=== PATIENT | female | born 1975 | race Caucasian/White ===

== ENCOUNTER 2022-03-12 10:56 | Outpatient (CLI) | payer MEDICARE, MEDICAID, SELFPAY | END 2022-03-12 10:57 | disposition home or self-care (01) | LOC: FBOREF 10:58 | PROVIDERS: PCP Family Medicine; Visit Provider Family Medicine | DX: Z30.433 Encounter for removal and reinsertion of intrauterine contraceptive device (principal) | CPT/HCPCS: 87624; 88174; 88175 ==

== ENCOUNTER 2022-04-21 15:36 | Emergency (ER) | payer MEDICARE, MEDICAID, SELFPAY ==
[2022-04-21 15:45] VITALS: BP 125/85; PULSE 70; RESP 18; TEMP 36.3; O2SAT 96; BMI 32.5
--- NOTE | 2022-04-21 16:48 | ED_ITS ---
HPI - General Adult General Date Seen: 04/21/22 Chief complaint: Post Op Complication Stated complaint: Dental surgery today now in pain Time Seen by Provider: 04/21/22 16:41 Source: patient History of Present Illness HPI narrative: Patient is a 46-year-old woman who had dental surgery today, so she has multiple teeth that were pulled. She says her dentist provided her with a prescription for aquatic pain medication, but because of her insurance, she is not able to get narcotic prescriptions filled by a different provider then her normal doctor, Dr. Aguila. She says that she did call her insurance to trying get this straightened out that they need to talk with her dentist, and the dentist office was closed by the time that she had this conversation with Cameron. She is asking for something to take for tonight until she can get this straightened out with them tomorrow. Review of her prescription use shows that she feels regularly lorazepam, tramadol and gabapentin but does not otherwise have prescriptions outside of her usual dosing with Dr. Aguila. Related Data Home Medications Medication Instructions Recorded Confirmed aripiprazole 15 mg tablet 15 mg PO .Bedtime 02/23/22 03/12/22 dulaglutide 0.75 mg/0.5 mL 1.5 mg subcut .One Day Per Week 02/23/22 03/12/22 subcutaneous pen injector duloxetine 30 mg capsule,delayed 30 mg PO DAILY 02/23/22 03/12/22 release duloxetine 60 mg capsule,delayed 60 mg PO DAILY 02/23/22 03/12/22 release escitalopram oxalate 20 mg tablet 20 mg PO DAILY 02/23/22 03/12/22 levonorgestrel 20 mcg/24 hours (7 1 intrauterine ONCE 02/23/22 03/12/22 yrs) 52 mg intrauterine device lisinopril 40 mg tablet 40 mg PO DAILY 02/23/22 03/12/22 prochlorperazine maleate 10 mg 10 mg PO PRN 02/23/22 03/12/22 tablet topiramate 200 mg tablet 200 mg PO QDAY 02/23/22 03/12/22 trazodone 100 mg tablet 300 mg PO .bedtime PRN 02/23/22 03/12/22 verapamil 120 mg tablet,extended 120 mg PO BID 02/23/22 03/12/22 release olopatadine 0.2 % eye drops 1 drp ophthalmic (eye) DAILY PRN 03/12/22 03/12/22 Previous Rx's Medication Instructions Recorded flash glucose scanning reader #1 ea 02/23/22 (FreeStyle [place] 2 [place]) flash glucose sensor (FreeStyle #6 ea 02/23/22 Spencer 14 Day Sensor kit) tizanidine 4 mg tablet 4 mg PO Q6-8H PRN muscle 02/23/22 spasticity #90 tabs tramadol 50 mg tablet 50 mg PO TID PRN pain #90 tabs 02/23/22 lorazepam 1 mg tablet 1 mg PO TID PRN anxiety #90 tabs 03/16/22 metoprolol succinate 200 mg 200 mg PO DAILY #90 tabs 03/16/22 tablet,extended release 24 hr buspirone 10 mg tablet 10 mg PO TID PRN anxiety #90 tabs 04/13/22 pregabalin 75 mg capsule 75 mg PO BID #60 caps 04/13/22 Allergies Allergy/AdvReac Type Severity Reaction Status Date / Time dexamethasone Allergy Intermediate Rash Verified 03/12/22 10:09 haloperidol Allergy Intermediate Rash Verified 03/12/22 10:09 sumatriptan Allergy Intermediate Rash Verified 03/12/22 10:09 olanzapine Allergy Mild Rash Verified 03/12/22 10:09 sertraline Allergy Unknown Hallucinati Verified 03/12/22 10:09 [facility] Medical History (Updated 03/11/22 @ 00:58 by Umer Aguila MD) Acquired female bladder prolapse Borderline personality disorder Chronic low back pain Chronic pain syndrome Generalized anxiety disorder History of traumatic brain injury Hyperlipidemia Hypertension Insomnia Irritable bowel syndrome with both constipation and diarrhea Migraine headache Moderate episode of recurrent major depressive disorder (05/09/10) Opioid dependence Panic disorder with agoraphobia (08/13/16) Posttraumatic stress disorder Type 2 diabetes mellitus without complication Vitamin D deficiency (12/06/10) Surgical History (Updated 02/20/22 @ 10:53 by Stu Paredes) History of cystoscopy (08/07/09) History of laparoscopic cholecystectomy (12/14/06) History of left oophorectomy (10/10/09) Family History (Updated 02/20/22 @ 10:51 by Stu Paredes) Father Liver cancer Type 2 diabetes mellitus Social History (Updated 02/20/22 @ 10:51 by Stu Paredes) Narrative: , 2 sons Non-smoker Social EtOH Smoking Status: Never smoker How often do you have a drink containing alcohol: never AUDIT-C Alcohol total score: 0 Non-prescribed substance use: denies use Exam Narrative: Exam Narrative: Vital signs reviewed In general, an alert, nontoxic limit. ENT: Recent dental surgery, moderate swelling, bleeding controlled. Neck: Supple. No stridor. Skin: Warm and dry. Well perfused. Const: Vital Signs, click to edit/add: Vital Signs - 24 hr 04/21/22 15:45 Temperature 97.3 F L Pulse Rate [Right Pulse Oximeter] 70 Respiratory Rate 18 Blood Pressure [Ri ght Upper Arm] 125/85 Pulse Oximetry 96 Oxygen Delivery Me thod Room Air Documenting provider has reviewed patient's vital signs: yes Course Course Hospital Course: In review of her records, I think it is reasonable to give her a few Vicodin for tonight. She understands that further medications will need to either come from the dentist or from Dr. Aguial. I gave her 4 Vicodin from [facility]. Vital Signs Vital signs: Initial Vital Signs Temperature 97.3 F L 04/21/22 15:45 Temperature Source Temporal Artery Scan 04/21/22 15:45 Pulse Rate 70 04/21/22 15:45 Respiratory Rate 18 04/21/22 15:45 Blood Pressure 125/85 04/21/22 15:45 Blood Pressure Mean 98 04/21/22 15:45 Blood Pressure Position Sitting 04/21/22 15:45 Pulse Oximetry 96 04/21/22 15:45 Oxygen Delivery Method 04/21/22 15:45 Vital Signs Temperature 97.3 F L 04/21/22 15:45 Pulse Rate 70 04/21/22 15:45 Respiratory Rate 18 04/21/22 15:45 Blood Pressure 125/85 04/21/22 15:45 Pulse Oximetry 96 04/21/22 15:45 Oxygen Delivery Method 04/21/22 15:45 Temperature 97.3 F L 04/21/22 15:45 Pulse Rate 70 04/21/22 15:45 Respiratory Rate 18 04/21/22 15:45 Blood Pressure 125/85 04/21/22 15:45 Pulse Oximetry 96 04/21/22 15:45 Oxygen Delivery Method 04/21/22 15:45 Discharge Plan Discharge Prescriptions: No Action topiramate 200 mg tablet 200 mg PO QDAY levonorgestrel 20 mcg/24 hours (7 yrs) 52 mg intrauterine device 1 intrauterine ONCE trazodone 100 mg tablet 300 mg PO .bedtime PRN duloxetine 30 mg capsule,delayed release(DR/EC) 30 mg PO DAILY Rx Instructions: TOTAL OF 90 MG escitalopram oxalate 20 mg tablet 20 mg PO DAILY verapamil 120 mg tablet extended release 120 mg PO BID dulaglutide 0.75 mg/0.5 mL pen injector 1.5 mg subcut .One Day Per Week lisinopril 40 mg tablet 40 mg PO DAILY prochlorperazine maleate 10 mg tablet 10 mg PO PRN duloxetine 60 mg capsule,delayed release(DR/EC) 60 mg PO DAILY Rx Instructions: TOTAL OF 90 MG aripiprazole 15 mg tablet 15 mg PO .Bedtime tizanidine 4 mg tablet 4 mg PO Q6-8H PRN (Reason: muscle spasticity) Qty: 90 1RF tramadol 50 mg tablet 50 mg PO TID PRN (Reason: pain) Qty: 90 0RF (DME) FreeStyle [place] 2 [place] Misc See Rx Instructions .Route Qty: 1 0RF Rx Instructions: As directed (DME) FreeStyle Spencer 14 Day Sensor Kit See Rx Instructions .Route Qty: 6 1RF Rx Instructions: Change every 2 weeks olopatadine 0.2 % drops 1 drp ophthalmic (eye) DAILY PRN metoprolol succinate 200 mg tablet extended release 24 hr 200 mg PO DAILY Qty: 90 3RF lorazepam 1 mg tablet 1 mg PO TID PRN (Reason: anxiety) Qty: 90 2RF buspirone 10 mg tablet 10 mg PO TID PRN (Reason: anxiety) Qty: 90 1RF pregabalin 75 mg capsule 75 mg PO BID Qty: 60 2RF Follow Up/Referrals: Umer Aguila MD [Primary Care Provider] -
[2022-04-21 16:50] VITALS: BP 139/92; PULSE 74; RESP 16; TEMP 36.4; O2SAT 97
--- OUTSIDE RECORDS SUMMARY | 2022-04-21 17:04 | XMS_ITS | Encounter Summary ---
:1975 Author Organization [facility] Address [address] [place] [id number] Care Team Providers Name Role Phone Elsewhere, Pcp Primary Care Provider Unavailable Encounter Details Date Type Department Care Team Description 11/15/2020 Orders Only [facility] PCP [facility] Sa ilya Aranda M.D. [address] [place], [place] [phone] (Wo rk) Social History Tobacco Use Types Packs/Day Years Used Date Smoking Tobacco: Never Smokeless Tobacco: Never Alcohol Use Standard Drinks/Week Comments Yes 0 (1 standard drink = 0.6 oz pure alcoho l) very little Alcohol Habits Answer Date Recorded How often do you have a drink containing alcohol? Monthly or less 08/21/2019 How many drinks containing alcohol do you have on a 1 or 2 08/21/2019 typical day when you are drinking? How often do you have six or more drinks on one Not asked occasion? Comment: very little 10/26/2018 Sex Assigned at Date Recorded Female 10/26/2018 1:31 PM CDT documented as of this encounter Plan of Treatment Not on filedocumented as of this encounter Visit Diagnoses Not on filedocumented in this encounter Additional Health Concerns Assessment Noted Time PHQ-9 Depression Total Score: 12 08/25/2018 3:00 PM CS T documented as of this encounter Care Teams Foreign Student Adviser Relationship Specialty Start Date End Date Elsewhere, Pcp PCP - General Internal Medicine 01/16/20 documented as of this encounter
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
--- OUTSIDE RECORDS SUMMARY | 2022-04-21 17:04 | XMS_ITS | Clinical Summary ---
:1975 Author Organization [facility] [place] [address] Care Team Providers Name Role Phone Umer Aguila MD Primary Care Provider [phone] Allergies Active Allergy Reactions Severity Noted Date Comments Adhesive Tape-Silicones Itching Low 01/11/2020 Dexamethasone Rash, Hives 04/17/2011 Haloperidol Tachycardia, Hives 05/26/2007 Sumatriptan Headache, Hives 10/14/2006 Sertraline Hallucinations 01/02/2019 Olanzapine *Unknown - Pt Doesn't Remember 03/23/2018 Medications Medication Sig Dispensed Refills Start Date End Date Status DULoxetine (CYMBALTA) Take 1 capsule by 120 capsule 0 05/20/20 18 Active 60 mg Delayed-release mouth 2 times capsuleIndications: daily. Borderline personality disorder (HC), Generalized anxiety disorder, Major depressive disorder, recurrent episode, moderate (HC) acetaminophen Take 1,000 mg by 0 07/05/2018 Active (TYLENOL EXTRA mouth. STRGTH) 500 mg tablet ibuprofen (ADVIL; Take 400 mg by 0 Active MOTRIN) 200 mg tablet mouth. DULoxetine (CYMBALTA) 0 12/19/2018 Active 30 mg Delayed-release capsule lisinopril (PRINIVIL; 0 11/21/2018 Active ZESTRIL) 40 mg tablet LORazepam (ATIVAN) Take 1 mg by 0 10/22/2018 Active 0.5 mg tab mouth 3 times daily. tiZANidine (ZANAFLEX) Take 1 tablet by 90 tablet 6 01/02/2019 Active 4 mg mouth every 8 tabletIndications: hours if needed Chronic bilateral low for Muscle Spasm. back pain without sciatica ondansetron (ZOFRAN) Take 1 tablet by 40 tablet 2 01/02/2019 Active 8 mg mouth every 8 tabletIndications: hours if needed Nausea and vomiting, for intractability of Nausea/Vomiting. vomiting not specified, unspecified vomiting type metoclopramide HCl Take 1 tablet by 20 tablet 0 05/28/2019 Active (REGLAN) 10 mg mouth every 6 tabletIndications: hours if needed Nonintractable for headache, unspecified Nausea/Vomiting chronicity pattern, (or headache). unspecified headache type topiramate (TOPAMAX) TAKE 1 TABLET BY 180 tablet 0 07/26/2019 Active 50 mg MOUTH TWICE DAILY tabletIndications: Migraine without aura and without status migrainosus, not intractable meloxicam 15 mg Take 1 tablet by 30 tablet 2 08/04/2019 Active tabletIndications: mouth once daily. Lumbar radiculopathy promethazine Take 1 tablet by 3 tablet 0 08/12/2019 Active (PHENERGAN) 25 mg mouth every 6 tabletIndications: hours if needed Intractable migraine for without status Nausea/Vomiting migrainosus, for up to 3 unspecified migraine doses. type ondansetron (ZOFRAN Place 1 tablet on 10 tablet 0 11/06/2019 Active ODT) 4 mg the tongue every disintegrating 8 hours if needed tabletIndications: for Other migraine Nausea/Vomiting. without status migrainosus, not intractable metoclopramide HCl Take 1 tablet by 20 tablet 0 12/01/2019 Active (REGLAN) 10 mg mouth every 6 tabletIndications: hours if needed Migraine with aura for Other and without status (Specify) migrainosus, not (headache). intractable busPIRone (BUSPAR) 10 Take 10 mg by 0 02/29/2020 Active mg tablet mouth 3 times daily if needed. FOR ANXIETY SUBOXONE 2-0.[address] 1 STRIP 0 11/16/2019 Active sublingual UNDER THE TONGUE TWICE DAILY ALLOW TO DISSOLVE SLOWLY IN MOUTH WITHOUT CHEWING OR SWALLOWING buprenorphine-naloxon PLACE 1 TABLET 0 02/28/2020 Active e, 2 mg-0.5 mg, UNDER THE TONGUE (SUBOXONE) sublingual THREE TIMES DAILY tablet ALLOW TO DISSOLVE SLOWLY IN MOUTH WITHOUT CHEWING OR SWALLOWING trazodone HCl Take by mouth. 0 A ctive (TRAZODONE ORAL) fluticasone (50 mcg Inhale 1 [place] 1 Bottle 0 12/10/2020 Active per actuation) nasal into affected solution nostril(s) once (FLONASE)Indications: daily. Sinus congestion loratadine (CLARITIN) Take 1 Tablet (10 30 Tablet 0 12/10/2020 Active 10 mg mg) by mouth once tabletIndications: daily. Sinus congestion eletriptan (RELPAX) Take 1 Tablet (40 6 tablet. 1 01/13/2021 Active 40 mg mg) by mouth 2 tabletIndications: times daily if Other migraine needed for without status Migraine. migrainosus, not intractable azithromycin First dose given 4 Tablet 0 07/17/2021 Active (ZITHROMAX) 250 mg in emergency tabletIndications: department, then Pneumonia due to 250 mg (1 tab) COVID-19 virus daily for days 2-5. benzonatate Take 1 Capsule 12 Capsule 0 07/17/2021 A ctive (TESSALON) 200 mg (200 mg) by mouth capsuleIndications: 3 times daily if Pneumonia due to needed for Cough. COVID-19 virus lidocaine 5 % topical Apply to intact 12 Patch 0 10/08/2021 Active patchIndications: skin to cover Chronic left-sided most painful area low back pain with for max 12hr per left-sided sciatica 24hr period. lidocaine 5 % topical Apply to intact 30 Patch 0 10/17/2021 Active patchIndications: skin to cover Sciatica, unspecified most painful area laterality for max 12hr per 24hr period. miscellaneous medical As directed. 1 Each 0 10/17/2021 Active supply (Blood Monitor your Pressure Cuff) blood pressure miscIndications: daily and record. Hypertension Make sure you are sitting for at least 15 minutes, around the same time of day. Continue with same medications. Follow-up with primary care for further evaluation of your blood pressure. 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 NO FU RTHER NARCOTICS FOR ANY REASON. Umer Aguila MD 09/08/2017 10:42 PM Irritable bowel syndrome with both constipation and di arrhea 08/19/2016 History of nonadherence to medical treatment 6 Migraine with aura and without status migrainosus, not intractable 08/13/2016 Panic disorder with agoraphobia 08/13/2016 PTSD (post-traumatic stress disorder) 07/29/2016 Vitamin D deficiency 12/06/2010 Major depressive disorder, recurrent episode, moderate 05/09/2010 Generalized anxiety disorder 05/09/2010 Narcotic Overuse 10/17/2006 Overview: Suboxone found in her urine 08/27/17 [...] feel is appropriate - ideally without narcotics. Essential hypertension 10/14/2006 Chronic, continuous use of opioids Acute respiratory failure Resolved Problems Problem Noted Date Resolved Date Hypokalemia 04/18/2018 04/28/2018 Metabolic acidosis 04/18/2018 04/28/2018 UTI (urinary tract infection) 04/18/2018 04/28/2018 Obesity (BMI 30.0-34.9) 08/13/2016 11/19/2017 Vitamin B12 deficiency 08/05/2016 08/13/2016 Hypokalemia 08/03/2016 08/13/2016 Bipolar 2 disorder, major depressive episode 07/29/2016 08/13/2016 Controlled substance agreement signed 05/22/2016 Hypertension 07/29/2015 04/28/2018 Migraine without aura and without status migrainosus, not 08/13/2016 intractable Controlled substance agreement signed 12/05/2013 Diabetes mellitus type II 09/25/2012 06/23/2014 Overview: a system change updated this record. Thi s will not affect patient care or billing. This comment can be deleted. Diabetes mellitus type 2, uncontrolled 01/18/2012 0 09/25/2012 Dysthymic disorder 06/19/2011 02/12/2015 Issue of repeat prescriptions 03/18/2011 09/08/2017 Overview: Migraine - taking Percocet Major depressive disorder, recurrent episode, severe, withou t 11/27/2006 12/30/2010 mention of psychotic behavior Depressive disorder, not elsewhere classified 10/17/2006 12/17/2007 Anxiety state, unspecified 10/17/2006 12/30/2010 Unspecified essential hypertension 10/14/200607/29 Panic disorder without agoraphobia 10/14/200608/13 MIGRAINE 10/14/2006 01/04/2015 Overview: OK for 2 ER visits/month for 1 liter IV saline, Norflex 60 mg IV, Phenergan 25 mg IV, and MS 4 mg IV 1-2 doses. Umer Aguila MD 06/23/2014 4:45 PM Encounters Date Type Specialty Care Team Description 03/12/2022 Lab Requisition Umer Aguila MD from Last 3 Months Immunizations Name Administration Dates Next Due Influenza Virus, Unspecified 08/03/2008, 06/14/2007, 005 Influenza, IIV3 (Age 6-35 mos) 06/10/2011 Influenza, IIV3 (Age >=3 years) 05/12/2013, 07/21/2012, 05/17, 08/03/2008, 06/14/2007, 07/01/2005 Influenza, IIV4 05/13/2018, 06/10/2017, 07/07/2016, 06/12/2014 Tdap 04/16/2011 Family History Medical History Relation Name Comments Good Health Brother 2 Diabetes Father Hypertension Father Liver cancer Father Heart Disease Maternal Grandmother Psychiatric illness Mother Diabetes Paternal Grandmother Good Health Sister 2 Relation Name Status Comments Brother 1 Alive HALF Brother 2 Father Alive Maternal Grandfather Maternal Grandmother Mother Alive Paternal Grandfather Paternal Grandmother Alive Sister 1 Alive Sister 2 Son 1 Alive Son 2 Alive Social History Tobacco Use Types Packs/Day Years Used Date Never Smoker Smokeless Tobacco: Never Used Tobacco Cessation: Counseling Given: Yes Alcohol Use Standard Drinks/Week Comments Yes 0 (1 standard drink = 0.6 oz pure Every once and a while; not that alcohol) often. Alcohol Habits Answer Date Recorded How often do you have a drink Not asked containing alcohol? How many drinks containing alcohol do Not asked you have on a typical day when you are drinking? How often do you have six or more Not asked drinks on one occasion? Comment: Every once and a while; not that 2014 often. Sex Assigned at Date Recorded Not on file Obstetrics History Para Term AB IAB SAB Ectopic Multiple Living Live Births 3 2 1 1 2 Date Outcome GA Total Labor/2nd/3rd Weight Sex Delivery Anes PTL Kristin A 1 A5 Name Clin Labor SAB Para Para Last Filed Vital Signs Vital Sign Reading Time Taken Comments Blood Pressure 198/140 10/17/2021 11:00 provider notifi ed; no PM [employer] new orders at th is time. Pulse 108 10/17/2021 11:00 PM [employer] Temperature 36.9 ??C (98.5 ??F) 10/17/2021 10:30 PM [employer] Respiratory Rate 22 10/17/2021 10:30 PM [employer] Oxygen Saturation 94% 10/17/2021 11:00 PM [employer] Inhaled Oxygen - - Concentration Weight 98.4 kg (217 lb) 10/17/2021 10:30 PM [employer] Height 175.3 cm (5' 9) 10/17/2021 10:30 PM [employer] Body Mass Index 32.05 10/17/2021 10:30 PM [employer] Plan of Treatment Health Maintenance Due Date Last Done Comments COVID-19 vaccine series (#1) 02/23/1978 Hepatitis C screening for age 0108/26/1995 18-79 Depression screening for age 12+ 03/07/2020 03/07/2019, 03/2019, 01/02/2019, Additional history exists BMI (ht and wt on same day) for 08/04/2020 08/04/2019, 0703/2019, age 18+ 01/02/2019, Additional history exists Tetanus booster 04/16/2021 04/16/2011 Influenza for age 9-49 04/16/2022 05/13/2018, 06/10/2017, 07/07/2016, Additional history exists Pap test for age 21-65 03/12/2025 03/12/2022, 01/17/2019, 11/01/2012, Additional history exists Tdap Completed 04/16/2011 Procedures Procedure Name Priority Date/Time Associated Diagnosis Comme nts LAB TRACKING EVENT Routine 03/12/2022 10:00 AM CDT CABINET MOUNTER THIN PREP PAP Routine 03/12/2022 10:00 AM Res ults for this SCREEN IMAGED CDT procedure are in the results section. from Last 3 Months Results LAB TRACKING EVENT (03/12/2022 10:00 AM CDT) Specimen Anatomical Collection Method Collection Time Receive d Time (Source) Location / / Volume Laterality Other (Other) Client Collect / 03/12/2022 10:00 2021 9:46 Unknown AM CDT PM CDT Umer Aguila MD LAB BILL ONLY Performing Organization Address City/State/ZIP Code Phon e Number [facility] [address] [place] [address] LABORATORY-CENTRAL 2000 LABORATORY CABINET MOUNTER THIN PREP PAP SCREEN IMAGED (03/12/2022 10:00 AM CDT) Component Value Ref Test Analysis Performed At [facility] Range Method Time Signature Case Report Gynecologic Cytology Report ? Case: [id number] ? 03/30/2022 [facility] Authorizing Provider: ??Umer Morales MD ??Collected: ? 03/12/2022 1000 ? 2:06 PM HEALTH Ordering Location: ? [facility] ?Received: ?03/13/2022 1048 ? CDT [place] BORATORY-C First Screen: ? Shaunna Hernandes ? ENTRAL Pathologist: ? Scottie Currie ? LABORATORY ? MD Aniya ? Specimen: ?CABINET MOUNTER ThinPrep Vial Screening, Cervical/Vaginal ? INTERPRETATI NEGATIVE FOR (none) 03/30/2022 [facility] Arelis ctronically ON/RESULT INTRAEPITHELIAL 2:06 PM HEALTH sign ed by LESION OR CDT LABORATORY-C Scottie Currie MALIGNANCY (NIL) ENTRAL Edw in MD Aniya LABORATORY on 022 at 2:06 PM OTHER Reactive cellular 03/30/2022 [facility] NON-NEOPLAST changes associated 2:06 PM HEALTH IC with CDT LABORATORY-C FINDING(S) inflammation/repai ENTRAL r LABORATORY SPECIMEN Satisfactory for evaluation 03/30/2022 [facility] ADEQUACY Endocervical component present 2:06 PM HEALTH CDT LABORATORY-C ENTRAL LABORATORY HPV REQUEST HPV not requested 03/30/2022 [facility] 2:06 PM HEALTH CDT LABORATORY-C ENTRAL LABORATORY Date of LMP 03/30/2022 [facility] 2:06 PM HEALTH CDT LABORATORY-C ENTRAL LABORATORY Comment: Joce Last Pap Result NIL 03/30/2022 2:06 [facility] PM CDT LABORATORY-CENTRAL LABORATORY Menstrual Status Hormonally 03/30/2022 2:06 [facility] Suppressed PM CDT LABORATORY-CENTRAL LABORATORY Additional 03/30/2022 2:06 [facility] Information PM CDT LABORATORY-CENTRAL LABORATORY Comment: Interpreted at [facility], Central Laboratory - [address], [place] [address] Automated Review Successful 03/30/2022 2:06 PM CDT [facility] LABORATORY-CENTRAL L ABORATORY Comment: Specimen processed successfully by automated auto phone installer device, [employer] System, [employer] Note The pap test is a 03/30/2022 2:06 PM [facility] screening technique, not CDT LABOR ATORY-CENTRAL LABORATORY a diagnostic procedure. It is used primarily to screen for squamous cancers and precursor lesions. Published studies have shown that it is subject to both false negative and false positive results. The pap test should not be used as the sole means to diagnose or exclude pre-malignant and malignant lesions. Specimen Anatomical Collection Method Collection Time Receive d Time (Source) Location / / Volume Laterality Other 03/12/2022 10:00 03/13/2022 (Cervical/Vagina AM CDT 10:48 AM CD T l) Umer Aguila MD PATHOLOGY/CYTOLOGY Performing Organization Address City/State/ZIP Code Phon e Number [facility] [address] [place] [address] LABORATORY-CENTRAL 2000 LABORATORY from Last 3 Months Insurance Payer Benefit Plan / Subscriber ID Effective Dates Phone Addre ss Type Group [employer] 2011-[employer] INS VEHICLE INS t MEDICARE PART B MEDICARE PART B [id number] 2019-Presen ATTN: CLAIMS - HB USE ONLY HB ONLY t [address] [place] [address] [employer]UE [employer]OSS BLUE CROSS OF [id number] 2013-Presen [address] [place] [address] [facility] [id number] 2021-Presen [address] [place] [address] [place] [id number] 2021-Prese [address] [facility] [place] [place] [address] [address] (Home[address] [id number] Maritza Leyva Personal/Family Self 1975 [address]) [address] [id number] Maritza Leyva Motor Vehicle Self 1975 [address] [id number] Maritza Leyva Motor Vehicle Self 1975 [address] [id number] Advance Directives Latest Code Status on File Code Status Date Activated Date Inactivated Comments Full Code 05/09/2018 12:49 AM 05/09/2018 4:01 PM Code Status Discussion: Not Discussed Full Code 04/17/2018 8:28 PM 04/25/2018 4:06 PM Full Code 03/16/2018 8:13 PM 03/31/2018 3:31 PM Full Code 03/14/2018 3:58 PM 03/16/2018 6:57 PM Full Code 02/23/2018 10:24 AM 02/24/2018 3:39 PM Will discus s with pt this am Code Status Discussion: Not Discussed Care Teams Interior Design Professor Relationship Specialty Start Date End Date Umer Aguila MD PCP - General Family Practice 08/12/191999 [place] [address]
--- OUTSIDE RECORDS SUMMARY | 2022-04-21 17:04 | XMS_ITS | Continuity of Care Document ---
:1975 Author Organization [facility] Address [address] [place] [address] [address] Phone Care Team Providers Name Role Phone [facility] Unavailable Unavailable Procedures Procedure Date INJ FORAMEN EPIDURAL L/S INJ FORAMEN EPIDURAL L/S Advance Directives Directive Yes / No Effective Date File Name No Information Encounters Encounter Practice Location Reason(s) Diagnoses Date Provider Provide rs Description For Visit Copied on Encounter [facility] [place] [facility] Information [place] [address] [facility] [address] [place] [address] [address], [place], [place] [facility] [place], [place], [place], [place], [id number], [id number], [id number] [place]. . tel:[phone] tel:[phone] tel:[phone] Family History Family Member Type Diagnosis Age At Onset No Information Payers Payer name Insurance type Covered green party ID Authorization(s ) No Information Social History Type Description Quantity Date Captured Comments Sex Female Smoking Status No Information Chief Complaint And Reason For Visit No Information Reason For Referral Reason For Referral No Information Plan Of Treatment Date Type Action Status No Information History Of Present Illness Encounter Date Complaint History Of Present I llness No Information Functional Status Date Functional Assessment No Information Instructions Date Instruction Additional Informati on No Information Assessments Type Assessment Date No Information Patient Care Teams Name Effective Dates (start - stop) Status M embers No Information
--- OUTSIDE RECORDS SUMMARY | 2022-04-21 17:04 | XMS_ITS | Continuity of Care Document ---
:1975 Author Organization [facility] Address [address] [facility] [place]IREZ [place]z [address] Phone Care Team Providers Name Role Phone Will Deondre CHAPPELL Unavailable Unavailable Allergies, Adverse Reactions, Alerts Substance Reaction Status Criticality HALOPERIDOL LACTATE Rashincreased heart rate Active No Information haloperidol Rashincreased heart rate Active No Info rmation SUMATRIPTAN SUCCINATE Headache Active No Informa tion sumatriptan Headache Active No Information Medications Medication Instructions Dosage Effective Dates Status Comment s (start - stop) aripiprazole 10 mg take 1 tablet by oral 10 MG - Active tablet route every day gabapentin 600 mg take 1 tablet by ORAL 600 MG - Active tablet route 3 times every day duloxetine 60 mg take 1 capsule by ORAL 60 MG - Active capsule,delayed route every day release duloxetine 30 mg take 3 capsule by ORAL 90 MG - Active capsule,delayed route every day release topiramate 50 mg take 1 tablet by oral 50 MG - Active tablet route every day metformin 500 mg take 1 tablet by oral 500 MG - Active tablet route 2 times every day with morning and evening meals metoprolol succinate take 1 tablet by oral 200 MG - Acti ve ER 200 mg route every day tablet,extended release 24 hr lisinopril 20 mg take 1 tablet by oral 20 MG - Active tablet route every day lorazepam 1 mg tablet take 1 tablet by ORAL 1 MG - Act jim route every 8 hours prn, max 3/d tizanidine 4 mg tablet take 1 tablet by ORAL 4 MG - Ac tive route 3 times every day as needed, max 2/day trazodone 100 mg take 1 tablet by ORAL - Active tablet route 3 times per day Procedures Procedure Date INJ FORAMEN EPIDURAL L/S [...] rs Description For Visit Copied on Encounter [facility] No Information [facility] Deondre. Pain [place] 2 [address] [facility], [place], [address] [facility] [place] , [place], [place], [id number] [place], , [place]. [id number] tel: , [place] [phone] tel: [phone] [facility] Radiculopathy, Will Referr [facility] Surgery lumbar region Deondre. Provider: Pain Center [address] [facility], [place], [address] [facility] C[place], , [place], [place], [id number] , [place], [place], [place]. [address]. [id number] tel: tel:01 , [place] [phone] tel: [phone] OFFICE VISIT, [facility] Widespread Chronic migraine Ng liyah Referring [facility] pain (chief without aura, Igor. Eva de león: TELEMEDICINE Pain [place] complaint) intractable, 1 14[address] [facility], without status [facility] [address], [address] [facility] migrainosusFibro [address] [facility] Caleb [place], myalgiaChronic 100, [place], migraine w/o [place] , [place], [place], [place], [place], [address]. [id number] intractable, w [phone] tel: , [place] status , [place]. 406275 tel: migrainosusLong tel: [phone] term (current) [id number] use of opiate analgesicLow back painMyalgia, other siteCervicalgiaR adiculopathy, lumbar region OFFICE VISIT, [facility] Widespread Chronic migraine December- liyah Referring [facility] pain (chief without aura, Igor. Pr ovider: TELEMEDICINE Pain [place] complaint) intractable, 1 1455 [facility], without status [facility] J, [address] migrainosusFibro [address] [place], myalgiaChronic 100, [place], migraine w/o [place] , [place], [place], [place], [place], [address]. [id number] intractable, w [phone] tel: , [place] status , [place]. 060827 tel: migrainosusLong tel: [phone] term (current) [id number] use of opiate analgesicLow back painMyalgia, other siteCervicalgia [facility] Chronic migraine December- [facility] without aura, Igor. Provid er: Pain [place] intractable, 1 1455 Deondre [facility], without status [address], [address] migrainosus [address] [place], 100, [place], [place] , [place], [place], [place], [address]. [phone] tel: , [place] , [place]. 338173 tel: tel: [phone] OFFICE VISIT, [facility] Widespread Chronic migraine Nov- liyah Referring [facility] pain (chief without aura, Igor. Pr ovider: TELEMEDICINE Pain [place] complaint) intractable, 1 14[address] [facility], without status [address], [address] migrainosusFibro [address] [place], myalgiaChronic 100, [place], migraine w/o [place] , [place], [place], [place], [place], [address]. [phone] intractable, w [phone] tel: , [place] status , [place]. 356888 tel: migrainosusLong tel: [phone] term (current) [id number] use of opiate analgesicLow back painMyalgia, other site OFFICE VISIT, [facility] Widespread Chronic migraine Oct- liyah Referring [facility] pain (chief without aura, Igor. Pr ovider: TELEMEDICINE Pain [place] complaint) intractable, 1 1455 [facility], without status [address], [address] [facility] migrainosusFibro 11 [facility] [place], myalgiaChronic 100, [place], migraine w/o [place] , [place], [place], [place], [place], [address]. [phone] intractable, w [phone] tel: , [place] , [place]. 874243 tel: migrainosusLong tel: [phone] term (current) [id number] use of opiate analgesicLow back painMyalgia, other site OFFICE VISIT, [facility] Widespread Chronic migraine Sep- [facility] Referring [facility] pain (chief without aura, Igor. Pr ovider: TELEMEDICINE Pain [place] complaint) intractable, 1 1455 [facility], without status [address], [address] [facility] migrainosusFibro 11 [facility] [place], myalgiaChronic 100, [place], migraine w/o [place] , [place], [place], [place], [place], [address]. [id number] intractable, w [phone] tel: , [place] status , [place]. 196038 tel: migrainosusLong tel: [phone] term (current) [id number] use of opiate analgesicLow back painMyalgia, other site [facility] Chronic migraine Aug-2 [facility] without aura, Igor. Provid er: Pain [place] intractable, 1 1455 Deondre [facility], without status [address], [address] migrainosus [address] [place], 100, [place], [place] , [place], [place], [place], [address]. [phone] tel:+ , [place] , [place]. 464275 tel: tel: [phone] OFFICE VISIT, [facility] Widespread Chronic migraine Jose-0 Ng liyah Referring [facility] pain (chief without aura, Igor. Pr ovider: TELEMEDICINE Pain [place] complaint) intractable, 1 1455 [facility], without status [facility] J, [address] migrainosusChron [address] [place], ic migraine w/o 100, [place], aura, [place] , [place], [place], [place], [address]. [phone] status [phone] tel: , [place] migrainosusFibro , [place]. 251517 tel: myalgiaLong term tel: [phone] (current) use of [id number] opiate analgesicLow back painMyalgia, other site OFFICE VISIT, [facility] Widespread Chronic migraine Dec- Lester yen Referring [facility] pain (chief without aura, Igor. Provid er: TELEMEDICINE Pain complaint) intractable, 0 1455 [facility], without status [facility] J, [address] migrainosusChron [address] [place], ic migraine w/o 100, [place], aura, [place] , [place], [place], int[place], [place], [address]. [id number] status [phone] tel: , [place] [facility] , [place]. 133994 tel: myalgiaLong term tel: [phone] (current) use of [id number] opiate analgesicLow back painMyalgia, other site OFFICE VISIT, [facility] Widespread Chronic migraine Ng liyah Referring [facility] pain (chief without aura, Igor. Pr ovider: TELEMEDICINE Pain [place] complaint) intractable, 0 1455 [facility], without status [address] [place], [address] migrainosusChron 11 [facility], ic migraine w/o 100, Clinic - [place], aura, [place], intractable, w [place], [id number] status [id number] [facility], , [facility] , . [place], tel:+ myalgia[place] term tel:+ [place], [phone]. [phone] (current) use of [id number] tel:+ [phone] opiate [id number] analgesicLow back painMyalgia, other siteMyalgia of auxiliary muscles, head and neck OFFICE/OUTPAT [facility] Widespread Chronic migraine liyah Referring IENT [facility] pain (chief without aura, Igor . Provider: EST Pain [place] complaint) intractable, 0 1455 [facility], without status [address] [place], [address] migrainosusChron 11 [facility], ic migraine w/o 100, Clinic - [place], aura, [place], intractable, w e, [id number] status [id number] [facility], , [facility] , . [place], tel:+ myalgia[place] term tel:+ [place], [address]. [phone] (current) use of [id number] tel:+ [phone] opiate 192430 analgesicLow back painMyalgia, other siteMyalgia of auxiliary muscles, head and neck [facility] Chronic migraine Sep-2 Duong Ref [facility] without aura, Igor. Provid er: Pain [place] intractable, 0 1455 [facility], without status [address] [place], [address] migrainosus 11 [facility], 100, Clinic - [place], [place], e, [place] [id number] [facility], , [place] , [place]. [place], tel: tel:+ [place], [phone]. [phone] tel: [phone] OFFICE/OUTPAT [facility] Widespread Chronic migraine liyah Referring IENT VISIT, [facility] pain (chief w/o aura, Igor. Pr ovider: EST Pain [place] complaint) intractable, w/o 0 1455 [facility], [facility], [address] migraine w/o [address] [place], aura, 100, Clinic - [place], intractable, w Escobar[place] [facility], status e, [place] [id number] migrainosusLow [phone] [facility] , , back , [place]. [place], tel: painFibromyalgia tel:+ [place], [phone]. 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 Pr ovider: EST Pain [place] complaint) intractable, w/o 0 1455 [facility], [facility], [address] migraine w/o [address] [place], aura, 100, Clinic - [place], intractable, w Daniella [place] [facility], status e, [id number] migrainosusLow [id number] [facility] , , back , [place]. [place], tel:+ painFibromyalgia tel:+ [place], [address]. [phone] penitentiary [phone] tel:[phone] (current) use of [id number] opiate analgesicMyalgia , other site OFFICE VISIT, [facility] Widespread Chronic migraine Lester yen Referring [facility] pain (chief w/o aura, Igor. Provider: TELEMEDICINE Pain complaint) intractable, w/o 0 1455 [facility], [facility], [address] migraine w/o [address] [facility] Caleb, aura, 100, Clinic - [place], intractable, w [facility], status e, [place], [id number] migrainosusLow [id number] [facility] , back , [place]. [place], tel:+ pain[place]:+ [place], [address]. [phone] penitentiary [phone] tel:73 (current) use of 169288 opiate analgesic [facility] Chronic migraine Paolo[facility] w/o aura, Igor. Provider: Pain [place] intractable, w/o 0 1455 Milton [facility]azan [facility], [facility], [address] 11 [facility], 100, Clinic - [place], Daniella Sam [place], [place], [place], [id number] [id number] [facility], , [place] , [place], tel:+ tel:+ [place], [phone]. [phone] tel:[phone] OFFICE VISIT, [facility] Widespread Chronic migraine Jan- [facility] pain (chief w/o aura, Igor. Provider: TELEMEDICINE Pain complaint) intractable, w 0 1455 [facility], [facility] [address], [address] migrainosusLow [address] [facility] La ne, [place], back 100, [place], painFibromyalgia [place], [place], [place], [place], [address]. [phone] (current) use of [id number] tel : , [place] opiate analgesic , [place]. 428910 tel: tel: [phone] OFFICE VISIT, [facility] Widespread penitentiary December- Duong Re [facility] pain (chief (current) use of Igor. Pro vider: TELEMEDICINE Pain complaint) opiate 0 1455 Deondre [facility], [facility], [address] back [address] Caleb, [place], painFibromyalgia 100, [facility] ol [place], Chronic migraine [place] , [place], [place], w/[place], [place], [address]. [phone] intractable, w [id number] tel: , status , [place]. 409298 tel: migrainosus tel: [phone] OFFICE VISIT, [facility] Widespread Chronic migraine Apr- Lester yen Referring [facility] pain (chief w/o aura, Igor. Provider: TELEMEDICINE Pain complaint) intractable, w 0 1455 A [facility], [place], [facility], [address] migrainosusLow [address] [place], [place], back 100, [place], painFibromyalgia [place] , [place], [place], [place], [address]. [phone] (current) use of [id number] tel : , opiate analgesic , [place]. 239745 tel: tel: [phone] OFFICE VISIT, [facility] Widespread Chronic migraine Apr-0 Lester yen Referring [facility] pain (chief w/o aura, Igor. Provider: TELEMEDICINE Pain complaint) intractable, w 0 1455 D amari [facility], [facility], [address] migrainosusLow [address] [facility], back 100, Clinic - [place], painFibromyalgia [place], Chronic pain [place], [place], [id number] syndromeLo [id number] [facility] , term (current) , [place]. [place] , tel: use of opiate tel: [place], [phone]. [phone] analgesic [phone] tel:+ [phone] OFFICE/OUTPAT [facility] Widespread Chronic migraine Oct-2 Ng liyah Referring IENT VISIT, [facility] pain (chief w/o aura, Igor. Pr ovider: NEW Pain [place] complaint) intractable, w 0 1455 Eitan Bazan [facility], [facility], [address] migrainosusLow [address] [facility], back 100, Clinic - [place], painFibromyalgia [place], Encounter for [place], [place], [address] [phone] screening for [id number] [facility], , other , [place]. [place], tel: disorderOther tel: [place], [phone]. [phone] mcfp [phone] tel:73 (current) drug [id number] therapyEncounter for therapeutic drug level monitoringMyalgi a, other siteLong term (current) use of opiate analgesic [facility] No Information [facility] Deondre. Pain [place] [address] [facility], [place], [address] [place], [place], [place], [place], [id number] [place], , [place]. [id number] tel: , [place] [phone] tel: [phone] Family History Family Member Type Diagnosis Age At Onset Mother Problem (finding) back pain Payers Payer name Insurance type Covered constitution party ID Authorization(s ) No Information Social History Type Description Quantity Date Captured Comments Sex Female Smoking Status No Information Chief Complaint And Reason For Visit No Information Reason For Referral Reason For Referral No Information Plan Of Treatment Date Type Action Status Goal Order Annual PT. Due on 021 due Goal ALT (SGPT). Due on d ue Goal SAWYER HELPER Paperwork. Due on due Goal UDT. Due on due Goal SEISMIC PROSPECTING OBSERVER Scanned. Due on due Goal AST (SGOT). Due on d ue Goal Creatinine. Due on d ue Goal OARS. Due on due Goal PHQ-9. Due on due Goal Tobacco Use. Due on due Goal Update Social History. Due on du e Goal Height. Due on due Goal Weight. Due on due Goal Medication Reconciliation. Due o n due Goal Review Allergy List. Due on due Goal AST (SGOT). Due on d ue Goal Creatinine. Due on d ue Goal OARS. Due on due Goal PHQ-9. Due on due Goal Tobacco Use. Due on due Goal Update Social History. Due on du Goal Height. Due on due Goal Weight. Due on due Goal Medication Reconciliation. Due o n due Goal Review Allergy List. Due on due Goal SEISMIC PROSPECTING OBSERVER Scanned. Due on due Goal UDT. Due on due Goal SAWYER HELPER Paperwork. Due on due Goal ALT (SGPT). Due on d ue Goal Order Annual PT. Due on due Goal SEISMIC PROSPECTING OBSERVER Scanned. Due on due Goal UDT. Due on due Goal SAWYER HELPER Paperwork. Due on due Goal ALT (SGPT). Due on d ue Goal Order Annual PT. Due on due Goal Review Allergy List. Due on due Goal Medication Reconciliation. Due o n due Goal Weight. Due on due Goal Height. Due on due Goal Update Social History. Due on du e Goal Tobacco Use. Due on due Goal PHQ-9. Due on due Goal OARS. Due on due Goal Creatinine. Due on d ue Goal AST (SGOT). Due on d ue Future Order: Radiology Order MRI Lumbar Spine W /O Dye ([id number]), Ordered Ordered on: Future Order: Radiology Order MRI Cervical Spine W/O Dye Ordered ([id number]), Ordered on: Future Order: Lab Order Drug Test Def [address]+ Cl[address] s (G0483), Ordered Ordered on: Future Order: Lab Order Toxicology Preliminary P aurelia Sent (2100), Sent on: History Of Present Illness Encounter Date Complaint History Of Present I llness Widespread pain (comments) Maritza is her e for follow-up and medication refills. Ongoing wid espread pain persists, tolerable with medic ation. Pain has been relatively stable. S he requests to review cervical and lumbar imaging. She would like to move forward with lumbar JEANNA as recommended. She est ablished care with [facility]. Notes acupuncture was helpful but did not last long. The current medication regimen c ontinues to provide significant relief a nd she requests a refill. Reports curr ent medication regimen provides at least 50 % pain relief. Denies side effects from cu rrent medication regimen. No other co ncerns today. Widespread pain Severity level is 7. Duration: chronic. Location of the pain is lower back, mid back and upper back. The patient describes it as sharp, achy an d burning. It occurs persistently. The pr oblem is stable. Symptom is aggravate d by bending, walking upstairs, walking do wnstairs and standing. Relieving factors in clude rest, heat, cold and Rx Meds. Pertine nt negatives include diarrhea, fatigue, f ever and incontinence (urinary). Widespread pain (comments) Maritza is her e for follow-up and medication refills. She present s with widespread pain and migraines. Pain has been relatively stable. Botox admini stered earlier this month continue to pr ovide significant pain relief. Her low back has been more bothersome lately. S he is interested in a lumbar MRI. She is a lso interested in a chiropractic referra l. Requests a refill of her current medicati on regimen.Reports current medication r egimen provides at least 50% pain relie f. Denies side effects from current medicat ion regimen. No other concerns today. Widespread pain Severity level is 7. Location of the pain is lower back. The p atient describes it as sharp, achy and burn ing. It occurs persistently. The pr oblem is stable. Symptom is aggravate d by bending, walking upstairs, walking do wnstairs and standing. Relieving factors in clude rest and heat. Widespread pain Severity level is 6. Duration: chronic. Location of the pain is lower back and migraines. The patie nt describes it as achy and tingling. It occ urs persistently. The problem is stable. S ymptom is aggravated by bending, walking ups tairs, walking downstairs and stand ing. Pertinent negatives include di arrhea, fatigue, fever and incontinence (ur inary). Widespread pain (comments) Maritza is her e for follow-up and medication refills. She returns with widespread pain and migraines. Pain has been relatively stable with occasion al flares related to moving apartment uni . She has been taking her Suboxone as need ed. Migraines have been slightly worse so e plans to schedule Botox injections. e requests a refill of Suboxone as it shaun nues to provide significant pain rel ief. Reports current medication regimen p rovides at least 50% pain relief. Denies side effects from current medication r egimen. No other concerns today. Widespread pain (comments) Maritza is her e for follow-up and medication refills. She present s with widespread pain and chronic migraine s. Pain has been stable with occasional flar es. She has been self-tapering Suboxo ne as tolerated. She would interested in a lumbar MRI in the future. She is inter ested in TPIs next month. Requests a re fill of her current medication regimen.R eports current medication regimen p rovides at least 50% pain relief. Denies side effects from current medication r egimen. No other concerns today. Widespread pain Severity level is 6. Duration: chronic. Location of the pain is head and neck. It occurs persistently. The problem is stable. Symptom is aggravate d by bending, walking upstairs, walking do wnstairs and standing. Relieving factors in clude rest, heat, cold and Rx Meds. Widespread pain Severity level is 5. Duration: chronic. Location of the pain is head. The patient describes it as jason p, achy and burning. It occurs persistently. The problem is stable. Symptom is aggravate d by bending, walking upstairs, walking do wnstairs and standing. Relieving factors in clude rest, cold and changing. Widespread pain (comments) Maritza is her e for virtual follow-up and medication refills. She presents with widespread pain and chronic migraines. Pain has been fluctuating . She presents 1 day short on Suboxone. S he explains if she vomits up her medica tion during a migraine she will take anothe r tablet to make up. She understands she will need to be more mindful of her medic ation count. Botox injections completed on 09/06 continue to provide significant relief.Reports current medication regimen p rovides at least 50% pain relief. Denies side effects from current medication r egimen. No other concerns today. Widespread pain Severity level is 8. Location of the pain is migraines. It occ urs persistently. The problem is worsening . Symptom is aggravated by bending, walking upstairs, walking downstairs, standing , walking and supine. Relieving factors in clude changing positions, ice and l marco antonio down. Widespread pain (comments) Maritza is her e for virtual follow-up and medication refills. She c/o chronic migraines and low ba ck pain. Pain has been slightly worse as he r low back pain has been become more not iceable. Migraines have been relatively stab le. She is looking forward to Botox inj ections on 08/30. Requests a refill of her current medication regimen as it allows her to complete her ADLs. Reports curren t medication regimen provides at least 50 % pain relief. Denies side effects from cu rrent medication regimen. No other co ncerns today. Widespread pain (comments) Maritza is her e for follow-up and medication refills. She returns with chronic low back pain and persistent headaches. She had a severe migraine yest erday so she is experiencing a resid ual headache today. Her back and neck have b een stiff and she requests repeat TPIs next OV. She plans on scheduling Botox inj ections next month. She would like to contin ue with the current medication regimen. Reports current medication regimen p rovides at least 50% pain relief. Denies side effects from current medication r egimen. No other concerns today. Widespread pain Duration: chronic. L ocation of the pain is headache and low dioni k. The patient describes it as jason p, achy and burning. It occurs persistently. The problem is stable. Symptom is aggravate d by bending, walking upstairs, walking do wnstairs and standing. Relieving factors in clude rest, heat, cold and Rx Meds. Pertine nt negatives include diarrhea, fatigue, f ever and incontinence (urinary). Widespread pain (comments) Rosette is here for follow-up and medication refills. She present s with widespread pain most bothersome L lo wer back. Migraines have been stable. Pa in has been stable throughout the month besides getting a stomach bug last wee k. She would like to continue with the cu rrent medication regimen. Reports cur rent medication regimen provides at least 50 % pain relief. Denies side effects from cu rrent medication regimen. No other co ncerns today. Widespread pain Duration: chronic. L ocation of the pain is migraines and widesp read. The patient describes it as jason p, achy and burning. It occurs persistently. The problem is stable. Symptom is aggravate d by bending, walking upstairs, walking do wnstairs, sitting and standing. Relieving factors include rest, heat and cold. Widespread pain Duration: chronic. L ocation of the pain is lower back, neck and head. The patient describes it as jason p, achy and tingling. It occurs persistent ly. The problem is worsening. Symptom i s aggravated by bending, walking ups tairs, walking downstairs and house work. Relieving factors include rest, cold, Rx Meds and lying down. Pertinent negatives include diarrhea, fatigue, fever and i ncontinence (urinary). Widespread pain (comments) Patient is he re for follow-up and medication refills. She presents with widespread pain and reoccurring migraines. Botox injections adm inistered on 05/14 has provided significant pain relief. Pain is most noticeable in B L upper trapezes. She requests repeat TPIs today as they have been beneficial in t he past. Reports current medication r egimen provides at least 50% pain relie f. Denies side effects from current medicat ion regimen. No other concerns today. Widespread pain

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
--- OUTSIDE RECORDS SUMMARY | 2022-04-21 17:04 | XMS_ITS | Encounter Summary ---
:1975 Author Organization [facility] Address [address] [place] [address] Care Team Providers Name Role Phone Elsewhere, Pcp Primary Care Provider Unavailable Encounter Details Date Type Department Care Team Description 01/31/2020 Clinical Communication Section of Infectious Steve Menjivar, Diseases in [place], [place] [address] [facility] [address] [place] [id number] [phone] Social History Tobacco Use Types Packs/Day Years [...] PM CDT documented as of this encounter Miscellaneous Notes Telephone Encounter - Shanell Menjivar R.N. - 01/31/2020 1:43 PM CDT A special team is reaching out to patients who were hospitalized 2-3 weeks ago to see if they wouldbe open to answering a brief questionnaire related to COVID- 19. On review, she has not had anew new symptoms of COVID-19. Her headaches are migraine related, and these ae the same as before hospitalization. documented in this encounter Plan of Treatment Not on filedocumented as of this encounter Visit Diagnoses Not on filedocumented in this encounter Additional Health Concerns Assessment Noted Time PHQ-9 Depression Total Score: 12 08/25/2018 3:00 PM CS T documented as of this encounter Care Teams Microfilm Machine Operator Relationship Specialty Start Date End Date Elsewhere, Pcp PCP - General Internal Medicine 01/16/20 documented as of this encounter
--- OUTSIDE RECORDS SUMMARY | 2022-04-21 17:05 | XMS_ITS | Encounter Summary ---
:1975 Author Organization [facility] Address [address] [place] [address] Care Team Providers Name Role Phone Igor Btuterfield M.D. Primary Care Provider Encounter Details Date Type Department Care Team Description 01/15/2020 Orders Only [facility] PCP [facility] Igor Butterfield D iabetes Mellitus Type M.DMadeleine 2 Without Complication [address] ([facility]) [place], [place] [address] Social History Tobacco Use Types Packs/Day Years [...] as of this encounter Plan of Treatment Scheduled Orders Name Type Priority Associated Diagnoses Order S chedule Albumin, Random, Lab Routine Diabetes Mellitus Type 2 Expected: 01/29/2020, Urine Without Complication (HCC) E xpires: 01/14/2023 documented as of this encounter Visit Diagnoses Diagnosis Diabetes Mellitus Type 2 Without Complic ation (HCC) documented in this encounter Additional Health Concerns Assessment Noted Time PHQ-9 Depression Total Score: 12 08/25/2018 3:00 PM CS T documented as of this encounter Care Teams Mc Kay Machine Operator Relationship Specialty Start Date End Date Igor Buttrefield M.D. PCP - General Family Medicine 08/25/18 01/15/20 documented as of this encounter
--- OUTSIDE RECORDS SUMMARY | 2022-04-21 17:05 | XMS_ITS | Encounter Summary ---
:1975 Author Organization [facility] Address [address] [place] [address] Care Team Providers Name Role Phone Igor Costello M.D. Primary Care Provider Encounter Details Date Type Department Care Team Description 10/10/2018 Clinical Communication [place] Department Agapito Costello, of Family Medicine and M.DMadeleine Residency in [place] [address] [address] [place] [address] (Work) [phone] Social History Tobacco Use Types Packs/Day Years Used Date Smoking Tobacco: Never Smokeless Tobacco: Never Alcohol Habits Answer Date Recorded How often do you have a drink containing alcohol? Monthly or less 08/21/2019 How many drinks containing alcohol do you have on a 1 or 2 08/21/2019 typical day when you are drinking? How often do you have six or more drinks on one Not asked occasion? Comment: very little 08/25/2018 Sex Assigned at Date Recorded Female 10/26/2018 1:31 PM CDT documented as of this encounter Miscellaneous Notes Telephone Encounter - Nathalie Schaeffer C.M.A. - 10/11/2018 10:10 AM CONCRETE TESTER Attempted to call [facility] to inform of info below. No answer. Will try again later. RETE TESTER Addendum Note - Igor Costello M.D. - 10/10/2018 4:56 PM CONCRETE TESTER Addended by: IGOR COSTELLO on: 10/10/2018 04:56 PM Modules accepted: Orders RETE TESTER Telephone Encounter - Igor Costello M.D. - 10/10/2018 4:37 PM CST I would like her to see a neurologist for her migraines as her history is quite complex including botox injection in the past along with multiple medications. I see that she was not able to make her neurology appointment previously. If she needs a referral I would be happy to provide that. We can do ashort course for refill for now. Agapito Arredondo RETE TESTER Addendum Note - Odilia Plummer R.MJose Cruz - 10/10/2018 2:22 PM CONCRETE TESTER Addended by: ODILIA PLUMMER on: 10/10/2018 02:22 PM Modules accepted: Orders RETE TESTER Telephone Encounter - Odilia Plummer R.MJose Cruz - 10/10/2018 2:21 PM CST Last visit 08/25/18 Scout No future family medicine visits RETE TESTER Telephone Encounter - Jami Shipman - 10/10/2018 1:48 PM CST [facility] [phone], called because Maritza needs a medication refill on her migraine medication. They would like a call to set something up or talk about a refill. RETE TESTER documented in this encounter Plan of Treatment Not on filedocumented as of this encounter Visit Diagnoses Not on filedocumented in this encounter Additional Health Concerns Assessment Noted Time PHQ-9 Depression Total Score: 12 08/25/2018 3:00 PM CS T documented as of this encounter Care Teams Senior Manufacturing Technician Relationship Specialty Start Date End Date Igor Costello M.D. PCP - General Family Medicine 08/25/18 01/15/20 documented as of this encounter
--- OUTSIDE RECORDS SUMMARY | 2022-04-21 17:05 | XMS_ITS | Encounter Summary ---
:1975 Author Organization [facility] Address [address] [place] [address] Care Team Providers Name Role Phone Igor Butterfield M.D. Primary Care Provider Encounter Details Date Type Department Care Team Description 10/13/2019 Abstract [facility] Provider, Ezequiel gilmore M.D. [address] [place], [place] [address] Social History Tobacco Use Types Packs/Day Years [...] Not on filedocumented as of this encounter Procedures Procedure Name Priority Date/Time Associated Diagnosis Comme nts LIPID PANEL, S Routine 07/03/2019 Results for t his procedure are i n the results section . HEMOGLOBIN A1C, B Routine 07/03/2019 Results fo r this procedure are i n the results section . BASIC METABOLIC PANEL, Routine 07/03/2019 Resul ts for this S/P procedure are i n the results section . documented in this encounter Results Hemoglobin A1c (07/03/2019) P athologist Signature EXT Hemoglobin 6.9 EXTERNAL A1c, B NON-INTERFACED LAB Specimen (Source) Anatomical Location Collection Method / Collectio n Time Received Time / Laterality Volume Blood (Blood, Venous) Ordering Provider External M.D. LAB BLOOD ADD-ON Performing Organization Address [facility] Phon e Number EXTERNAL NON-INTERFACED LAB [address] [place], [place] [address] Basic Metabolic Panel (07/03/2019) athologist Signature EXT BUN (Blood 7 EXTERNAL Urea Nitrogen) NON-INTERFACED LAB EXT Creatinine 0.5 EXTERNAL NON-INTERFACED LAB EXT Glucose 198 EXTERNAL NON-INTERFACED LAB EXT Potassium 4.5 EXTERNAL NON-INTERFACED LAB EXT Sodium 140 EXTERNAL NON-INTERFACED LAB Specimen (Source) Anatomical Location Collection Method / Collectio n Time Received Time / Laterality Volume Blood (Blood, Venous) Ordering Provider External M.D. LAB BLOOD ADD-ON Performing Organization Address [facility] Phon e Number EXTERNAL NON-INTERFACED LAB [address] [place], [place] [address] Lipid Panel (07/03/2019) athologist Signature EXT 162 EXTERNAL Cholesterol, NON-INTERFACED Total, S LAB EXT 89 EXTERNAL Triglycerides, NON-INTERFACED S LAB EXT 57 EXTERNAL Cholesterol, NON-INTERFACED HDL, S LAB EXT 87 EXTERNAL Cholesterol, NON-INTERFACED LDL LAB Specimen (Source) Anatomical Location Collection Method / Collectio n Time Received Time / Laterality Volume Blood (Blood, Venous) Ordering Provider External M.D. LAB BLOOD ADD-ON Performing Organization Address [facility] Phon e Number EXTERNAL NON-INTERFACED LAB [address] [place], [place] [address] documented in this encounter Visit Diagnoses Not on filedocumented in this encounter Additional Health Concerns Assessment Noted Time PHQ-9 Depression Total Score: 12 08/25/2018 3:00 PM CS T documented as of this encounter Care Teams Student Finance Specialist Relationship Specialty Start Date End Date Igor Butterfield M.D. PCP - General Family Medicine 08/25/18 01/15/20 documented as of this encounter
--- OUTSIDE RECORDS SUMMARY | 2022-04-21 17:05 | XMS_ITS | Encounter Summary ---
:1975 Author Organization [facility] Address [address] [place] [address] Care Team Providers Name Role Phone Igor Butterfield M.D. Primary Care Provider Encounter Details Date Type Department Care Team Description 09/19/2018 Orders Only [facility], Chandu Wilson, Family Medicine and D.O. Residency in [place], [facility] [address] [place] [address] [facility] [place] [address] [place] [address] [phone] Social History Tobacco Use Types Packs/Day Years [...] documented as of this encounter Care Teams Digester Cook Relationship Specialty Start Date End Date Igor Butterfield M.D. PCP - General Family Medicine 08/25/18 01/15/20 documented as of this encounter
--- OUTSIDE RECORDS SUMMARY | 2022-04-21 17:05 | XMS_ITS | Encounter Summary ---
:1975 Author Organization [facility] Address [address] [place] [id number] Care Team Providers Name Role Phone Igor Butterfield M.D. Primary Care Provider Reason for Visit Auth/Cert Specialty Diagnoses / Procedures Referred By Contact Refer red To Contact Diagnoses Severe Sepsis With Septic Shock (HCC) Hypotension / Shock Procedures direct Referral ID Status Reason Start Date Expiration Date Visits Requ ested Visits Authorized [id number] 1 1 Encounter Details Date Type Department Care Team Description 01/11/2020 - Hospital Encounter [facility] Bobo Joyce M.D. [address] [place] [phone] Severe Sepsis With 01/14/2020 [facility] Damaris Rush M.D. [address] [place] [phone] Septic Shock (HCC) [facility], Ryan Lara M.D. [address] [place] [phone] (Primary Dx) [facility], Fourth Floor [address] [place] [phone] Social History Tobacco Use Types Packs/Day Years [...] Sign Reading Time Taken Comments Blood Pressure 147/90 01/14/2020 12:32 PM CDT Pulse 74 01/14/2020 12:32 PM CDT Temperature 37.2 ??C (99 ??F) 01/14/2020 12:32 PM CDT Respiratory Rate 16 01/14/2020 12:32 PM CDT Oxygen Saturation 97% 01/14/2020 12:32 PM CDT Inhaled Oxygen Concentration - - Weight 91.1 kg (200 lb 13.4 oz) 01/14/2020 8:00 AM CDT Height - - Body Mass Index 29.66 12/24/2019 3:24 PM CDT documented in this encounter Discharge Summaries Ashli Epps P.A.-C., M.S. - 01/14/2020 11:52 AM CDT DISCHARGE SUMMARY BRIEF OVERVIEW Discharge Hospital: Hospital: [facility] Discharge Provider: Damaris Rush M.D. & Ashli Epps PA-C Primary Care Providers: Igor Butterfield M.D. (General) [address] [place] [address] [facility] [address] Discharge Provider Team: [facility] Internal Medicine ([facility]) [facility] Medicine 5 ([facility]) Primary Care Provider Primary Care Provider Admission Date: 01/11/2020 Discharge Date: 01/14/20 PRINCIPAL DIAGNOSIS Shock (HCC) SECONDARY DIAGNOSES Principal Problem: Shock (HCC) Active Problems: Posttraumatic Stress Disorder Brief Chronic Pain Syndrome Borderline Personality Disorder (HCC) Anxiety Generalized Disorder Depression Major Recurrent Moderate (HCC) Debility Hypertension Essential Primary Migraine With Aura Not Intractable Without Status Migrainosus Opioid Moderate Or Severe Use Disorder (Dependence) Uncomplicated (HCC) Diabetes Mellitus Type 2 Without Complication (HCC) DISCHARGE DISPOSITION Home or Self Care [1] ACTIVE ISSUES REQUIRING FOLLOW UP Migraine Recommendations: Assessment: During your hospitalization, several attempts at aborting your migraine were utilized including cocktails of prochlorperazine (Compazine), Benadryl, intravenous fluids, and eletriptan (Relpax). Due to persistence of your migraine, Neurology was curbsided on 01/13/20 and you were administered magnesium sulfate, intravenous fluids, antinausea medications, and valproic acid which proved somewhat successful. Neurology ultimately recommended outpatient follow-up for further management of yourmigraines. In addition after discussion, your psychosocial stressors are certainly correlated with increased migraine frequency and severity. Due to your presentation of low blood pressure and episodesof passing out, this was likely secondary to poor oral intake due to persistent nausea and vomiting from your migraines. Your vital signs stabilized throughout your hospitalization, although you were occasionally hypertensive which correlated with migraine intensity. Plan: ?? Follow-up with outpatient Psychologist as discussed ?? Outpatient Neurology follow-up for your migraines will be facilitated and you will be contacted by our Desk Double Ending Machine Operator (DOS) ?? An appointment with your Family Medicine provider, Dr. Umer Aguila, will be coordinated you will be contacted by our DOS ?? Continue home migraine regimen: Eletriptan (Relpax) 1 tablet every 2 hours for persistent migraines (do not exceed 2 doses per day AND do note exceed 12 doses per month due to risk of stroke); gabapentin twice daily; acetaminophen (Tylenol) 500 mg 2 tabs every 6 hours as needed; ibuprofen 200 mg 2 tabs every 4 hours as needed; tizanidine (Zanaflex) 4 mg three times daily as needed; and buprenorphine-naloxone (Suboxone) 1 tab twice daily ?? If you develop lightheadedness, lose consciousness, or have persistent nausea, vomiting, or migraine, please present to the Emergency Department (ED) for evaluation Hypertension Recommendations: Assessment: Your blood pressure medications were initially held due to hypotension (low blood pressure) upon admission. Your blood pressures normalized and elevated at times likely due to migraine. Plan: ?? Your metoprolol succinate was decreased to 100 mg daily until your follow-up with your PCP ?? Continue lisinopril-HCTZ 20-12.5 mg twice daily Psychiatric Medication Recommendations: Plan: ?? Continue home aripiprazole (Abilify) 10 mg daily ?? Decreased trazodone to 150 mg at night ?? Continue lorazepam (Ativan) 0.5 mg three times daily as needed ?? Continue duloxetine (Cymbalta) 60 mg daily Diabetes Recommendations: Assessment: During your hospitalization, your metformin was briefly held and your blood sugars were monitored. You required insulin at times, but overall your blood sugars were well controlled. Plan: ?? Decreased metformin to 500 mg in the morning until follow-up with your PCP OUTPATIENT FOLLOW UP For appointment details refer to your Patient Appointment Guide. TEST RESULTS PENDING AT DISCHARGE Pending Labs Order Current Status Test, Qualitative, Urine Collected (01/12/20 0018) Drug Screen, Prescription/OTC, Urine In process Bacteria / Maisha Culture, Blood #1 Preliminary result Bacteria / Maisha Culture, Blood #2 Preliminary result Gram Stain, Urine Preliminary result DETAILS OF HOSPITAL STAY REASON FOR ADMISSION Shock (HCC) HOSPITAL COURSE Ms. Leyva was hospitalized on [facility] Medicine 5 ([facility]) for evaluation and management of hypovolemic shock likely secondary to poor oral intake in setting of status migrainosus. ?? Ms. Maritza Leyva is a 44 year old female who presented to the [place] Emergency Department (ED)on 01/12/20 with headaches and hypotension. Her medical comorbidities are significant for hypertension, diabetes mellitus type 2, major depressive disorder, generalized anxiety disorder, borderline personality disorder, PTSD, multiple suicide attempts, previous psychiatric hospitalizations, migraines headaches with aura (>20 years), and chronic pain syndrome (currently on buprenorphine/naloxone (Suboxone)). ?? Upon presentation to the [place] ED, she endorsed a 3-day headache unresponsive to home medications, multiple syncopal episodes related to dizziness, and hypotension. She had presented to the ED the previous two days (01/09 and 01/11/20) for migraines, treated, and subsequently was discharged on both days. Upon her presentation on 01/12/20, her systolic blood pressure was found to be 60-70s mmHg with bradycardia down to 30 bpm for which she received atropine. She was administered 4 liters of intravenous fluids and placed on a norepinephrine drip. Her labs were significant for respiratory acidosis(pH 7.27, CO2 52, PO2 37, HCO3 24), lactate 2.1, creatinine 1.21 (baseline 0.7), and urine drug screen positive for benzodiazepines and buprenorphine. CT chest/abdomen/pelvis remarkable for groundglassopacities in the dorsal aspect of the lung bases, but Covid testing was negative and she remained asymptomatic from a respiratory standpoint. She was then transferred to the Medical ICU (MICU) for further cares. ?? In the MICU, her MAP >70 and her heart rate remained in sinus rhythm in the 60s, therefore the norepinephrine drip was discontinued. Psychiatry was consulted for query of psychotropic medications orpsychiatric diagnoses contributing to the patient???s medical presentation. Psychiatry felt her medications did not contribute to her bradycardia and hypotension upon presentation and recommended restarting of her medications. She was fluid resuscitated, remained hemodynamically stable, and transferred to the Medicine 5 service. After transfer to the Medicine 5 service, her blood pressure remained stable, but she required several attempts at aborting her migraine. A medication cocktail of prochlorperazine (Compazine), Benadryl, intravenous fluids, and eletriptan (Relpax) was utilized. Due to persistence of her migraine, Neurology was curbsided on 01/13/20 and recommended magnesium sulfate, intravenous fluids, antinausea medications, and valproic acid which improved her migraine. Neurology ultimately recommended outpatient follow-up for further management of her migraines. In addition after discussion with the patient, her psychosocial stressors were certainly contributing to her increased migraine frequency and severity. Due to her presentation of low blood pressure and episodes of passing out upon admission, this was likely secondary to poor oral intake due to persistent nausea and vomiting from migraines. The patient's vital signs stabilized throughout her hospitalization, although she was occasionally hypertensive which correlated with migraine intensity. On the day of discharge, the patient remained hemodynamically stable with improvement but not resolution of her migraine symptoms. Discussion was had regarding appropriate use of eletriptan (Relpax) and risk factors of overuse. The patient will be contacted with outpatient appointment with her Family edicine Provider and Neurology. All questions were answered. MEDICATIONS CHANGED DURING THIS HOSPITAL STAY Medications stopped: none Medications changed: metoprolol (dose decreased), metformin (dose decreased), trazodone (dose decreased) Medications added: none Held home medications: Metformin, metoprolol succinate, metoclopramide, tizanidine Changed home medications: acetaminophen (scheduled), trazodone (dose reduced) New medications: Heparin (DVT proph), insulin moderate correction scale, metoprolol tartrate, ketorolac, ondansetron, prochlorperazine CONSULTS ORDERED DURING THIS ADMISSION IP CONSULT TO PSYCHIATRY & PSYCHOLOGY IP CONSULT TO CARE MANAGEMENT IP CONSULT TO CARE MANAGEMENT CONDITION AT DISCHARGE improved I saw and evaluated Mrs. Maritza Leyva today and provided counseling [id number] at bedside. I personally spent a total of greater than 30 minutes in counseling and coordination of care as describedabove to facilitate the hospital discharge. Discharge instructions were provided to the patient and c aregiver(s). Halie Carvajal P.A.-C. - 01/12/2020 7:08 AM CDT TRANSFER NOTE FROM INTENSIVE CARE UNIT REASON FOR TRANSFER No Longer Requires ICU Level of Care PHYSICAL EXAM See exam from earlier today SUMMARY OF CARE Mrs. Leyva is a 44yo female who presented to [facility] ([facility]) on 01/10 for the treatmentof a migraine and symptomatic bradycardia. She has a history of hypertension, diabetes mellitus, migraines, major depression, generalized anxiety disorder, PTSD, borderline personality disorder, chronic pain, prior suicide attempts, and multiple psychiatric hospitalizations. She was recently seen in the Emergency Department (ED) on 12/24/19 for recurrent migraines, head CT was negative, and her migraine improved with Benadryl, Compazine, and IV fluids. On 01/10 she presented to the ED in [place] with a 3 day headache unresponsive to her home medications, multiple syncopal episodes related to dizziness, and hypotension. Systolic blood pressure was in the 60s and 70s with bradycardia down to 30 bpm for which she received atropine. She was given 4 L IV fluids and a norepinephrine drip was initiated. Lab work significant for a respiratory acidosis (pH 7.27, CO2 52, PO2 37, HCO3 24), lactate 2.1, creatinine 1.21 (baseline 0.7), and urine drug screen was positive for benzos and buprenorphine. CT head and CT abdomen/pelvis were performed and showed ground-glass opacities in the dorsal aspect of the basis of her lungs concerning for COVID. She was then transferred to the [facility] medical intensive care unit (MICU) for further cares. ?? Upon arrival to the MICU, Mrs. Leyva was awake and able answer questions appropriately. She endorsed a continued migraine headache with pain of 9/10. Her electrocardiogram looked improved to normal sinus rhythm with a rate of 60 bpm and blood pressure with mean arterial pressure of >70 after norepinephrine was turned off on arrival. Her COVID swab returned negative, and she offered no other signs of concerning active infection. Her renal function continued to improve with a creatinine of 1.01 (closer to her baseline of 0.7) and she had a urine output of nearly 2L since admission by 01/11 morning. Thyroid stimulating hormone (TSH) was normal at 0.8. She rested well after one night in the MICU, remained hemodynamically stable, and was transferred to general care on 01/11. RECOMMENDATIONS/FOLLOW-UP ITEMS: #Migraine #Borderline personality disorder #Generalized anxiety disorder #Major depression disorder #PTSD #Prior suicide attempts #Chronic pain syndrome (on pain contract with a doctor in the [facility]) - Home meds have not been restarted yet - Psychiatry has been consulted regarding continuity given patient's history as well as medication regimen (They confirmed her home medications and will update their note. They feel she is safe to continue these meds). 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 - She could benefit form diabetes education prior to discharge. [place] C[place] [phone]. Personal Pager: [phone] Halie Carvajal P.A.-C. documented in this encounter Discharge Instructions Discharge InstructionsEstephania Yang, ADALGISA, C.N.P., M.S.N. - 01/13/2020 12:36 PM CDT [facility] INTERNAL MEDICINE VIDEO VISIT WednesdayJanuary 16/2020 --1:00pm- Post Video Visit with Hospital Internal Medicine Provider. Meeting ID: [id number] Password: [id number] What to Do: * Download the Zoom [place] Meeting [email or web address] on your tablet/phone/laptop/etc. You don't need to create an account to be able to use [employer]. (Just click Join a meeting. This should be in blue.) * Please click Join with Computer Audio when joining the video visit and it will take you to a black screen. Tap on your screen and click start video (in red) on the bottom left hand corner. * You will have a telephone visit 1-2 days after your video visit. TELEPHONE FOLLOW UP January --9:00am- Telephone Follow Up with Hospital Internal Medicine Provider. documented in this encounter Medications at Time of Discharge Medication Sig Dispensed Refills Start Date End Date buprenorphine-naloxone Place 1 tablet under 0 (SUBOXONE) 2-0.5 mg per the tongue 2 (two) SL tablet times a day. gabapentin (NEURONTIN) Take 1,200 mg by 0 600 mg tablet mouth at bedtime. levonorgestrel (MIRENA) 1 Device by 0 01/17/2019 20 mcg/24 hours (5 yrs) intrauterine route. 52 mg IUD lisinopril-hydroCHLOROth Take 1 tablet by 0 07/03 iazide mouth 2 (two) times a (PRINZIDE,ZESTORETIC) day. 20-12.5 mg per tablet metoclopramide (REGLAN) Take 10 mg by mouth 4 0 10 mg tablet (four) times a day as needed (nausea). acetaminophen (TYLENOL) Take 2 tablets (1,000 0 1 09/04/2017 500 mg tablet mg total) by mouth every 6 (six) hours as needed for mild pain or score 1-3 of 10, headaches or fever. DIABETIC SUPPLIES, Twice A Day 0 12/08/2019 MISCELLAN. MISC eletriptan (RELPAX) 40 Take 1 tablet (40 mg 6 tablet 0 mg tablet total) by mouth every 2 (two) hours as needed for migraine. May repeat dose once in 2 hours if migraine unresolved. Do not exceed 80 mg in 24 hours. gabapentin (NEURONTIN) Take 1 tablet (600 mg 0 600 mg tablet total) by mouth every morning. ibuprofen (IBUPROFEN IB) Take 400 mg by mouth 0 200 mg tablet every 4 (four) hours as needed for pain. metFORMIN XR Take 1 tablet (500 mg 0 01/14/2020 (GLUCOPHAGE-XR) 500 mg total) by mouth daily 24 hr tablet with breakfast. metoprolol succinate Take 1 tablet (100 mg 0 12/16 (TOPROL-XL) 100 mg 24 hr total) by mouth tablet daily. Do not crush or chew. ARIPiprazole (ABILIFY) Take 10 mg by mouth 0 12/31/2020 10 mg tablet daily. DULoxetine (CYMBALTA) 60 Take 1 capsule by 0 09/1612/31/[address] capsule mouth every morning. LORazepam (ATIVAN) 0.5 Take 1 tablet by 0 10/22/ 019 12/31/2020 mg tablet mouth 3 (three) times a day. tiZANidine (ZANAFLEX) 4 Take 1 tablet (4 mg 90 tablet 0 12/31/2020 mg tablet total) by mouth 3 (three) times a day. traZODone (DESYREL) 150 Take 1 tablet (150 mg 0 0 01/14/2020 12/31/2020 mg tablet total) by mouth at bedtime. documented as of this encounter Progress Notes Ashli Epps P.A.-C., M.S. - 01/13/2020 1:53 PM CDT [facility] Medicine 5 ([facility]) Progress Note SUBJECTIVE Mrs. Leyva endorses a severe migraine that kept her awake most of the evening. She rates her migraine at 8-9/10. She was administered ketorolac, eletriptan, and prochlorperazine without much relief.She feels her appetite and fluid intake have improved, but her migraine is still persistent and she worries that going straight home may just force her to come back to the ED. She feels her migraine pain is causing her blood pressure to go up. I have reviewed the current medication list. OBJECTIVE VITAL SIGNS Temperature: [36.6 ??C-37.3 ??C] 37.2 ??C Heart Rate: [79] 79 Resp Rate: [12-18] 15 Blood Pressure: (142-186)/(82-108) 154/108 SpO2: [94 %-100 %] 99 % Pulse Rate: [73-95] 89 PHYSICAL EXAM General: Alert, no acute distress, easily sad and teary-eyed. Skin: Warm and dry. No rashes noted. ENT: Mucous membranes pink and moist with no oral lesions noted. Dentition in poor repair. Heart: S1/S2, regular rate and rhythm, no murmurs, rubs, or gallops appreciated. No peripheral edema. Lungs: Clear bilaterally with good air movement throughout. Nonlabored breathing. On room air. No cough noted. Abdomen: Soft, nondistended, nontender to palpation, active bowel sounds in all four quadrants. Psych: Thought processes are clear and coherent, although patient is sad and teary with endorsement of anxiety. DIAGNOSTICS I have personally reviewed interpretation outside head CT (01/12/20), EKG (01/13/20), TTE (01/13/20), CBC, and BMP. ASSESSMENT / PLAN Ms. Leyva is hospitalized on [place] [id number] ([facility]) for evaluation and management of hypovolemic shock likely secondary to poor oral intake in setting of status migrainosus. Ms. Maritza Leyva is a 44 year old female who presented to the [place] Emergency Department (ED) on 01/12/20 with headaches and hypotension. Her medical comorbidities are significant for hypertension, diabetes mellitus type 2, major depressive disorder, generalized anxiety disorder, borderline personality disorder, PTSD, multiple suicide attempts, previous psychiatric hospitalizati ons, migraines headaches with aura (>20 years), and chronic pain syndrome (currently on buprenorphine/naloxone (Suboxone)). Upon presentation to the [place] ED, she endorsed a 3-day headache unresponsive to home medications, multiple syncopal episodes related to dizziness, and hypotension. She had presented to the ED the previous two days (01/09 and 01/11/20) for migraines, treated, and subsequently was discharged on both days. Upon her presentation on 01/12/20, her systolic blood pressure was found to be 60-70s mmHg with bradycardia down to 30 bpm for which she received atropine. Shewas administered 4 liters of intravenous fluids and placed on a norepinephrine drip. Her labs were significant for respiratory acidosis (pH 7.27, CO2 52, PO2 37, HCO3 24), lactate 2.1, creatinine 1.21 (baseline 0.7), and urine drug screen positive for benzodiazepines and buprenorphine. CT chest/abdomen/pelvis remarkable for groundglass opacities in the dorsal aspect of the lung bases, but Covid testing was negative. She was then transferred to the Medical ICU (MICU) for further cares. In the MICU, her MAP >70 and her heart rate remained in sinus rhythm in the 60s, therefore the norepinephrine drip was discontinued. Psychiatry was consulted for query of psychotropic medicationsor psychiatric diagnoses contributing to the patient?s medical presentation. Psychiatry felt her medications did not contribute to her bradycardia and hypotension upon presentation and recommended restarting of her medications. She was fluid resuscitated, remained hemodynamically stable, and transferred to the Medicine 5 service. #1 Shock Likely Secondary to Hypovolemia in the Setting of Poor Oral Intake and Ongoing Nausea, Resolved #2 Migraine with Aura With Status Migrainosus #3 Syncope #4 Acute Kidney Injury, Resolved #5 Posttraumatic Stress Disorder #6 Chronic Pain Syndrome #7 Borderline Personality Disorder #8 Generalized Anxiety Disorder #9 Major Recurrent Moderate Depression #10 Moderate or Severe Opioid Dependence #11 Primary Essential Hypertension Assessment: The patient?s presentation of hypotension and bradycardia was likely secondary to hypovolemia in the setting of poor oral intake and ongoing nausea and vomiting over the past 5 days with persistent migraine. This is further supported by an ERWIN which appears to be resolved. Telemetry, EKG, transthoracic echocardiogram, and troponins unremarkable. The patient continues to deny misuse of anyhome medications (I.e. beta blockers) that could have caused her presentation upon admission. She feels her migraines have increased in frequency and severity over the last month. She went from having 1-2 per week to 3-4 per week with persistent nausea and vomiting. She feels this coincides with her [facility] social stressors. Plan: ?? Continue decreased dose of metoprolol tartrate 50 mg bid ?? Continue lisinopril-hydrochlorothiazide 20-12.5 mg bid ?? Continue aripiprazole 10 mg daily ?? Continue buprenorphine-naloxone 2-0.5 film bid ?? Continue duloxetine 60 mg daily ?? Continue reduced dose trazodone 150 mg qhs ?? Follow up with Psychology as scheduled as an outpatient ?? Migraine management: ?? Curbsided Neurology who recommended following pathway for status migrainosus abortment including: ?? 1 L NaCl ?? Ketorolac 15 mg injection ?? Prochlorperazine 5 mg ?? 2 g MgS ?? Valproic acid 1 g ?? Scheduled acetaminophen 1,000 mg q6h ?? Holding naproxen due to recent ketorolac use ?? Continue home gabapentin 600 mg in AM and 1,200 mg at bedtime ?? Eletriptan, ketorolac, and prochlorperazine prn available for migraines ?? Follow-up with Neurology as an outpatient for possible Botox therapy #12 Diabetes Mellitus Type 2 Assessment: Hgb A1c 6.9% (10/13/19). Glucose levels controlled thus far. Plan: ?? Continue moderate insulin aspart correction scale ?? Holding home metformin Held home medications: Metformin, metoprolol succinate, metoclopramide, tizanidine Changed home medications: acetaminophen (scheduled), trazodone (dose reduced) New medications: Heparin (DVT proph), insulin moderate correction scale, metoprolol tartrate, ketorolac, ondansetron, prochlorperazine Diet: Adult Diet; 60 g Carb Limit. Tubes/lines: PIV. VTE prophylaxis: Heparin. Stable to discharge criteria (not yet met): Working with Neurology to provide abortive therapy for migraine. Counseling was provided [id number] at bedside regarding the plan of care as stated above. I personally spent over half of a total 40 minutes in counseling and coordination of care as documented above. Amena Macario M.B.B.S. - 01/13/2020 6:55 AM CDT I saw and evaluated Mrs. Maritza Leyva on rounds today with our medicine team, and I agree with the findings and plan as documented in today's progress note by Ashli Epps P.A.-C., M.S., withthe following comments: #1 Posttraumatic Stress Disorder Brief #2 Chronic Pain Syndrome #3 Borderline Personality Disorder (HCC) #4 Anxiety Generalized Disorder #5 Depression Major Recurrent Moderate (HCC) #6 Debility #7 Hypertension Essential Primary #8 Migraine With Aura Not Intractable Without Status Migrainosus #9 Opioid Moderate Or Severe Use Disorder (Dependence) Uncomplicated (HCC) #10 Diabetes Mellitus Type 2 Without Complication (HCC) #11 Shock (HCC) Mrs. Leyva is a 44 yo F with a history of depression, suicidal ideation, PTSD, borderline personality disorder, chronic pain syndrome chronic resistant migraine. Patient was admitted for shock and bradycardia of unclear etiology (?AV blocking agent overdose) in the setting of severe migraine attack. Her condition improved from cardiovascular standpoint but continued to have persistent migraine. Psych team recommended resuming her home medications. PLAN: ?? Resume home meds ?? Adjust migraine meds bear last Neurology note ?? Follow TTE and tobacco prizer results ?? Consider neurology consult for in case of worsening symptoms Please refer to Ashli's note dated today for additional details about our team's plan of care. Counseling was provided [id number] at bedside regarding the plan of care as stated above. I personally spent over half of a total 20 minutes in counseling and coordination of care as documented above. Murali Vieira P.A.-C., M.S. - 01/12/2020 2:48 PM CDT [facility] Medicine 5 Progress Notes Transfer Acceptance Note SUBJECTIVE Ms. Leyva was seen at the bedside this afternoon. She was nontoxic appearing and hemodynamically stable. Stated that she felt much improved since arrival yesterday. Still complains of mild headache,but overall much improved. Denies any chest pain, shortness of breath, fever/chill, nausea, vomiting, diarrhea, abdominal pain, urinary symptoms, or weakness. I have reviewed the current medication list. ROS negative except as stated in the HPI. OBJECTIVE VITAL SIGNS Temperature: [36.7 ??C-37.3 ??C] 36.7 ??C Heart Rate: [55-75] 66 Resp Rate: [6-21] 13 Blood Pressure: (89-131)/(52-89) 130/65 Arterial Line BP: (99-172)/(50-86) 139/74 SpO2: [92 %-100 %] 94 % Flow Rate (L/min): [2 L/min] 2 L/min Pulse Rate: [54-75] 64 Intake/Output Last 24 Hours: Intake/Output Summary (Last 24 hours) at 01/12/2020 1448 Last data filed at 01/12/2020 0500 Gross per 24 hour Intake -- Output 1975 ml Net -1975 ml PHYSICAL EXAM General: Alert and oriented x3. No acute distress. HEENT: Mucous membranes appear moist. Geographic tongue noted on exam. Pulmonary: Lungs clear to auscultation bilaterally. No wheezes, rhonchi, or rales. Cardiovascular: Regular rate and rhythm. No murmurs, gallops, or rubs. No peripheral edema. Abdominal: Bowel sounds physiologic. Soft, nontender to palpation. Skin: Warm, dry, and intact. Neuro: No focal deficits noted. Psychiatric: Mood, affect, speech, and behavior appear appropriate. DIAGNOSTICS I have personally reviewed laboratory results and imaging studies. CBC shows WBC 8.9, hemoglobin 10.9, platelets 171 BMP remarkable only for bicarb 21, calcium 7.9. Creatinine improving at 1.01 (baseline 0.7-0.8) CRP mildly elevated at 23.8 COVID PCR negative TSH, magnesium, phos, lipase, CK normal Ethanol, salicylates, acetaminophen negative UDS positive for benzos and buprenorphine ECG shows NSR with rates in 60s, troponins unremarkable Urinalysis unremarkable Lactate normalized Blood cultures pending CT abdomen and pelvis shows mild perinephric fat stranding without hydronephrosis, calculi. Also shows new right lower lobe opacities consistent with infection/inflammation CT head shows no acute abnormalities ASSESSMENT / PLAN Ms. Leyva is a 44-year-old female with past medical history significant for major depressive disorder, generalized anxiety disorder, borderline personality disorder, PTSD, multiple suicide attempts and previous psychiatric hospitalizations, migraine headaches with aura (greater than 20 years), chronic pain syndrome (currently on Suboxone). Patient originally presented to outside emergency department on 01/09 with headache of 3 day duration, nausea, and vomiting. She was given headache cocktail and discharged. Over the next 24 hours patient became progressively weaker, lightheaded, and had multiple syncopal episodes. She re-presented to e mergevty department and was found to be profoundly hypotensive with systolic blood pressures in the 60s-70s and bradycardic with heart rates in the 30s. She was given atropine, 4 L IV fluids, norepinephrine and transferred to medical ICU at [facility]. Workup for shock has been largely unremarkable including no clear infectious etiology, no ongoing cardiac arrhythmia, hemorrhage, or obstructive pathology. Some concern that patient's presentation secondary to hypovolemia and polypharmacy. Pharmacist performed med rec in ICU. Psychiatry consulted to further evaluate, appreciate their assistance. #1 Shock (HCC) #2 Migraine With Aura Not Intractable Without Status Migrainosus #3 Syncope #4 Acute Kidney Injury #5 Posttraumatic Stress Disorder Brief #6 Chronic Pain Syndrome #7 Borderline Personality Disorder (HCC) #8 Anxiety Generalized Disorder #9 Depression Major Recurrent Moderate (HCC) #10 Debility #11 Opioid Moderate Or Severe Use Disorder (Dependence) Uncomplicated ([facility]) #12 Hypertension Essential Primary Assessment: Most likely shock was related to hypovolemia in the setting of poor oral intake and ongoing nausea and vomiting for the past 5 days. This is further supported by patient's acute kidney injury on presentation that is resolving with IV fluid resuscitation. Patient denied any palpitations or chest pain prior to syncopal episode. However did endorse some shortness of breath and diaphoresis. Telemetry did not reveal any further arrhythmias and most recent ECG shows NSR with rates in the 60s. Will obtain echocardiogram to rule out any outlet obstruction that could be worsened by hypovolemic state as well as any wall motion abnormality. Of note, troponins unremarkable. Patient is on metoprolol as well as lisinopril hydrochlorothiazide, but doses have been stable. Still, given history of suicide attempts and bradycardia on presentation I do question possible beta kate overdose. Patient isalso on several psychiatric medications that could predispose her to falls including lorazepam, trazodone, gabapentin, and Zanaflex but she had not taken any extra doses of any of her medications priorto syncopal episodes. Furthermore, she has not had any recent adjustment to her medications making this less likely. Will have psychiatry assess to determine appropriate regimen for multiple psychiatric conditions. In regards to her headaches, patient states that she has about 2-3 headaches per week and that this pain felt very similar. Normally these resolve with ibuprofen and eletriptan. Patient recalls being seen by Neurology several years ago for her migraines, but believes she has had good success with managing her migraines under current regimen. However, given frequent headaches, recent prolonged headache greater than 72 hours, and failure of medical therapy during her last migraine I think she may benefit from neurology consult. This can likely be pursued in outpatient setting if patient continues to improve clinically. Plan: -will hold metoprolol -continue lisinopril hydrochlorothiazide given improvement in ERWIN -hold Abilify, Suboxone, Cymbalta, Reglan, Zanaflex, and trazodone until further evaluation by psych -restart gabapentin -obtain echocardiogram to further evaluate -place on telemetry overnight -follow up on psychiatry recommendations -follow up on blood cultures -am BMP -strict I/O and daily weights -consider outpatient consult for headaches with neurology #13 Diabetes Mellitus Type 2 Without Complication (HCC) Most recent hemoglobin A1c 6.9% on 10/13/2019. Currently takes metformin 1000 mg daily at home. Blood glucose well control thus far. Will continue with moderate correction scale for now and add basal insulin if needed in future. Diet: 60 g carb limit Tubes/lines: PIV VTE prophylaxis: heparin Stable to discharge criteria (not yet met): Vital signs, Tests/procedures/consults and Acute care monitoring needs Counseling was provided [id number] at bedside regarding the plan of care as stated above. I personally spent over half of a total 40 minutes in counseling and coordination of care as documented above. Halie Carvajal P.A.-C. - 01/12/2020 6:39 AM CDT SUBJECTIVE Brief Summary: Mrs. Leyva is currently admitted to the MICU with headaches and shock of unclear origin. PMH includes hypertension, diabetes mellitus, migraines, major depression, generalized anxiety disorder, PTSD, borderline personality disorder, chronic pain, prior suicide attempts, and multiple psychiatric hospitalizations. She presented to an OSH ED with recurrent migraine, dizziness and falls. She was foundto be hypotensive down to the 60's systolic and had episodes of bradycardia for which atropine was administered x1. She was given 4 L IV fluids and started on norepinephrine. CT abdomen/pelvis was performed and she was transferred to the [facility] MICU. Interval Events: - Hemodynamically stable off norepi - Remained on room air overnight - UOP adequate despite mild ERWIN OBJECTIVE VITAL SIGNS I have reviewed the current vital sign data as applicable. PHYSICAL EXAM General: Lying supine in bed, in no acute distress Skin: Pale, warm and dry. Neuro: CNII-XII grossly intact ENT: PERRL, EOMI, no nystagmus, anicteric Heart: Regular rate and rhythm, no murmurs, rubs, or gallops appreciated Lungs: CTA BL, unlabored breathing, on RA Abdomen: Soft, nondistended, nontender, BS x4 Extremities: Moves to command, no edema, capillary refill <3 sec BL upper and lower extremities. Mental: Alert and oriented to person, place, and time. She still elicits migraine pain but at a tolerable level. DIAGNOSTICS I have reviewed relevant laboratory, imaging, and other diagnostics as applicable. ASSESSMENT / PLAN #1 Posttraumatic Stress Disorder Brief #2 Chronic Pain Syndrome #3 Borderline Personality Disorder (HCC) #4 Anxiety Generalized Disorder #5 Depression Major Recurrent Moderate (HCC) #6 Debility #7 Hypertension Essential Primary #8 Migraine With Aura Not Intractable Without Status Migrainosus #9 Opioid Moderate Or Severe Use Disorder (Dependence) Uncomplicated (HCC) #10 Diabetes Mellitus Type 2 Without Complication (HCC) #11 Shock (HCC) Mrs. Leyva is currently admitted to the MICU with headaches and shock of unclear origin. PMH includes hypertension, diabetes mellitus, migraines, major depression, generalized anxiety disorder, PTSD, borderline personality disorder, chronic pain, prior suicide attempts, and multiple psychiatric hospitalizations. She presented to an [facility] ED with recurrent migraine, dizziness and falls. She was foundto be hypotensive down to the 60's systolic and had episodes of bradycardia for which atropine was administered x1. She was given 4 L IV fluids and started on norepinephrine. CT abdomen/pelvis was performed and she was transferred to the [facility] MICU. --- Mrs. Leyva has remained hemodynamically stable and improved overnight. We will plan to transfer her out of the ICU today. Given the extensive list of her home medications for treatment of migraines (cause of her ICU admission), will consult psychiatry and possibly neurology prior to discharge. Today's Plan: - Will remove arterial line today - Follow up on CT abdominal interpretations - Transfer to general care - Will consult psychiatry regarding migraines and home medications PLAN BY SYSTEMS: Hemodynamics/CV: #Shock-resolved #Symptomatic Bradycardia-improved #History of Hypertension HR: 60's / BPs: 110's/60s-70s IVF in EDl: 4L crystalloid ECG: NSR, rate 65, QTc 463, OR 196 Echo: none on file Home meds (held): Lisinopril/HCTZ PLAN: -- Will restart home lisinopril/HCTZ NEURO: #Migraine with aura, not intractable, without status migrainosis #Chronic Pain Syndrome #Opioid Moderate/Severe Use Disorder/Dependence #Borderline personality disorder #Major Depression, recurrent #Generalized Anxiety Disorder #Debility #Posttraumatic Stress Disorder, Brief Pain: Tylenol prn Home Meds (cont'd): Ativan QHS prn sleep Home Meds (held): Duloxetine, ibuprofen, Cymbalta, tizanidine, Reglan, Zofran, topiramate, gabapentin, meloxicam, phenergan, and eletriptan PLAN: -- Consult Psychiatry -- Restart home migraine medications after discussion with psychiatry and possibly neurology PULM: Saturating well on RA CT Chest 01/10: GGO bilateral bases seen on CT from OSH ABG on arrival to ICU overnight: pH 7.32 / CO2 44 / O2 68 / HCO3 22 on RA PLAN: -- No active issues RENAL: #ERWIN- improving Weight today: 92.9kg 4L IVF in ED on arrival Lytes 01/11: -- Na 138 / K 4.0 / Cl 107 / Bicarb 21 / BUN 12 / Cr 1.01 / Glucose 117 PLAN: -- Continue current regimen, replete electrolytes as needed -- Avoid nephrotoxins, strict I&O ID: Tmax 24h: 37.3 / WBC: 8.9 Cultures: -- 01/10: blood cultures: Pending -- 01/10: COVID: Negative -- 01/10: MRSA: Pending Abx: None PLAN: -- No signs of active infection HEME: Hgb 01/11: 10.9 / Plt 171 Anticoagulation/Prophylaxis: Heparin 5000u SQ Q8H PLAN: -- No active issues, continue current regimen GI: Nutrition: Diabetic diet CT Abd from OSH: pending Morales interpretation PLAN: -- Continue current regimen -- Will follow up with pending CT interpretation Endocrine: #Type 2 Diabetes Mellitus RMG: QID Insulin: SSI TSH on arrival: 0.8 PLAN: -- Continue current regimen ACCESS: PIVs: 20G L AC, R AC Arterial line: remove today PPX: DVT ppx: Heparin 5000u SQ Q8H GI ppx: Not indicated CODE STATUS: Full code DISPO: Transfer to general care today Please contact [facility] pager [phone] with further questions. Halie Carvajal P.A.-C. Personal Pager: [phone] documented in this encounter H&P Notes Jessica Berry M.D. - 01/12/2020 2:12 AM CDT Medical Intensive Care Unit Admission H&P CC: Hypotension, bradycardia, acute hypercapnic respiratory failure (resolved) Referring provider: [place] [facility] SUBJECTIVE This is a supervisory note for the critical care team. I have seen the patient and reviewed all relevant documentation, laboratory studies, radiology images and the critical care team note from [facility]. ID: The patient is a 44 y.o. female with a history of chronic pain, borderline personality disorder, depression, generalized anxiety disorder, agoraphobia in previous intentional overdoses who is admitted to the medical intensive care unit from [place] after presenting with symptoms of migraine but was found to be in shock. The patient reports that she has been isolating at home with her teenaged sons,in her usual state of health (no recent fevers, chills, sick contacts, diarrhea, cough, urinary symptoms). She suffers from migraine headaches and frequently requires care for them in the emergency department. Yesterday evening she presented for migraine care, with symptoms that were typical for her, with the exception dizziness and a report of presyncope leading to falls. Somewhat surprisingly her systolic blood pressure was in the 60s and she was observed to be bradycardic with heart rates recorded in the 20s, reported as sinus mariluz, though we do not see telemetry strips or ECGs. Moreover, VBG showed a pH of 7.27/52/--/24. Other labs included WBC 10.1, lactate 2.1, creatinine 1.21 (baseline<1). CT of the head showed no acute pathology, CT abdomen showed no acute pathology and did image mid and lower lung zones. There are regions of ground-glass in the dependent lung zones, in a nonspecificpattern. She was treated with atropine, 4 L IV fluid and started on low-dose norepinephrine through a peripheral IV. By the time she arrived at [facility] this was able to be weaned off. She denies illicit drug use. She mentioned to one provider that she had taken a friend's suboxone totreat her headaches, but did not volunteer this information during our conversation. OBJECTIVE PHYSICAL EXAM Vital signs reviewed Gen - Well-appearing woman, obese, able to deliver history HEENT - Anicteric, noninjected, poor dentition, moist mucous membranes CV - Regular, no murmur, rub or gallop Resp - Clear to auscultation, no wheezes, rhonchi, rales Abd - Active bowel sounds, soft, nontender to palpation Extr - Warm, well-perfused, no edema Skin - No rashes or track galindo Remainder of the examination is documented in ICU admission note Tele strips from outside show sinus rhythm with rate in 60s. ECG is similarly unremarkable, with rate in 60s and normal intervals ASSESSMENT / PLAN Our team is updating the problem list in the electronic medical record. Problems for this admission are summarized below: #1 Hypotension, resolved #2 Bradycardia, resolved with atropine #3 Acute hypoxic and hypercapnic respiratory failure, resolved #4 Polypharmacy #5 Ingestion of suboxone, not prescribed to patient #6 Migraine headaches #7 Borderline personality disorder #8 Depression, history of suicide attempts by overdose #9 Code status: FULL Mrs. Leyva is a 44 yo with a complex psychiatric history and previous psychiatric hospitalizations for self-harm who is admitted to the ICU after presenting with dizziness and headaches to an outside ED, where she was hypotensive and bradycardic. We are uncertain what precipitated the abnormalitiesobserved in the emergency department. By the time she reached our care her blood pressure, heart rate and ventilation had normalized. An AV monique kate ingestion, even accidental, could explain much of this presentation. She endorses significant confusion in taking all her medications and says she st madhu to take them correctly. She admitted to taking a friend's suboxone. She does have metoprololsuccinate 200 mg on her medication list, or she could have taken another individual's prescription. -Insert arterial line -POC echo, consider formal echo if symptoms recur -UDS pending -Follow up infectious work-up, no indication for antibiotics -Minimize pharmacologic agents; prioritize treating her headache and sleep aides tonight Plan of care was discussed with the patient, family, and the ICU team. Systems- based care per ICU note today. Critical care time 60 minutes. This is time spent at this critically ill patient's bedside actively involved in patient care as well as the coordination of care and discussions with the patient's family. This does not include any procedural time which has been billed separately. Belia Goodwin P.A.-C., M.S. - 01/11/2020 10:01 PM CDT SUBJECTIVE CHIEF COMPLAINT Maritza Leyva is a 44 y.o. female who presents with headaches and hypertension. HISTORY OF PRESENT ILLNESS Mrs. Leyva has a past medical history significant for hypertension, diabetes mellitus, migraines,major depression, generalized anxiety disorder, PTSD, borderline personality disorder, chronic pain,prior suicide attempts, and multiple psychiatric hospitalizations. She was recently seen in the ER on 12/24/19 for recurrent migraines, head CT was negative, and her migraine improved with Benadryl, Compazine, and IV fluids. She presented again today to the ER in [place] with a 3 day headache unresponsive to her home medications, multiple syncopal episodes related to dizziness, and hypotension. SBP was found to be in the 60s and 70s with bradycardia down to 30 bpm for which she received atropine. She was given 4 L IV fluids and a norepinephrine drip was initiated. Lab work significant for a respiratory acidosis (pH 7.27, CO2 52, PO2 37, HCO3 24), lactate 2.1, creatinine 1.21 (baseline 0.7), and UDS positive for benzos and buprenorphine. CT head and CT abdomen/pelvis were performed and showed ground- glass opacities in the dorsal aspect of the basis of her lungs concerning for COVID. She was thentransferred to the [facility] MICU for further cares. Upon arrival to the MICU, Mrs. Leyva is awake and able answer questions appropriately. She statesthat she has been feeling unwell for 3 days now. She presented to the emergency room on 01/09 and 01/10 for this migraine. She states she was given her usual migraine cocktail during her 1st trip to the ED and was sent home without relief. Then returned the next day because she was having falls due to dizziness. She endorses a continued migraine headache and rates it a 9/10. She did have 1 episode of nausea and vomiting this morning which was bilious in nature. Denies chest pain, shortness of breath, cough, fevers, chills, abdominal pain, and lower extremity pain. Denies recent travel or sick contacts, and she states that she has been taking her medications appropriately and not been taking extra orother medications. HR is sinus rhythm 60 bpm and BP MAP is >70 after norepinephrine was turned off on arrival. Currently afebrile. She is saturating 95% on room air and without any respiratory distress. The following portions of the patient's history were reviewed and updated as appropriate: allergies,current medications, family history, medical history, social history, surgical history and problem list. REVIEW OF SYSTEMS Pertinent items are noted in HPI; all other review of systems was negative. OBJECTIVE VITAL SIGNS I have reviewed the current vital sign data as applicable to this admission. PHYSICAL EXAM General: Obese, female lying in bed in no acute distress ENT: Neuro: Alert and oriented x3. Moves all extremities spontaneously Cardiac: Regular rate and rhythm. No murmurs. Resp: CTA bilaterally. No wheezing. Symmetrical chest expansion. Abd: Soft, non-tender, non-distended. Bowel sounds active. Extrem: No edema. Pulses intact. Skin: Warm and well perfused. No rashes or wounds. DIAGNOSTICS I have reviewed relevant laboratory, imaging, and other diagnostics as applicable to this admission. ASSESSMENT / PLAN #1 Shock (HCC) #2 Posttraumatic Stress Disorder Brief #3 Chronic Pain Syndrome #4 Borderline Personality Disorder (HCC) #5 Anxiety Generalized Disorder #6 Depression Major Recurrent Moderate (HCC) #7 Debility #8 Hypertension Essential Primary #9 Migraine With Aura Not Intractable Without Status Migrainosus #10 Opioid Moderate Or Severe Use Disorder (Dependence) Uncomplicated (HCC) #11 Diabetes Mellitus Type 2 Without Complication (HCC) Mrs. Leyva is currently admitted to the MICU with shock of unclear origin, likely sepsis vs ingestion. Differential diagnosis includes respiratory source, including COVID-19 and/or pneumonia. She also has an non-oliguric ERWIN. She has been adequately fluid resuscitated and is no longer requiring norepinephrine. We will perform a full shock workup, including cardiac, septic, and potentially ingestion. Continue supportive measures for hemodynamic instability. Rest of plan as follows: PLAN BY SYSTEMS: NEURO: -Pain management: Tylenol prn for fevers and pain. --Hold home duloxetine, ibuprofen, loratidine, cymbalta, tizanidine, Reglan, Zofran, topiramate, gabapentin, meloxicam, phenergan, and eletriptan for now -- Ativan QHS prn for sleep CARDIAC: -MAP Goal: > 65. -Will fluid resuscitate to 30 mL/kg as per the sepsis protocol. --Fluid boluses prior to admit: 4 L crystalloids --Fluid boluses since arriving to the ICU: None --Will place arterial lines --Vasoactive meds: None -ECG: Obtain baseline -Obtain baseline troponins and BNP. -Hold home lisinopril RESP: -Oxygen as needed to keep sats > 90% -CXR: Obtain repeat to evaluate GGO seen on CT at OSH -Obtain baseline ABG. -CT abd/pelv at OSH showed dorsal GGO in the dorsal lung gross, partially visualized. : -Obtain baseline UA with Gram???s stain. -Monitor electrolytes and replace as needed. -Avoid nephrotoxic medications. -UCI for strict I&Os. GI: -Nutrition: NPO. -CT abd/pelvis at OSH: Read of outside scan pending ENDO: -SSI with RMGs QID -Obtain TSH ID: -Obtain procalcitonin. -Trend lactate Q3H until normalized. -Cultures: Obtain blood cultures, COVID swab, UA, and MRSA nasal swab. -Abx: None indicated at this time as her workup thus far is less suspicious for sepsis HEME: -Anticoagulation/DVT prophylaxis: SQ heparin -SCD???s to legs. -Goal Hg >7.0. Transfuse as indicated. ACCESS: -PIV x2 DISPO -Code Status: Full Code, discussed -ICU level of cares. -Family updated. documented in this encounter Procedure Notes Kamari Cortes R.R.T., LMadeleineRMadeleineT. - 01/12/2020 1:31 AM CDTAssociated Order(s): Invasive Line Post-Procedure Diagnose(s): Severe Sepsis With Septic Shock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 AM CDT this procedure are in the results section. (TTE) 2D ECHO DOPPLER Routine 01/13/2020 8:12 Res ults for COLOR AM CDT this procedure are in the results section. CBC WITHOUT Routine 01/13/2020 6:16 Results for DIFFERENTIAL, B AM CDT this procedu re are in the results section. BASIC METABOLIC Routine 01/13/2020 6:16 Results f or PANEL, S/P AM CDT this procedure are in the results section. GLUCOSE POCT, B Routine 01/13/2020 12:15 Results for AM CDT this procedure are in the results section. GLUCOSE POCT, B Routine 01/12/2020 5:35 Results f or PM CDT this procedure are in the results section. GLUCOSE POCT, B Routine 01/12/2020 11:43 Results for AM CDT this procedure are in the results section. GLUCOSE POCT, B Routine 01/12/2020 11:32 Results for AM CDT this procedure are in the results section. GLUCOSE POCT, B Routine 01/12/2020 7:45 Results f or AM CDT this procedure are in the results section. INTERPRETATION OF RAD - Routine 01/12/2020 4:35 Result s for OUTSIDE CT HEAD (most inpatients AM CDT this pro cedure and all are in the outpatients) results section. INTERPRETATION OF RAD - Routine 01/12/2020 4:33 Result s for OUTSIDE CT ABDOMEN (most inpatients AM CDT this procedure AND OR PELVIS and all are in the outpatients) results section. TROPONIN T, 2H/6H, Timed 01/12/2020 3:47 Result s for 5TH GEN, P AM CDT this procedure are in the results section. CBC WITHOUT Routine 01/12/2020 3:47 Results for DIFFERENTIAL, B AM CDT this procedu re are in the results section. BASIC METABOLIC Routine 01/12/2020 3:47 Results f or PANEL, S/P AM CDT this procedure are in the results section. MC ANE INVASIVE Routine 01/12/2020 1:31 Severe Sepsis Results for CATHETER AM CDT With Septic this procedure Shock (HCC) are in the results section. PATIENT STATUS STAT 01/12/2020 1:12 Results fo r AM CDT this procedure are in the results section. ABG W/O COOX STAT 01/12/2020 1:12 Results for AM CDT this procedure are in the results section. CALCIUM, IONIZED, S/B STAT 01/12/2020 1:12 Res ults for AM CDT this procedure are in the results section. BACTERIA / MAISHA STAT 01/12/2020 1:08 Result s for CULTURE, BLOOD AM CDT this procedur e are in the results section. SARS-COV-2 IGG AB, STAT 01/12/2020 12:59 Resul ts for SERUM AM CDT this procedure are in the results section. TROPONIN T, BASELINE, STAT 01/12/2020 12:59 Re sults for 5TH GEN, P AM CDT this procedure are in the results section. ETHANOL, S STAT 01/12/2020 12:59 Results for AM CDT this procedure are in the results section. NT-PRO B-TYPE STAT 01/12/2020 12:59 Results fo r NATRIURETIC PEPTIDE AM CDT this pro cedure (BNP), S are in the results section. PROCALCITONIN, S STAT 01/12/2020 12:59 Results for AM CDT this procedure are in the results section. BACTERIA / MAISHA STAT 01/12/2020 12:59 Resul ts for CULTURE, BLOOD AM CDT this procedur e are in the results section. PROTHROMBIN TIME STAT 01/12/2020 12:59 Results for (PT), P AM CDT this procedure are in the results section. CBC WITH STAT 01/12/2020 12:59 Results for DIFFERENTIAL, B AM CDT this procedu re are in the results section. TYPE AND SCREEN Routine 01/12/2020 12:59 Results for AM CDT this procedure are in the results section. C-REACTIVE PROTEIN STAT 01/12/2020 12:59 Resul ts for (CRP), S/P AM CDT this procedure are in the results section. THYROID-STIMULATING STAT 01/12/2020 12:59 Resu lts for HORMONE-SENSITIVE AM CDT this proce dure (S-TSH) are in the results section. PHOSPHORUS STAT 01/12/2020 12:59 Results for (INORGANIC), S AM CDT this procedur e are in the results section. MAGNESIUM, S STAT 01/12/2020 12:59 Results for AM CDT this procedure are in the results section. LIPASE, S/P STAT 01/12/2020 12:59 Results for AM CDT this procedure are in the results section. LACTATE, B/P STAT 01/12/2020 12:59 Results for AM CDT this procedure are in the results section. CREATINE KINASE (CK), STAT 01/12/2020 12:59 Re sults for S AM CDT this procedure are in the results section. ACETAMINOPHEN LEVEL, STAT 01/12/2020 12:59 Res ults for S AM CDT this procedure are in the results section. SALICYLATE LEVEL, S STAT 01/12/2020 12:59 Resu lts for AM CDT this procedure are in the results section. COMPREHENSIVE STAT 01/12/2020 12:59 Results fo r METABOLIC PANEL, S/P AM CDT this pr ocedure are in the results section. MICROSCOPIC AUTOMATED Routine 01/12/2020 12:18 Re sults for AM CDT this procedure are in the results section. DRUG SCREEN, Routine 01/12/2020 12:18 Results for PRESCRIPTION/OTC, U AM CDT this pro cedure are in the results section. CONFIRMED DRUG ABUSE Routine 01/12/2020 12:18 Res ults for PANEL 9, U AM CDT this procedure are in the results section. URINALYSIS WITH Routine 01/12/2020 12:18 Results for MICROSCOPIC AM CDT this procedure are in the results section. MRSA CULTURE Routine 01/12/2020 12:12 Results for AM CDT this procedure are in the results section. SARS CORONAVIRUS 2, Routine 01/11/2020 11:22 Resu lts for MOLECULAR DETECTION, PM CDT this pr ocedure PCR ([facility]) are in the results section. ECG STAT 01/11/2020 11:19 Results for PM CDT this procedure are in the results section. documented in this encounter Results Gram Stain, Urine (02/10/2020 1:29 AM CDT) P athologist Signature Source CANCELED 02/10/2020 WILLI 1:29 AM CDT Comment: REVISED RESULTS ----PREVIOUSLY REPORTED ---- Catheter, Flagged as: Normal (Reported 01/12/2020 01:03) Gram's Stain, Screen, U CANCELED 02/10/2020 1:29 AM CDT WILLI Comment: ----ADDITIONAL INFORMATION---- This test has been modified from the man aprilr's instructions. Its performance characteri stics were determined by [facility] in a manner co nsistent with CLIA requirements. This test has not bee n cleared or approved by the U.S. Food and Drug Admin istration. Result canceled by the ancillary. Specimen (Source) Anatomical Location Collection Method / Collectio n Time Received Time / Laterality Volume Urine Narrative [facility] - 02/10/2020 1:[address], U was cancelled on 02/10/2020 at 01:29; Auto-cancellation by [employer] Belia Goodwin P.A.-C., M.S. LAB URINE ORDERABLES Performing Organization Address City/State/ZIP Code Phon e Number [facility] - [address] [place], [place] [address] [place] [address] [facility] [address] (ABNORMAL) Glucose, POCT (01/14/2020 11:17 AM CDT) Analysis Performed At Patho logist Time Signature Glucose, POCT, 143 (H) 70 - 140 01/14/2020 PCLX B mg/dL 11:20 AM CDT Site Capillary 01/14/2020 PCLX 11:20 AM CDT Last Intake 3-4 hours 01/14/2020 P[facility]X 11:20 AM CDT Specimen Anatomical Collection Method Collection Time Receive d Time (Source) Location / / Volume Laterality Blood 01/14/2020 11:17 01/14/2020 AM CDT 11:21 AM CDT Unknown Provider LAB POCT ORDERABLES-MANUAL Performing Organization Address City/[facility] Phon e Number POC [facility] [address] [place] [id number] [facility] [address] POC 200 [facility] Glucose, POCT (01/14/2020 8:10 AM CDT) Analysis Performed At Patho logis Time Signature Glucose, POCT, 107 70 - 140 01/14/2020 PCLX B mg/dL 8:25 AM CDT Site Capillary 01/14/2020 PCLX 8:25 AM CDT Last Intake 3-4 hours 01/14/2020 PCLX 8:25 AM CDT Specimen Anatomical Collection Method Collection Time Receive d Time (Source) Location / / Volume Laterality Blood 01/14/2020 8:10 AM 0 8:26 CDT AM CDT Unknown Provider LAB POCT ORDERABLES-MANUAL Performing Organization Address City/[facility] Phon e Number POC [facility] [address] [place] [id number] [facility] [address] POC 200 [facility] Basic Metabolic Panel (01/14/2020 6:23 AM CDT) P athologist Signature Potassium, S 3.9 3.6 - 5.2 01/14/2020 DTL mmol/L 7:33 AM CDT Sodium, S 140 135 - 145 01/14/2020 DTL mmol/L 7:33 AM CDT Chloride, S 101 98 - 107 01/14/2020 DTL mmol/L 7:33 AM CDT Bicarbonate, S 27 22 - 29 01/14/2020 DTL mmol/L 7:33 AM CDT Anion Gap 12 7 - 15 01/14/2020 DTL 7:33 AM CDT BUN (Blood Urea 11 6 - 21 01/14/2020 DTL Nitrogen), S mg/dL 7:33 AM CDT Creatinine 0.92 0.59 - 01/14/2020 DTL 1.04 mg/dL 7:33 AM CDT eGFR-Non 77 >=60 01/14/2020 DTL Black/ mL/min/BSA 7:33 AM CDT Palestinian Comment: ----ADDITIONAL INFORMATION---- Estimated GFR calculated using the 2009 CKD_EPI creatinine equation. eGFR-Black/ 89 >=60 mL/min/BSA 2019 7:33 AM CDT DTL Comment: ----ADDITIONAL INFORMATION---- Estimated GFR calculated using the 2009 CKD_EPI creatinine equation. Calcium, Total, S 8.8 8.6 - 10.0 mg/dL 01/14/2020 7:33 AM CDT DTL Glucose, S 96 70 - 140 mg/dL 01/14/2020 7:33 AM CDT D TL Specimen Anatomical Collection Method Collection Time Receive d Time (Source) Location / / Volume Laterality Blood (Blood, 01/14/2020 6:23 AM 01/14/20 20 7:17 Venous) CDT AM CDT Ashli Epps P.A.-C., M.S. LAB BLOOD ADD-ON Performing Organization Address City/State/ZIP Code Phon e Number [facility] - [address] [place], [place] [address] [facility] [place] [address] [facility] [address] Glucose, POCT (01/13/2020 11:17 PM CDT) Analysis Performed At Patho logist Time Signature Glucose, POCT, 136 70 - 140 01/13/2020 PCLX B mg/dL 11:21 PM CDT Site Capillary 01/13/2020 PCLX 11:21 PM CDT Last Intake 3-4 hours 01/13/2020 PCLX 11:21 PM CDT Specimen Anatomical Collection Method Collection Time Receive d Time (Source) Location / / Volume Laterality Blood 01/13/2020 11:17 01/13/2020 PM CDT 11:21 PM CDT Unknown Provider LAB POCT ORDERABLES-MANUAL Performing Organization Address [facility] Phon e Number POC [facility] [address] [place] [address] POC 200 [facility] (ABNORMAL) Glucose, POCT (01/13/2020 5:55 PM CDT) Analysis Performed At Patho logist Time Signature Glucose, POCT, 153 (H) 70 - 140 01/13/2020 PCLX B mg/dL 5:56 PM CDT Site Capillary 01/13/2020 PCLX 5:56 PM CDT Last Intake > 4 hours 01/13/2020 PCLX 5:56 PM CDT Specimen Anatomical Collection Method Collection Time Receive d Time (Source) Location / / Volume Laterality Blood 01/13/2020 5:55 PM 0 5:56 CDT PM CDT Unknown Provider LAB POCT ORDERABLES-MANUAL Performing Organization Address [facility] Phon e Number POC [facility] [address] [place] [address] [place], [place] [id number] [place] [address] POC 200 [facility] (ABNORMAL) Glucose, POCT (01/13/2020 1:00 PM CDT) Analysis Performed At [facility] logis Time Signature Glucose, POCT, 148 (H) 70 - 140 01/13/2020 PCLX B mg/dL 1:02 PM CDT Site Capillary 01/13/2020 PCLX 1:02 PM CDT Last Intake 3-4 hours 01/13/2020 PCLX 1:02 PM CDT Specimen Anatomical Collection Method Collection Time Receive d Time (Source) Location / / Volume Laterality Blood 01/13/2020 1:00 PM 0 1:03 CDT PM CDT Unknown Provider LAB POCT ORDERABLES-MANUAL Performing Organization Address [facility] Phon e Number POC [facility] [address] [place] [address] [place], [place] [address] [place] [address] POC 200 [facility] ECG 12 Lead (01/13/2020 12:43 PM CDT) P athologist Signature Ventricular Rate 65 BPM MUSE ECG/Min OR Interval 190 ms MUSE QRSD Interval 86 ms MUSE QT Interval 412 ms MUSE QTC Interval 428 ms MUSE P [place] 36 degrees MUSE R [place] 19 degrees MUSE T Wave [place] 27 degrees MUSE Specimen Anatomical Collection Method Collection Time Receive d Time (Source) Location / / Volume Laterality 01/13/2020 12:43 01/13/2020 PM CDT 12:55 PM CDT Impressions MUSE - 01/13/2020 12:55 PM CDT Normal sinus rhythm Normal ECG When compared with ECG of 11-JAN-2020 23 :19, No significant change was found Reviewed by ZEYAD Alonso Narrative This result has an attachment that is no t available. Procedure Note Ez Dietz M.D. - 01/13/2020Form atting of this note might be different from the original. IMPRESSION: Normal sinus rhythm Normal ECG When compared with ECG of 11-JAN-2020 23 :19, No significant change was found Reviewed by ZEYAD Alonso Ashli Epps P.A.-C., M.S. ECG ORDERABLES Performing Organization Address City/State/ZIP Code Phon e Number MUSE MUSE NA Glucose, POCT (01/13/2020 9:11 AM CDT) P athologist Signature Glucose, POCT, 139 70 - 140 01/13/2020 PCLX B mg/dL 9:17 AM CDT Specimen Anatomical Collection Method Collection Time Receive d Time (Source) Location / / Volume Laterality Blood 01/13/2020 9:11 AM 0 9:17 CDT AM CDT Unknown Provider LAB POCT ORDERABLES-MANUAL Performing Organization Address City/State/ZIP Code Phon e Number POC [facility] [address] [place] [address] PCL[facility] [place], [place] [id number] [place] [address] (TTE) 2D ECHO DOPPLER COLOR (01/13/2020 8:12 AM CDT) [facility] Time Signature Ejection Fraction 59 MC CV EIMS LV Mass Index 86 MC CV EIMS LV End-Diastolic 49 MC CV EIMS Diameter LV End-Systolic 33 MC CV EIMS Diameter MV E Velocity 0.8 MC CV EIMS MV A Velocity 0.6 MC CV EIMS MV E/A 1.33 MC CV EIMS MV e' Velocity 0.08 MC CV EIMS Medial MV e' Velocity 0.16 MC CV EIMS Lateral MV E/e' Medial 10.0 MC CV EIMS MV E/e' Lateral 5.0 MC CV EIMS Left ventricular 35 MC CV EIMS stroke volume index Cardiac Output 5.89 MC CV EIMS Cardiac Index 2.87 MC CV EIMS LV Interventricular 9 MC CV EIMS Septal Wall Thickness LV Posterior Wall 11 MC CV EIMS Thickness LV Relative Wall 45 MC CV EIMS Thickness Tricuspid Annular S? 0.12 MC CV EIMS TR Vmax 2.20 MC CV EIMS RA Pressure 5 MC CV EIMS RV Systolic Pressure 24 MC CV EIM S Aortic valve area 2.96 MC CV EIMS Aortic Valve 0.78 MC CV EIMS Dimensionless Index LA Volume Index 31 MC CV EIMS Anatomical Region Laterality Modality Echocardiography Specimen (Source) Anatomical Collection Method Collection Time Re ceived Time Location / / Volume Laterality 01/13/2020 7:31 AM CDT Impressions 01/13/2020 11:31 AM CDT LEFT VENTRICLE: ??Normal left ventricular chamber size. ??Normal left ventricular wall thickness. Calculated 2-D linear left ventricular ejection fraction 59 %. ??No regional wall motion abnormalities. ??Normal left ventricular diastolic function. ??RIGHT VENTRICLE: ??Normal right ventricular chamber size. ??Normal right ventricular systolic function. ??Estimated right ventricular systolic pressure 24 mmHg (s ystolic blood pressure 154 mmHg). ??ATRIA: ??Normal left atrial size. ??Left atrial volume index 31 ml/m^2. ??Normal right atrial size. ??CARDIAC VALVES: Trileaflet aortic valve. ??Normal aortic valve. ??No aortic valve regurgitation. ??Normal mitral valve. ??No mitral valve regurgitation. ??Pulmonary valve not well visualized. ??No pulmonary valve regurgitation. ??Normal tricuspid valve. ??Trivial tricuspid valve regurgitation. ??OTHER ECHO FINDINGS: ??Normal inferior vena ca va size with normal inspiratory collapse (>50%). Ascending aorta not well visualized. ??A bdominal aorta incompletely visualized. ??No atrial level shunt by color flow imaging. ??No intrac ardiac mass or thrombus, but the left atrial appendage cannot be visualized adequately with tra nsthoracic echo to exclude thrombus in this location. No pericardial effusion. For the complete report, see the [employer] Documents. Narrative 01/13/2020 11:31 AM CDT For the complete report, see the [employer] Documents. Final Impressions 1. Normal echocardiogram. 2. Normal left ventricular chamber size. ??Calculated ejection fraction 59%. No regional wall motion abnormalities. 3. Normal left ventricular diastolic fun ction. 4. Normal right ventricular chamber size and systolic function. Estimated right ventricular systolic pressure 24 mmHg. 5. No significant valvular heart disease . 6. Normal inferior vena cava size with n ormal inspiratory collapse (>50%). 7. No pericardial effusion. Procedure Note Kami Phipps M.D., Ph.D. - 01/13/2020 For the complete report, see the [employer] Documents. Final Impressions 1. Normal echocardiogram. 2. Normal left ventricular chamber size. Calculated ejection fraction 59%. No regional wall motion abnormalities. 3. Normal left ventricular diastolic fun ction. 4. Normal right ventricular chamber size and systolic function. Estimated right ventricular systolic pressure 24 mmHg. 5. No significant valvular heart disease . 6. Normal inferior vena cava size with n ormal inspiratory collapse (>50%). 7. No pericardial effusion. Findings LEFT VENTRICLE: Normal left ventricular chamber size. Normal left ventricular wall thickness. Calculated 2-D linear left ventricular ejection fraction 59 %. No regional wall motion abnormalities. Normal left ventricular d iastolic function. RIGHT VENTRICLE: Normal right ventricular chamber size. Normal right v entricular systolic function. Estimated right ventricular systolic pressure 24 mmHg (s ystolic blood pressure 154 mmHg). ATRIA: Normal left atrial size. Left atrial volume index 31 ml/m^2. Normal right atrial size. CARDIAC VALVES: Trileaflet aortic valve. Normal aortic v alve. No aortic valve regurgitation. Normal mitral valve. No mitral valve regurgitation. Pu lmonary valve not well visualized. No pulmonary valve regurgitation. Normal tricuspid va lve. Trivial tricuspid valve regurgitation. OTHER ECHO FINDINGS: Normal inferior vena cava size with normal inspiratory collapse (>50%). Ascending aorta not well visualized. Abd ominal aorta incompletely visualized. No atrial level shunt by color flow imaging. No intracar diac mass or thrombus, but the left atrial appendage cannot be visualized adequately with tra nsthoracic echo to exclude thrombus in this location. No pericardial effusion. For the complete report, see the Order-L evel Documents. Murali Vieira P.A.-C., M.S. CV ECHO PROCEDURES (ABNORMAL) Basic Metabolic Panel (01/13/2020 6:16 AM CDT) P athologist Signature Potassium, S 3.6 3.6 - 5.2 01/13/2020 DTL mmol/L 7:39 AM CDT Sodium, S 141 135 - 145 01/13/2020 DTL mmol/L 7:39 AM CDT Chloride, S 102 98 - 107 01/13/2020 DTL mmol/L 7:39 AM CDT Bicarbonate, S 27 22 - 29 01/13/2020 DTL mmol/L 7:39 AM CDT Anion Gap 12 7 - 15 01/13/2020 DTL 7:39 AM CDT BUN (Blood Urea 6 6 - 21 01/13/2020 DTL Nitrogen), S mg/dL 7:39 AM CDT Creatinine 0.79 0.59 - 01/13/2020 DTL 1.04 mg/dL 7:39 AM CDT eGFR-Non >90 >=60 01/13/2020 DTL Black/ mL/min/BSA 7:39 AM CDT Palestinian Comment: ----ADDITIONAL INFORMATION---- Estimated GFR calculated using the 2009 CKD_EPI creatinine equation. eGFR-Black/ >90 >=60 mL/min/BSA 2019 7:39 AM CDT DTL Comment: ----ADDITIONAL INFORMATION---- Estimated GFR calculated using the 2009 CKD_EPI creatinine equation. Calcium, Total, S 9.0 8.6 - 10.0 mg/dL 01/13/2020 7:39 AM CDT DTL Glucose, S 162 (H) 70 - 140 mg/dL 01/13/2020 7:39 AM CDT D TL Specimen Anatomical Collection Method Collection Time Receive d Time (Source) Location / / Volume Laterality Blood (Blood, 01/13/2020 6:16 AM 01/13/20 20 7:21 Venous) CDT AM CDT Murali Vieira P.A.-C., M.S. LAB BLOOD ADD-ON Performing Organization Address City/State/ZIP Code Phon e Number [facility] - [address] [place], [place] [address] [place] [id number] (ABNORMAL) CBC without Differential (01/13/2020 6:16 AM CDT) Patholo gist Method Time Signature Hemoglobin 13.6 11.6 - 01/13/2020 DTL 15.0 g/dL 7:11 AM CDT Hematocrit 39.7 35.5 - 01/13/2020 DTL 44.9 % 7:11 AM CDT Erythrocytes 4.46 3.92 - 01/13/2020 DTL 5.13 7:11 AM CDT x10(12)/L MCV 89.0 78.2 - 01/13/2020 DTL 97.9 fL 7:11 AM CDT RBC Distrib Width 11.5 (L) 12.2 - 01/13/2020 DTL 16.1 % 7:11 AM CDT Platelet Count 182 157 - 371 01/13/2020 DTL x10(9)/L 7:11 AM CDT Leukocytes 6.9 3.4 - 9.6 01/13/2020 DTL x10(9)/L 7:11 AM CDT Specimen Anatomical Collection Method Collection Time Receive d Time (Source) Location / / Volume Laterality Blood (Blood, 01/13/2020 6:16 AM 01/13/20 20 7:04 Venous) CDT AM CDT Murali Vieira P.A.-C., M.S. LAB BLOOD ADD-ON Performing Organization Address City/State/ZIP Code Phon e Number [address] Glucose, POCT (01/13/2020 12:15 AM CDT) Analysis Performed At Patho logist Time Signature Glucose, POCT, 127 70 - 140 01/13/2020 PCLX B mg/dL 12:25 AM CDT Site Capillary 01/13/2020 PCLX 12:25 AM CDT Last Intake 3-4 hours 01/13/2020 PCLX 12:25 AM CDT Specimen Anatomical Collection Method Collection Time Receive d Time (Source) Location / / Volume Laterality Blood 01/13/2020 12:15 01/13/2020 AM CDT 12:25 AM CDT Unknown Provider LAB POCT ORDERABLES-MANUAL Performing Organization Address City/[facility] Phon e Number POC [facility] [address] [place] [address] [place], [place] [phone] [place] [address] POC [address] [facility] Glucose, POCT (01/12/2020 5:35 PM CDT) Analysis Performed At Patho logist Time Signature Glucose, POCT, 133 70 - 140 01/12/2020 PCLX B mg/dL 5:39 PM CDT Last Intake > 4 hours 01/12/2020 PCLX 5:39 PM CDT Specimen Anatomical Collection Method Collection Time Receive d Time (Source) Location / / Volume Laterality Blood 01/12/2020 5:35 PM 0 5:39 CDT PM CDT Unknown Provider LAB POCT ORDERABLES-MANUAL Performing Organization Address [facility] Phon e Number POC [facility] [address] [place] [address] [place] [address] [place] POC 200 [facility] (ABNORMAL) Glucose, POCT (01/12/2020 11:43 AM CDT) Analysis Performed At Patho logist Time Signature Glucose, POCT, 165 (H) 70 - 140 01/12/2020 PCLX B mg/dL 11:51 AM CDT Last Intake 1-2 hours 01/12/2020 PCLX 11:51 AM CDT Specimen Anatomical Collection Method Collection Time Receive d Time (Source) Location / / Volume Laterality Blood 01/12/2020 11:43 01/12/2020 AM CDT 11:51 AM CDT Unknown Provider LAB POCT ORDERABLES-MANUAL Performing Organization Address City/[facility] Phon e Number POC [facility] [address] [place] [address] [place], [place] [phone] [place] [address] POC [address] [facility] (ABNORMAL) Glucose, POCT (01/12/2020 11:32 AM CDT) P athologist Signature Glucose, POCT, 30 (L) 70 - 140 01/12/2020 PCLX B mg/dL 11:51 AM CDT Specimen Anatomical Collection Method Collection Time Receive d Time (Source) Location / / Volume Laterality Blood 01/12/2020 11:32 01/12/2020 AM CDT 11:51 AM CDT Unknown Provider LAB POCT ORDERABLES-MANUAL Performing Organization Address City/[facility]/ZIP Code Phon e Number POC [facility] [address] [place] [address] [place] [address] [place] P[facility] 200 [facility] Glucose, POCT (01/12/2020 7:45 AM CDT) P athologist Signature Glucose, POCT, 97 70 - 140 01/12/2020 PCLX B mg/dL 7:49 AM CDT Site ARTLINE 01/12/2020 PCLX 7:49 AM CDT Specimen Anatomical Collection Method Collection Time Receive d Time (Source) Location / / Volume Laterality Blood 01/12/2020 7:45 AM 0 7:49 CDT AM CDT Unknown Provider LAB POCT ORDERABLES-MANUAL Performing Organization Address City/[facility]/ZIP Code Phon e Number POC [facility] [address] [place] [address] [place] [address] [place] P[facility] 200 [facility] Interpretation of Outside CT Head (01/12/2020 4:35 AM CDT) Anatomical Region Laterality Modality Head, Neuroradiology RST LOS, Neuroradiology ARZ LOS, N/A Computed Tomography Neuroradiology FLA LOS, Other Specimen (Source) Anatomical Collection Method Collection Time Re ceived Time Location / / Volume Laterality 01/12/2020 7:44 AM CDT Impressions 01/12/2020 8:28 AM CDT No acute intracranial findings. Narrative 01/12/2020 8:28 AM CDT EXAM: ??INTERPRETATION OF OUTSIDE CT HEAD COMPARISON: ??Head CT 12/24/2019 FINDINGS: ??Outside interpretation of he ad CT without IV contrast obtained 01/11/2020. No acute intracranial hemorrhage, ischem ic infarct, or mass effect. No significant change since exam of 020. Paranasal sinuses and mastoid air cells are well-aerated. Procedure Note Manny Scruggs M.D. - 0 EXAM: INTERPRETATION OF OUTSIDE CT HEAD COMPARISON: Head CT 12/24/2019 FINDINGS: Outside interpretation of head CT without IV contrast obtained 01/11/2020. No acute intracranial hemorrhage, ischem ic infarct, or mass effect. No significant change since exam of 020. Paranasal sinuses and mastoid air cells are well-aerated. IMPRESSION: No acute intracranial findings. Belia Goodwin P.A.-C. M.S. IMG CT PROCEDURES Interpretation of Outside CT Abdomen and or Pelvis (01/12/2020 4:33 AM CDT) Anatomical Region Laterality Modality Abdomen, Pelvis, Abdominal RST LOS, Abdominal ARZ LOS, N/A Computed Tomography Abdominal FLA LOS, Other Specimen (Source) Anatomical Collection Method Collection Time Re ceived Time Location / / Volume Laterality 01/12/2020 8:39 AM CDT Impressions 01/12/2020 9:19 AM CDT 1. New right lower lobe pulmonary opacities are likely infectious/inflammatory. 2. Mild nonspecific perinephric fat stra nding without hydronephrosis or urinary calculi. Narrative 01/12/2020 9:19 AM CDT EXAM: ??INTERPRETATION OF OUTSIDE CT ABDOMEN AND OR PELVIS COMPARISON: ??Outside CT chest 1. Outside CT chest, abdomen, and pelvis 04/16/2011. FINDINGS: ?? Outside CT abdomen and pelvis per stone protocol without IV contrast dated 01/11/2020: No urinary calculi. Mild perinephric haz y fat stranding. Cholecystectomy. Normal caliber of the small and large bowel wit hout evidence of obstruction. Normal appendix. Increased density material in the distal stomach is favored to be ingested (series 3, image 56). Small fat -containing periumbilical hernia. Nonspecific hazy mesenteric fat strandin g. Splenule. IUD. Groundglass and interstitial opacities i n the dependent right lower lobe abutting the fissure may be infectious/i nflammatory, with aspiration excluded. Dependent bibasilar atelectasis. Procedure Note Reagan Schmidt M.D. - 01/12/2020Forma tting of this note might be different from the original. EXAM: INTERPRETATION OF OUTSIDE CT ABDOM EN AND OR PELVIS COMPARISON: Outside CT chest 04/17/2011. Outside CT chest, abdomen, and pelvis 04/16/2011. FINDINGS: Outside CT abdomen and pelvis per stone protocol without IV contrast dated 01/11/2020: No urinary calculi. Mild perinephric haz y fat stranding. Cholecystectomy. Normal caliber of the small and large bowel wit hout evidence of obstruction. Normal appendix. Increased density material in the distal stomach is favored to be ingested (series 3, image 56). Small fat -containing periumbilical hernia. Nonspecific hazy mesenteric fat strandin g. Splenule. IUD. Groundglass and interstitial opacities i n the dependent right lower lobe abutting the fissure may be infectious/i nflammatory, with aspiration excluded. Dependent bibasilar atelectasis. IMPRESSION: 1. New right lower lobe pulmonary opacit ies are likely infectious/inflammatory. 2. Mild nonspecific perinephric fat stra nding without hydronephrosis or urinary calculi. Belia Goodwin P.A.-C., M.S. IMG CT PROCEDURES (ABNORMAL) CBC without Differential (01/12/2020 3:47 AM CDT) [facility] gist Method Time Signature Hemoglobin 10.9 (L) 11.6 - 01/12/2020 DTL 15.0 g/dL 4:24 AM CDT Hematocrit 31.6 (L) 35.5 - 01/12/2020 DTL 44.9 % 4:24 AM CDT Erythrocytes 3.52 (L) 3.92 - 01/12/2020 DTL 5.13 4:24 AM CDT x10(12)/L MCV 89.8 78.2 - 01/12/2020 DTL 97.9 fL 4:24 AM CDT RBC Distrib Width 11.7 (L) 12.2 - 01/12/2020 DTL 16.1 % 4:24 AM CDT Platelet Count 171 157 - 371 01/12/2020 DTL x10(9)/L 4:24 AM CDT Leukocytes 8.9 3.4 - 9.6 01/12/2020 DTL x10(9)/L 4:24 AM CDT Specimen Anatomical Collection Method Collection Time Receive d Time (Source) Location / / Volume Laterality Blood (Blood, 01/12/2020 3:47 AM 01/12/20 20 4:15 Venous) CDT AM CDT Belia Goodwin P.A.-C., M.S. LAB BLOOD ADD-ON Performing Organization Address City/State/ZIP Code Phon e Number [facility] - [address] [place], [place] [address] [facility] [address] [facility] 200 [facility] (ABNORMAL) Basic Metabolic Panel (01/12/2020 3:47 AM CDT) P athologist Signature Potassium, S 4.0 3.6 - 5.2 01/12/2020 DTL mmol/L 4:46 AM CDT Sodium, S 138 135 - 145 01/12/2020 DTL mmol/L 4:46 AM CDT Chloride, S 107 98 - 107 01/12/2020 DTL mmol/L 4:46 AM CDT Bicarbonate, S 21 (L) 22 - 29 01/12/2020 DTL mmol/L 4:46 AM CDT Anion Gap 10 7 - 15 01/12/2020 DTL 4:46 AM CDT BUN (Blood Urea 12 6 - 21 01/12/2020 DTL Nitrogen), S mg/dL 4:46 AM CDT Creatinine 1.01 0.59 - 01/12/2020 DTL 1.04 mg/dL 4:46 AM CDT eGFR-Non 69 >=60 01/12/2020 DTL Black/ mL/min/BSA 4:46 AM CDT Palestinian Comment: ----ADDITIONAL INFORMATION---- Estimated GFR calculated using the 2009 CKD_EPI creatinine equation. eGFR-Black/ 79 >=60 mL/min/BSA 2019 4:46 AM CDT DTL Comment: ----ADDITIONAL INFORMATION---- Estimated GFR calculated using the 2009 CKD_EPI creatinine equation. Calcium, Total, S 7.9 (L) 8.6 - 10.0 mg/dL 01/12/2020 4:46 AM CDT DTL Glucose, S 117 70 - 140 mg/dL 01/12/2020 4:46 AM CDT D TL Specimen Anatomical Collection Method Collection Time Receive d Time (Source) Location / / Volume Laterality Blood (Blood, 01/12/2020 3:47 AM 01/12/20 20 4:30 Venous) CDT AM CDT Belia Goodwin P.A.-C., M.S. LAB BLOOD ADD-ON Performing Organization Address [facility] Code Phon e Number [facility] - [address] [place], [place] [address] [facility] [address] [facility] [address] [facility] Troponin T, 2H/6H, 5th Gen (01/12/2020 3:47 AM CDT) [facility] Method Time Signature Troponin T, 2 <6 <=10 ng/L 01/12/2020 [facility] hr, 5th gen 4:12 AM CDT 2H Delta 0 ng/L 01/12/2020 [facility] 4:12 AM CDT 2H Delta Not Changing 01/12/2020 [facility] Interp 4:12 AM CDT Troponin T, 6 CANCELED ng/L 01/12/2020 [facility] hr, 5th gen 4:12 AM CDT Comment: Result canceled by the ancillar y. Specimen Anatomical Collection Method Collection Time Receive d Time (Source) Location / / Volume Laterality Blood (Blood, 01/12/2020 3:47 AM 01/12/20 3:53 Venous) CDT AM CDT Narrative [facility] - 01/12/2020 4:12 AM CDT Specimen Information: Specimen ID: [id number] Specimen Type: Blood Specimen Collection Start Date: 01/12/20 ??3:47 AM Specimen Received Date: 01/12/2020 ??3:5 3 AM Specimen ID: [id number] Specimen Type: Blood Specimen Collection Start Date: 01/12/20 ??4:11 AM Specimen Received Date: 01/12/2020 ??4:1 1 AM Belia Goodwin P.A.-C. MMadeleineSMadeleine LAB BLOOD TROPONIN Performing Organization Address City/[facility] Code Phon e Number [facility] - [address] [place], [place] [address] [place] [address] [facility] [address] Invasive Line (01/12/2020 1:31 AM CDT) Narrative Kamari Cortes, R.R.T., L.R.T. - 12/15 1:31 AM CDT Kamari Cortes, R.R.T., L.R.T. ? 01/12/2020 ??1:32 AM Invasive Line Date/Time: 01/12/2020 1:31 AM Performed by: Kamari Cortes RMadeleineRMae, L.R.T. Authorized by: Bobo Joyce M.D. Location: ICU/PCU PROCEDURE DETAILS: Line type: arterial ?? Laterality: left Location: radial Location details: new site ? Age group: adult Catheter diameter: 20 Ga Technique: ultrasound guided ?? Monitored: yes ?? Number of attempts: 1 CONSENT Consent obtained: verbal Consent given by: patient [employer] All relevant documentation and testing w ere reviewed and available. All required blood products, implants, devic es and or special equipment were made available as applicable. Pre-proced ure verification was conducted and the correct site was marked if required. A fire risk assessment was done as applicable. The procedural time-out w as conducted prior to performing the procedure and confirmed in a procedu ral pause. PRE-PROCEDURE DETAILS: Indication(s): hemodynamic monitoring Appropriate hand hygiene, gown, cap, mas k, protective eyewear, sterile gloves, skin preparation, sterile drape, and strict aseptic technique were utilized as applicable for the procedure .: yes ?? Skin preparation: chlorhexidine ?? SEDATION / ANESTHESIA Anesthesia method: local infiltration Local infiltrate type: lidocaine POST-PROCEDURE DETAILS: Procedure completed successfully: yes ?? Line secured: secured with sutureless de vice Chlorhexidine disc around insertion site and under catheter with slight turn: yes ?? Complications - arterial: none Patient tolerance of procedure: successf ul Bobo Joyce M.D. PROCEDURE/MINOR SURGICAL ORD ERABLES Patient Status (01/12/2020 1:12 AM CDT) P athologist Signature FIO2 0.21 0.21=AIR 01/12/2020 [facility] 1:17 AM CDT Spont. 14 01/12/2020 [facility] breaths/min 1:17 AM CDT Specimen Anatomical Collection Method Collection Time Receive d Time (Source) Location / / Volume Laterality Blood 01/12/2020 1:12 AM 0 1:17 CDT AM CDT Belia Goodwin P.A.-C., M.S. LAB BLOOD NON ADD-ON Performing Organization Address City/[facility] Phon e Number [facility] - [address] [place], [place] [address] [place] [address] (ABNORMAL) Blood Gas without Coox, Arterial (01/12/2020 1:12 AM CDT) P athologist Signature pO2 68 (L) 83 - 108 01/12/2020 [facility] mm Hg 1:21 AM CDT pCO2 44 32 - 45 mm 01/12/2020 [facility] Hg 1:21 AM CDT pH 7.32 (L) 7.35 - 01/12/2020 [facility] 7.45 pH 1:21 AM CDT Base Excess -3 (L) -2 - 3 01/12/2020 [facility] mmol/L 1:21 AM CDT HCO3 22 22 - 26 01/12/2020 [facility] mmol/L 1:21 AM CDT Arterial Art Line 01/12/2020 [facility] Sample Site 1:21 AM CDT Comment: Beni's test not done. Specimen Anatomical Collection Method Collection Time Receive d Time (Source) Location / / Volume Laterality Blood (Blood, 01/12/2020 1:12 AM 01/12/20 20 1:17 Arterial) CDT AM CDT Belia Goodwin P.A.-C., M.S. LAB BLOOD NON ADD-ON Performing Organization Address City/[facility] Phon e Number [facility] - [address] [place], [place] [address] [facility] [place] [address] Calcium, Ionized (01/12/2020 1:12 AM CDT) P athologist Signature Calcium, 4.67 4.65 - 5.30 01/12/2020 [facility] Ionized, B mg/dL 1:21 AM CDT Specimen Anatomical Collection Method Collection Time Receive d Time (Source) Location / / Volume Laterality Blood (Blood, 01/12/2020 1:12 AM 01/12/20 20 1:17 Venous) CDT AM CDT Belia Goodwin P.A.-C., M.S. LAB BLOOD NON ADD-ON Performing Organization Address City/State/[facility] Phon e Number [facility] - [address] [place], [place] [address] [facility] [place] [address] [facility] 200 [facility] Bacteria / Maisha Culture, Blood #2 (01/12/2020 1:08 AM CDT) Patholo gist Method Time Signature Bacteria/Mehreen No growth 01/17/2020 DTL da Culture, after 5 3:02 AM CDT Blood days of incubation. Specimen (Source) Anatomical Collection Method Collection Time Re ceived Time Location / / Volume Laterality Blood (Blood, 01/12/2020 1:08 01/12/2020 2:55 Peripheral Draw) AM CDT AM CDT Comment: Specimen Source Site: Blood Narrative [facility] - 01/17/2020 3:02 AM CDT Received Bactec Peds bottle Specimen Information: Specimen ID: [id number] Specimen Source: Blood, Peripheral Draw Specimen Comment: Specimen Source Site: Blood Specimen Collection Start Date: 01/12/20 ??1:08 AM Specimen Received Date: 01/12/2020 ??2:5 5 AM Specimen ID: [id number] Specimen Source: Blood, Peripheral Draw Specimen Comment: Specimen Source Site: Blood Specimen Collection Start Date: 01/12/20 ??1:08 AM Specimen Received Date: 01/12/2020 ??2:5 5 AM Specimen ID: [id number] Specimen Source: Blood, Peripheral Draw Specimen Comment: Specimen Source Site: Blood Specimen Collection Start Date: 01/12/20 ??1:08 AM Specimen Received Date: 01/12/2020 ??2:5 5 AM Belia Goodwin P.A.-C. M.S. LAB MICROBIOLOGY - NERAL ORDERABLES Performing Organization Address City/[facility] Phon e Number [facility] - [address] [place], [place] [address] [facility] [place] [address] [facility] 200 [facility] SARS Coronavirus 2 IgG Ab, Serum (01/12/2020 12:59 AM CDT) P athologist Signature SARS-CoV-2 IgG Negative Negative 01/12/2020 [facility] Ab 6:36 PM CDT Comment: No IgG antibodies to SARS-CoV-2 detected . ?? Negative results may occur in serum dimple ected too soon following infection, or in immunosuppres sed patients. ?? Follow-up testing with a molecular test is recommended in symptomatic patients. ??This test gi uld not be used to exclude active/recent COVID-19. ?? Testing was performed using the EUROIMMUN Sgqd-[id number]-[id number] MANDIE (IgG), which has received Emergency Use Authori zation (EUA) by the U.S. Food and Drug Administration . ?? Fact sheets for this EUA assay can be fo und at the following links: ?? Factsheet for healthcare Providers: ?? https://www.fda.gov/media/419604/downloa d Factsheet for healthcare Patients: ?? https://www.fda.gov/media/475697/downloa d Specimen Anatomical Collection Method Collection Time Receive d Time (Source) Location / / Volume Laterality Blood (Blood, 01/12/2020 12:59 01/12/2020 8:15 Venous) AM CDT AM CDT Belia Goodwin P.A.-C., M.S. LAB MICROBIOLOGY - BL OOD ORDERABLES Performing Organization Address City/State/ZIP Code Phon e Number [facility] [address] [place], [place] [address] SUPPORT CENTER [facility] [place] [address] Laboratory Medicine and Pathology [address] [place] [address] Dr. [place] Bacteria / Maisha Culture, Blood #1 (01/12/2020 12:59 AM CDT) [facility] Method Time Signature Bacteria/Mehreen No growth 01/17/2020 DTL da Culture, after 5 3:02 AM CDT Blood days of incubation. Specimen (Source) Anatomical Collection Method Collection Time Re ceived Time Location / / Volume Laterality Blood (Blood, 01/12/2020 12:59 01/12/2020 2:51 Peripheral Draw) AM CDT AM CDT Comment: Specimen Source Site: Blood - f rom ARTLINE Narrative [facility] - 01/17/2020 3:02 AM CDT Specimen Information: Specimen ID: [id number] Specimen Source: Blood, Peripheral Draw Specimen Comment: Specimen Source Site: Blood - from ARTLINE Specimen Collection Start Date: 01/12/20 12:59 AM Specimen Received Date: 01/12/2020 ??2:5 1 AM Specimen ID: [id number] Specimen Source: Blood, Peripheral Draw Specimen Comment: Specimen Source Site: Blood - from ARTLINE Specimen Collection Start Date: 01/12/20 12:59 AM Specimen Received Date: 01/12/2020 ??2:5 1 AM Specimen ID: [id number] Specimen Source: Blood, Peripheral Draw Specimen Comment: Specimen Source Site: Blood - from STRATHMERELINE Specimen Collection Start Date: 01/12/20 12:59 AM Specimen Received Date: 01/12/2020 ??2:5 1 AM Belia Goodwin P.A.-C. MMadeleineS. LAB MICROBIOLOGY - NERAL ORDERABLES Performing Organization Address City/[facility] Phon e Number [facility] [address] (ABNORMAL) Procalcitonin (01/12/2020 12:59 AM CDT) athologist Signature Procalcitonin, 0.16 (H) <=0.08 01/12/2020 DT S ng/mL 2:11 AM CDT Specimen Anatomical Collection Method Collection Time Receive d Time (Source) Location / / Volume Laterality Blood (Blood, 01/12/2020 12:59 01/12/2020 1:48 Venous) AM CDT AM CDT Belia Goodwin P.A.-C., M.S. LAB BLOOD ADD-ON Performing Organization Address City/[facility] Phon e Number [facility] [address] (ABNORMAL) CRP (C-Reactive Protein) (01/12/2020 12:59 AM CDT) P athologist Signature C-Reactive 23.8 (H) <=8.0 mg/L 01/12/2020 DTL Protein (CRP), 2:11 AM CDT S Specimen Anatomical Collection Method Collection Time Receive d Time (Source) Location / / Volume Laterality Blood (Blood, 01/12/2020 12:59 01/12/2020 1:48 Venous) AM CDT AM CDT Belia Goodwin P.A.-C., M.S. LAB BLOOD ADD-ON Performing Organization Address [facility] Phon e Number [facility] - [address] [place], [place] [address] [facility] [address] [facility]-[address] Type and Screen (with reflex Antibody ID) (01/12/2020 12:59 AM CDT) Patholo gist Method Time Signature ABORh B Pos Not 01/12/2020 STRM applicable 1:44 AM CDT Antibody Negative Negative 01/12/2020 STRM Screen 2:00 AM CDT Type & Screen 01/15/2020 01/12/2020 STRM Expiration 23:59 1:44 AM CDT Testing Luisa DEFAULT 01/12/2020 STRM Location 1:19 AM CDT Specimen Anatomical Collection Method Collection Time Receive d Time (Source) Location / / Volume Laterality Blood (Blood, 01/12/2020 12:59 01/12/2020 1:19 Venous) AM CDT AM CDT Belia Goodwin P.A.-C., M.S. LAB BLOOD BANK TEST O RDERABLES Performing Organization Address [facility] Phon e Number [facility] - [address] [place], [place] [address] [facility] [place] [address] [facility]-[address] Prothrombin Time (PT) (01/12/2020 12:59 AM CDT) P athologist Signature Prothrombin 12.0 9.4 - 12.5 01/12/2020 [facility] Time, P sec 1:24 AM CDT INR 1.1 0.9 - 1.1 01/12/2020 [facility] 1:24 AM CDT Comment: ----ADDITIONAL INFORMATION---- Standard intensity warfarin therapeutic range: 2.0 to 3.0 ?? High intensity warfarin therapeutic rang e: 2.5 to 3.5 Specimen Anatomical Collection Method Collection Time Receive d Time (Source) Location / / Volume Laterality Blood (Blood, 01/12/2020 12:59 01/12/2020 1:17 Venous) AM CDT AM CDT Belia Goodwin P.A.-C., M.S. LAB BLOOD ADD-ON Performing Organization Address City/State/ZIP Code Phon e Number [facility] - [address] [place] [address] [address] [place] [address] [facility] 200 [facility] (ABNORMAL) CBC with Differential, Blood (01/12/2020 12:59 AM CDT) [facility] Method Time Signature Hemoglobin 10.6 (L) 11.6 - 01/12/2020 [facility] 15.0 g/dL 1:20 AM CDT Hematocrit 30.2 (L) 35.5 - 01/12/2020 [facility] 44.9 % 1:20 AM CDT Erythrocytes 3.34 (L) 3.92 - 01/12/2020 [facility] 5.13 1:20 AM CDT x10(12)/L MCV 90.4 78.2 - 01/12/2020 [facility] 97.9 fL 1:20 AM CDT RBC Distrib Width 11.9 (L) 12.2 - 01/12/2020 [facility] 16.1 % 1:20 AM CDT Platelet Count 173 157 - 371 01/12/2020 [facility] x10(9)/L 1:20 AM CDT Leukocytes 10.1 (H) 3.4 - 9.6 01/12/2020 [facility] x10(9)/L 1:20 AM CDT Neutrophils 7.35 (H) 1.56 - 01/12/2020 [facility] 6.45 1:20 AM CDT x10(9)/L Lymphocytes 1.94 0.95 - 01/12/2020 [facility] 3.07 1:20 AM CDT x10(9)/L Monocytes 0.58 0.26 - 01/12/2020 [facility] 0.81 1:20 AM CDT x10(9)/L Eosinophils 0.22 0.03 - 01/12/2020 [facility] 0.48 1:20 AM CDT x10(9)/L Basophils 0.03 0.01 - 01/12/2020 [facility] 0.08 1:20 AM CDT x10(9)/L Specimen Anatomical Collection Method Collection Time Receive d Time (Source) Location / / Volume Laterality Blood (Blood, 01/12/2020 12:59 01/12/2020 1:17 Venous) AM CDT AM CDT Belia Goodwin P.A.-C., M.S. LAB BLOOD ADD-ON Performing Organization Address City/State/ZIP Code Phon e Number [facility] - [address] [place], [place] [address] [facility] STMA [place] [address] [facility] 200 [facility] Phosphorus Inorganic (01/12/2020 12:59 AM CDT) P athologist Signature Phosphorus 3.0 2.5 - 4.5 01/12/2020 DTL (Inorganic), S mg/dL 2:11 AM CDT Specimen Anatomical Collection Method Collection Time Receive d Time (Source) Location / / Volume Laterality Blood (Blood, 01/12/2020 12:59 01/12/2020 1:48 Venous) AM CDT AM CDT Belia Goodwin P.A.-C., M.S. LAB BLOOD ADD-ON Performing Organization Address City/[facility] Code Phon e Number [facility] - [address] [place], [place] [address] [place] [address] [place] [address] [facility] Magnesium (01/12/2020 12:59 AM CDT) P athologist Signature Magnesium, S 1.7 1.7 - 2.3 01/12/2020 DTL mg/dL 2:11 AM CDT Specimen Anatomical Collection Method Collection Time Receive d Time (Source) Location / / Volume Laterality Blood (Blood, 01/12/2020 12:59 01/12/2020 1:48 Venous) AM CDT AM CDT Belia Goodwin P.A.-C., M.S. LAB BLOOD ADD-ON Performing Organization Address City/State/ZIP Code Phon e Number [facility] - [address] [place], [place] [address] [place] [address] (ABNORMAL) Comprehensive Metabolic Panel (01/12/2020 12:59 AM CDT) Analysis Performed At Patho logist Time Signature Potassium, S 4.1 3.6 - 5.2 01/12/2020 DTL mmol/L 2:44 AM CDT Sodium, S 137 135 - 145 01/12/2020 DTL mmol/L 2:44 AM CDT Chloride, S 106 98 - 107 01/12/2020 DTL mmol/L 2:44 AM CDT Bicarbonate, S 20 (L) 22 - 29 01/12/2020 DTL mmol/L 2:44 AM CDT Anion Gap 11 7 - 15 01/12/2020 DTL 2:44 AM CDT BUN (Blood Urea 13 6 - 21 01/12/2020 DTL Nitrogen), S mg/dL 2:44 AM CDT Creatinine 1.10 (H) 0.59 - 01/12/2020 DTL 1.04 mg/dL 2:44 AM CDT eGFR-Non 62 >=60 01/12/2020 DTL Black/ mL/min/BSA 2:44 AM CDT Palestinian Comment: ----ADDITIONAL INFORMATION---- Estimated GFR calculated using the 2009 CKD_EPI creatinine equation. eGFR-Black/ 72 >=60 mL/min/BSA 2019 2:44 AM CDT DTL Comment: ----ADDITIONAL INFORMATION---- Estimated GFR calculated using the 2009 CKD_EPI creatinine equation. Calcium, Total, S 7.6 (L) 8.6 - 10.0 mg/dL 01/12/2020 2:44 AM CDT DTL Glucose, S 135 70 - 140 mg/dL 01/12/2020 2:44 AM CDT D TL Protein, Total, S 5.1 (L) 6.3 - 7.9 g/dL 01/12/2020 2:44 A M CDT DTL Albumin, S 3.4 (L) 3.5 - 5.0 g/dL 01/12/2020 2:44 AM CDT D TL Aspartate Aminotransferase 11 8 - 43 U/L 01/12/2020 2 :44 AM CDT DTL (AST), S Alkaline Phosphatase, S 54 35 - 104 U/L 01/12/2020 2: 44 AM CDT DTL Alanine Aminotransferase 21 7 - 45 U/L 01/12/2020 2:4 4 AM CDT DTL (ALT), S Bilirubin, Total, S 0.6 <=1.2 mg/dL 01/12/2020 2:44 AM CDT DTL Specimen Anatomical Collection Method Collection Time Receive d Time (Source) Location / / Volume Laterality Blood (Blood, 01/12/2020 12:59 01/12/2020 1:48 Venous) AM CDT AM CDT Belia Goodwin P.A.-C., M.S. LAB BLOOD ADD-ON Performing Organization Address City/State/ZIP Code Phon e Number [facility] - [address] [place], [place] [address] [place] [address] [facility] [address] [facility] CK (Creatine Kinase) (01/12/2020 12:59 AM CDT) P athologist Signature Creatine Kinase 41 26 - 192 01/12/2020 DTL (CK), S U/L 2:11 AM CDT Specimen Anatomical Collection Method Collection Time Receive d Time (Source) Location / / Volume Laterality Blood (Blood, 01/12/2020 12:59 01/12/2020 1:48 Venous) AM CDT AM CDT Belia Goodwin P.A.-C., M.S. LAB BLOOD ADD-ON Performing Organization Address City/[facility]/ZIP Code Phon e Number [facility] - [address] [place], [place] [address] [place] [address] [place] [address] [facility] Acetaminophen Level (01/12/2020 12:59 AM CDT) Patholo gist Method Time Signature Acetaminophen, <7 Therapeutic 01/12/2020 DTL S Range: 10-30 2:11 AM CDT mcg/mL Specimen Anatomical Collection Method Collection Time Receive d Time (Source) Location / / Volume Laterality Blood (Blood, 01/12/2020 12:59 01/12/2020 1:48 Venous) AM CDT AM CDT Belia Goodwin P.A.-C., M.S. LAB BLOOD ADD-ON Performing Organization Address City/[facility]/ZIP Code Phon e Number [facility] - [address] [place], [place] [address] [place] [address] [facility] 200 [facility] Lipase (01/12/2020 12:59 AM CDT) P athologist Signature Lipase, S 17 13 - 60 U/L 01/12/2020 2:11 DTL AM CDT Specimen Anatomical Collection Method Collection Time Receive d Time (Source) Location / / Volume Laterality Blood (Blood, 01/12/2020 12:59 01/12/2020 1:48 Venous) AM CDT AM CDT Belia Goodwin P.A.-C., M.S. LAB BLOOD ADD-ON Performing Organization Address City/[facility]/ZIP [facility] Phon e Number [facility] - [address] [place], [place] [address] [place] [id number] [place] [address] Salicylate Level (01/12/2020 12:59 AM CDT) athologist Signature Salicylate, S <0.3 <30.0 mg/dL 01/12/2020 DTL 2:11 AM CDT Specimen Anatomical Collection Method Collection Time Receive d Time (Source) Location / / Volume Laterality Blood (Blood, 01/12/2020 12:59 01/12/2020 1:48 Venous) AM CDT AM CDT Belia Goodwin P.A.-C., M.S. LAB BLOOD ADD-ON Performing Organization Address City/State/ZIP Code Phon e Number [facility] - [address] [place], [place] [address] [place], [place] [id number] [place] [address] Ethanol Level, Serum (01/12/2020 12:59 AM CDT) P athologist Signature Ethanol, S <10 <10 mg/dL 01/12/2020 2:11 DTL AM CDT Specimen Anatomical Collection Method Collection Time Receive d Time (Source) Location / / Volume Laterality Blood (Blood, 01/12/2020 12:59 01/12/2020 1:48 Venous) AM CDT AM CDT Belia Goodwin P.A.-C., M.S. LAB BLOOD NON ADD-ON Performing Organization Address City/[facility] Phon e Number [facility] - [address] S-TSH (Thyroid-Stimulating Hormone - Sensitive) (01/12/2020 12:59 AM CDT) athologist Signature TSH, Sensitive 0.8 0.3 - 4.2 01/12/2020 DT mIU/L 2:11 AM CDT Specimen Anatomical Collection Method Collection Time Receive d Time (Source) Location / / Volume Laterality Blood (Blood, 01/12/2020 12:59 01/12/2020 1:48 Venous) AM CDT AM CDT Belia Goodwin P.A.-C. M.S. LAB BLOOD ADD-ON Performing Organization Address [facility] Phon e Number [facility] [address] (ABNORMAL) NT-Pro B-Type Natriuretic Peptide (BNP) (01/12/2020 12:59 AM CDT) athologist Signature NT-Pro BNP 201 (H) <=140 pg/mL 01/12/2020 DT 2:11 AM CDT Comment: NT-proBNP values less than 300 pg/mL hav e a 99% negative predictive value for excluding acute congestive heart tom lure. A cutoff of 1200 pg/mL for patients with an eGFR<60 yields a diagno stic sensitivity and specificity of 89% and 72% for acute congestive heart f ailure. ??NT-proBNP values greater than 450 pg/mL are consistent with CHF i n adults under 50 years of age. Specimen Anatomical Collection Method Collection Time Receive d Time (Source) Location / / Volume Laterality Blood (Blood, 01/12/2020 12:59 01/12/2020 1:48 Venous) AM CDT AM CDT Belia Goodwin P.A.-C., M.S. LAB BLOOD ADD-ON Performing Organization Address City/[facility] Phon e Number [facility] - [address] [place] Troponin T, Baseline, 5th gen (01/12/2020 12:59 AM CDT) athologist Signature Troponin T, <6 <=10 ng/L 01/12/2020 [facility] Baseline, 5th 1:33 AM CDT gen Specimen Anatomical Collection Method Collection Time Receive d Time (Source) Location / / Volume Laterality Blood (Blood, 01/12/2020 12:59 01/12/2020 1:17 Venous) AM CDT AM CDT Belia Goodwin P.A.-C., M.S. LAB BLOOD TROPONIN Performing Organization Address [facility] Phon e Number [facility] - [address] [place] [address] Lactate (01/12/2020 12:59 AM CDT) athologist Signature Lactate, P 1.2 0.5 - 2.2 01/12/2020 DTL mmol/L 1:50 AM CDT Specimen Anatomical Collection Method Collection Time Receive d Time (Source) Location / / Volume Laterality Blood (Blood, 01/12/2020 12:59 01/12/2020 1:26 Venous) AM CDT AM CDT Belia Goodwin P.A.-C., M.S. LAB BLOOD NON ADD-ON Performing Organization Address City/[facility] Code Phon e Number [facility] - [address] (ABNORMAL) Microscopic Automated (01/12/2020 12:18 AM CDT) athologist Signature Microscopy Abnormal 01/12/2020 WILLI 3:02 AM CDT WBC 1-3 /hpf 01/12/2020 WILLI 3:02 AM CDT Comment: ----REFERENCE VALUE---- 1-3 ??(Males) 1-10 (Females) Casts, Hyaline 4-10 /lpf 01/12/2020 3:02 AM CDT RE NA Squamous Epithelial Cells, U 1-3 /hpf 01/12/2020 3:02 AM CDT WILLI Bacteria Present (A) 01/12/2020 3:02 AM CDT WILLI Specimen Anatomical Collection Method Collection Time Receive d Time (Source) Location / / Volume Laterality Urine 01/12/2020 12:18 01/12/2020 1:03 AM CDT AM CDT Belia Goodwin P.A.-C., M.S. LAB URINE ORDERABLES Performing Organization Address [facility] Phon e Number [facility] - [address] [place], [place] [address] [place] [address] [facility] [address] [facility] Drug Screen, Prescription/OTC, Urine (01/12/2020 12:18 AM CDT) [facility] Method Time Signature Drugs Diphenhydramine. Topiramate. Trazodone.The follo wing compounds have been 01/16/2020 [facility] detected: detected by GC-MS library match: Atropine. Chloropheny lpiperazine. 5:07 AM CDT Metoclopramide. Metoprolol. Metronidazole. No other drugs detected. ??Quantitative testing may be avail able at an additional charge. ??Specimens are retained for 10 business days. This is a screening assay only and false-positive or false -negative results can occur. If confirmation testing of any drugs found is needed, please call the lab. Specimens are retained in the laborator y for two weeks. This test is not intended for use in compliance monitoring or emplo yment-related testing. Comment: ----ADDITIONAL INFORMATION---- This test was developed and its performa nce characteristics determined by [facility] in a manner consistent with CLIA requirements. This test has not been cleared or approved by the U.[place]. [place] d and Drug Administration. Specimen Anatomical Collection Method Collection Time Receive d Time (Source) Location / / Volume Laterality Urine (Urine, 01/12/2020 12:18 01/12/2020 9:10 Catheter) AM CDT AM CDT Belia Goodwin P.A.-C., M.S. LAB URINE ORDERABLES Performing Organization Address [facility] Code Phon e Number [facility] [address] [place], [place] [address] [place] [address] [place] [address] Laboratory Medicine and Pathology [address] [place] Urinalysis with Microscopic: Urine, Catheter (01/12/2020 12:18 AM CDT) Analysis Performed At Patho logist Time Signature Source Catheter 01/12/2020 WILLI 1:03 AM CDT Appearance Normal Normal 01/12/2020 WILLI 2:36 AM CDT Osmolality, U 183 150 - 1150 01/12/2020 [facility] mOsm/kg 1:34 AM CDT pH, U 5.3 4.5 - 8.0 01/12/2020 WILLI 1:34 AM CDT Comment: ----ADDITIONAL INFORMATION---- This test was developed and its performa nce characteristics determined by [facility] in a manner co nsistent with CLIA requirements. This test has not bee n cleared or approved by the U.S. Food and Drug Admin istration. Glucose 14 0 - 15 mg/dL 01/12/2020 2:36 AM CDT WILLI Protein, U 5 <26 mg/dL 01/12/2020 2:36 AM CDT WILLI Comment: ----ADDITIONAL INFORMATION---- On 02/09/2017 the total protein assay me thod changed resulting in approximately a 15% increase in prote in values. Protein/Osmolality 0.27 <0.42 Ratio 01/12/2020 2:36 AM CDT WILLI Comment: ----ADDITIONAL INFORMATION---- On 02/09/2017 the total protein assay me thod changed resulting in approximately a 15% increase in prote in values. Predicted 24 Hr Protein 206 mg/24 h 01/12/2020 2:36 AM CDT WILLI Predicted Range 51-834 mg/24 h 01/12/2020 2:36 AM CDT R JEREMI Hemoglobin, QL Negative Negative 01/12/2020 3:02 AM CDT RE NA Specimen Anatomical Collection Method Collection Time Receive d Time (Source) Location / / Volume Laterality Urine (Urine, 01/12/2020 12:18 01/12/2020 1:03 Catheter) AM CDT AM CDT Belia Goodwin P.A.-C., M.S. LAB URINE ORDERABLES Performing Organization Address City/State/ZIP Code Phon e Number [facility] - [address] [place], [place] [address] [facility] [place] [address] [facility] 200 [facility] Drug Abuse Survey with Confirmation, Panel 9, Urine (01/12/2020 12:18 AM CDT) [facility] Method Time Signature Alcohol Negative Cutoff: 01/12/2020 SDSC 10 mg/dL 10:57 AM CDT Amphetamines Negative Cutoff: 01/12/2020 SDSC 500 ng/mL 10:57 AM CDT Barbiturates Negative Cutoff: 01/12/2020 SDSC 200 ng/mL 10:57 AM CDT Benzodiazepines Negative Cutoff: 01/12/2020 SDSC 100 ng/mL 10:57 AM CDT Cocaine Negative Cutoff: 01/12/2020 SDSC 150 ng/mL 10:57 AM CDT Methadone Metabolite Negative Cutoff: 01/12/2020 SDSC 300 ng/mL 10:57 AM CDT Opiates Negative Cutoff: 01/12/2020 SDSC 300 ng/mL 10:57 AM CDT Phencyclidine Negative Cutoff: 01/12/2020 SDSC 25 ng/mL 10:57 AM CDT Tetrahydrocannabinol Negative Cutoff: 01/12/2020 SDSC 50 ng/mL 10:57 AM CDT Comment: ----ADDITIONAL INFORMATION---- This report is intended for use in clini wendy monitoring or management of patients. ??It is not intended for use i n employment-related testing. This test has been modified from the man ufacturer's instructions. Its performance characteristics were determi addison by [facility] in a manner consistent with CLIA requirements. This test has not been cleared or approved by the U.S. Food and Drug Administration . Specimen Anatomical Collection Method Collection Time Receive d Time (Source) Location / / Volume Laterality Urine (Urine, 01/12/2020 12:18 01/12/2020 9:10 Catheter) AM CDT AM CDT Belia Goodwin P.A.-C., M.S. LAB URINE ORDERABLES Performing Organization Address City/State/ZIP Code Phon e Number [facility] [address] [place], [place] [address] [facility] [place] [address] Laboratory Medicine and Pathology [address] [place] MRSA Culture (01/12/2020 12:12 AM CDT) Analysis Performed At Patho logist Time Signature MRSA Culture No growth 01/13/2020 DTL of MRSA 8:13 AM CDT Specimen Anatomical Collection Method Collection Time Receive d Time (Source) Location / / Volume Laterality Swab (Nares) 01/12/2020 12:12 01/12/2020 5:23 AM CDT AM CDT Comment: Specimen Source Site: Swab Belia Goodwin P.A.-C. MaMdeleineSMadeleine LAB MICROBIOLOGY - GE NERAL ORDERABLES Performing Organization Address City/State/ZIP Code Phon e Number [facility] - [address] [place], [place] [address] [facility] [address] [facility] 200 [facility] SARS Coronavirus 2, Molecular Detection, PCR (WOOL HANKER) Asymptomatic (01/11/2020 11:22 PM CDT) Patholo gist Method Time Signature COVID-19, PCR Undetected Undetected 01/12/2020 DTL 2:47 AM CDT Comment: SARS-CoV-2 RNA absent. This result does not rule out COVID-19 in the patient, as the sensitivity of the test depends o n the timing of the specimen collection and quality of the specimen. Result should be correlated with patient's history and clinical presentat ion. ----ADDITIONAL INFORMATION---- This test has received Emergency Use Aut horization (EUA) by the U.S. Food and Drug Administration an d is used per geological drafter's instructions. Performance characteristics were verified by [facility] in a manner consistent with CLIA requirements. Visit the CDC website: https://www.cdc.g ov/coronavirus/ for the most recent guidelines on Brooks virus testing. Fact Sheet for Healthcare Providers: https://www.fda.gov/media/013321/downloa d Fact Sheet for Patients: https://www.fda.gov/media/238818/downloa d Specimen Anatomical Collection Method Collection Time Receive d Time (Source) Location / / Volume Laterality Varies 01/11/2020 11:22 01/11/2020 (Nasopharynx) PM CDT 11:39 PM CDT Belia Goodwin P.A.-C., M.S. LAB MICROBIOLOGY - GE NERAL ORDERABLES Performing Organization Address City/[facility]/ZIP Code Phon e Number [facility] - [address] [place], [place] [address] [facility] [address] [facility] [address] [facility] ECG 12 Lead (01/11/2020 11:19 PM CDT) P athologist Signature Ventricular Rate 65 BPM MUSE ECG/Min OR Interval 196 ms MUSE QRSD Interval 84 ms MUSE QT Interval 446 ms MUSE QTC Interval 463 ms MUSE P [place] 20 degrees MUSE R [place] 24 degrees MUSE T Wave [place] 19 degrees MUSE Specimen Anatomical Collection Method Collection Time Receive d Time (Source) Location / / Volume Laterality 01/11/2020 11:19 01/11/2020 PM CDT 11:32 PM CDT Impressions MUSE - 01/11/2020 11:32 PM CDT Normal sinus rhythm Normal ECG When compared with ECG of 02-JUL-2018 16 :39, No significant change was found Reviewed by ZEYAD Vigil Narrative This result has an attachment that is no t available. Procedure Note Den Bennett M.D., Ph.D. - 0 IMPRESSION: Normal sinus rhythm Normal ECG When compared with ECG of 02-JUL-2018 16 :39, No significant change was found Reviewed by ZEYAD Vigil Belia Goodwin P.A.-C. M.S. ECG ORDERABLES Performing Organization Address City/[facility]/ZIP Code Phon e Number MUSE MUSE NA documented in this encounter Visit Diagnoses Diagnosis Shock (HCC) - Primary Severe Sepsis With Septic Shock (HCC) Anxiety Generalized Disorder Borderline Personality Disorder (HCC) Chronic Pain Syndrome Debility Depression Major Recurrent Moderate (HCC ) Diabetes Mellitus Type 2 Without Complic ation (HCC) Hypertension Essential Primary Migraine With Aura Not Intractable Witho ut Status Migrainosus Opioid Moderate Or Severe Use Disorder ( Dependence) Uncomplicated (HCC) Posttraumatic Stress Disorder Brief documented in this encounter Administered Medications Inactive Administered Medications - up to 3 most recent administrations Medication Order MAR Action Action Date Dose Rate Site acetaminophen tablet 1,000 mg Given 01/13/2020 12:26 AM CDT 1,00 0 mg (TYLENOL) 1,000 mg, oral, Every 6 hours PRN, headaches, Starting on Wed01/12/20 at 1804 Given 01/12/2020 6:38 PM CDT 1,000 mg acetaminophen tablet 1,000 mg (TYLENOL) Given 01/14/2020 10:42 AM CDT 1,000 mg 1,000 mg, oral, Every 6 hours, First dose (after last modification) on 01/13/20 at 1015 Given 01/14/2020 3:22 AM CDT 1,000 mg Given 01/13/2020 9:34 PM CDT 1,000 mg ARIPiprazole tablet 10 mg (ABILIFY) Given 01/14/2020 8:10 AM CDT 10 mg 10 mg, oral, Daily, First dose on 01/13/20 at 1000 Given 01/13/2020 11:19 AM CDT 10 mg buprenorphine-naloxone 2-0.5 mg per SL Film 1 Given 8:11 AM CDT 1 Film Film (SUBOXONE) 1 Film, sublingual, 2 times daily, First dose on 01/13/20 at 1215, Continuation of ypias-fx-znfcqujns therapy? Yes Given 01/13/2020 8:07 PM CDT 1 Film Given 01/13/2020 1:27 PM CDT 1 Film diphenhydrAMINE injection 25 mg (BENADRY L) Given 01/12/2020 10:08 PM CDT 25 mg 25 mg, intravenous, Once as needed, other, nausea, migraine, Starting on Wed01/12/20 at 2127, For 1 dose diphenhydrAMINE injection 25 mg (BENADRY L) Given 01/14/2020 2:39 AM CDT 25 mg 25 mg, intravenous, Once, On 01/14/20 at 0230, For [address] capsule 60 mg (CYMBALTA) Given 01/13/2020 11:28 AM CDT 60 mg 60 mg, oral, 2 times daily, First dose on 01/13/20 at 1000, See tube feeding guidelines for tube feeding administration instructions. DULoxetine DR capsule 60 mg (CYMBALTA) Given 01/14/2020 8:10 AM CDT 60 mg 60 mg, oral, Daily, First dose (after last modification) on 01/14/20 at 0900, See tube feeding guidelines for tube feeding administration instructions. eletriptan tablet 40 mg (RELPAX) Given 01/14/2020 1:22 AM CDT 40 mg 40 mg, oral, Every 2 hour PRN, migraine, Starting on Wed01/13/20 at 0134, May repeat dose once in 2 hours if migraine unresolved. Do not exceed 80 mg in 24 hours. Given 01/13/2020 4:36 AM CDT 40 mg Given 01/13/2020 2:25 AM CDT 40 mg gabapentin capsule 1,200 mg (NEURONTIN) 1,200 mg, oral, Daily at bedtime, First dose on Wed01/20/20 at 2100, Drug Monitoring Program: Pharmacist to adjust medication dosing based on indication and drug clearance factors. gabapentin capsule 600 mg (NEURONTIN) Given 01/13/2020 7:38 AM CDT 600 mg 600 mg, oral, 2 times daily, First dose on Wed01/12/20 at 2100, For 9 doses, Drug Monitoring Program: Pharmacist to adjust medication dosing based on indication and drug clearance factors. Given 01/12/2020 8:04 PM CDT 600 mg gabapentin capsule 600 mg (NEURONTIN) Given 01/14/2020 8:11 AM CDT 600 mg 600 mg, oral, Every morning, First dose (after last modification) on Wed01/14/20 at 0900, Drug Monitoring Program: Pharmacist to adjust medication dosing based on indication and drug clearance factors. heparin (porcine) Given 01/14/2020 6:13 AM CDT 5,000 Units Right Upper injection 5,000 Units Abdomen 5,000 Units, subcutaneous, Every 8 hours scheduled, First dose on Wed01/12/20 at 0600 Given 01/13/2020 9:34 PM CDT 5,000 Units Left Upper Abdomen Given 01/13/2020 1:28 PM CDT 5,000 Units Left Upper Abdomen insulin aspart U-100 Given 01/13/2020 6:02 PM CDT 2 Units Left Lower Abdomen injection 0-13 Units (NovoLOG FlexPen) 0-13 Units, subcutaneous, 3 times daily, First dose on Wed01/12/20 at 0800, Insulin Scale: Moderate Correction Scale, 140 - 179: 2 units, 180 - 219: 4 units, 220 - 259: 6 units, 260 - 299: 8 units, 300 - 339: 10 units, 340 - 379: 12 units, 380 - 399: 13 units, Greater than 399: Call service writing Insulin orders Given 01/13/2020 1:26 PM CDT 2 Units Right Upper Abdomen Given 01/12/2020 12:27 PM CDT 2 Units Left Lower Abdomen ketorolac injection 15 mg (TORADOL) Given 01/13/2020 7:39 AM CDT 15 mg 15 mg, intravenous, Once as needed, moderate pain or score 4-6 of 10, Starting on 01/13/20 at 0133, For 1 dose, Adult IV push rate: Over 15 seconds. Peds IV push rate: Over 1 minute. 60 mg dose only for IM, not recommended for IV. ketorolac injection 15 mg (TORADOL) Given 01/14/2020 2:28 AM CDT 15 mg 15 mg, intravenous, Once as needed, moderate pain or score 4-6 of 10, Starting on 01/13/20 at 1339, For 1 dose, Adult IV push rate: Over 15 seconds. Peds IV push rate: Over 1 minute. 60 mg dose only for IM, not recommended for IV. lisinopril-hydroCHLOROthiazide 20-12.5 mg Given 01/14/2020 8 :11 AM CDT 1 tablet per tablet 1 tablet (PRINZIDE,ZESTORETIC ) 1 tablet, oral, 2 times daily, First dose (after last modification) on Wed01/12/20 at 1000 Given 01/13/2020 8:07 PM CDT 1 tablet Given 01/13/2020 7:38 AM CDT 1 tablet LORazepam tablet 0.5 mg (ATIVAN) Given 01/12/2020 6:51 PM CDT 0.5 mg 0.5 mg, oral, Bedtime PRN, anxiety, Starting on Wed01/12/20 at 0225 LORazepam tablet 0.5 mg (ATIVAN) Given 01/14/2020 6:25 AM CDT 0.5 mg 0.5 mg, oral, 3 times daily PRN, anxiety, Starting on 01/13/20 at 1015 Given 01/14/2020 12:50 AM CDT 0.5 mg Given 01/13/2020 9:33 PM CDT 0.5 mg magnesium sulfate in water IVPB 2 g New Bag 01/13/2020 2:27 PM CDT 2 g 25 mL/hr 2 g, intravenous, at 25 mL/hr, Administer over 120 Minutes, Once, On 01/13/20 at 1215, For 1 dose, premix bag metoprolol succinate 24 hr tablet 100 mg Given 01/14/2020 8:11 A M CDT 100 mg (TOPROL-XL) 100 mg, oral, Daily, First dose on 01/14/20 at 0900, Do NOT crush or chew. Tablet may be split on score if needed. metoprolol tartrate tablet 50 mg (LOPRES SOR) Given 01/13/2020 8:10 PM CDT 50 mg 50 mg, oral, 2 times daily, First dose (after last modification) on 01/13/20 at 1015 Given 01/13/2020 11:19 AM CDT 50 mg NaCl 0.9 % bolus 1,000 mL New Bag 01/13/2020 1:19 PM CDT 1,000 mL 1000 mL/hr 1,000 mL, intravenous, at 1,000 mL/hr, Administer over 1 Hours, Once, On 01/13/20 at 1215, For 1 dose naproxen tablet 500 mg (NAPROSYN) 500 mg, oral, 2 times daily with meals, First dose (after last modification) on 01/13/20 at 1700 ondansetron (PF) injection 4 mg (ZOFRAN) Given 01/12/2020 6:58 PM CDT 4 mg 4 mg, intravenous, Every 6 hours PRN, nausea, vomiting, Starting on Wed01/12/20 at 1844 prochlorperazine injection 5 mg (COMPAZI NE) Given 01/12/2020 8:03 PM CDT 5 mg 5 mg, intravenous, Once, On Wed01/12/20 at 1915, For 1 dose prochlorperazine injection 5 mg (COMPAZI NE) Given 01/14/2020 2:28 AM CDT 5 mg 5 mg, intravenous, Every 6 hours PRN, nausea, vomiting, Starting on 01/13/20 at 0100 prochlorperazine injection 5 mg (COMPAZI NE) Given 01/13/2020 1:20 PM CDT 5 mg 5 mg, intravenous, Once, On 01/13/20 at 1215, For 1 dose traZODone tablet 150 mg (DESYREL) Given 01/13/2020 8:07 PM CDT 150 mg 150 mg, oral, Daily at bedtime, First dose on 5/30/20 at 0145 Given 01/13/2020 2:17 AM CDT 150 mg valproate 1,000 mg in NaCl 0.9% New Bag 01/13/2020 1:18 PM CDT 1,000 mg 60 mL/hr IVPB (DEPACON) 1,000 mg, intravenous, at 1,800 mL/hr, Administer over 2 Minutes, Once, On 01/13/20 at 1215, For 1 dose, IV Push Guidelines - Adults: Administer over 2-5 minutes; Pediatrics: Administer over 7-10 minutes. documented in this encounter Active and Recently Administered Medications Times are shown in CDT. Scheduled Medication Order 01/12/2020 01/13/2020 01/14/2020 acetaminophen tablet 1,000 mg (TYLENOL) 1119 (Given - Provider: Qi Crenshaw R.N.)1634 (Given - Provider: Qi Crenshaw R.N.)2134 (Given - Provider: Brunilda Gibbons R.N.) 0322 (Given - Provider: Brunilda Gibbons R.N.)1042 (Given - Provider: Qi Crenshaw R.N.) 1,000 mg, oral, Every 6 hours, First dos e (after last modification) on 01/13/20 at 1015 ARIPiprazole tablet 10 mg (ABILIFY) 1119 (Given - Provider: Qi Crenshaw R.N.) 0810 (Given - Provider: Qi Crenshaw R.N.) 10 mg, oral, Daily, First dose on 01/13/20 at 1000 buprenorphine-naloxone 2-0.5 mg per SL Film 1 Film (SUBOXONE ) 1327 (Given - Provider: Qi Crenshaw R.N.)2006 (Given - Provider: Brunilda Gibbons R.N.) 0811 (Given - Provider: Qi Crenshaw R.N.) 1 Film, sublingual, 2 times daily, First dose on 01/13/20 at 1215, Continuation of pothm-kd-lcwpjlqtc therapy? Yes diphenhydrAMINE injection 25 mg (BENADRYL) (COMPLETED) 0239 (Given - Provider: Brunilda Gibbons R.N.) 25 mg, intravenous, Once, On 01/14/20 at 0230, For [address] capsule 60 mg (CYMBALTA) (CANCELED) 1128 (Given - Provider: Qi Crenshaw R.N.) 60 mg, oral, 2 times daily, First dose o n 01/13/20 at 1000, See tube feeding guidelines for tube feeding administration instructions. DULoxetine DR capsule 60 mg (CYMBALTA) 0810 (Given - Provider: Qi Crenshaw R.N.) 60 mg, oral, Daily, First dose (after la st modification) on Wed01/14/20 at 0900, See tube feeding guidelines for tube feeding administration instructions. gabapentin capsule 1,200 mg (NEURONTIN) 1,200 mg, oral, Daily at bedtime, First dose on 01/20/20 at 2100, Drug Monitoring Program: Pharmacist to adjust medication dosing based on indication and drug clearance factors. gabapentin capsule 600 mg (NEURONTIN) (CANCELED) 2003 (Given - Provider: Kareem Thomas R.N.) 0738 (Given - Provider: Qi Crenshaw R.N.) 600 mg, oral, 2 times daily, First dose on Wed01/12/20 at 2100, For 9 doses, Drug Monitoring Program: Pharmacist to adjust medication dosing based on indication and drug clearance factors. gabapentin capsule 600 mg (NEURONTIN) 0811 (Given - Provider: Qi Crenshaw R.N.) 600 mg, oral, Every morning, First dose (after last modification) on Wed01/14/20 at 0900, Drug Monitoring Program: Pharmacist to adjust medication dosing based on indication and drug clearance factors. heparin (porcine) injection 5,000 Units 0637 (Given - Provider: Jen Rodney R.N.)1413 (Given - Provider: Tonya Drake R.N.)2003 (Given - Provider: Kareem Thomas R.N. - Comment: [facility]) 0617 (Given - Provider: Brunilda Gibbons R.N.)1328 (Given - Provider: Qi Crenshaw R.N.)2134 (Given - Provider: Brunilda Gibbons R.N.) 0613 (Given - Provider: Brunilda Gibbons R.N.) 5,000 Units, subcutaneous, Every 8 hours scheduled, First dose on Wed01/12/20 at 0600 insulin aspart U-100 injection 0-13 Units (NovoLOG Fle xPen) 0925 (Not Given - Provider: Tonya Drake R.N. - Reason: Order parameters not met)1227 (Given - Provider: Tonya Drake R.N.)1739 (Not Given - Provider: Kareem Thomas R.N. - Reason: Order parameters not met) 0911 (Not Given - Provider: Qi winston R.N. - Reason: Order parameters not met)1326 (Given - Provider: Qi Crenshaw R.N.)1802 (Given - Provider: Qi Crenshaw R.N. - Comment: pt eating meals late) 0810 (Not Given - Provider: Qi winston R.N. - Reason: Order parameters not met)1123 (Not Given - Provider: Qi Crenshaw R.N. - Reason: Other - Comment: Per provider hold due to blood sugar being on the lower end this morning.) 0-13 Units, subcutaneous, 3 times daily, First dose on Wed01/12/20 at 0800, Insulin Scale: Moderate Correction Scale, 140 - 179: 2 units, 180 - 219: 4 units, 220 - 259: 6 units, 260 - 299: 8 units, 300 - 339: 10 units, 340 - 379: 12 units, 38 0 - 399: 13 units, Greater than 399: Call service writing Insulin orders ketorolac injection 15 mg (TORADOL) 0242 (Not Given - Provider: Brunilda Gibbons R.N. - Reason: Other - Comment: given PRN ordered) 15 mg, intravenous, Once, 01/14/20 at 0230, For 1 dose, Adult IV push rate: Over 15 seconds. Peds IV push rate: Over 1 minute. 60 mg dose only for IM, not recommended for IV. lisinopril-hydroCHLOROthiazide 20-12.5 m g per tablet 1 tablet (PRINZIDE,ZESTORETIC) 1036 (Given - Provider: Stanislaw Pinto)2118 (Given - Provider: Kareem Thomas R.N.) 0738 (Given - Provider: Qi Crenshaw R.N.)2007 (Given - Provider: Brunilda Gibbons R.N.) 0811 (Given - Provider: Qi Crenshaw R.N.) 1 tablet, oral, 2 times daily, First dos e (after last modification) on Wed01/12/20 at 1000 magnesium sulfate in water IVPB 2 g (COMPLETED) 1427 (New Bag - Provider: Qi Crenshaw R.N. - Comment: needed Iv accuess) 2 g, intravenous, at 25 mL/hr, Administe r over 120 Minutes, Once, On 01/13/20 at 1215, For 1 dose, premix bag metoprolol succinate 24 hr tablet 100 mg (TOPROL-XL) 08 (Given - Provider: Qi Crenshaw R.N.) 100 mg, oral, Daily, First dose on Wed at 0900, Do NOT crush or chew. Tablet may be split on score if needed. metoprolol tartrate tablet 50 mg (LOPRESSOR) (CANCELED) 111 (Given - Provider: Qi Crenshaw R.N.)2009 (Given - Provider: Brunilda Gibbons R.N.) 50 mg, oral, 2 times daily, First dose ( after last modification) on 01/13/20 at 1015 NaCl 0.9 % bolus 1,000 mL (COMPLETED) 13 19 (New Bag - Provider: Qi Crenshaw R.N.) 1,000 mL, intravenous, at 1,000 mL/hr, A dminister over 1 Hours, Once, On 01/13/20 at 1215, For 1 dose naproxen tablet 500 mg (NAPROSYN) 1313 ( Held by provider - Provider: Ashli Epps P.A.-C., M.S. - Comment: Hold)1700 (Dose Auto Held - Provider: Ashli Epps P.A.-C., M.S.) 0800 (Dose Auto Held - Provider: Nima Hooper, M.S.)1455 (Unheld by provider - Provider: Discharge Provider, Automatic) 500 mg, oral, 2 times daily with meals, First dose (after last modification) on 01/13/20 at 1700 prochlorperazine injection 5 mg (COMPAZINE) (COMPLETED ) 2002 (Given - Provider: Kareem Thomas R.N.) 5 mg, intravenous, Once, On 01/12/20 at 1915, For 1 dose prochlorperazine injection 5 mg (COMPAZINE) (COMPLETED) 1320 (Given - Provider: Qi Crenshaw R.N.) 5 mg, intravenous, Once, On 01/13/20 at 1215, For 1 dose prochlorperazine injection 5 mg (COMPAZINE) 0243 (Not Given - Provider: Brunilda Gibbons R.N. - Reason: Other - Comment: given already using PRN ordered.) 5 mg, intravenous, Once, 01/14/20 at 0230, For 1 dose traZODone tablet 150 mg (DESYREL) 0217 ( Given - Provider: Brunilda Gibbons R.N.)2006 (Given - Provider: Brunilda Gibbons R.N.) 150 mg, oral, Daily at bedtime, First dose on 01/13/20 at 014 5 valproate 1,000 mg in NaCl 0.9% IVPB (DEPACON) (COMPLETED) 1318 (New Bag - Provider: Qi Crenshaw R.N.) 1,000 mg, intravenous, at 1,800 mL/hr, A dminister over 2 Minutes, Once, On 01/13/20 at 1215, For 1 dose, IV Push Guidelines - Adults: Administer over 2-5 minutes; Pediatrics: Administer over 7-10 minutes. PRN Medication Order 01/12/2020 01/13/2020 01/14/2020 acetaminophen tablet 1,000 mg (TYLENOL) (CANCELED) 183 8 (Given - Provider: Kelsea Brennan R.N.) 0026 (Given - Provider: Brunilda Gibbons R.N.) 1,000 mg, oral, Every 6 hours PRN, headaches, Starting on Wed at 1804 diphenhydrAMINE injection 25 mg (BENADRYL) (COMPLETED) 2207 (Given - Provider: Kareem Thomas R.N.) 25 mg, intravenous, Once as needed, othe r, nausea, migraine, Starting on Wed01/12/20 at 2127, For 1 dose eletriptan tablet 40 mg (RELPAX) 5 (G iven - Provider: Brunilda Gibbons R.N.)0436 (Given - Provider: Brunilda Gibbons R.N.) 0122 (Given - Provider: Brunilda Gibbons R.N.) 40 mg, oral, Every 2 hour PRN, migraine, Starting on 01/13/20 at 0134, May repeat dose once in 2 hours if migraine unresolved. Do not exceed 80 mg in 24 hours. ketorolac injection 15 mg (TORADOL) (COMPLETED) 738 (Given - Provider: Qi Crenshaw R.N.) 15 mg, intravenous, Once as needed, mode rate pain or score 4-6 of 10, Starting on 01/13/20 at 0133, For 1 dose, Adult IV push rate: Over 15 seconds. Peds IV push rate: Over 1 minute. 60 mg dose only for IM, not recommended for IV. ketorolac injection 15 mg (TORADOL) (COMPLETED) 227 (Given - Provider: Brunilda Gibbons R.N.) 15 mg, intravenous, Once as needed, mode rate pain or score 4-6 of 10, Starting on 01/13/20 at 1339, For 1 dose, Adult IV push rate: Over 15 seconds. Peds IV push rate: Over 1 minute. 60 mg dose only for IM, not recommended for IV. LORazepam tablet 0.5 mg (ATIVAN) (CANCELED) 1850 (Give n - Provider: Kareem Thomas R.N.) 0.5 mg, oral, Bedtime PRN, anxiety, Starting on Wed01/12/20 at 0 225 LORazepam tablet 0.5 mg (ATIVAN) 1127 (G iven - Provider: Qi Crenshaw R.N.)2133 (Given - Provider: Brunilda Gibbons R.N.) 0050 (Given - Provider: Brunilda Gibbons R.N.)0625 (Given - Provider: Brunilda Gibbons R.N.) 0.5 mg, oral, 3 times daily PRN, anxiety, Starting on 01/12/2 0 at 1015 ondansetron (PF) injection 4 mg (ZOFRAN) 1857 (Given - Provider: Kareem Y Park, R.N.) 4 mg, intravenous, Every 6 hours PRN, na usea, vomiting, Starting on 01/12/20 at 1844 prochlorperazine injection 5 mg (COMPAZINE) (CANCELED) 0228 (Given - Provider: Brunilda Gibbons R.N.) 5 mg, intravenous, Every 6 hours PRN, na usea, vomiting, Starting on 01/13/20 at 0100 documented in this encounter Additional Health Concerns Infection Onset Date Last Indicated Resolved Time COVID19 Pending 01/11/2020 01/11/2020 01/12/2020 2:48 AM CDT Assessment Noted Time PHQ-9 Depression Total Score: 12 08/25/2018 3:00 PM CS T documented as of this encounter Care Teams Dry Goods Clerk Relationship Specialty Start Date End Date Igor Butterfield M.D. PCP - General Family Medicine 08/25/18 01/15/20 documented as of this encounter
--- OUTSIDE RECORDS SUMMARY | 2022-04-21 17:05 | XMS_ITS | Encounter Summary ---
:1975 Author Organization [facility] Address [address] [place] [address] Care Team Providers Name Role Phone Igor Butterfield M.D. Primary Care Provider Reason for Visit Reason Comments Post Hospital Follow-up Encounter Details Date Type Department Care Team Description 01/15/2020 Clinical Communication [facility] Department of JNarcisa Follow-up Family Medicine and [address] Residency in [address] [address] [place] [phone] [place], [place] (Work) [id number] Social History Tobacco Use Types Packs/Day Years [...] this encounter Miscellaneous Notes Telephone Encounter - Sommer Mcdonald - 01/16/2020 2:29 PM CDT updated Telephone Encounter - Kendal Lynn RDonis - 01/15/2020 12:57 PM CDT Called Maritza and she states Dr. Butterfield is not her PCP. She is seeing a doctor in [place]. Please change PCP to elsewhere. Thanks documented in this encounter Plan of Treatment Not on filedocumented as of this encounter Visit Diagnoses Not on filedocumented in this encounter Additional Health Concerns Assessment Noted Time PHQ-9 Depression Total Score: 12 08/25/2018 3:00 PM CS T documented as of this encounter Care Teams Operation Specialist Relationship Specialty Start Date End Date Igor Butterfield M.D. PCP - General Family Medicine 08/25/18 01/15/20 documented as of this encounter
--- OUTSIDE RECORDS SUMMARY | 2022-04-21 17:05 | XMS_ITS | Encounter Summary ---
:1975 Author Organization [facility] Address [address] [place] [address] Care Team Providers Name Role Phone Elsewhere, Pcp Primary Care Provider Unavailable Encounter Details Date Type Department Care Team Description 01/17/2020 Virtual Visit RST HIM Kenji Harvey Migraine With Aura [address] [facility] Erna Mart. Not Intractable [place], [place] [address] [facility] Without Status [id number] [place], [place] Migrainosus [phone] (Wo rk) Social History Tobacco Use Types [...] PM CDT documented as of this encounter Progress Notes Kenji Harvey P.A.-C. - 01/17/2020 1:00 PM CDT Post-discharge Early Assessment with Remote video Link (ELLI) Initiative Consult conducted via telephone by Kenji Harvey P.A.-C. in [facility] to the patient in patient's home. This was transitioned to a phone visit during the COVID-19 emergency, when many states had issued veskvgi-[id number] orders. DATE OF VIDEO-VISIT: 06/03/20 DISCHARGING HIM SERVICE: MEDICINE 5 HOSPITAL: [facility] Question 1: New Medications listed in After Visit Summary 1. Patient recalls new medication(s) prescribed at discharge. N/A 1B. Patient is taking new medication as prescribed. N/A Comment: 1C. Reason patient is not taking new medication as prescribed. N/a Comment: 1D. Patient recalls changes to meds taken prior to hospitalization. YES Comment: 1E. Patient has concerns or side effects from medication. NO Comment: 1F. Patient has concerns about affording medication. NO Comment: 1G. Patient feels comfortable managing medication. YES Comment 1H. Patient needs help managing medications. NO Comment: Question 2: Chronic medications listed in After Visit Summary 2A: Patient reports taking a diuretic. YES Comment: 2B: Patient reports taking antihypertensive medication. YES Comment: 2C: Patient reports using inhalers/nebulizers. NO Comment: 2D: Patient reports taking antimicrobials. NO Comment: 2E: Patient reports taking pain medication. NO Comment: 2E: Patient reports taking diabetic medication. YES Comment: 2F: Patient feels confident taking these medications. YES Comment: Barriers to taking these medications: none Patient questions/concerns regarding these medications: none Question 3: Self-management and action plan in the After Visit Summary 3A. Patient feels confident checking weight. N/A Comment: 3B: Patient feels confident to check your blood pressure at home. NO Comment: 3C: Patient feels confident to check for leg swelling. N/A Comment: 3D. Patient feels confident to check for rashes. N/A Comment: 3E. Patient feels confident to use home oxygen safely. N/A Comment: 3F. Patient feels confident to use your CPAP/BiPAP machine. N/A Comment: 3G: Patient feels confident to follow your fluid restrictions. N/A Comment: 3H: Patient feels confident to follow the recommended salt restrictions. N/A Comment: 3I: Patient feels confident to follow the recommended diet restrictions. NO Comment: 3J: Patient feels confident to monitor your blood sugar. NO Comment: 3K: Patient feels confident to manage or reduce smoking. N/A Comment: 3L: Patient feels confident to manage your alcohol intake at home. N/A Comment: The importance of self-management and having an action plan was stressed. Follow-up care 3M: The patient feels confident recognizing when symptoms change and should call or visit primary care provider. YES Comment: 3N: The patient feels confident recognizing when symptoms change and should go to the emergency room. YES Comment: 3O: The patient is aware of upcoming medical appointment(s). YES Comment: Question 4: Home supports listed/prescribed/recommended in the After Visit Summary/Discharge Summary 4A: Patient feels confident to use home oxygen. N/A Home oxygen was visualized. N/A Comment: 4B: Patient feels confident using the walker. N/A Home walker was visualized. N/A Comment: 4C: Patient feels confident using the cane. N/A Cane was visualized. N/A Comment: 4D: Patient feels confident using the wheelchair. N/A Wheelchair was visualized. N/A Comment: 4E: Patient feels confident using the bedside commode. N/A Bedside commode was visualized. N/A Comment: 4F: Patient feels confident to use home intravenous medications. N/A Intravenous medications were visualized. N/A Comment: 4G: Help provided during the video-visit with home supports: none Summary Ncjqgxvzftnp-cz-jgnk with discharge team: NO Recommendations re-directed to the primary HIM team: n/a Comment: Additional recommendations to patient: She had an episode of transient light- headedness yesterday, but this has improved with po intake. I personally spent a total of 20 minutes in coordination of care as documented above documented in this encounter Plan of Treatment Not on filedocumented as of this encounter Visit Diagnoses Diagnosis Migraine With Aura Not Intractable Witho ut Status Migrainosus documented in this encounter Additional Health Concerns Assessment Noted Time PHQ-9 Depression Total Score: 12 08/25/2018 3:00 PM CS T documented as of this encounter Care Teams Supervisor Mail Carriers Relationship Specialty Start Date End Date Elsewhere, Pcp PCP - General Internal Medicine 01/16/20 documented as of this encounter
--- OUTSIDE RECORDS SUMMARY | 2022-04-21 17:05 | XMS_ITS | Encounter Summary ---
:1975 Author Organization [facility] Address [address] [place] [address] Care Team Providers Name Role Phone Igor Butterfield M.D. Primary Care Provider Reason for Visit Reason Comments Med Refill Encounter Details Date Type Department Care Team Description 09/30/2018 Refill [facility] Department of Family O Igor schultz M.D. Med Refill Medicine and Residency in [address] [place] [address] [address] [facility] [address] [place] [address] [phone] Social History Tobacco Use Types Packs/Day Years [...] this encounter Miscellaneous Notes Telephone Encounter - Kendal Lynn R.N. - 09/30/2018 1:02 PM CST Last Visit: 08/25/18 Future Visit: No appt scheduled Script last written: 09/05/18 for 30 tabs DULE ANALYST documented in this encounter Plan of Treatment Not on filedocumented as of this encounter Visit Diagnoses Not on filedocumented in this encounter Additional Health Concerns Assessment Noted Time PHQ-9 Depression Total Score: 12 08/25/2018 3:00 PM CS T documented as of this encounter Care Teams Soils Engineer Relationship Specialty Start Date End Date Igor Butterfield M.D. PCP - General Family Medicine 08/25/18 01/15/20 documented as of this encounter
--- OUTSIDE RECORDS SUMMARY | 2022-04-21 17:05 | XMS_ITS | Encounter Summary ---
:1975 Author Organization [facility] Address [address] [place] [address] Care Team Providers Name Role Phone Igor Butterfield M.D. Primary Care Provider Reason for Visit Reason Comments Migraine migraine that is similar to hx migraines with n/v that has been going on for 3 days. meds not working. no joelle some vision changes but typical for pt. Encounter Details Date Type Department Care Team Description 12/24/2019 Emergency [facility] Health JustynaVj bello Heada che (Primary Dx) [facility] Emergency M.D. Department [facility] [address] [id number] [phone] Social History Tobacco Use Types Packs/Day Years [...] Sign Reading Time Taken Comments Blood Pressure 142/97 12/24/2019 4:45 PM CDT Pulse 101 12/24/2019 8:00 PM CDT Temperature 36.4 ??C (97.5 ??F) 12/24/2019 3:23 PM CDT Respiratory Rate 16 12/24/2019 8:00 PM CDT Oxygen Saturation 96% 12/24/2019 8:00 PM CDT Inhaled Oxygen Concentration - - Weight 85.5 kg (188 lb 7.9 oz) 12/24/2019 3:24 PM CDT Height 175.3 cm (5' 9) 12/24/2019 3:24 PM CDT Body Mass Index 27.84 12/24/2019 3:24 PM CDT documented in this encounter Medications at Time of Discharge Medication Sig Dispensed Refills Start Date End Date acetaminophen (TYLENOL) Take 2 tablets (1,000 0 1 09/04/2017 500 mg tablet mg total) by mouth every 6 (six) hours as needed for mild pain or score 1-3 of 10, headaches or fever. ibuprofen (IBUPROFEN IB) Take 400 mg by mouth 0 200 mg tablet every 4 (four) hours as needed for pain. levonorgestrel (MIRENA) 1 Device by 0 01/17/2019 20 mcg/24 hours (5 yrs) intrauterine route. 52 mg IUD lisinopril-hydroCHLOROth Take 1 tablet by 0 07/03 iazide mouth 2 (two) times a (PRINZIDE,ZESTORETIC) day. 20-12.5 mg per tablet DIABETIC SUPPLIES, Twice A Day 0 12/08/2019 MISCELLAN. MISC DULoxetine (CYMBALTA) 60 Take 1 capsule by 0 09/1612/31/[address] capsule mouth every morning. eletriptan (RELPAX) 40 Take 40 mg by mouth 0 07/1701/14/2020 mg tablet as needed for migraine. escitalopram (LEXAPRO) 0 07/17/2019 20 mg tablet gabapentin (NEURONTIN) Take 600 mg by mouth 0 12/201701/14/2020 600 mg tablet every morning. Patient states she is supposed to take one tablet in the morning and two tablets in the evening, but sometimes forgets the evening dose. LORazepam (ATIVAN) 0.5 Take 1 tablet by 0 019 12/31/2020 mg tablet mouth 3 (three) times a day. meloxicam (MOBIC) 15 mg Take 15 mg by mouth. 0 01/12/2020 tablet metFORMIN XR Take 1,000 mg by 0 07/03/20192019 (GLUCOPHAGE-XR) 500 mg mouth daily with 24 hr tablet breakfast. metoprolol succinate Take 200 mg by mouth 0 07/0301/14/2020 (TOPROL-XL) 200 mg 24 hr daily. tablet QUEtiapine (SEROquel) Take 1 tablet by 0 10/16/19 19 01/12/2020 300 mg tablet mouth at bedtime. QUEtiapine (SEROquel) 50 Take 1 tablet by 0 09/2201/12/2020 mg tablet mouth 3 (three) times a day as needed. rizatriptan (MAXALT) 10 Take 1 tablet (10 mg 9 tablet 3 01/12/2020 mg tablet total) by mouth every 2 (two) hours as needed for migraine. topiramate (TOPAMAX) 50 Take 1 tablet (50 mg 60 tablet 0 01/12/2020 mg tablet total) by mouth 2 (two) times a day. traZODone (DESYREL) 100 Take 300 mg by mouth 0 01/14/2020 mg tablet at bedtime. lisinopril Take 1 tablet (40 mg 90 tablet 3 09/12/201812/16 (PRINIVIL,ZESTRIL) 40 mg total) by mouth tablet daily. tiZANidine (ZANAFLEX) 4 Take 1 tablet (4 mg 90 tablet 0 12/31/2020 mg tablet total) by mouth 3 (three) times a day. documented as of this encounter ED Notes Vj Jansen M.D. - 12/24/2019 4:04 PM CDT SUBJECTIVE: CHIEF COMPLAINT/REASON FOR VISIT: Migraine (migraine that is similar to hx migraines with n/v that has been going on for 3 days. meds not working. notes some vision changes but typical for pt. ) HISTORY OF PRESENT ILLNESS: Maritza Leyva is a 44 y.o. female with history of recurrent migraines, states that occurred migraine for the last 3 days, very similar to her baseline migraines, no current fever, no trauma, no nuchal rigidity or neck pain. Does state several days ago she had a convulsive episode, that has been recurring more frequently, is followed by pain management and primary care doctor at outside facility for this. REVIEW OF SYSTEMS: Constitutional: Negative for diaphoresis, fatigue and fever. HENT: Negative for congestion. Respiratory: Negative for chest tightness and shortness of breath. Cardiovascular: Negative for chest pain. Gastrointestinal: Negative for abdominal pain. Genitourinary: Negative for dysuria and hematuria. Musculoskeletal: Negative for neck stiffness. Neurological: Positive for headaches. Negative for syncope and weakness. OBJECTIVE: INITIAL VITAL SIGNS: Initial Vitals Temperature Pulse Rate Heart Rate Resp Rate Blood Pressure SpO2 12/24/19 1523 12/24/19 1523 -- 12/24/19 1523 12/24/19 1523 12/24/19 1523 36.4 ??C (!) 128 16 (!) 155/96 96 % Pain Score 12/24/19 1805 9 PHYSICAL EXAMINATION: Constitutional: Nursing note and vitals reviewed. No distress. HENT: Head: Atraumatic. Nose: No nasal discharge. Mouth/Throat: Mucous membranes are moist. Eyes: Conjunctivae are normal. Neck: No tracheal deviation present. Cardiovascular: Tachycardia present. Pulmonary/Chest: Effort normal. There is normal air entry. No tachypnea. No respiratory distress. She exhibits no retraction. Abdominal: Soft. She exhibits no distension. Neurological: She is alert and oriented to person, place, and time. She is not disoriented. She displays normal reflexes. No cranial nerve deficit. Coordination normal. Skin: Skin is warm and dry. Psychiatric: She has a normal mood and affect. Her behavior is normal. Judgment and thought content normal. ASSESSMENT AND PLAN: Patient still tachycardic, has no fever, no meningismus, no indication for LP. Does states she had recurrent migraines, similar to prior. Unfortunately has no CT on file, and states that she might of had a convulsive episode several days ago with similar headache. Feel that CT isindicated, obtained CT, negative for Radiology for acute process. Was given Benadryl and Compazine IV, with 1 L IV fluids Re-evaluation, headaches most resolved, patient feels stable for discharge. On last evaluation, patient stable for discharge. ED return precautions given, both specific for condition and if they feel any concern for a change or worsening of their condition. Advised to follow up with primary care physician. ED COURSE: Final Diagnoses: as of Dec 24 1 Headache DIAGNOSIS: Final diagnoses: [R51] Headache ED DISCHARGE MEDS: ED Prescriptions None DISPOSITION: Home or Self [facility] or Self Care Vj Jansen M.D. 12/25/19 0002 documented in this encounter Plan of Treatment Not on filedocumented as of this encounter Procedures Procedure Name Priority Date/Time Associated Comments Diagnosis CT HEAD WITHOUT RAD - Semiurgent 12/24/2019 5:24 Resul ts for this IV CONTRAST (Fast; most ED PM CDT procedure are in patients; some the results inpatients) section. CBC WITH STAT 12/24/2019 5:11 Results for this DIFFERENTIAL, B PM CDT procedure ar e in the results section. BASIC METABOLIC STAT 12/24/2019 5:11 Results f or this PANEL, S/P PM CDT procedure are i n the results section. documented in this encounter Results CT Head without IV Contrast (12/24/2019 5:24 PM CDT) Anatomical Region Laterality Modality Head, Neuroradiology RST LOS, Neuroradiology ARZ LOS, N/A Computed Tomography Neuroradiology FLA LOS Specimen (Source) Anatomical Collection Method Collection Time Re ceived Time Location / / Volume Laterality 12/25/2019 7:46 AM CDT Addenda Addendum by Mirza Oliver Jr., M .D. on 12/27/2019 6:31 PM CDT Addendum: There is agreement with the in itial [facility] interpretation. Impressions 12/25/2019 7:48 AM CDT Normal unenhanced head CT. Narrative 12/25/2019 7:48 AM CDT EXAM: CT HEAD WITHOUT IV CONTRAST COMPARISON: 07/02/2018. FINDINGS: CT bone windows are unremarkab le. Visualized portions of the paranasal sinuses and mastoid air cells are normal . Intracranially the ventricular system and cerebral sulci are within normal pearce its. No intracranial or intracerebral hemorrhage is identified and there is no mass effect or midline shift. No areas of decreased attenuation suspicious for infarct or edema are noted. Head CT is normal and unchanged compared with 07/02. Procedure Note Mirza Oliver Jr., M.D. - 2019 EXAM: CT HEAD WITHOUT IV CONTRAST COMPARISON: 07/02/2018. FINDINGS: CT bone windows are unremarkab le. Visualized portions of the paranasal sinuses and mastoid air cells are normal . Intracranially the ventricular system and cerebral sulci are within normal pearce its. No intracranial or intracerebral hemorrhage is identified and there is no mass effect or midline shift. No areas of decreased attenuation suspicious for infarct or edema are noted. Head CT is normal and unchanged compared with 07/02. IMPRESSION: Normal unenhanced head CT. Vj Jansen M.D. IMG CT PROCEDURES (ABNORMAL) Basic Metabolic Panel (12/24/2019 5:11 PM CDT) P athologist Signature Potassium, P 3.0 (L) 3.6 - 5.2 12/24/2019 MKTO mmol/L 5:42 PM CDT Sodium, P 137 135 - 145 12/24/2019 MKTO mmol/L 5:42 PM CDT Chloride, P 100 98 - 107 12/24/2019 MKTO mmol/L 5:42 PM CDT Bicarbonate, P 25 22 - 29 12/24/2019 MKTO mmol/L 5:42 PM CDT Anion Gap, P 12 7 - 15 12/24/2019 MKTO 5:42 PM CDT BUN (Blood Urea 9 6 - 21 12/24/2019 MKTO Nitrogen), P mg/dL 5:42 PM CDT Creatinine 0.83 0.59 - 12/24/2019 MKTO 1.04 mg/dL 5:42 PM CDT eGFR-Black/Afri >90 >=60 12/24/2019 MKTO can Thai mL/min/BSA 5:42 PM CDT Comment: ----ADDITIONAL INFORMATION---- Estimated GFR calculated using the 2009 CKD_EPI creatinine equation. eGFR Non-Black/ 87 >=60 mL/min/BSA 5:42 PM CDT MKTO Comment: ----ADDITIONAL INFORMATION---- Estimated GFR calculated using the 2009 CKD_EPI creatinine equation. Calcium, Total, P 9.1 8.6 - 10.0 mg/dL 12/24/2019 5:42 PM CDT MKTO Glucose, P 169 (H) 70 - 140 mg/dL 12/24/2019 5:42 PM CDT M KTO Specimen Anatomical Collection Method Collection Time Receive d Time (Source) Location / / Volume Laterality Blood (Blood, 12/24/2019 5:11 PM 12/24/19 20 5:18 Venous) CDT PM CDT Vj Jansen M.D. LAB BLOOD ADD-ON Performing Organization Address City/State/ZIP Code Phon e Number [facility]- [address] [place] [id number] [facility] [place] [place] [address] System [address] (ABNORMAL) CBC with Differential, Blood (12/24/2019 5:11 PM CDT) [facility] Method Time Signature Hemoglobin 14.3 11.6 - 12/24/2019 MK[facility] 15.0 g/dL 5:22 PM CDT Hematocrit 42.1 35.5 - 12/24/2019 [facility] 44.9 % 5:22 PM CDT Erythrocytes 4.74 3.92 - 12/24/2019 [facility] 5.13 5:22 PM CDT x10(12)/L MCV 88.8 78.2 - 12/24/2019 [facility] 97.9 fL 5:22 PM CDT RBC Distrib Width 11.4 (L) 12.2 - 12/24/2019 [facility] 16.1 % 5:22 PM CDT Platelet Count 263 157 - 371 12/24/2019 [facility] x10(9)/L 5:22 PM CDT Leukocytes 10.9 (H) 3.4 - 9.6 12/24/2019 [facility] x10(9)/L 5:22 PM CDT Neutrophils 8.59 (H) 1.56 - 12/24/2019 [facility] 6.45 5:22 PM CDT x10(9)/L Lymphocytes 1.53 0.95 - 12/24/2019 [facility] 3.07 5:22 PM CDT x10(9)/L Monocytes 0.74 0.26 - 12/24/2019 [facility] 0.81 5:22 PM CDT x10(9)/L Eosinophils <0.03 0.03 - 12/24/2019 MK[facility] 0.48 5:22 PM CDT x10(9)/L Basophils 0.05 0.01 - 12/24/2019 MK[facility] 0.08 5:22 PM CDT x10(9)/L Specimen Anatomical Collection Method Collection Time Receive d Time (Source) Location / / Volume Laterality Blood (Blood, 12/24/2019 5:11 PM 12/24/19 20 5:18 Venous) CDT PM CDT Vj Jansen M.D. LAB BLOOD ADD-ON Performing Organization Address City/State/ZIP Code Phon e Number [facility]- [address] [place] [id number] [place] [place] [address] System in [address] documented in this encounter Visit Diagnoses Diagnosis Headache Unspecified - Primary documented in this encounter Administered Medications Inactive Administered Medications - up to 3 most recent administrations Medication Order MAR Action Action Date Dose Rate Site diphenhydrAMINE injection 25 mg Given 12/24/2019 4:22 PM CDT 25 mg (BENADRYL) 25 mg, intravenous, Once, On 12/24/19 at 1605, For 1 dose droperidoL (INAPSINE) 2.5 mg/mL injectio n - ADS Override Pull Starting on 12/24/19 at 1852, For 1 dose, Created b y cabinet override droperidoL injection 1.875 mg (INAPSINE) Given 12/24/2019 6:58 PM CDT 1.875 mg 1.875 mg, intravenous, Once, On 12/24/19 at 1851, For 1 dose ketorolac injection 15 mg (TORADOL) Given 12/24/2019 6:55 PM CDT 15 mg 15 mg, intravenous, Once, On 12/24/19 at 1851, For 1 dose, Adult IV push rate: Over 15 seconds. Peds IV push rate: Over 1 minute. 60 mg dose only for IM, not recommended for IV. NaCl 0.9 % bolus 1,000 mL New Bag 12/24/2019 4:22 PM CDT 1,000 mL 1000 mL/hr 1,000 mL, intravenous, at 1,000 mL/hr, Administer over 1 Hours, Once, On 12/24/19 at 1605, For 1 dose prochlorperazine injection 10 mg (COMPAZ INE) Given 12/24/2019 4:24 PM CDT 10 mg 10 mg, intravenous, Once, On 12/24/19 at 1605, For 1 dose documented in this encounter Active and Recently Administered Medications Times are shown in CDT. Scheduled Medication Order 12/22/2019 12/23/2019 12/24/2019 diphenhydrAMINE injection 25 mg (BENADRYL) (COMPLETED) 162 (Given - Provider: Marissa Delarosa RDonis) 25 mg, intravenous, Once, On 12/24/19 at 1605, For 1 dose droperidoL injection 1.875 mg (INAPSINE) (COMPLETED) 185 (Given - Provider: Marissa Delarosa RMadeleineN.) 1.875 mg, intravenous, Once, On 12/24/19 at 1851, For 1 dose ketorolac injection 15 mg (TORADOL) (COMPLETED) 185 (Given - Provider: Marissa Delarosa RMadeleineNMadeleine) 15 mg, intravenous, Once, On 12/24/19 at 1851, For 1 dose, Adult IV push rate: Over 15 seconds. Peds IV push rate: Over 1 minute. 60 mg dose only for IM, not recommended for IV. NaCl 0.9 % bolus 1,000 mL (COMPLETED) 162 (New Bag - Provider: Marissa Delarosa R.N.)1742 (Stopped - Provider: Marissa Delarosa R.N.) 1,000 mL, intravenous, at 1,000 mL/hr, A dminister over 1 Hours, Once, On 12/24/19 at 1605, For 1 dose prochlorperazine injection 10 mg (COMPAZINE) (COMPLETED) 162 (Given - Provider: Marissa Delarosa RMadeleineNMadeleine) 10 mg, intravenous, Once, On 12/24/19 at 1605, For 1 dose documented in this encounter Additional Health Concerns Assessment Noted Time PHQ-9 Depression Total Score: 12 08/25/2018 3:00 PM CS T documented as of this encounter Care Teams Mirror Installer Relationship Specialty Start Date End Date Igor Butterfield M.D. PCP - General Family Medicine 08/25/18 01/15/20 documented as of this encounter
--- OUTSIDE RECORDS SUMMARY | 2022-04-21 17:05 | XMS_ITS | Encounter Summary ---
:1975 Author Organization [facility] Address [address] [place] [address] Care Team Providers Name Role Phone Igor Butterfield M.D. Primary Care Provider Encounter Details Date Type Department Care Team Description 01/12/2020 Ancillary Procedure Department of Radiology Belia Goodwin in [facility] adriana Willis P.A.-C., M.S. [address] [facility] [address] [place] [phone] (Wo rk) Social History Tobacco Use Types [...] Procedure Name Priority Date/Time Associated Comments Diagnosis INTERPRETATION OF RAD - Routine 01/12/2020 4:35 Result s for OUTSIDE CT HEAD (most inpatients AM CDT this pro cedure and all are in the outpatients) results section. documented in this encounter Results Interpretation of Outside CT Head (01/12/2020 4:35 [...] IMPRESSION: No acute intracranial findings. Belia Goodwin P.A.-C., M.S. IMG CT PROCEDURES documented in this encounter Visit Diagnoses Not on filedocumented in this encounter Additional Health Concerns Infection Onset Date Last Indicated Resolved Time COVID19 Pending 01/11/2020 01/11/2020 01/12/2020 2:48 AM CDT Assessment Noted Time PHQ-9 Depression Total Score: 12 08/25/2018 3:00 PM CS T documented as of this encounter Care Teams Sheep Rancher Relationship Specialty Start Date End Date Igor Butterfield M.D. PCP - General Family Medicine 08/25/18 01/15/20 documented as of this encounter
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
--- OUTSIDE RECORDS SUMMARY | 2022-04-21 17:05 | XMS_ITS | Encounter Summary ---
:1975 Author Organization [facility] Address [address] [place] [address] Care Team Providers Name Role Phone Igor Butterfield M.D. Primary Care Provider Encounter Details Date Type Department Care Team Description 01/12/2020 Ancillary Procedure Department of Radiology Belia Goodwin in [facility] adriana Willis P.A.-C., M.S. [address] [facility] [address] [place] [phone] (Wo rk) Social History Tobacco Use Types [...] Diagnosis INTERPRETATION OF RAD - Routine 01/12/2020 4:33 Result s for OUTSIDE CT ABDOMEN (most inpatients AM CDT this procedure AND OR PELVIS and all are in the outpatients) results section. documented in this encounter Results Interpretation of Outside CT Abdomen and or [...] documented as of this encounter Care Teams Process Cheese Cooker Relationship Specialty Start Date End Date Igor Butterfield M.D. PCP - General Family Medicine 08/25/18 01/15/20 documented as of this encounter
--- OUTSIDE RECORDS SUMMARY | 2022-04-21 17:05 | XMS_ITS | Encounter Summary ---
:1975 Author Organization [facility] Address [address] [place] [address] Care Team Providers Name Role Phone Igor Butterfield M.D. Primary Care Provider Encounter Details Date Type Department Care Team Description 02/09/2019 Orders Only [facility] PCP [facility] MNT Igor Butterfield S creening Mammogram M.D. Breast Cancer [address] [place], [place] [address] Social History Tobacco Use Types [...] as of this encounter Visit Diagnoses Diagnosis Screening Mammogram Breast Cancer documented in this encounter Additional Health Concerns Assessment Noted Time PHQ-9 Depression Total Score: 12 08/25/2018 3:00 PM CS T documented as of this encounter Care Teams Alumni Relations Coordinator Relationship Specialty Start Date End Date Igor Butterfield M.D. PCP - General Family Medicine 08/25/18 01/15/20 documented as of this encounter
--- OUTSIDE RECORDS SUMMARY | 2022-04-21 17:05 | XMS_ITS | Encounter Summary ---
:1975 Author Organization [facility] Address [address] [place] [address] Care Team Providers Name Role Phone Igor Butterfield M.D. Primary Care Provider Reason for Visit Reason Comments Pre-visit Testing Orders Encounter Details Date Type Department Care Team Description 01/15/2020 Clinical Communication RST VICKI Epps, Pre-visit Testing [address] [facility], Orders [place], [place] [id number] [address] [place] [address] Social History Tobacco Use Types Packs/Day Years [...] this encounter Visit Diagnoses Diagnosis Migraine Headache - Primary documented in this encounter Additional Health Concerns Assessment Noted Time PHQ-9 Depression Total Score: 12 08/25/2018 3:00 PM CS T documented as of this encounter Care Teams Summons Server Relationship Specialty Start Date End Date Igor Butterfield M.D. PCP - General Family Medicine 08/25/18 01/15/20 documented as of this encounter
--- OUTSIDE RECORDS SUMMARY | 2022-04-21 17:05 | XMS_ITS | Encounter Summary ---
:1975 Author Organization [facility] Address [address] [place] [address] Care Team Providers Name Role Phone Igor Butterfield M.D. Primary Care Provider Reason for Visit Reason Comments Consult discuss hysterectomy Appointment Request (Routine) - Closed Specialty Diagnoses / Procedures Referred By Contact Refer red To Contact Obstetrics and Gynecology Referral ID Status Reason Start Date Expiration Date Visits Requ ested Visits Authorized [id number] Closed 08/17/2019 08/16/2020 1 1 Encounter Details Date Type Department Care Team Description 08/21/2019 Comprehensive Visit Department of Beckie Roe (Primary Dx); Obstetrics and Shayy, Surveillance Intrauterine Device; Gynecology in M.D. Migraine With Aura Not Intractable Witho ut Status Migrainosus; English, [address] Counseling Cont raceptive Management; [facility] Hypertension Essential Primary; [address] [place], [place] Diabetes Mellitus Type 2 Wit hout Complication (HCC) [facility] [place] [address] Social History Tobacco Use Types Packs/Day Years [...] Sign Reading Time Taken Comments Blood Pressure 110/80 08/21/2019 11:01 AM DIRECTOR ENTERPRISE SALES Pulse 80 08/21/2019 11:01 AM DIRECTOR ENTERPRISE SALES Temperature - - Respiratory Rate - - Oxygen Saturation - - Inhaled Oxygen Concentration - - Weight 93.1 kg (205 lb 4 oz) 08/21/2019 11:01 AM DIRECTOR ENTERPRISE SALES Height - - Body Mass Index 30.89 10/26/2018 1:24 PM CDT documented in this encounter H&P Notes Shayy Roe M.D. - 08/21/2019 11:15 AM CST SUBJECTIVE SUPPORT COORDINATOR NOTE REASON FOR VISIT Abnormal bleeding with Mirena IUD. HISTORY OF PRESENT ILLNESS Maritza is a 43 y.o. female who presents for a second opinion regarding her periods. She has a history of migraine headaches. She reports that when she gets her period, she also gets migraine headaches. She reports that she is done with childbearing, so she wants a reliable form of contraception. She doesn't want to bleed anymore. She also reports that she has a history of ovarian cysts. She would like to consider hysterectomy at this time. She has been using the Mirena IUD for contraception. She is on her 4th IUD. It was placed just over a year ago by Dr. Phillips at [facility]. With the 3 prior IUDs, she had no bleeding. Since this IUD was placed, she is having heavy periods and bleeding that starts several days after intercourse and can last up to a week. This does not happen every time. Sometimes the bleeding just starts on it's own. She did not have this with her other IUDs. She doesn't seem to have regular menses, but just this unpredictable bleeding. She saw a SUPPORT COORDINATOR provider in [place] about 6 weeks ago for these symptoms. This provider did not recommend hysterectomy. However, a pelvic US was ordered and showed a small ovarian cyst and that the IUD appeared to be appropriately located. The patient's allergies and current medications were reviewed and updated as appropriate. REVIEW OF SYSTEMS: Constitutional: Positive for fatigue. Negative for fever, weight gain of more than 10 pounds and weight loss of more than 10 pounds. Skin: Negative for skin rash, change in mole or skin spot, breast lump and nipple discharge. Eyes: Negative for visual problems. ENT: Negative for difficulty hearing and sinus congestion. Respiratory: Negative for coughing up mucus (phlegm), dry cough, dyspnea and wheezing. Cardiovascular: Negative for chest pain, pressure or tightness and rapid or fluttering heart beat. Gastrointestinal: Negative for abdominal (belly) pain or cramping, constipation, diarrhea, heartburn, nausea and vomiting. Genitourinary: Positive for abnormal vaginal bleeding. Negative for incontinence, difficulty urinating, pain with urination and menses change or abnormal. Musculoskeletal: Negative for arthralgias, back pain and pain or stiffness in the joints. Neurological: Positive for headaches. Negative for numbness or shooting pain in hands, arms, legs, or feet and loss of balance or tendency to fall easily. Psychiatric/Behavioral: Negative for sleep disturbance, feeling down, depressed, or hopeless over past two weeks and feeling nervous, anxious, or on edge in past two weeks. The patient's Past Medical History, Past Surgical History, Social History, and Family History were reviewed and updated as appropriate. RECREATION ADVISER HISTORY OB History Para Term AB Living 3 2 2 1 2 SAB TAB Ectopic Molar Multiple Live Births 1 2 # Outcome Date GA Lbr Jose E/2nd Weight Sex Delivery Anes PTL Lv 3 SAB SAB SA 2 Term M Vag-Spont ASIA 1 Term M Vag-Spont ASIA Menarche was at age 14. Menses are heavy, are painful, and she cannot recall if they are regular. She is sexually active and has issues with intercourse. She has bleeding after intercourse and her partner can feel something. She uses Mirena IUD for contraception. OBJECTIVE PHYSICAL EXAM Vitals: 08/21/19 1101 BP: 110/80 Pulse: 80 Weight: 93.1 kg Exam conducted with a recordist chief present. Constitutional General: She is not in acute distress. Appearance: Normal appearance. She is well-developed. Genitourinary: Pelvic exam was performed with patient supine. No vulval lesion or ulcerations noted. No posterior fourchette injury or lesion present. No urethral pain or mass present. Bladder is not tender. No lesions in the vagina. No vaginal erythema or ulceration. Cervix is parous. No cervical lesion. IUD strings visualized. Uterus is tender (moderate with palpation of uterus). Uterus is not enlarged. Uterus is regular. No right or left adnexal mass present. Right adnexa not tender. Left adnexa tender (mild). HENT Head: Normocephalic and atraumatic. Eyes General: Vision grossly intact. Neck Thyroid: No thyroid mass or thyromegaly. Cardiovascular Rate and Rhythm: Normal rate and regular rhythm. Heart sounds: No murmur. No friction rub. No gallop. Pulmonary Breath sounds: Normal breath sounds. No wheezing or rales. Abdominal General: Bowel sounds are normal. There is no distension. Palpations: Abdomen is soft. There is no mass. Tenderness: There is no abdominal tenderness. Musculoskeletal General: No tenderness. Right lower leg: She exhibits no tenderness. No edema. Left lower leg: She exhibits no tenderness. No edema. Neurological Mental Status: She is alert and oriented to person, place, and time. Skin General: Skin is warm and dry. Findings: No lesion or rash. Psychiatric Mood and Affect: Mood normal. Behavior: Behavior normal. ASSESSMENT / PLAN IMPRESSION/PLAN: 43 y.o. female who presents for evaluation due to unpredictable bleeding and pain with Mirena IUD and desire for sterililization or terminal manager contraception, and classical migraine headaches worse around the time of menses. #1 Metrorrhagia Overview: Symptoms were well managed with her 3 prior Mirena IUDs. Since placement of the 4th, she has had intermittent unpredictable bleeding. + uterine tenderness on exam. Will try empiric doxycycline for possible chronic endometritis. Per her report, pelvic ultrasound at [facility] returned showing appropriately located IUD. The strings are visible today. Release of information obtained to review records. If symptoms do not improve with doxycycline, we will consider repeating a pelvic ultrasound with 3D imaging when she returns to assess for an embedded arm. If the IUD is found to be embedded or in appropriately located within the uterus, could consider removal and replacement. If it is appropria tely located, discussed the option of sterilization with laparoscopic bilateral salpingectomy and endometrial ablation. Discussed that I would not recommend hysterectomy for treatment of this as a 2nd line option, as we have other options with few risks available. If TSH and CBC have not been checked recently, will consider this. Orders: - doxycycline hyclate (VIBRAMYCIN) 100 mg capsule; Take 1 capsule (100 mg total) by mouth 2 (two) times a day for 14 days., Starting Wed08/21/2019, Until Wed09/04/2019, Normal - Obstetrics and Gynecology office visit (clinic); Future; Expected date: 09/21/2019 #2 Surveillance Intrauterine Device Overview: Release of information signed to obtain ultrasound results from [place]. Strings to appear to be appropriately located. Will consider follow-up ultrasound with 3D imaging when she returns to assess the location of the IUD. If it is embedded, it will need to be removed #3 Migraine With Aura Not Intractable Without Status Migrainosus Overview: She requested hysterectomy for treatment of this, since her migraines are worse during menses. Discussed that this would require oophorectomy, not just hysterectomy alone and we discussed the reasons Iwould not recommend oophorectomy at age 43. We could consider use of progesterone only oral contraceptive pills for treatment of this going forward. #4 Counseling Contraceptive Management Overview: Desires either long-term reversible contraception or sterilization. She has completed childbearing. She is not a candidate for estrogen containing medications due to her history of hypertension, migraines with aura, and diabetes. The IUD may not be providing appropriate ovarian suppression, so we could consider a progesterone only oral contraceptive pill. However, she also desires a very reliable method of contraception. Therefore, if the IUD is removed and replaced, we would consider adding a progesterone only pill to this regimen. Otherwise, she will likely proceed with laparoscopic bilateral salp ingectomy. #5 Hypertension Essential Primary #6 Diabetes Mellitus Type 2 Without Complication (HCC) Follow-up: In 1 month. CTOR ENTERPRISE SALES documented in this encounter Plan of Treatment Not on filedocumented as of this encounter Visit Diagnoses Diagnosis Metrorrhagia - Primary Surveillance Intrauterine Device Migraine With Aura Not Intractable Witho ut Status Migrainosus Counseling Contraceptive Management Hypertension Essential Primary Diabetes Mellitus Type 2 Without Complic ation (HCC) documented in this encounter Additional Health Concerns Assessment Noted Time PHQ-9 Depression Total Score: 12 08/25/2018 3:00 PM CS T documented as of this encounter Care Teams Shop And Alteration Tailor Relationship Specialty Start Date End Date Igor Butterfield M.D. PCP - General Family Medicine 08/25/18 01/15/20 documented as of this encounter
--- OUTSIDE RECORDS SUMMARY | 2022-04-21 17:05 | XMS_ITS | Encounter Summary ---
:1975 Author Organization [facility] Address [address] [place] [address] Care Team Providers Name Role Phone Igor Butterfield M.D. Primary Care Provider Reason for Visit Reason Onset Date Comments Med Refill 09/22/2018 Encounter Details Date Type Department Care Team Description 09/22/2018 Clinical Communication Department of [facility] Ananya Hays Med Refill Medicine in [facility], [place] [id number] [facility] [address] [facility] [place] [address] [phone] Social History Tobacco Use Types Packs/Day Years [...] documented as of this encounter Miscellaneous Notes Addendum Note - David Hamm DCarlos Manuel - 09/22/2018 2:28 PM DIRECTOR CUSTOMER Addended by: DAVID HAMM on: 09/22/2018 02:28 PM Modules accepted: Orders CTOR CUSTOMER Addendum Note - Loreta Diggs L.P.N. - 09/22/2018 2:06 PM DIRECTOR CUSTOMER Addended by: LORETA DIGGS on: 09/22/2018 02:06 PM Modules accepted: Orders CTOR CUSTOMER Telephone Encounter - Loreta Diggs L.P.N. - 09/22/2018 1:58 PM DIRECTOR CUSTOMER Call to [facility], informed that prescription was filled 09/19/2018, #9 tab(s), 0 refills. Prescription was printed, however unable to locate in 'sent prescriptions'. [facility] will follow up with [facility] pharmacy to see if they received it and return our call eitherway. Informed if prescription was not received by pharmacy, will route for provider to address. Did discuss patient sees Dr. Igor Butterfield at [facility], not Dr. Sajan Butterfield at [place]. I did receive a call from Patricia at [facility] in the meantime and they did not receive prescription. Repended, thank you. CTOR CUSTOMER Telephone Encounter - Ananya Hays R.N. - 09/22/2018 1:34 PM CST We received a message from [facility], requesting a refill on Maritza's rizatriptan. Shouldhave gone to Dr. Igor Butterfield, but it came to Dr. Sajan Garcia's nurses phone. Please let them know that they contacted the wrong clinic with this request when you call them back. Thanks. CTOR CUSTOMER documented in this encounter Plan of Treatment Not on filedocumented as of this encounter Visit Diagnoses Not on filedocumented in this encounter Additional Health Concerns Assessment Noted Time PHQ-9 Depression Total Score: 12 08/25/2018 3:00 PM CS T documented as of this encounter Care Teams Pre Sales Architect Relationship Specialty Start Date End Date Igor Butterfield M.D. PCP - General Family Medicine 08/25/18 01/15/20 documented as of this encounter
--- OUTSIDE RECORDS SUMMARY | 2022-04-21 17:05 | XMS_ITS | Encounter Summary ---
:1975 Author Organization [facility] Address [address] [place] [address] Care Team Providers Name Role Phone Igor Butterfield M.D. Primary Care Provider Reason for Visit Reason Comments Med Refill Encounter Details Date Type Department Care Team Description 10/27/2018 Refill [facility] Department of [place], Chandu Wilson, Med Refill Family Medicine and Residency D. O. in [facility] [address] [place] [address] [place] [address] [phone] (Wo rk) Social History Tobacco Use Types [...] Telephone Encounter - Nathalie Schaeffer C.M.A. - 10/27/2018 4:26 PM CDT Last Visit: Yesterday 10/26/18 with No upcoming apt Last Refill: 10/04/18 #45 tabs by PCP Pharmacy: [facility] *Received refill request from [facility] with 's name crossed out and name written on the request. Please advise if this is something you are wanting to fill? If needed please refer to 's message from 10/04/18 refill request. documented in this encounter Plan of Treatment Not on filedocumented as of this encounter Visit Diagnoses Not on filedocumented in this encounter Additional Health Concerns Assessment Noted Time PHQ-9 Depression Total Score: 12 08/25/2018 3:00 PM CS T documented as of this encounter Care Teams Professor Of Forestry Relationship Specialty Start Date End Date Igor Butterfield M.D. PCP - General Family Medicine 08/25/18 01/15/20 documented as of this encounter
--- OUTSIDE RECORDS SUMMARY | 2022-04-21 17:05 | XMS_ITS | Encounter Summary ---
:1975 Author Organization [facility] Address [address] [place] [address] Care Team Providers Name Role Phone Igor Butterfield M.D. Primary Care Provider Encounter Details Date Type Department Care Team Description 07/21/2019 Orders Only [facility] PCP TH MNT Igor Butterfield M onitoring For Narcisa Therapeutic Drug [address] Therapy [employer], [place] [address] Social History Tobacco Use Types Packs/Day Years [...] Type Priority Associated Diagnoses Order S chedule Creatinine with Lab Routine Monitoring For Expected: 08/04/2019, Estimated GFR Therapeutic Drug Therapy Ex reed: 07/21/2022 Potassium Lab Routine Monitoring For Expected: , Therapeutic Drug Therapy Exp ires: 07/21/2022 documented as of this encounter Visit Diagnoses Diagnosis Monitoring For Therapeutic Drug Therapy documented in this encounter Additional Health Concerns Assessment Noted Time PHQ-9 Depression Total Score: 12 08/25/2018 3:00 PM CS T documented as of this encounter Care Teams Cloth Printing Inspector Relationship Specialty Start Date End Date Igor Butterfield M.D. PCP - General Family Medicine 08/25/18 01/15/20 documented as of this encounter
--- OUTSIDE RECORDS SUMMARY | 2022-04-21 17:05 | XMS_ITS | Encounter Summary ---
:1975 Author Organization [facility] Address [address] [place] [address] Care Team Providers Name Role Phone Elsewhere, Pcp Primary Care Provider Unavailable Encounter Details Date Type Department Care Team Description 01/23/2020 Clinical Communication Section of Infectious Steve Menjivar, Diseases in [place], [place] [address] [facility] [address] [place] [address] [phone] Social History Tobacco Use Types Packs/Day Years [...] encounter Miscellaneous Notes Telephone Encounter - Shanell Menjivar, R.N. - 01/23/2020 2:54 PM CDT A special team is reaching out to patients who were hospitalized 2-3 weeks ago to see if they would be open to having a lab draw or answering a brief questionnaire related to COVID-19. The study would be a part of the Nosocomial Infection Surveillance. A blood draw for COVID-19 antibodies is being offered to patients who were recently discharge and were negative for COVID-19 during hospitalization. If the lab is drawn at a [place] site, then there would be no charge for the lab draw ortest. documented in this encounter Plan of Treatment Not on filedocumented as of this encounter Visit Diagnoses Diagnosis Encounter For Screening For Other Viral Diseases (COVID-19) - Primary documented in this encounter Additional Health Concerns Assessment Noted Time PHQ-9 Depression Total Score: 12 08/25/2018 3:00 PM CS T documented as of this encounter Care Teams Radio News Anchor Relationship Specialty Start Date End Date Elsewhere, Pcp PCP - General Internal Medicine 01/16/20 documented as of this encounter
--- OUTSIDE RECORDS SUMMARY | 2022-04-21 17:06 | XMS_ITS | Encounter Summary ---
:1975 Author Organization [facility] Address [address] [place] [address] Care Team Providers Name Role Phone Elsewhere, Pcp Primary Care Provider Unavailable Encounter Details Date Type Department Care Team Description 07/18/2018 Orders Only [facility] - Glenn granda Elsewhere, Pcp [address] [place] [address] Social History Tobacco Use Types Packs/Day Years Used Date Smoking Tobacco: Never Alcohol Habits Answer Date Recorded How often do you have a drink containing alcohol? Monthly or less 08/21/2019 How many drinks containing alcohol do you have on a 1 or 2 08/21/2019 typical day when you are drinking? How often do you have six or more drinks on one Not asked occasion? Comment: Not asked Sex Assigned at Date Recorded Female 10/26/2018 1:31 PM CDT documented as of this encounter Plan of Treatment Not on filedocumented as of this encounter Visit Diagnoses Not on filedocumented in this encounter Additional Health Concerns Assessment Noted Time PHQ-9 Depression Total Score: 21 07/06/2018 1:00 AM CS T documented as of this encounter Care Teams Supervisor Paint Department Relationship Specialty Start Date End Date Elsewhere, Pcp PCP - General Family Medicine 07/04/18 08/24/18 documented as of this encounter
--- OUTSIDE RECORDS SUMMARY | 2022-04-21 17:06 | XMS_ITS | Encounter Summary ---
:1975 Author Organization [facility] Address [address] [place] [address] Care Team Providers Name Role Phone Unavailable Primary Care Provider Unavailable Encounter Details Date Type Department Care Team Description 04/17/2011 Hospital Encounter HX RST ASA 2B Social History Tobacco Use Types Packs/Day Years Used Date Smoking Tobacco: Never Assessed Alcohol Habits Answer Date Recorded How often [...] Procedure Name Priority Date/Time Associated Comments Diagnosis DX CERVICAL SPINE 4-5 Routine 04/17/2011 11:52 Re sults for this VIEWS AM CDT procedure are i n the results section. INTERPRETATION OF Routine 04/17/2011 4:11 AM Resu lts for this OUTSIDE DX EXTREMITY CDT procedu re are in the results section. ABORH, RBC Routine 04/17/2011 2:25 AM Results f or this CDT procedure are i n the results section. CT HEAD WITHOUT IV Routine 04/17/2011 12:39 Resul ts for this CONTRAST AM CDT procedure are i n the results section. CT THORACIC AND LUMBAR Routine 04/17/2011 12:38 R esults for this SPINE BY RECONSTRUCTION AM CDT proc edure are in the results section. CT ABDOMEN PELVIS WITH Routine 04/17/2011 12:35 R esults for this IV CONTRAST AM CDT procedure are i n the results section. CT CERVICAL SPINE Routine 04/17/2011 12:35 Result s for this WITHOUT IV CONTRAST AM CDT procedur e are in the results section. CT CHEST WITH IV Routine 04/17/2011 12:35 Results for this CONTRAST AM CDT procedure are i n the results section. DX CHEST PORTABLE 1 Routine 04/17/2011 12:08 Resu lts for this VIEW AM CDT procedure are i n the results section. documented in this encounter Results DX Cervical Spine 4-5 Views (04/17/2011 11:52 AM CDT) Anatomical Region Laterality Modality Cervical Spine N/A Radiographic Imaging Specimen (Source) Anatomical Collection Method Collection Time Re ceived Time Location / / Volume Laterality 04/17/2011 11:52 AM CDT Narrative 04/17/2011 1:30 PM CDT 17-Apr-2011 11:52:00 ??Exam: Sp Cerv 4vw AP/Lat/Flex/Ext Indications: trauma, cervical spine juwan agustina; any subluxation or malalignment Trauma, c-spine clearance REVISED REPORT - 17-Apr-2011 13:30:00 Sp Cerv 4vw AP/Lat/Flex/Ext: Less than 3mm of anterior subluxation of C2 on C3, C3 on C4, and C4 on C5 in neutral position which is stable in flexion and reduces to normal alignment in extension. Electronically signed by: ?? Hina Marcial ?? [phone] 17-Apr-2011 13:30 Procedure Note Martin Marcial M.D. - 11/13/2017Formatti ng of this note might be different from the original. 17-Apr-2011 11:52:00 Exam: Sp Cerv 4vw A P/Lat/Flex/Ext Indications: trauma, cervical spine juwan agustina; any subluxation or malalignment Trauma, c-spine clearance REVISED REPORT - 17-Apr-2011 13:30:00 Sp Cerv 4vw AP/Lat/Flex/Ext: Less than 3mm of anterior subluxation of C2 on C3, C3 on C4, and C4 on C5 in neutral position which is stable in flexion and reduces to normal alignment in extension. Electronically signed by: Hina Marcial MD [id number] 17-Apr-2011 13:30 Max KANG DIAGNOSTIC IMAGING PROCE LILLIAM Interpretation of Outside DX Extremity (04/17/2011 4:11 AM CDT) Anatomical Region Laterality Modality N/A Radiographic Imaging Specimen (Source) Anatomical Collection Method Collection Time Re ceived Time Location / / Volume Laterality 04/17/2011 4:11 AM CDT Narrative 04/17/2011 9:23 AM CDT 17-Apr-2011 04:11:00 ??Exam: Interp of OS XR Extremity Indications: trauma, pain ORIGINAL REPORT - 17-Apr-2011 09:23:00 Outside extremity radiographs: Three views of the left hand dated 1: The thumb is abducted in all views. No fractures. Four views of the left elbow dated 1: Normal alignment. No fractures. Three views of the left foot: Normal ali gnment. No fractures. (04/17/11) Electronically signed by: ?? Ralph Garcia MD [phone] 17-Apr-2011 09:23 Procedure Note Erendira Garcia M.D. - 11/13/2017Form atting of this note might be different from the original. 17-Apr-2011 04:11:00 Exam: Interp of OS XR Extremity Indications: trauma, pain ORIGINAL REPORT - 17-Apr-2011 09:23:00 Outside extremity radiographs: Three views of the left hand dated 1: The thumb is abducted in all views. No fractures. Four views of the left elbow dated 1: Normal alignment. No fractures. Three views of the left foot: Normal ali gnment. No fractures. (04/17/11) Electronically signed by: Ralph Garcia MD [phone] 17-Apr-2011 09:23 Kaley Bolton M.D., M.P.H. IMG DIAGNOSTIC IMAGIN G PROCEDURES ABORh, RBC (04/17/2011 2:25 AM CDT) P athologist Signature HXABO/RH BLOOD B Pos [facility] Specimen (Source) Anatomical Collection Method Collection Time Re ceived Time Location / / Volume Laterality 04/17/2011 2:25 AM CDT Historical Provider LAB BLOOD BANK TEST ORDERABL ES Performing Organization Address City/State/ZIP Code Phon e Number [facility] - [address] [place], [place] [address] [facility] CT Head without IV Contrast (04/17/2011 12:39 AM CDT) Anatomical Region Laterality Modality Head N/A Computed Tomography Specimen (Source) Anatomical Collection Method Collection Time Re ceived Time Location / / Volume Laterality 04/17/2011 12:39 AM CDT Impressions 04/17/2011 6:33 AM CDT No intracranial hemorrhage, mass effect, or fracture. FINDINGS: No evidence for intracranial h emorrhage, mass effect, CT findings of infarct, or fracture. Basilar cisterns are widely patent. No intracranial abnormalities noted. Electronically signed by: ?? Ginger Alfaro MD [phone] 17-Apr-2011 00:4 3 I have reviewed the films/images and agr ee with the above interpretation. Electronically signed by: ?? Kate Michele MD [phone] 17-Apr-2011 06:33 Narrative 04/17/2011 6:33 AM CDT 17-Apr-2011 00:39:00 ??Exam: CT Head wo Indications: trauma ORIGINAL REPORT - 17-Apr-2011 00:43:00 EXAM: CT scan of the Head without IV con trast: COMPARISON: None. CONCLUSION/ Procedure Note Kate Michele M.D. - 11/13/2017Form atting of this note might be different from the original. 17-Apr-2011 00:39:00 Exam: CT Head wo Indications: trauma ORIGINAL REPORT - 17-Apr-2011 00:43:00 EXAM: CT scan of the Head without IV con trast: COMPARISON: None. CONCLUSION/IMPRESSION: No intracranial h emorrhage, mass effect, or fracture. FINDINGS: No evidence for intracranial h emorrhage, mass effect, CT findings of infarct, or fracture. Basilar cisterns are widely patent. No intracranial abnormalities noted. Electronically signed by: Ginger Alfaro MD [phone] 17-Apr-2011 00:4 3 I have reviewed the films/images and agr ee with the above interpretation. Electronically signed by: Kate Michele MD [phone] 17-Apr-2011 06:33 Jamal Solitario M.D. IMG CT PROCEDURES CT Thoracic and Lumbar Spine by Reconstruction (04/17/2011 12:38 AM CDT) Anatomical Region Laterality Modality Thoracic Spine N/A Computed Tomography Specimen (Source) Anatomical Collection Method Collection Time Re ceived Time Location / / Volume Laterality 04/17/2011 12:38 AM CDT Narrative 04/17/2011 6:32 AM CDT 17-Apr-2011 00:38:00 ??Exam: CT Recon Tsp Lsp Indications: trauma REVISED REPORT - 17-Apr-2011 01:12:00 EXAM: CT reconstructions of the thoracic and lumbar spine. Normal alignment and soft tissues of the thoracic and lumbar spine, without fracture. IUD in the uterus. T and L-spine otherwise negative. [id number] Electronically signed by: ?? Ginger Alfaro MD [phone] 17-Apr-2011 01:1 2 I have reviewed the films/images and agr ee with the above interpretation. Electronically signed by: ?? Kate Michele MD [phone] 17-Apr-2011 06:32 Procedure Note Kate Michele M.D. - 11/13/2017Form atting of this note might be different from the original. 17-Apr-2011 00:38:00 Exam: CT Recon Tsp Lsp Indications: trauma REVISED REPORT - 17-Apr-2011 01:12:00 EXAM: CT reconstructions of the thoracic and lumbar spine. Normal alignment and soft tissues of the thoracic and lumbar spine, without fracture. IUD in the uterus. T and L-spine otherwise negative. [id number] Electronically signed by: Ginger Alfaro MD [phone] 17-Apr-2011 01:1 2 I have reviewed the films/images and agr ee with the above interpretation. Electronically signed by: Kate Michele MD [phone] 17-Apr-2011 06:32 Jamal Solitario M.D. IMMaria [place] CT PROCEDURES CT Abdomen Pelvis with IV Contrast (04/17/2011 12:35 AM CDT) Anatomical Region Laterality Modality Abdomen, Pelvis N/A Computed Tomography Specimen (Source) Anatomical Collection Method Collection Time Re ceived Time Location / / Volume Laterality 04/17/2011 12:35 AM CDT Impressions 04/17/2011 10:11 AM CDT No acute findings. FINDINGS: Small probable splenic cyst. V nayan mild dependent basilar atelectasis. Residual contrast in the collecting system from prior CT. Small right ovarian cyst. IUD. Cholecystectomy. Diffuse fatty infiltration of the liver. ?? Electronically signed by: ?? J Luis Jack MD. ??[phone] 17-Apr-2011 10: 11 Narrative 04/17/2011 10:11 AM CDT 17-Apr-2011 00:35:00 ??Exam: CT ABDOMEN w & PELVIS w Indications: trauma REVISED REPORT - 17-Apr-2011 10:11:00 EXAM: CT scan of the Abdomen and Pelvis with IV contrast: EXAM: CT scan of the Chest with IV contr ast: Procedure Note Carlos Jack M.D. - 11/13/2017Formatti ng of this note might be different from the original. 17-Apr-2011 00:35:00 Exam: CT ABDOMEN w & PELVIS w Indications: trauma REVISED REPORT - 17-Apr-2011 10:11:00 EXAM: CT scan of the Abdomen and Pelvis with IV contrast: EXAM: CT scan of the Chest with IV contr ast: IMPRESSION: No acute findings. FINDINGS: Small probable splenic cyst. V nayan mild dependent basilar atelectasis. Residual contrast in the collecting system from prior CT. Small right ovarian cyst. IUD. Cholecystectomy. Diffuse fatty infiltration of the liver. Electronically signed by: J Luis Jack MD. [phone] 17-Apr-2011 10:11 Jamal Solitario M.D. IMG CT PROCEDURES CT Chest with IV Contrast (04/17/2011 12:35 AM CDT) Anatomical Region Laterality Modality Chest N/A Computed Tomography Specimen (Source) Anatomical Collection Method Collection Time Re ceived Time Location / / Volume Laterality 04/17/2011 12:35 AM CDT Impressions 04/17/2011 10:11 AM CDT No acute findings. FINDINGS: Small probable splenic cyst. V nayan mild dependent basilar atelectasis. Residual contrast in the collecting system from prior CT. Small right ovarian cyst. IUD. Cholecystectomy. Diffuse fatty infiltration of the liver. ?? Electronically signed by: ?? J Luis Jack MD. ??[phone] 17-Apr-2011 10: 11 Narrative 04/17/2011 10:11 AM CDT 17-Apr-2011 00:35:00 ??Exam: CT CHEST w Indications: trauma REVISED REPORT - 17-Apr-2011 10:11:00 EXAM: CT scan of the Abdomen and Pelvis with IV contrast: EXAM: CT scan of the Chest with IV contr ast: Procedure Note Carlos Jack M.D. - 11/13/2017Formatti ng of this note might be different from the original. 17-Apr-2011 00:35:00 Exam: CT CHEST w Indications: trauma REVISED REPORT - 17-Apr-2011 10:11:00 EXAM: CT scan of the Abdomen and Pelvis with IV contrast: EXAM: CT scan of the Chest with IV contr ast: IMPRESSION: No acute findings. FINDINGS: Small probable splenic cyst. V nayan mild dependent basilar atelectasis. Residual contrast in the collecting system from prior CT. Small right ovarian cyst. IUD. Cholecystectomy. Diffuse fatty infiltration of the liver. Electronically signed by: J Luis Jack MD. [phone] 17-Apr-2011 10:11 Jamal Solitario M.D. IMMaria [facility] CT PROCEDURES CT Cervical Spine without IV Contrast (04/17/2011 12:35 AM CDT) Anatomical Region Laterality Modality Cervical Spine N/A Computed Tomography Specimen (Source) Anatomical Collection Method Collection Time Re ceived Time Location / / Volume Laterality 04/17/2011 12:35 AM CDT Narrative 04/17/2011 6:29 AM CDT 17-Apr-2011 00:35:00 ??Exam: CT Cervical Spine wo Indications: trauma ORIGINAL REPORT - 17-Apr-2011 00:45:00 EXAM: CT scan of the Cervical Spine with out IV contrast: IMPRESSION/FINDINGS: No fractures or dis locations. Negative cervical spine. Electronically signed by: ?? AGUSTIN Torres MD [phone] [id number] 17-Apr-2011 00:45 I have reviewed the films/images and agr ee with the above interpretation. Electronically signed by: ?? Kate Michele MD [phone] 17-Apr-2011 06:29 Procedure Note Kate Michele M.D. - 11/13/2017Form atting of this note might be different from the original. 17-Apr-2011 00:35:00 Exam: CT Cervical S pine wo Indications: trauma ORIGINAL REPORT - 17-Apr-2011 00:45:00 EXAM: CT scan of the Cervical Spine with out IV contrast: IMPRESSION/FINDINGS: No fractures or dis locations. Negative cervical spine. Electronically signed by: AGUSTIN Torres MD [phone] [id number] 17-Apr-2011 00:45 I have reviewed the films/images and agr ee with the above interpretation. Electronically signed by: Kate Michele MD [phone] 17-Apr-2011 06:29 Jamal Solitario M.D. IMMaria [facility] CT PROCEDURES DX Chest Portable 1 View (04/17/2011 12:08 AM CDT) Anatomical Region Laterality Modality Chest N/A Radiographic Imaging Specimen (Source) Anatomical Collection Method Collection Time Re ceived Time Location / / Volume Laterality 04/17/2011 12:08 AM CDT Narrative 04/17/2011 7:47 AM CDT 17-Apr-2011 00:08:00 ??Exam: Portable-Chest Indications: trauma ORIGINAL REPORT - 17-Apr-2011 01:40:00 Chest; 1 view: Overlying trauma board obscures fine det ail. Shallow inspiration. No definite fractures are identified. Surgical clips RUQ. Chest otherwise negative. Electronically signed by: ?? Noemy HAIR [phone] [id number] 01:40 I have reviewed the films/images and agr ee with the above interpretation. Electronically signed by: ?? J Luis Jack MD. ??[phone] 17-Apr-2011 07: 47 Procedure Note Carlos Jack M.D. - 11/13/2017Formatti ng of this note might be different from the original. 17-Apr-2011 00:08:00 Exam: Portable-Ches t Indications: trauma ORIGINAL REPORT - 17-Apr-2011 01:40:00 Chest; 1 view: Overlying trauma board obscures fine det ail. Shallow inspiration. No definite fractures are identified. Surgical clips RUQ. Chest otherwise negative. Electronically signed by: Noemy HAIR [phone] [id number] 1 01:40 I have reviewed the films/images and agr ee with the above interpretation. Electronically signed by: J Luis Jack MD. [phone] 17-Apr-2011 07:47 Jamal Solitario M.D. IMG DIAGNOSTIC IMAGING PROCE DURES documented in this encounter Visit Diagnoses Not on filedocumented in this encounter
--- OUTSIDE RECORDS SUMMARY | 2022-04-21 17:06 | XMS_ITS | Encounter Summary ---
:1975 Author Organization [facility] Address [address] [place] [address] Care Team Providers Name Role Phone Unavailable Primary Care Provider Unavailable Reason for Visit Reason Comments Behavioral Problem Encounter Details Date Type Department Care Team Description 02/20/2018 - Emergency [facility] Depression Anxiety 02/21/[address] (Primary Dx) JESSICADILLONRAMIREZ [place] [id number] Social History Tobacco Use Types Packs/Day Years [...] PM CDT documented as of this encounter Medications at Time of Discharge Medication Sig Dispensed Refills Start Date End Date ondansetron (ZOFRAN) 8 mg Take 1 tablet by 0 05/1707/04/2018 tablet mouth every 8 (eight) hours as needed. rizatriptan (MAXALT) 10 Take 1 tablet by 0 201207/04/2018 mg tablet mouth once as needed. documented as of this encounter Plan of Treatment Not on filedocumented as of this encounter Visit Diagnoses Diagnosis Depression Anxiety - Primary documented in this encounter
--- OUTSIDE RECORDS SUMMARY | 2022-04-21 17:06 | XMS_ITS | Encounter Summary ---
:1975 Author Organization [facility] Address [address] [place] [address] Care Team Providers Name Role Phone Unavailable Primary Care Provider Unavailable Encounter Details Date Type Department Care Team Description 06/12/2013 Hospital Encounter HX [facility] Suleman Chowdary Jr., M.D. [address] [place], [place] [phone] (Wo rk) Social History Tobacco Use Types [...] Sign Reading Time Taken Comments Blood Pressure 122/66 06/12/2013 10:23 AM CDT Pulse 87 06/12/2013 10:23 AM CDT Temperature - - Respiratory Rate - - Oxygen Saturation - - Inhaled Oxygen Concentration - - Weight 78.3 kg (172 lb 9.9 oz) 06/12/2013 10:23 AM CDT Height - - Body Mass Index - - documented in this encounter Medications at Time of Discharge Medication Sig Dispensed Refills Start Date End Date ondansetron (ZOFRAN) 8 mg Take 1 tablet by 0 05/1707/04/2018 tablet mouth every 8 (eight) hours as needed. rizatriptan (MAXALT) 10 Take 1 tablet by 0 201207/04/2018 mg tablet mouth once as needed. documented as of this encounter Progress Notes Suleman Cordoba Jr., M.D. - 06/12/2013 10:09 AM CDT [id number] CHIEF COMPLAINT/REASON FOR VISIT Menorrhagia consultation per Dr. Ortiz. HISTORY OF PRESENT ILLNESS Maritza is a 37-year-old, 3, para 2 female status post vaginal delivery x2, who presents to the clinic for menorrhagia today per Dr. Ortiz. She currently has Mirena IUD and this was placed byDr. Ortiz, but she is unsure of how long she has had this. She has had a right laparoscopic oophorectomy. She would like to have one more in the future. She states that she experiences spotting between menstrual periods, and she uses about 3 pads per day during menstrual bleeding that is accompanied by severe cramping. She states that 3 pads per day is significantly more bleeding than she generally has with her periods. She has a history of severe migraines which are preceded by vision changes. MEDICATIONS Gabapentin, 600 mg, p.o., bid. Macrodantin, 1 cap, p.o., following intercourse. Cymbalta, 60 mg, p.o., daily. Amlodipine. Patient is encouraged to follow up with Dr. Ortiz to wean off this prior to . Percocet, 1 tab, p.o., q6hr, p.r.n. for pain. Lorazepam. Patient is encouraged to follow up with Dr. Ortiz to wean off this prior to . Bupropion, 300 mg, p.o., daily. Omeprazole, 400 mg, p.o., daily. Topiramate. Patient is encouraged to follow up with Dr. Ortiz to wean off this prior to . Rizatriptan, 10 mg, p.o., once. Mirena IUD. Removed today. ALLERGIES Decadron, Haldol, Imitrex. PAST MEDICAL/SURGICAL HISTORY PAST MEDICAL HISTORY: Vaginal delivery x2. Type II diabetes PAST SURGICAL HISTORY: Right laparoscopic salpingo-oophorectomy. VITAL SIGNS HEIGHT: WEIGHT: 78.3 kg. PULSE: 87/min. BLOOD PRESSURE: 122/66. SYSTEMS REVIEW Please see HPI, otherwise negative per systems review sheet. PHYSICAL EXAMINATION GENERAL: Patient appears well groomed and well nourished. No acute distress. Oriented times three. PELVIS: Transvaginal ultrasound performed today: multiple small cysts noted on right ovary, with thesmallest at 2 x 1.3 cm; 1 cm fluid collection mid-uterus adjacent to IUD; please see separate reportfor details. Vagina and cervix appear normal without lesions, discharge or rashes. Uterus is anteverted, small, mobile and nontender. Adnexa are without masses or tenderness. Mirena IUD is removed today. RECTUM: Deferred. GENITALIA: External genitalia: Bartholin's, urethral, and Wiley's glands within normal limits. IMPRESSION/REPORT/PLAN Fvmveu-sros-aviv-old, 5, para 2 female who presents to the clinic for menorrhagia. PLAN: 1. Menorrhagia: The patient states that she has heavy menstrual periods accompanied by sever cramping, as well as spotting between menstrual periods. She desires removal of her Mirena IUD, and this was done today. Additionally, transvaginal ultrasound was performed today due to the patient's history of ovarian cysts, and this indicated multiple small cysts noted on right ovary, with the smallest at 2 x 1.3 cm and a 1 cm fluid collection mid-uterus adjacent to IUD. The patient is advised to avoid until these findings are further evaluated. The patient will contact the clinic and schedule an appointment for 1 week following her 2nd period following Mirena removal today. 2. Type II diabetes: The patient is encouraged to exercise regularly and limit her carbohydrate intake to continue managing this. 3. Future : Because the patient is currently taking quite a few medications for her migraine headaches that can be harmful to a fetus during , I recommend that she use condoms for contraception at this time until she is able to discontinue use of amlodipine, lorazepam, and topiramate. She is encouraged to follow up with Dr. Ortiz for a plan to wean off these medications prior topregnancy. Additionally, she is encouraged to avoid until further evaluation of cysts and fluid pocket noted on ultrasound today is done. Folic acid, 4 mg, p.o., daily was prescribed today. Additionally, a handout on safe medication use during was also provided today. The patient was counseled that since she is 37, it may take her slightly longer to conceive, and she is encouragedto chart her periods on a calendar following IUD removal in preparation for trying to conceive. 4. Follow up: Patient will return in 1 week after her 2nd period following IUD removal today. Patient will contact the clinic with any EQUINE BREEDER related concerns. ADMINISTRATIVE BILLING: Please note that 20 minutes of this 25 minute visit were spent counseling patient. This document serves as a record of services personally performed by Suleman Cordoba MD. It was created on their behalf by Terri Sykes, a trained medical office technician. The creation of this record is based on the scribe's personal observations and the provider's statements to them. This document has been ch ecked and approved by the attending provider. Suleman Cordoba M.D./marie cc: Segun Ortiz MD Electronically Signed By: SULEMAN CORDOBA MD On: 06/12/2013 05:37 PM Source: [facility] [email or web address] Document Id: [id number] documented in this encounter Miscellaneous Notes Miscellaneous - Suleman Cordoba Jr., M.D. - 06/12/2013 10:53 AM CDT Ambulatory [place] [address] Visit Information Name: MARITZA NAVA [facility] Number: [id number] Current Date: 06/12/2013 10:53:25 Physicians Attending Provider: SULEMAN CORDOBA MD Primary Care Provider: MARYAM ORTIZ MDMARITZA has been given the following list of follow-up instructions, medication list, and patient education materials: Follow-up Instructions Your Medications Here is a list of your medications. It is important to take your medications as directed. Use a pillbox or chart to help remind you to take your medications. Please let your doctor or nurse know if you have problems taking your medications. Medication/Strength Dose Route Frequency Indications/Special Instructions/Comments/Notes folic acid (folic acid 1 mg oral tablet) 1 mg Oral four times a day oxyCODONE-acetaminophen (Percocet 5/325 oral tablet) 1 tab(s) Oral every 6 hours as needed for Pain No more than 4,000mg acetaminophen/24hrs gabapentin (gabapentin 600 mg oral tablet) 600 mg Oral two times a day nitrofurantoin (Macrodantin 100 mg oral capsule) 100 mg Oral after intercourse omeprazole (omeprazole 40 mg oral delayed release capsule) 40 mg Oral once a day topiramate (topiramate 200 mg oral tablet) 200 mg Oral two times a day buPROPion (buPROPion XL 300 mg/24 hours oral extended release tablet) 300 mg Oral once a day amLODIPine (amLODIPine 5 mg oral tablet) 5 mg Oral once a day rizatriptan (rizatriptan 10 mg oral tablet) 10 mg Oral once as needed for migraine headache DULoxetine (Cymbalta 60 mg oral delayed release capsule) 60 mg Oral once a day LORazepam (LORazepam 1 mg oral tablet) 1 mg Oral three times a day as needed for Anxiety ondansetron (ondansetron 8 mg oral tablet) 8 mg Oral every 8 hours as needed for Nausea Attention: If you have any medications at home that are not on this list, DO NOT take them until youcontact your provider for clarification. Your Allergies & Intolerances Substance Reaction Symptoms Category Comments Imitrex Drug Haldol Drug Decadron Drug Your Problem List Problem Status Onset Comments No Problems found Your Upcoming Appointments Date Time Location Reason Provider No Appointments found Attention: Contact your local Clinic if further appointment detail needed. Your Goals/Additional instructions: Source: [facility] POWERCHART Document Id: [id number] Miscellaneous - Suleman Cordoba Jr., M.D. - 06/12/2013 10:53 AM CDT [place] [address] Visit Information Name: MARITZA NAVA [facility] Number: [id number] Visit Date: 06/12/2013 10:53:24 Attending Provider: SULEMAN CORDOBA MD Primary Care Provider: MARYAM ORTIZ MD MARITZA has been given the following list of medications: Your Medications It is important to take your medications as directed. Use a pill box or chart to help remind you to take your medications. Please let your doctor or nurse know if you have problems taking your medications. Medication/Strength Dose Route Frequency Indications/Special Instructions/Comments/Notes folic acid (folic acid 1 mg oral tablet) 1 mg Oral four times a day oxyCODONE-acetaminophen (Percocet 5/325 oral tablet) 1 tab(s) Oral every 6 hours as needed for Pain No more than 4,000mg acetaminophen/24hrs gabapentin (gabapentin 600 mg oral tablet) 600 mg Oral two times a day nitrofurantoin (Macrodantin 100 mg oral capsule) 100 mg Oral after intercourse omeprazole (omeprazole 40 mg oral delayed release capsule) 40 mg Oral once a day topiramate (topiramate 200 mg oral tablet) 200 mg Oral two times a day buPROPion (buPROPion XL 300 mg/24 hours oral extended release tablet) 300 mg Oral once a day amLODIPine (amLODIPine 5 mg oral tablet) 5 mg Oral once a day rizatriptan (rizatriptan 10 mg oral tablet) 10 mg Oral once as needed for migraine headache DULoxetine (Cymbalta 60 mg oral delayed release capsule) 60 mg Oral once a day LORazepam (LORazepam 1 mg oral tablet) 1 mg Oral three times a day as needed for Anxiety ondansetron (ondansetron 8 mg oral tablet) 8 mg Oral every 8 hours as needed for Nausea Attention: If you have any medications at home that are not on this list, DO NOT take them until youcontact your provider for clarification. Additional Information: Source: 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 Entered On: 06/12/2013 10:26 CDT Performed On: 06/12/2013 10:23 CDT by QUYNH MARTINS Intake Chief Complaint : heavy bleeding Peripheral Pulse Rate : 87 /min Systolic Blood Pressure : 122 mmHg Diastolic Blood Pressure : 66 mmHg NIBP Mean : 85 mmHg BP Location : Left upper extremity Blood Pressure Cuff Size : Regular Actual Weight : 78.3 kg(Converted to: 172 lb 10 oz) Dosing Weight Clinic : 78.3 kg QUYNH MARTINS - 06/12/2013 10:23 CDT General Info Information Given By : Patient Preferred Communication Mode : Verbal Languages : Chadian QUYNH MARTINS - 06/12/2013 10:23 CDT Subjective Pain Symptoms : No QUYNH MARTINS - 06/12/2013 10:23 CDT Dependent Habits Tobacco Use/Currently Using : No Smoking Status : Unknown if ever smoke QUYNH MARTINS - 06/12/2013 10:23 CDT Source: [employer] Document Id: [id number] CDT!20 documented in this encounter Plan of Treatment Not on filedocumented as of this encounter Visit Diagnoses Not on filedocumented in this encounter
--- OUTSIDE RECORDS SUMMARY | 2022-04-21 17:06 | XMS_ITS | Encounter Summary ---
:1975 Author Organization [facility] Address [address] [place] [id number] Care Team Providers Name Role Phone Elsewhere, Pcp Primary Care Provider Unavailable Reason for Visit Reason Onset Date Comments Pre-visit Testing Orders 07/04/2018 Encounter Details Date Type Department Care Team Description 07/04/2018 Clinical Communication RST HIM Grace Anton Pre-visit Testing [address] [place], [place] [address] [facility] [id number] [place] [address] Social History Tobacco Use Types Packs/Day Years [...] as of this encounter Visit Diagnoses Diagnosis Concussion With Loss Of Consciousness Of Unspecified Duration Sequela (HCC) - Primary documented in this encounter Care Teams Roaster Operator Relationship Specialty Start Date End Date Elsewhere, Pcp PCP - General Family Medicine 07/04/18 08/24/18 documented as of this encounter
--- OUTSIDE RECORDS SUMMARY | 2022-04-21 17:06 | XMS_ITS | Encounter Summary ---
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 [facility] B mg/dL 11:06 AM APPEALS ANALYST SERVICES Site Capillary 07/03/2018 [facility] 11:06 AM APPEALS ANALYST SERVICES Specimen Anatomical Collection Method Collection Time Receive d Time (Source) Location / / Volume Laterality Blood 07/03/2018 11:04 07/03/2018 AM APPEALS ANALYST 11:06 AM APPEALS ANALYST Unknown Provider LAB POCT ORDERABLES-MANUAL Performing Organization Address City/[facility] Phon e Number [facility] [address] [place] [address] Glucose, POCT (07/03/2018 6:41 AM APPEALS ANALYST) Analysis Performed At Patho logist Time Signature Glucose, POCT, 82 70 - 140 07/03/2018 [facility] B mg/dL 8:51 AM APPEALS ANALYST SERVICES Site Capillary 07/03/2018 [facility] 8:51 AM APPEALS ANALYST SERVICES Specimen Anatomical Collection Method Collection Time Receive d Time (Source) Location / / Volume Laterality Blood 07/03/2018 6:41 AM 8 8:51 APPEALS ANALYST AM APPEALS ANALYST Unknown Provider LAB POCT ORDERABLES-MANUAL Performing Organization Address [facility] Phon e Number [facility] [address] [place] [address] Glucose, POCT (07/03/2018 6:41 AM APPEALS ANALYST) Patholo gist Method Time Signature Glucose, Collected 07/03/2018 [facility] POCT, B 6:41 AM [facility] - [place] Specimen Anatomical Collection Method Collection Time Receive d Time (Source) Location / / Volume Laterality Blood (Blood, 07/03/2018 6:41 AM 07/03/20 18 6:41 Capillary) APPEALS ANALYST AM APPEALS ANALYST Krystina Rodney M.D. LAB POCT ORDERABLES-MANUAL Performing Organization Address City/[facility] Phon e Number [facility] - [address] [place], [place] [address] [place] Lactate (07/03/2018 2:52 AM APPEALS ANALYST) P athologist Signature Lactate, P 1.4 0.5 - 2.2 07/03/2018 [facility] mmol/L 3:11 AM [facility] Specimen Anatomical Collection Method Collection Time Receive d Time (Source) Location / / Volume Laterality Blood (Blood, 07/03/2018 2:52 AM 07/03/20 2:58 Venous) APPEALS ANALYST AM APPEALS ANALYST Leslie Argueta M.D. LAB BLOOD NON ADD-ON Performing Organization Address City/[facility] Code Phon e Number [facility] - [address] [place] [phone] [place] (ABNORMAL) CBC without Differential (07/03/2018 2:52 AM APPEALS ANALYST) [facility] Method Time Signature Hemoglobin 13.7 11.6 - 07/03/2018 [facility] 15.0 g/dL 3:23 AM [facility] Hematocrit 40.7 35.5 - 07/03/2018 [facility] 44.9 % 3:23 AM [facility] Erythrocytes 4.49 3.92 - 07/03/2018 [facility] 5.13 3:23 AM [facility] LAB[facility] - x10(12)/L [place] MCV 90.6 78.2 - 07/03/2018 [facility] 97.9 fL 3:23 AM APPEALS ANALYST [facility] RBC Distrib 13.0 12.2 - 07/03/2018 [facility] Width 16.1 % 3:23 AM [facility] Platelet Count 223 157 - 371 07/03/2018 [facility] x10(9)/L 3:23 AM [facility] Leukocytes 11.0 (H) 3.4 - 9.6 07/03/2018 [facility] x10(9)/L 3:23 AM [facility] Specimen Anatomical Collection Method Collection Time Receive d Time (Source) Location / / Volume Laterality Blood (Blood, 07/03/2018 2:52 AM 07/03/20 2:58 Venous) APPEALS ANALYST AM APPEALS ANALYST Leslie Argueta M.D. LAB BLOOD ADD-ON Performing Organization Address City/[facility]/ZIP Code Phon e Number [facility] - [address] [place] [phone] [place] (ABNORMAL) CMP (Comprehensive Metabolic Panel) (07/03/2018 2:52 AM APPEALS ANALYST) [facility] [employer] [facility] CAPPTURE Method Time Signature Potassium, S 4.3 3.6 - 5.2 07/03/2018 [facility] mmol/L 4:30 AM [facility] Sodium, S 142 135 - 145 07/03/2018 [facility] mmol/L 4:30 AM [facility] - [place] Chloride, S 108 (H) 98 - 107 07/03/2018 [facility] mmol/L 4:30 AM [facility] - [place] Bicarbonate, S 22 22 - 29 07/03/2018 [facility] mmol/L 4:30 AM [facility] - [place] Anion Gap 12 7 - 15 07/03/2018 [facility] 4:30 AM [facility] - [place] BUN (Blood Urea 8 6 - 21 07/03/2018 [facility] Nitrogen), S mg/dL 4:30 AM [facility] - [place] Creatinine 0.72 0.59 - 07/03/2018 [facility] 1.04 4:30 AM [facility] LAB[facility] - mg/dL [place] eGFR-Non >90 >=60 07/03/2018 [facility] Black/ mL/min/BS 4:30 AM [facility] - [place] A [place] Comment: ----ADDITIONAL INFORMATION---- Estimated GFR calculated using the 2009 CKD_EPI creatinine equation. eGFR-Black/ >90 >=60 mL/min/BSA 07/03/2018 4:30 [facility] Estonian AM [facility] ANALYST LAB[facility] Comment: ----ADDITIONAL INFORMATION---- Estimated GFR calculated using the 2009 CKD_EPI creatinine equation. Calcium, Total, S 9.0 8.6 - 10.0 07/03/2018 4:30 [facility] mg/dL AM [facility] Glucose, S 105 70 - 140 07/03/2018 4:30 [facility] mg/dL AM [facility] Protein, Total, S 6.1 (L) 6.3 - 7.9 07/03/2018 4:30 [facility] g/dL AM [facility] Albumin, S 4.0 3.5 - 5.0 07/03/2018 4:30 [facility] g/dL AM [facility] Aspartate 12 8 - 43 U/L 07/03/2018 4:30 [facility] Aminotransferase (AST), AM APPEALS ANALYST LABORA TORIES - S [place] Alkaline Phosphatase, S 81 35 - 104 U/L 07/03/2018 4: 30 [facility] AM [facility] Alanine Aminotransferase 16 7 - 45 U/L 07/03/2018 4:3 0 [facility] (ALT), S AM [facility] - [place] Bilirubin, Total, S 0.7 <=1.2 mg/dL 07/03/2018 4:30 [facility] AM [facility] ANA[facility] LAB[facility]ATOR[facility] Specimen Anatomical Collection Method Collection Time Receive d Time (Source) Location / / Volume Laterality Blood (Blood, 07/03/2018 2:52 AM 07/03/20 3:51 Venous) APPEALS ANALYST AM APPEALS ANALYST Leslie Argueta M.D. LAB BLOOD ADD-ON Performing Organization Address City/[facility] Code Phon e Number [facility] - [address] (ABNORMAL) Acetaminophen Level (07/03/2018 2:52 AM APPEALS ANALYST) Analysis Performed At [facility] Acetaminophen, <7 (L) 07/03/2018 [facility] S mcg/mL 4:30 AM [facility] Specimen Anatomical Collection Method Collection Time Receive d Time (Source) Location / / Volume Laterality Blood (Blood, 07/03/2018 2:52 AM 07/03/20 3:51 Venous) APPEALS ANALYST AM APPEALS ANALYST Leslie Argueta M.D. LAB BLOOD ADD-ON Performing Organization Address City/[facility]/ZIP Code Phon e Number [facility] - [address] LD (Lactate Dehydrogenase) (07/03/2018 2:52 AM APPEALS ANALYST) [facility] [place] 198 122 - 222 07/03/2018 [facility] LD U/L 3:55 AM [facility] Specimen Anatomical Collection Method Collection Time Receive d Time (Source) Location / / Volume Laterality Blood (Blood, 07/03/2018 2:52 AM 07/03/20 3:23 Venous) APPEALS ANALYST AM APPEALS ANALYST Leslie Argueta M.D. LAB BLOOD NON ADD-ON Performing Organization Address City/[facility] Code Phon e Number [facility] - [address] (ABNORMAL) Glucose, POCT (07/02/2018 9:34 PM APPEALS ANALYST) Analysis Performed At Path logist Time Signature Glucose, POCT, 163 (H) 70 - 140 07/02/2018 [facility] B mg/dL 9:34 PM APPEALS ANALYST SERVICES Site Capillary 07/02/2018 [facility] 9:34 PM APPEALS ANALYST SERVICES Specimen Anatomical Collection Method Collection Time Receive d Time (Source) Location / / Volume Laterality Blood 07/02/2018 9:34 PM 8 9:35 APPEALS ANALYST PM APPEALS ANALYST Unknown Provider LAB POCT ORDERABLES-MANUAL Performing Organization Address City/[facility]/ZIP Code Phon e Number [facility] [address] [place] [address] Glucose, POCT (07/02/2018 9:34 PM APPEALS ANALYST) [facility] Method Time Signature Glucose, Collected 07/02/2018 [facility] POCT, B 9:34 PM [facility] - [place] Specimen Anatomical Collection Method Collection Time Receive d Time (Source) Location / / Volume Laterality Blood (Blood, 07/02/2018 9:34 PM 07/02/20 18 9:34 Capillary) APPEALS ANALYST PM APPEALS ANALYST Krystina Rodney M.D. LAB POCT ORDERABLES-MANUAL Performing Organization Address City/[facility] Code Phon e Number [facility] - [address] [place], [place] [address] [place] (ABNORMAL) Blood Gas and Electrolytes CG8+, Point of Care, [place] In[facility], Vascular Access [employer] (07/02/2018 7:55 PM APPEALS ANALYST) P athologist Signature Sample Site, Venstick 07/02/2018 [facility] POCT 8:02 PM APPEALS ANALYST SERVICES Comment: ----ADDITIONAL INFORMATION---- Performed at the Point of Care pH, POCT 7.30 (L) 7.35 - 7.45 07/02/2018 8:02 PM APPEALS ANALYST [facility] Comment: ----ADDITIONAL INFORMATION---- Performed at the Point of Care pCO2, POCT 40 32 - 45 mm Hg 07/02/2018 8:02 PM APPEALS ANALYST PO C [facility] Comment: ----ADDITIONAL INFORMATION---- Performed at the Point of Care pO2, POCT 30 (L) 83 - 108 mm Hg 07/02/2018 8:02 PM APPEALS ANALYST PO [facility] Comment: ----ADDITIONAL INFORMATION---- Performed at the Point of Care Base, POCT -7 (L) -2 - 3 mmol/L 07/02/2018 8:02 PM APPEALS ANALYST PO C [facility] Comment: ----ADDITIONAL INFORMATION---- Performed at the Point of Care HCO3, POCT 20 (L) 22 - 26 mmol/L 07/02/2018 8:02 PM APPEALS ANALYST P OC [facility] Comment: ----ADDITIONAL INFORMATION---- Performed at the Point of Care Sodium, POCT, B 140 135 - 145 mmol/L 07/02/2018 8:0 2 PM APPEALS ANALYST [facility] Comment: ----ADDITIONAL INFORMATION---- Performed at the Point of Care Potassium, POCT, B 4.2 3.6 - 5.2 mmol/L 07/02/2018 8:0 2 PM APPEALS ANALYST [facility] Comment: ----ADDITIONAL INFORMATION---- Performed at the Point of Care Calcium, Ionized, 4.70 4.65 - 5.30 07/02/2018 8:02 PM P [facility] POCT, B mg/dL APPEALS ANALYST SERVICES Comment: ----ADDITIONAL INFORMATION---- Performed at the Point of Care pH POCT 7.30 (L) 7.35 - 7.45 07/02/2018 8:02 PM APPEALS ANALYST POC [facility] SERVICES Comment: ----ADDITIONAL INFORMATION---- Performed at the Point of Care Glucose, POCT, B 187 (H) 70 - 140 mg/dL 07/02/2018 8:02 PM APPEALS ANALYST [facility] Comment: ----ADDITIONAL INFORMATION---- Performed at the Point of Care Hematocrit, POCT, B 38.0 35.5 - 44.9 % 07/02/2018 8: 02 PM APPEALS ANALYST [facility] Comment: ----ADDITIONAL INFORMATION---- Performed at the Point of Care Specimen Anatomical Collection Method Collection Time Receive d Time (Source) Location / / Volume Laterality Blood 07/02/2018 7:55 PM 8 8:02 APPEALS ANALYST PM APPEALS ANALYST Unknown Provider LAB POCT ORDERABLES - DEVICE Performing Organization Address City/State/ZIP Code Phon e Number [facility] [address] [place] [address] Troponin T, 2H/6H, 5th Gen (07/02/2018 7:55 PM APPEALS ANALYST) [facility] Time Signature Troponin T, 2 <6 <=10 ng/L 07/02/2018 [facility] hr, 5th gen 8:18 PM APPEALS ANALYST LABORATORIES [facility] 2H Delta 0 ng/L 07/02/2018 [facility] 8:18 PM APPEALS ANALYST [facility] 2H Delta Not Changing 07/02/2018 [facility] Interp 8:18 PM APPEALS ANALYST [facility] Troponin T, 6 CANCELED ng/L 07/02/2018 [facility] hr, 5th gen 8:18 PM APPEALS ANALYST [facility] Comment: Result canceled by the ancillar y Specimen Anatomical Collection Method Collection Time Receive d Time (Source) Location / / Volume Laterality Blood (Blood, 07/02/2018 7:55 PM 07/02/20 18 7:52 Venous) APPEALS ANALYST PM APPEALS ANALYST Narrative [facility] - 07/02/2018 8:18 PM APPEALS ANALYST Specimen Information: Specimen ID: [id number] Specimen Type: Blood Specimen Collection Start Date: 018 ??7:55 PM Specimen Received Date: 07/02/2018 ??7: 52 PM Specimen ID: [id number] Specimen Type: Blood Specimen Collection Start Date: 018 ??8:17 PM Specimen Received Date: 07/02/2018 ??8: 17 PM Mayte White M.D. LAB BLOOD TROPONIN Performing Organization Address City/State/ZIP Code Phon e Number [facility] - [address] [place], [place] [address] [place] Drug Screen, Prescription/OTC (07/02/2018 7:52 PM APPEALS ANALYST) [facility] Acetaminophen. Topiramate. Propofol. [facility] detected: No other drugs detected. ??Q uantitative testing may be available at an 7:11 AM APPEALS ANALYST SUPERIOR additional charge. ??Specimens are retained for [address] This is a screening assay only and false-positive or false -negative results SUPPORT can occur. If confirmation testing of any drugs found is needed, please call CENTER the lab. Specimens are retained in the laborator y for two weeks. This test is not intended for use in compliance monitoring or emplo yment-related testing. Comment: ----ADDITIONAL INFORMATION---- This test was developed and its performa nce characteristics determined by [facility] in a manner consistent with CLIA requirements. This test has not been cleared or approved by the [place] d and Drug Administration. Specimen Anatomical Collection Method Collection Time Receive d Time (Source) Location / / Volume Laterality Blood (Blood, 07/02/2018 7:52 PM 07/02/20 Venous) APPEALS ANALYST 10:31 PM APPEALS ANALYST Krystina Rodney M.D. LAB BLOOD ADD-ON Performing Organization Address City/State/ZIP Code Phon e Number [facility] [address] [place] [phone] [facility] Blood Gas, POCT - Venous (07/02/2018 7:52 PM APPEALS ANALYST) [facility] Signature ABG and Collected 07/02/2018 [facility] Lytes, POCT, 7:52 PM APPEALS ANALYST LABORATORIES - B [place] Specimen Anatomical Collection Method Collection Time Receive d Time (Source) Location / / Volume Laterality Blood (Other, 07/02/2018 7:52 PM 07/02/20 7:52 Specify in APPEALS ANALYST PM APPEALS ANALYST Comments) Krystina Montgomery M.D. LAB POCT ORDERABLES - DEVICE Performing Organization Address City/[facility]/ZIP Code Phon e Number [facility] - [address] [place] [phone] [place] Drug Abuse Survey with Confirmation, Urine (07/02/2018 7:17 PM APPEALS ANALYST) [facility] Method Time [facility] Alcohol Negative Cutoff: 07/04/2018 [facility] 10 mg/dL 10:[address]ST [address] [facility] Amphetamines Negative Cutoff: 07/04/2018 [facility] 500 ng/mL 10:[address]IOR [address] [facility] Barbiturates Negative Cutoff: 07/04/2018 [facility] 200 ng/mL 10:[address] [facility] Benzodiazepines Negative Cutoff: 07/04/2018 [facility] 100 ng/mL 10:[address] [facility] Cocaine Negative Cutoff: 07/04/2018 [facility] 150 ng/mL 10:[address] [facility] Opiates Negative Cutoff: 07/04/2018 [facility] 300 ng/mL 10:[address] [facility] Phencyclidine Negative Cutoff: 07/04/2018 [facility] 25 ng/mL 10:[address] [facility] Tetrahydrocannabinol Negative Cutoff: 07/04/2018 [facility] 50 ng/mL 10:07 AM [facility] Comment: ----ADDITIONAL INFORMATION---- This report is intended for use in clini wendy monitoring or management of patients. ??It is not intended for use i n employment-related testing. Specimen Anatomical Collection Method Collection Time Receive d Time (Source) Location / / Volume Laterality Urine (Urine, 07/02/2018 7:17 PM 07/04/20 18 7:18 Clean Catch) APPEALS ANALYST AM APPEALS ANALYST Krystina Rodney M.D. LAB URINE ORDERABLES Performing Organization Address City/State/ZIP Code Phon e Number [facility] [address] [place] [address] Critical Care (07/02/2018 5:25 PM APPEALS ANALYST) Narrative Devi Veliz M.D. - 07/02/2018 5:2 5 PM APPEALS ANALYST Devi Veliz M.D. ? 07/02/2018 ??5:25 PM Critical Care Performed by: DEVI VELIZ Authorized by: DEVI VELIZ Critical care provider statement: ??Critical care total time (minutes): ? ?45 ??Critical care time was exclusive of: ??Separately billable procedures and treating other patients and teaching sarah bernard ?? Critical care was necessary to manuel at orprevent imminent or life-threatening deterioration of the fo llowing conditions: altered mental status, respiratory failure. ??Critical care was time spent personal ly by me on the following activities: ??Development of treatment p raz with patient or surrogate, discussions with consultants, evaluation of patient's response to treatment, examination of patient, order ing and performing treatments and interventions, ordering and review of la boratory studies, ordering and review of radiographic studies, re-evalu ation of patient's condition, review of old charts and obtaining histo ry from patient or surrogate Devi Veliz M.D. PROCEDURE/MINOR SURGICAL ORD ERABLES CT Head Neck Angiogram with IV Contrast (07/02/2018 5:21 PM APPEALS ANALYST) Anatomical Region Laterality Modality Head and Neck, Neuroradiology RST LOS, Neuroradiology N/A Computed Tomography ARZ LOS, Neuroradiology FLA [facility] Specimen (Source) Anatomical Collection Method Collection Time Re ceived Time Location / / Volume Laterality 07/02/2018 5:40 PM APPEALS ANALYST Impressions 07/02/2018 6:07 PM APPEALS ANALYST IMPRESSION: No acute intracranial pathology or vascular abnormality in the head or neck. I have personally reviewed the images an d agree with this interpretation. Narrative 07/02/2018 6:07 PM APPEALS ANALYST EXAM: CT HEAD WITHOUT IV CONTRAST, CT HEAD NECK ANGIOGRAM WITH IV CONTRAST COMPARISON: CT of the head without IV co ntrast 04/17/2011 FINDINGS: VASCULAR: Brain: Anterior and posterior circulatio ns are normal-appearing without flow-limiting stenoses or aneurysm ident ified. Distal branch vasculature appear symmetric. An anterior communicating art nayan is partially visualized. There are patent bilateral posterior communicating arteries. NECK: Normal-appearing aortic arch with conventional great vessel branching system. Both vertebral arteries arise fr om their respective subclavian artery. Left dominant vertebral artery system. T he intradural right vertebral artery becomes diminutive beyond the takeoff of the right PICA, though both vertebral arteries contribute to the patent basila r artery. Basilar artery has a 4 vessel termination. Cervical carotid and verteb ral arteries appear widely patent without evidence for stenosis or dissect ion. NONVASCULAR: No acute intracranial hemorrhage or mass effect. No evidence of acute infarct. Endotracheal tube with tip in the lower thoracic trachea. Minimal atelectasis the dependent lungs. The soft tissues of the neck are normal. Procedure Note Sandra Edwards M.D. - 07/02/2018Format ting of this note might be different from the original. EXAM: CT HEAD WITHOUT IV CONTRAST, CT HE AD NECK ANGIOGRAM WITH IV CONTRAST COMPARISON: CT of the head without IV co ntrast 04/17/2011 FINDINGS: VASCULAR: Brain: Anterior and posterior circulatio ns are normal-appearing without flow-limiting stenoses or aneurysm ident ified. Distal branch vasculature appear symmetric. An anterior communicating art nayan is partially visualized. There are patent bilateral posterior communicating arteries. NECK: Normal-appearing aortic arch with conventional great vessel branching system. Both vertebral arteries arise fr om their respective subclavian artery. Left dominant vertebral artery system. T he intradural right vertebral artery becomes diminutive beyond the takeoff of the right PICA, though both vertebral arteries contribute to the patent basila r artery. Basilar artery has a 4 vessel termination. Cervical carotid and verteb ral arteries appear widely patent without evidence for stenosis or dissect ion. NONVASCULAR: No acute intracranial hemorrhage or mass effect. No evidence of acute infarct. Endotracheal tube with tip in the lower thoracic trachea. Minimal atelectasis the dependent lungs. The soft tissues of the neck are normal. IMPRESSION: No acute intracranial pathol ogy or vascular abnormality in the head or neck. I have personally reviewed the images an d agree with this interpretation. Mayte White M.D. IMG CT PROCEDURES CT Head without IV Contrast (07/02/2018 5:21 PM APPEALS ANALYST) Anatomical Region Laterality Modality Head, Neuroradiology RST LOS, Neuroradiology ARZ LOS, N/A Computed Tomography Neuroradiology FLA LOS Specimen (Source) Anatomical Collection Method Collection Time Re ceived Time Location / / Volume Laterality 07/02/2018 5:40 PM APPEALS ANALYST Impressions 07/02/2018 6:07 PM APPEALS ANALYST IMPRESSION: No acute intracranial pathology or vascular abnormality in the head or neck. I have personally reviewed the images an d agree with this interpretation. Narrative 07/02/2018 6:07 PM APPEALS ANALYST EXAM: CT HEAD WITHOUT IV CONTRAST, CT HEAD NECK ANGIOGRAM WITH IV CONTRAST COMPARISON: CT of the head without IV co ntrast 04/17/2011 FINDINGS: VASCULAR: Brain: Anterior and posterior circulatio ns are normal-appearing without flow-limiting stenoses or aneurysm ident ified. Distal branch vasculature appear symmetric. An anterior communicating art nayan is partially visualized. There are patent bilateral posterior communicating arteries. NECK: Normal-appearing aortic arch with conventional great vessel branching system. Both vertebral arteries arise fr om their respective subclavian artery. Left dominant vertebral artery system. T he intradural right vertebral artery becomes diminutive beyond the takeoff of the right PICA, though both vertebral arteries contribute to the patent basila r artery. Basilar artery has a 4 vessel termination. Cervical carotid and verteb ral arteries appear widely patent without evidence for stenosis or dissect ion. NONVASCULAR: No acute intracranial hemorrhage or mass effect. No evidence of acute infarct. Endotracheal tube with tip in the lower thoracic trachea. Minimal atelectasis the dependent lungs. The soft tissues of the neck are normal. Procedure Note Sandra Edwards M.D. - 07/02/2018Format ting of this note might be different from the original. EXAM: CT HEAD WITHOUT IV CONTRAST, CT HE AD NECK ANGIOGRAM WITH IV CONTRAST COMPARISON: CT of the head without IV co ntrast 04/17/2011 FINDINGS: VASCULAR: Brain: Anterior and posterior circulatio ns are normal-appearing without flow-limiting stenoses or aneurysm ident ified. Distal branch vasculature appear symmetric. An anterior communicating art nayan is partially visualized. There are patent bilateral posterior communicating arteries. NECK: Normal-appearing aortic arch with conventional great vessel branching system. Both vertebral arteries arise fr om their respective subclavian artery. Left dominant vertebral artery system. T he intradural right vertebral artery becomes diminutive beyond the takeoff of the right PICA, though both vertebral arteries contribute to the patent basila r artery. Basilar artery has a 4 vessel termination. Cervical carotid and verteb ral arteries appear widely patent without evidence for stenosis or dissect ion. NONVASCULAR: No acute intracranial hemorrhage or mass effect. No evidence of acute infarct. Endotracheal tube with tip in the lower thoracic trachea. Minimal atelectasis the dependent lungs. The soft tissues of the neck are normal. IMPRESSION: No acute intracranial pathol ogy or vascular abnormality in the head or neck. I have personally reviewed the images an d agree with this interpretation. Mayte KANG CT PROCEDURES Drug Abuse Survey, Urine (07/02/2018 4:50 PM APPEALS ANALYST) [facility] Method Time Signature Ethanol, Negative NEGATIVE 07/02/2018 [facility] Screen U 7:38 PM APPEALS ANALYST LAB[facility] - [place] Amphetamines, Negative NEGATIVE 07/02/2018 [facility] U 7:43 PM APPEALS ANALYST [facility] - [place] Barbiturates, Negative NEGATIVE 07/02/2018 [facility] Screen, U 7:43 PM APPEALS ANALYST [facility] [place] Benzodiazepin Negative NEGATIVE 07/02/2018 [facility] es, Screen, U 7:43 PM APPEALS ANALYST [facility] - [place] Cocaine, Negative NEGATIVE 07/02/2018 [facility] Screen, U 7:43 PM [facility] ANA[facility]ST [facility] [place] Opiates, Negative NEGATIVE 07/02/2018 [facility] Screen, U 7:43 PM [facility] ANA[facility]ST [facility] [place] Phencyclidine Negative NEGATIVE 07/02/2018 [facility] , Screen, U 7:43 PM APPEALS ANALYST [facility] [place] Tetrahydrocan Negative NEGATIVE 07/02/2018 [facility] nabinol, U 7:43 PM APPEALS ANALYST [facility] - [place] Specimen Anatomical Collection Method Collection Time Receive d Time (Source) Location / / Volume Laterality Urine (Urine, 07/02/2018 4:50 PM 07/02/20 18 7:11 Midstream) APPEALS ANALYST PM APPEALS ANALYST Mayte White M.D. LAB URINE ORDERABLES Performing Organization Address City/State/ZIP Code Phon e Number [facility] - [address] [place], [place] [address] [place] DX Chest Portable 1 View (07/02/2018 4:46 PM APPEALS ANALYST) Anatomical Region Laterality Modality Chest, Thoracic RST LOS, Thoracic ARZ LOS, Thoracic N/A Digital Radiography FLA LOS Specimen (Source) Anatomical Collection Method Collection Time Re ceived Time Location / / Volume Laterality 07/02/2018 4:51 PM APPEALS ANALYST Impressions 07/02/2018 4:52 PM APPEALS ANALYST IMPRESSION: ??ET tube with tip 4 cm above the bashir. Very low lung volumes. Mild atelectasis left lung base. No acute inf iltrates. No pneumothorax or pleural effusions. Narrative 07/02/2018 4:52 PM APPEALS ANALYST EXAM: ??DX CHEST PORTABLE 1 VIEW Procedure Note Isatu Villafana M.B., Ch.B. - EXAM: DX CHEST PORTABLE 1 VIEW IMPRESSION: ET tube with tip 4 cm above the bashir. Very low lung volumes. Mild atelectasis left lung base. No acute inf iltrates. No pneumothorax or pleural effusions. Mayte White M.D. IMG DIAGNOSTIC IMAGING PROCE DURES (ABNORMAL) Lactate, POCT (07/02/2018 4:44 PM APPEALS ANALYST) P athologist Signature Lactate, POCT 2.27 (H) 0.50 - 07/02/2018 [facility] 2.20 4:52 PM APPEALS ANALYST SERVICES mmol/L Sample Site, Venstick 07/02/2018 [facility] POCT 4:52 PM APPEALS ANALYST SERVICES Specimen Anatomical Collection Method Collection Time Receive d Time (Source) Location / / Volume Laterality 07/02/2018 4:44 PM 8 4:52 APPEALS ANALYST PM APPEALS ANALYST Unknown Provider LAB POCT ORDERABLES - DEVICE Performing Organization Address City/[facility]/ZIP Code Phon e Number [facility] [address] [place] [address] Lactate, POCT (07/02/2018 4:41 PM APPEALS ANALYST) [facility] Method Time [facility] Lactate, POCT Collected 07/02/2018 [facility] 4:41 PM APPEALS ANALYST LAB[facility]ATOR[facility] - [place] Specimen Anatomical Collection Method Collection Time Receive d Time (Source) Location / / Volume Laterality Blood (Blood, 07/02/2018 4:41 PM 07/02/20 18 4:41 Venous) APPEALS ANALYST PM APPEALS ANALYST Mayte White M.D. LAB POCT ORDERABLES - DEVICE Performing Organization Address [facility]/ZIP Code Phon e Number [facility] - [address] [place], [place] [address] [place] Blood Gas, Arterial, POCT (07/02/2018 4:41 PM APPEALS ANALYST) [facility] Method [facility] ABG and Collected 07/02/2018 [facility] Lytes, POCT, 4:41 PM APPEALS ANALYST LABORATORIES - [facility] [place] Specimen Anatomical Collection Method Collection Time Receive d Time (Source) Location / / Volume Laterality Blood (Other, 07/02/2018 4:41 PM 07/02/20 18 4:41 Specify in APPEALS ANALYST PM APPEALS ANALYST Comments) Mayte White M.D. LAB POCT ORDERABLES - DEVICE Performing Organization Address City/[facility] Phon e Number [facility] - [address] [place], [place] [address] [place] (ABNORMAL) Blood Gas and Electrolytes CG8+, Point of Care, [place] [facility], Vascular Access [employer] (07/02/2018 4:40 PM APPEALS ANALYST) P athologist Signature Sample Site, Venstick 07/02/2018 [facility] LAB POCT 4:52 PM APPEALS ANALYST SERVICES Comment: ----ADDITIONAL INFORMATION---- Performed at the Point of Care pH, POCT 7.25 (L) 7.35 - 7.45 07/02/2018 4:52 PM APPEALS ANALYST [facility] SERVICES Comment: ----ADDITIONAL INFORMATION---- Performed at the Point of Care pCO2, POCT 48 (H) 32 - 45 mm Hg 07/02/2018 4:52 PM APPEALS ANALYST PO C [facility] Comment: ----ADDITIONAL INFORMATION---- Performed at the Point of Care pO2, POCT 50 (L) 83 - 108 mm Hg 07/02/2018 4:52 PM APPEALS ANALYST PO C [facility] Comment: ----ADDITIONAL INFORMATION---- Performed at the Point of Care Base, POCT -6 (L) -2 - 3 mmol/L 07/02/2018 4:52 PM APPEALS ANALYST PO C [facility] Comment: ----ADDITIONAL INFORMATION---- Performed at the Point of Care HCO3, POCT 21 (L) 22 - 26 mmol/L 07/02/2018 4:52 PM APPEALS ANALYST P OC [facility] Comment: ----ADDITIONAL INFORMATION---- Performed at the Point of Care Sodium, POCT, B 139 135 - 145 mmol/L 07/02/2018 4:5 2 PM APPEALS ANALYST [facility] Comment: ----ADDITIONAL INFORMATION---- Performed at the Point of Care Potassium, POCT, B 5.4 (H) 3.6 - 5.2 mmol/L 07/02/2018 4:5 2 PM [facility]OC [facility] APPEALS ANALYST SERVICES Comment: ----ADDITIONAL INFORMATION---- Performed at the Point of Care Calcium, Ionized, 4.80 4.65 - 5.30 07/02/2018 4:52 PM P OC [facility] LAB POCT, B mg/dL APPEALS ANALYST SERVICES Comment: ----ADDITIONAL INFORMATION---- Performed at the Point of Care pH POCT 7.25 (L) 7.35 - 7.45 07/02/2018 4:52 PM APPEALS ANALYST [facility] SERVICES Comment: ----ADDITIONAL INFORMATION---- Performed at the Point of Care Glucose, POCT, B 220 (H) 70 - 140 mg/dL 07/02/2018 4:52 PM APPEALS ANALYST POC [facility] Comment: ----ADDITIONAL INFORMATION---- Performed at the Point of Care Hematocrit, POCT, B 44.0 35.5 - 44.9 % 07/02/2018 4: 52 PM APPEALS ANALYST POC [facility] Comment: ----ADDITIONAL INFORMATION---- Performed at the Point of Care Specimen Anatomical Collection Method Collection Time Receive d Time (Source) Location / / Volume Laterality Blood 07/02/2018 4:40 PM 8 4:52 APPEALS ANALYST PM APPEALS ANALYST Unknown Provider LAB POCT ORDERABLES - DEVICE Performing Organization Address City/[facility] Code Phon e Number [facility] [address] [place] [address] Troponin T, Baseline, 5th gen (07/02/2018 4:40 PM APPEALS ANALYST) athologist Signature Troponin T, <6 <=10 ng/L 07/02/2018 [facility] Baseline, 5th 5:22 PM APPEALS ANALYST LABORATORIES - [facility] Specimen Anatomical Collection Method Collection Time Receive d Time (Source) Location / / Volume Laterality Blood (Blood, 07/02/2018 4:40 PM 07/02/20 4:48 Venous) APPEALS ANALYST PM APPEALS ANALYST Mayte White M.D. LAB BLOOD TROPONIN Performing Organization Address [facility] Phon e Number [facility] - [address] [place] [phone] [place] NT-Pro B-Type Natriuretic Peptide (BNP) (07/02/2018 4:40 PM APPEALS ANALYST) athologist Signature NT-Pro BNP 104 5 - 140 07/02/2018 [facility] pg/mL 5:14 PM APPEALS ANALYST LAB[facility] [place] Comment: NT-proBNP values less than 300 pg/mL [...] Location / / Volume Laterality Blood (Blood, 07/02/2018 4:40 PM 07/02/20 18 4:48 Venous) APPEALS ANALYST PM APPEALS ANALYST Mayte hWite M.D. LAB BLOOD ADD-ON Performing Organization Address [facility] Phon e Number [facility]IES - [address] [place] [phone] [place] Hepatic Function Panel (07/02/2018 4:40 PM APPEALS ANALYST) Patholo gist Method Time Signature Bilirubin, Total, S 0.6 <=1.2 07/02/2018 [facility] mg/dL 5:52 PM APPEALS ANALYST [facility] - [place] Bilirubin, Direct, S <0.2 0.0 - 0.3 07/02/2018 [facility] mg/dL 5:52 PM APPEALS ANALYST LAB[facility]ATORIES [facility] Aspartate 20 8 - 43 07/02/2018 [facility] Aminotransferase U/L 5:52 PM APPEALS ANALYST LABORATORIE S - (AST), S [place] Alanine 19 7 - 45 07/02/2018 [facility] Aminotransferase U/L 5:52 PM APPEALS ANALYST LABORATORIE S - (ALT), S [place] Alkaline 89 35 - 104 07/02/2018 [facility] Phosphatase, S U/L 5:52 PM APPEALS ANALYST [facility] - [place] Albumin, S 4.4 3.5 - 5.0 07/02/2018 [facility] g/dL 5:52 PM APPEALS ANALYST LAB[facility] - [place] Protein, Total, S 6.6 6.3 - 7.9 07/02/2018 [facility] g/dL 5:52 PM APPEALS ANALYST [facility] - [place] Specimen Anatomical Collection Method Collection Time Receive d Time (Source) Location / / Volume Laterality Blood (Blood, 07/02/2018 4:40 PM 07/02/20 18 4:52 Venous) APPEALS ANALYST PM APPEALS ANALYST Mayte White M.D. LAB BLOOD ADD-ON Performing Organization Address City/[facility] Phon e Number [facility] - [address] [place] [phone] [place] Lipase (07/02/2018 4:40 PM APPEALS ANALYST) P athologist Signature Lipase, S 19 12 - 61 U/L 07/02/2018 [facility] 5:52 PM APPEALS ANALYST LABORATORIES [facility] Specimen Anatomical Collection Method Collection Time Receive d Time (Source) Location / / Volume Laterality Blood (Blood, 07/02/2018 4:40 PM 07/02/20 18 4:52 Venous) APPEALS ANALYST PM APPEALS ANALYST Mayte White M.D. LAB BLOOD ADD-ON Performing Organization Address [facility] Phon e Number [facility] - [address] [place] [address] [place] Ethanol Level, Serum (07/02/2018 4:40 PM APPEALS ANALYST) P athologist Signature Ethanol, S <10 <10 mg/dL 07/02/2018 [facility] 5:52 PM APPEALS ANALYST LAB[facility]ATOR[facility] - [place] Specimen Anatomical Collection Method Collection Time Receive d Time (Source) Location / / Volume Laterality Blood (Blood, 07/02/2018 4:40 PM 07/02/20 18 4:52 Venous) APPEALS ANALYST PM APPEALS ANALYST Mayte White M.D. LAB BLOOD NON ADD-ON Performing Organization Address City/[facility] Code Phon e Number [facility]IES - [address] PT (Prothrombin Time) with INR (07/02/2018 4:40 PM APPEALS ANALYST) Patholo gist Method Time Signature Prothrombin 12.0 9.4 - 12.5 07/02/2018 [facility] Time, P sec 5:02 PM APPEALS ANALYST LABORATORIES [facility] INR 1.1 0.9 - 1.1 07/02/2018 [facility] 5:02 PM APPEALS ANALYST LAB[facility]ATORIES [facility] Comment: ----ADDITIONAL INFORMATION---- Standard intensity warfarin therapeutic range: 2.0 to 3.0 ?? High intensity warfarin therapeutic rang e: 2.5 to 3.5 Specimen Anatomical Collection Method Collection Time Receive d Time (Source) Location / / Volume Laterality Blood (Blood, 07/02/2018 4:40 PM 07/02/20 18 4:53 Venous) APPEALS ANALYST PM APPEALS ANALYST Mayte White M.D. LAB BLOOD ADD-ON Performing Organization Address City/[facility]/ZIP Code Phon e Number [facility] - [address] [place] [phone] [place] Magnesium (07/02/2018 4:40 PM APPEALS ANALYST) P athologist Signature Magnesium, S 2.2 1.7 - 2.3 07/02/2018 [facility] mg/dL 5:52 PM APPEALS ANALYST LAB[facility] - [place] Specimen Anatomical Collection Method Collection Time Receive d Time (Source) Location / / Volume Laterality Blood (Blood, 07/02/2018 4:40 PM 07/02/20 18 4:52 Venous) APPEALS ANALYST PM APPEALS ANALYST Mayte White M.D. LAB BLOOD ADD-ON Performing Organization Address City/[facility] Phon e Number [facility] - [address] [place] [phone] [place] (ABNORMAL) BMP (Basic Metabolic Panel) (07/02/2018 4:40 PM APPEALS ANALYST) [employer] gist Method Time Signature Potassium, P 5.5 (H) 3.6 - 5.2 07/02/2018 [facility] mmol/L 5:06 PM APPEALS ANALYST LAB[facility] - [place] Sodium, P 136 135 - 145 07/02/2018 [facility] mmol/L 5:06 PM APPEALS ANALYST LAB[facility] Chloride, P 106 98 - 107 07/02/2018 [facility] mmol/L 5:06 PM APPEALS ANALYST LAB[facility] Bicarbonate, P 20 (L) 22 - 29 07/02/2018 [facility] mmol/L 5:06 PM APPEALS ANALYST LAB[facility] Anion Gap, P 10 7 - 15 07/02/2018 [facility] 5:06 PM APPEALS ANALYST LAB[facility]ATOR[facility] BUN (Blood Urea 11 6 - 21 07/02/2018 [facility] Nitrogen), P mg/dL 5:06 PM APPEALS ANALYST LAB[facility] - [place] Creatinine 0.62 0.59 - 07/02/2018 [facility] 1.04 5:06 PM APPEALS ANALYST LABORATORIES - mg/dL [facility] eGFR-Black/Afri >90 >=60 07/02/2018 [facility] can Estonian mL/min/BS 5:06 PM APPEALS ANALYST LABORATORIES - A [place] Comment: ----ADDITIONAL INFORMATION---- Estimated GFR calculated using the 2009 CKD_EPI creatinine equation. eGFR Non-Black/ >90 >=60 mL/min/BSA 07/02/2018 5:06 [facility] Estonian APPEALS ANALYST LAB[facility] - [place] Comment: ----ADDITIONAL INFORMATION---- Estimated GFR calculated using the 2009 CKD_EPI creatinine equation. Calcium, Total, P 8.5 (L) 8.6 - 10.0 07/02/2018 5:06 PM [facility] mg/dL APPEALS ANALYST LABORATORIES [facility] S Glucose, P 225 (H) 70 - 140 mg/dL 07/02/2018 5:06 PM [facility]ATORIES [facility] Specimen Anatomical Collection Method Collection Time Receive d Time (Source) Location / / Volume Laterality Blood (Blood, 07/02/2018 4:40 PM 07/02/20 18 4:48 Venous) [facility] APPEALS ANALYST Mayte White M.D. LAB BLOOD ADD-ON Performing Organization Address City/[facility]/ZIP Code Phon e Number [facility]IES - [address] [place] [address] [place] Type and Screen (with reflex Antibody ID) (07/02/2018 4:40 PM APPEALS ANALYST) [facility] Method Time Signature ABORh B Pos Not 07/02/2018 [facility] applicable 5:08 PM LABORATORIES - [facility] Antibody Negative Negative 07/02/2018 [facility] Screen 5:22 PM LABORATORIES - [facility] Type & Screen [id number] 07/02/2018 [facility] Expiration 5:08 PM LABORATORIES - [facility] Testing [place] 07/02/2018 [facility] Location 4:49 PM LABORATORIES - [facility] Specimen Anatomical Collection Method Collection Time Receive d Time (Source) Location / / Volume Laterality Blood (Blood, 07/02/2018 4:40 PM 07/02/20 18 4:49 Venous) APPEALS ANALYST PM APPEALS ANALYST Mayet White M.D. LAB BLOOD BANK TEST ORDERABL ES Performing Organization Address [facility] Code Phon e Number [facility]IES - [address] [place] [phone] [place] (ABNORMAL) CBC with Differential (07/02/2018 4:40 PM APPEALS ANALYST) [facility] Method Time Signature Hemoglobin 14.8 11.6 - 07/02/2018 [facility] 15.0 g/dL 5:01 PM APPEALS ANALYST LAB[facility]ATORIES [facility] Hematocrit 44.2 35.5 - 07/02/2018 [facility] 44.9 % 5:01 PM APPEALS ANALYST LAB[facility] Erythrocytes 4.92 3.92 - 07/02/2018 [facility] 5.13 5:01 PM APPEALS ANALYST LABORATORIES - x10(12)/L [facility] MCV 89.8 78.2 - 07/02/2018 [facility] 97.9 fL 5:01 PM APPEALS ANALYST LAB[facility] RBC Distrib 12.9 12.2 - 07/02/2018 [facility] Width 16.1 % 5:01 PM APPEALS ANALYST LAB[facility] Platelet Count 254 157 - 371 07/02/2018 [facility] x10(9)/L 5:01 PM APPEALS ANALYST LAB[facility] - [place] Leukocytes 14.4 (H) 3.4 - 9.6 07/02/2018 [facility] x10(9)/L 5:01 PM APPEALS ANALYST LABORATORIES - [place] Neutrophils 11.03 (H) 1.56 - 07/02/2018 [facility] 6.45 5:01 PM APPEALS ANALYST LABORATORIES - x10(9)/L [place] Lymphocytes 2.54 0.95 - 07/02/2018 [facility] 3.07 5:01 PM APPEALS ANALYST LABORATORIES - x10(9)/L [place] Monocytes 0.69 0.26 - 07/02/2018 [facility] 0.81 5:01 PM APPEALS ANALYST LABORATORIES - x10(9)/L [place] Eosinophils 0.03 0.03 - 07/02/2018 [facility] 0.48 5:01 PM APPEALS ANALYST LABORATORIES - x10(9)/L [place] Basophils 0.09 (H) 0.01 - 07/02/2018 [facility] 0.08 5:01 PM APPEALS ANALYST LABORATORIES - x10(9)/L [place] Specimen Anatomical Collection Method Collection Time Receive d Time (Source) Location / / Volume Laterality Blood (Blood, 07/02/2018 4:40 PM 07/02/20 4:48 Venous) APPEALS ANALYST PM APPEALS ANALYST Mayte White M.D. LAB BLOOD ADD-ON Performing Organization Address City/State/[facility] Phon e Number [facility]IES - [address] [place] [phone] [place] (ABNORMAL) Acetaminophen Level (07/02/2018 4:40 PM APPEALS ANALYST) Analysis Performed At Patho logist Time Signature Acetaminophen, 47 (H) 10 - 30 07/02/2018 [facility] S mcg/mL 5:52 PM APPEALS ANALYST LABORATORIES - [place] Specimen Anatomical Collection Method Collection Time Receive d Time (Source) Location / / Volume Laterality Blood (Blood, 07/02/2018 4:40 PM 07/02/20 18 4:52 Venous) APPEALS ANALYST PM APPEALS ANALYST Mayte White M.D. LAB BLOOD ADD-ON Performing Organization Address City/[facility] [place]/[facility] Phon e Number [facility] - [address] [id number] [place] Salicylate Level (07/02/2018 4:40 PM APPEALS ANALYST) P athologist Signature Salicylate, S <0.3 <30.0 07/02/2018 [facility] mg/dL 5:52 PM APPEALS ANALYST LAB[facility]ATORIES - [place] Specimen Anatomical Collection Method Collection Time Receive d Time (Source) Location / / Volume Laterality Blood (Blood, 07/02/2018 4:40 PM 07/02/20 4:52 Venous) APPEALS ANALYST PM APPEALS ANALYST Mayte White M.D. LAB BLOOD ADD-ON Performing Organization Address City/[facility] [place]/ZIP [facility] Phon e Number [facility] - [address] [address] [place] Osmolality (07/02/2018 4:40 PM APPEALS ANALYST) athologist Signature Osmolality, S 294 275 - 295 07/02/2018 [facility] mOsm/kg 5:34 PM APPEALS ANALYST LABORATORIES [facility] Specimen Anatomical Collection Method Collection Time Receive d Time (Source) Location / / Volume Laterality Blood (Blood, 07/02/2018 4:40 PM 07/02/20 5:28 Venous) APPEALS ANALYST PM APPEALS ANALYST Mayte White M.D. LAB BLOOD ADD-ON Performing Organization Address [facility] [place]/[facility] Phon e Number [facility] - [address] ECG 12 Lead (07/02/2018 4:39 PM APPEALS ANALYST) athologist Signature Ventricular Rate 65 BPM MUSE ECG/Min LA Interval 182 ms MUSE QRSD Interval 82 ms MUSE QT Interval 440 ms MUSE QTC Interval 457 ms MUSE P Holcomb 63 degrees MUSE R Holcomb 66 degrees MUSE T Wave Holcomb 68 degrees MUSE Specimen Anatomical Collection Method Collection Time Receive d Time (Source) Location / / Volume Laterality 07/02/2018 4:39 PM 8 4:43 APPEALS ANALYST PM APPEALS ANALYST Impressions MUSE - 07/02/2018 4:43 PM APPEALS ANALYST Normal sinus rhythm Normal ECG No previous ECGs available Narrative This result has an attachment that is no t available. Procedure Note Ernie De La Cruz M.D. - 07/02/2018Formatti catrachito of this note might be different from the original. IMPRESSION: Normal sinus rhythm Normal ECG No previous ECGs available Mayte White M.D. ECG ORDERABLES Performing Organization Address [facility] [place]/[facility] Phon e Number MUSE MUSE NA CK (Creatine Kinase) (07/02/2018 4:37 PM APPEALS ANALYST) athologist Signature Creatine 62 26 - 192 07/02/2018 [facility] Kinase (CK), S U/L 7:39 PM APPEALS ANALYST [facility] - [place] Specimen Anatomical Collection Method Collection Time Receive d Time (Source) Location / / Volume Laterality Blood (Blood, 07/02/2018 4:37 PM 07/02/20 18 7:24 Venous) APPEALS ANALYST PM APPEALS ANALYST Krystina Rodney M.D. LAB BLOOD ADD-ON Performing Organization Address City/[facility] [place]/ZIP Code Phon e Number [facility] - [address] [place], [place] [address] [place] (ABNORMAL) Lactate, POCT (07/02/2018 4:19 PM APPEALS ANALYST) P athologist Signature Lactate, POCT 2.90 (H) 0.50 - 07/05/2018 [facility] 2.20 8:53 AM APPEALS ANALYST SERVICES mmol/L Sample Site, Venline 07/05/2018 [facility] POCT 8:53 AM APPEALS ANALYST SERVICES Specimen Anatomical Collection Method Collection Time Receive d Time (Source) Location / / Volume Laterality 07/02/2018 4:19 PM 8 8:51 APPEALS ANALYST AM APPEALS ANALYST Jose Fierro M.D., Ph.D. LAB POCT ORDERABLES - DEV ICE Performing Organization Address City/[facility] [place]/[facility] Code Phon e Number [facility]OC [facility] [address] [place] [address] (ABNORMAL) Blood Gas and Electrolytes CG8+, Point of Care, [place] In[facility], Vascular Access [employer] (07/02/2018 4:17 PM APPEALS ANALYST) athologist Signature Sample Site, Venline 07/05/2018 [facility] POCT 8:54 AM APPEALS ANALYST SERVICES Comment: ----ADDITIONAL INFORMATION---- Performed at the Point of Care pH, POCT 7.26 (L) 7.35 - 7.45 07/05/2018 8:54 AM APPEALS ANALYST [facility] Comment: ----ADDITIONAL INFORMATION---- Performed at the Point of Care pCO2, POCT 50 (H) 32 - 45 mm Hg 07/05/2018 8:54 AM APPEALS ANALYST PO C [facility] Comment: ----ADDITIONAL INFORMATION---- Performed at the Point of Care pO2, POCT CANCELED mm Hg 07/05/2018 8:54 AM APPEALS ANALYST POC [facility] Comment: Unable to assay ----ADDITIONAL INFORMATION---- Performed at the Point of Care Result canceled by the ancillary Base, POCT -5 (L) -2 - 3 mmol/L 07/05/2018 8:54 AM APPEALS ANALYST PO C [facility] Comment: ----ADDITIONAL INFORMATION---- Performed at the Point of Care HCO3, POCT 23 22 - 26 mmol/L 07/05/2018 8:54 AM APPEALS ANALYST P OC [facility] Comment: ----ADDITIONAL INFORMATION---- Performed at the Point of Care Sodium, POCT, B 133 (L) 135 - 145 mmol/L 07/05/2018 8:54 A M [facility] APPEALS ANALYST SERVICES Comment: ----ADDITIONAL INFORMATION---- Performed at the Point of Care Potassium, POCT, B 5.9 (H) 3.6 - 5.2 mmol/L 07/05/2018 8:5 4 AM [facility]OC [facility] APPEALS ANALYST SERVICES Comment: ----ADDITIONAL INFORMATION---- Performed at the Point of Care Calcium, Ionized, CANCELED mg/dL 07/05/2018 8:54 AM APPEALS ANALYST POC [facility] POCT, B Comment: Unable to assay ----ADDITIONAL INFORMATION---- Performed at the Point of Care Result canceled by the ancillary Glucose, POCT, B 237 (H) 70 - 140 mg/dL 07/05/2018 8:54 AM APPEALS ANALYST POC [facility] Comment: ----ADDITIONAL INFORMATION---- Performed at the Point of Care Hematocrit, POCT, B 43.0 35.5 - 44.9 % 07/05/2018 8: 54 AM APPEALS ANALYST [facility] Comment: ----ADDITIONAL INFORMATION---- Performed at the Point of Care Specimen Anatomical Collection Method Collection Time Receive d Time (Source) Location / / Volume Laterality Blood 07/02/2018 4:17 PM 8 8:30 APPEALS ANALYST AM APPEALS ANALYST Jose Fierro M.D., Ph.D. 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 (HCC) Overdose Drug Initial documented in this encounter Admitting Diagnoses Diagnosis Change Mental Status Respiratory Failure NOS documented in this encounter Administered Medications Inactive Administered Medications - up to 3 most recent administrations Medication Order MAR Action Action Date Dose Rate Site acetaminophen tablet 1,000 mg Given 07/05/2018 7:32 PM APPEALS ANALYST 1,000 mg (TYLENOL) 1,000 mg, oral, Every 6 hours PRN, mild pain or score 1-3 of 10, headaches, fever, Starting on 07/03/18 at 1822 Given 07/05/2018 12:42 PM APPEALS ANALYST 1,000 mg Given 07/05/2018 4:13 AM APPEALS ANALYST 1,000 mg diphenhydrAMINE injection 25 mg (BENADRY L) Given 07/04/2018 11:20 PM APPEALS ANALYST 25 mg 25 mg, intravenous, Once, On Wed07/04/18 at 2245, For 1 dose gabapentin capsule 300 mg (NEURONTIN) Given 07/05/2018 8:56 AM APPEALS ANALYST 300 mg 300 mg, oral, Every morning, First dose on Wed07/05/18 at 0900, Drug Monitoring Program: Pharmacist to adjust medication dosing based on indication and drug clearance factors. gabapentin tablet 600 mg (NEURONTIN) Given 07/05/2018 8:07 PM APPEALS ANALYST 600 mg 600 mg, oral, Daily at bedtime, First dose on Wed07/05/18 at 2100, Drug Monitoring Program: Pharmacist to adjust medication dosing based on indication and drug clearance factors. heparin (porcine) Given 07/03/2018 3:09 PM APPEALS ANALYST 5,000 Units Left Lower Abdomen injection 5,000 Units 5,000 Units, subcutaneous, Every 8 hours scheduled, First dose on 07/02/18 at 2200 Given 07/03/2018 5:20 AM APPEALS ANALYST 5,000 Units Right Upper Abdomen Given 07/02/2018 9:17 PM APPEALS ANALYST 5,000 Units Left Lower Abdomen hydrALAZINE injection 10 mg (APRESOLINE) 10 mg, intravenous, Every 6 hours PRN, h igh blood pressure, SBP >180 mmHg sustained and unable to tolerate PO, Starting on 07/04/18 at 2237 hydrALAZINE injection 5 mg (APRESOLINE) Given 07/02/2018 8:19 PM APPEALS ANALYST 5 mg 5 mg, intravenous, Every 6 hours PRN, high blood pressure, SBP>180, Starting on 07/02/18 at 1949 hydrALAZINE tablet 10 mg (APRESOLINE) Given 07/04/2018 10:15 PM APPEALS ANALYST 10 mg 10 mg, oral, Every 8 hours PRN, for systolic blood pressure greater than 180, Starting on 07/04/18 at 1544 iohexol 350 mg iodine/mL solution 1-200 mL Given 07/02/2018 5:15 PM APPEALS ANALYST 100 mL (OMNIPAQUE) 1-200 mL, intravenous, Once in imaging, contrast, Starting on 07/02/18 at 1713, For 1 dose, Imaging Protocol Orders, Dose per Radiant Medication Guidelines ketorolac injection 15 mg (TORADOL) Given 07/03/2018 6:38 AM APPEALS ANALYST 15 mg 15 mg, intravenous, Once as needed, moderate pain or score 4-6 of 10, Starting on 07/03/18 at 0605, For 1 dose, Adult IV push rate: Over 15 seconds. Peds IV push rate: Over 1 minute. 60 mg dose only for IM, not recommended for IV. ketorolac injection 15 mg (TORADOL) Given 07/03/2018 2:33 PM APPEALS ANALYST 15 mg 15 mg, intravenous, Every 6 hours PRN, moderate pain or score 4-6 of 10, Starting on 07/03/18 at 1800, For 5 days, Adult IV push rate: Over 15 seconds. Peds IV push rate: Over 1 minute. 60 mg dose only for IM, not recommended for IV. ketorolac injection 30 mg (TORADOL) Given 07/03/2018 9:15 AM APPEALS ANALYST 30 mg 30 mg, intravenous, Once as needed, moderate pain or score 4-6 of 10, Starting on 07/03/18 at 1200, For 1 dose, Adult IV push rate: Over 15 seconds. Peds IV push rate: Over 1 minute. 60 mg dose only for IM, not recommended for IV. ketorolac injection 30 mg (TORADOL) Given 07/05/2018 12:37 AM APPEALS ANALYST 30 mg 30 mg, intravenous, Every 6 hours PRN, moderate pain or score 4-6 of 10, Starting on 07/03/18 at 1838, For 5 days, Adult IV push rate: Over 15 seconds. Peds IV push rate: Over 1 minute. 60 mg dose only for IM, not recommended for IV. Given 07/04/2018 6:04 PM APPEALS ANALYST 30 mg Given 07/04/2018 12:31 PM APPEALS ANALYST 30 mg lactated Ringer's bolus 1,000 mL New Bag 07/03/2018 3:26 AM APPEALS ANALYST 1,000 mL 500 mL/hr 1,000 mL, intravenous, at 500 mL/hr, Administer over 2 Hours, Once, On 07/03/18 at 0230, For 1 dose lisinopril tablet 20 mg (PRINIVIL,ZESTRI L) Given 07/04/2018 9:32 AM APPEALS ANALYST 20 mg 20 mg, oral, Daily, First dose on Wed07/03/18 at 1845 lisinopril tablet 40 mg (PRINIVIL,ZESTRI L) Given 07/05/2018 8:56 AM APPEALS ANALYST 40 mg 40 mg, oral, Daily, First dose (after last modification) on Wed07/05/18 at 0900 LORazepam tablet 1 mg (ATIVAN) Given 07/05/2018 8:57 PM APPEALS ANALYST 1 mg 1 mg, oral, 3 times daily PRN, anxiety, Starting on 07/03/18 at 2154 Given 07/05/2018 12:42 PM APPEALS ANALYST 1 mg Given 07/05/2018 4:13 AM APPEALS ANALYST 1 mg NaCl 0.9 % bolus 1,000 mL New Bag 07/02/2018 5:20 PM APPEALS ANALYST 1,000 mL 1000 mL/hr 1,000 mL, intravenous, at 1,000 mL/hr, Administer over 1 Hours, Once, On 07/02/18 at 1714, For 1 dose naloxone (NARCAN) 0.4 mg/mL injection - ADS Override Pull Starting on 07/02/18 at 1951, For 1 dose, Created by cabinet override naloxone 10 mcg/mL in Rate/Dose Verify 07/02/2018 10:00 PM 0.4 mg/hr 40 mL/hr NaCl 0.9% 500 mL infusion APPEALS ANALYST (NARCAN) 0.4 mg/hr (40 mL/hr), intravenous, Continuous, Starting on 07/02/18 at 2000 Rate/Dose Verify 07/02/2018 9:00 PM APPEALS ANALYST 0.4 mg/hr 40 mL/hr New Bag 07/02/2018 8:42 PM APPEALS ANALYST 0.4 mg/hr 40 mL/hr naloxone injection 0.2 mg (NARCAN) 0.2 mg, intravenous, As needed, respirat ory depression, Starting on Wed07/05/18 at 0800, For respiratory rate less than 8 b reaths per minute or RASS score of -3, -4, -5. Apply oxygen to keep oxygen saturati ons greater than 90% and notify service. naloxone injection 0.4 mg (NARCAN) Given 07/02/2018 7:58 PM APPEALS ANALYST 0.4 mg 0.4 mg, intravenous, As needed, reversal, Starting on 07/02/18 at 1949 prochlorperazine injection 5 mg (COMPAZI NE) Given 07/04/2018 9:22 PM APPEALS ANALYST 5 mg 5 mg, intravenous, Every 6 hours PRN, nausea, vomiting, headache, Starting on 07/03/18 at 1146 Given 07/04/2018 10:20 AM APPEALS ANALYST 5 mg Given 07/04/2018 4:32 AM APPEALS ANALYST 5 mg promethazine injection 12.5 mg (PHENERGA N) Given 07/05/2018 5:21 PM APPEALS ANALYST 12.5 mg 12.5 mg, intravenous, Every 6 hours PRN, nausea, vomiting, Starting on Wed07/04/18 at 2236 Given 07/05/2018 11:06 AM APPEALS ANALYST 12.5 mg Given 07/05/2018 5:31 AM APPEALS ANALYST 12.5 mg propofol 10 mg/mL infusion Restarted 07/02/2018 6:40 PM APPEALS ANALYST 40 m cg/kg/min 18 mL/hr (DIPRIVAN) 40 mcg/kg/min ? 75 kg Dosing weight (18 mL/hr), intravenous, Continuous, Starting on 07/02/18 at 1806, Type: Do Not Titrate New Bag 07/02/2018 6:13 PM APPEALS ANALYST 40 mcg/kg/min 18 mL/hr propofol injection (DIPRIVAN) Given 07/02/2018 6:40 PM APPEALS ANALYST 40 mg intravenous, Code/trauma/sedation medication, Starting on 07/02/18 at 1651 Given 07/02/2018 5:47 PM APPEALS ANALYST 40 mg Given 07/02/2018 5:31 PM APPEALS ANALYST 40 mg propranolol tablet 20 mg (INDERAL) Given 07/05/2018 6:36 PM APPEALS ANALYST 20 mg 20 mg, oral, Every 6 hours scheduled, First dose on 07/03/18 at 1515, Hold if systolic blood pressure less than 100 or heart rate less than 60 Given 07/05/2018 12:42 PM APPEALS ANALYST 20 mg Given 07/05/2018 5:30 AM APPEALS ANALYST 20 mg sodium chloride 0.9 % flush 50 mL Given 07/02/2018 5:16 PM APPEALS ANALYST 30 mL 50 mL, intravenous, Once, On 07/02/18 at 1715, For 1 dose sodium chloride 0.9 % flush 50 mL Given by Other 07/02/2018 5:21 PM APPEALS ANALYST 50 mL 50 mL, intravenous, Once, On 07/02/18 at 1717, For 1 dose sodium chloride injection 10 mL Given 07/02/2018 5:16 PM APPEALS ANALYST 10 mL 10 mL, intravenous, Once, On 07/02/18 at 1715, For 1 dose sodium chloride injection 3 mL Given 07/05/2018 8:58 AM APPEALS ANALYST 3 mL 3 mL, intravenous, As needed, line care, Starting on Wed07/02/18 at 1632, Prior to and following infusion and between multiple consecutive infusions: sodium chloride 0.9 % injection sodium chloride injection 3 mL Given 07/03/2018 9:15 AM APPEALS ANALYST 3 mL 3 mL, intravenous, Every 12 hours scheduled, First dose on Wed07/02/18 at 2100, Peripheral Intravenous Catheter and Rapid Infusion Catheter, when no infusion to maintain patency Given 07/02/2018 8:32 PM APPEALS ANALYST 3 mL topiramate tablet 100 mg (TOPAMAX) Given 07/05/2018 8:07 PM APPEALS ANALYST 100 mg 100 mg, oral, 2 times daily, First dose on Wed07/05/18 at 2100 traMADol tablet 25 mg (ULTRAM) Given 07/05/2018 9:39 PM APPEALS ANALYST 25 mg 25 mg, oral, Every 6 hours PRN, moderate pain or score 4-6 of 10, Starting on Wed07/05/18 at 0812 Given 07/05/2018 3:28 PM APPEALS ANALYST 25 mg Given 07/05/2018 8:56 AM APPEALS ANALYST 25 mg documented in this encounter Active and Recently Administered Medications Times are shown in APPEALS ANALYST. Scheduled Medication Order 07/03/2018 07/04/2018 07/05/2018 diphenhydrAMINE injection 25 mg (BENADRYL) (COMPLETED) 6443 (Given - Provider: Julia Arzate R.N.) 25 mg, intravenous, Once, On Wed07/04/18 at 2245, For 1 dose gabapentin capsule 300 mg (NEURONTIN)(Linked Group 1) 0856 (Given - Provider: Ave Gibson R.N., C.M.S.R.N.) 300 mg, oral, Every morning, First dose on Wed07/05/18 at 0900, Drug Monitoring Program: Pharmacist to adjust medication dosing based on indication and drug clearance factors. gabapentin tablet 600 mg (NEURONTIN)(Linked Group 1) 2006 (Given - Provider: Julia Arzate RDonis) 600 mg, oral, Daily at bedtime, First do se on Wed07/05/18 at 2100, Drug Monitoring Program: Pharmacist to adjust medication dosing based on indication and drug clearance factors. heparin (porcine) injection 5,000 Units (CANCELED) 052 0 (Given - Provider: Nati Elias R.N.)1509 (Given - Provider: Bradley Castañeda R.N.) 5,000 Units, subcutaneous, Every 8 hours scheduled, First dose on Wed07/02/18 at 2200 lactated Ringer's bolus 1,000 mL (COMPLETED) 0326 (New Bag - Provider: Nati Elias R.N.) 1,000 mL, intravenous, at 500 mL/hr, Adm inister over 2 Hours, Once, On Wed07/03/18 at 0230, For 1 dose lisinopril tablet 20 mg (PRINIVIL,ZESTRIL) (CANCELED) 1845 ( Due) 0932 (Given - Provider: Luciano Lee R.N., CCRN) 20 mg, oral, Daily, First dose on Wed07/03/18 at 1845 lisinopril tablet 40 mg (PRINIVIL,ZESTRIL) 0856 (Given - Provider: Ave Gibson R.N., C.M.S.R.N.) 40 mg, oral, Daily, First dose (after la st modification) on Wed07/05/18 at 0900 propranolol tablet 20 mg (INDERAL) 1552 (Given - Provi sarah: Dian Thao R.NMadeleine)2355 (Given - Provider: Paual Jaimes R.N.) 0433 (Given - Provider: Paula Jaimes RMadeleineNMadeleine)1134 (Given - Provider: Quynh Ferreira R.N.)1804 (Given - Provider: Quynh Ferreira R.N.)2321 (Given - Provider: Julia Arzate R.N.) 0530 (Given - Provider: Julia Arzate R.N.)1242 (Given - Provider: Regina Garland R.N.)1836 (Given - Provider: Regina Garland R.N.) 20 mg, oral, Every 6 hours scheduled, Fi rst dose on 07/03/18 at 1515, Hold if systolic blood pressure less than 100 or heart rate less than 60 sodium chloride injection 3 mL (CANCELED) 0915 (Given - Provider: Bradley Castañeda RMadeleineNMadeleine) 3 mL, intravenous, Every 12 hours schedu led, First dose on 07/02/18 at 2100, Peripheral Intravenous Catheter and Rapid Infusion Catheter, when no infusion to maintain patency topiramate tablet 100 mg (TOPAMAX) 2006 (Given - Provider: Julia Arzate RMadeleineNMadeleine) 100 mg, oral, 2 times daily, First dose on Wed07/05/18 at 2100 PRN Medication Order 07/03/2018 07/04/2018 07/05/2018 acetaminophen tablet 1,000 mg (TYLENOL) 1840 (Given - Provider: Dian hTao RMadeleineNMadeleine) 0214 (Given - Provider: Paula gordon RMadeleineNMadeleine)0932 (Given - Provider: Luciano Lee R.N., CCRN)1510 (Given - Provider: Quynh Ferreira R.N.)2112 (Given - Provider: Marques GarciaNMadeleine) 0413 (Given - Provider: Julia Arzate RMadeleineN.)1242 (Given - Provider: Regina Garland R.N.)1932 (Given - Provider: Marques GarciaNMadeleine) 1,000 mg, oral, Every 6 hours PRN, mild pain or score 1-3 of 10, headaches, fever, Starting on 07/03/18 at 1822 hydrALAZINE injection 10 mg (APRESOLINE) 10 mg, intravenous, Every 6 hours PRN, h igh blood pressure, SBP >180 mmHg sustained and unable to tolerate PO, Starting on Wed07/04/18 at 2237 hydrALAZINE tablet 10 mg (APRESOLINE) 22 15 (Given - Provider: Julia Arzate RMadeleineNMadeleine) 10 mg, oral, Every 8 hours PRN, for syst olic blood pressure greater than 180, Starting on Wed07/04/18 at 1544 ketorolac injection 15 mg (TORADOL) (COMPLETED) 0638 ( Given - Provider: Nati Elias R.N.) 15 mg, intravenous, Once as needed, mode rate pain or score 4-6 of 10, Starting on Wed07/03/18 at 0605, For 1 dose, Adult IV push rate: Over 15 seconds. Peds IV push rate: Over 1 minute. 60 mg dose only for IM, not recommended for IV. ketorolac injection 15 mg (TORADOL) (CANCELED) 1433 (G iven - Provider: Bradley Castañeda RDonis) 15 mg, intravenous, Every 6 hours PRN, m oderate pain or score 4-6 of 10, Starting on Wed07/03/18 at 1800, For 5 days, Adult IV push rate: Over 15 seconds. Peds IV push rate: Over 1 minute. 60 mg dose only for IM, not recommended for IV. ketorolac injection 30 mg (TORADOL) (COMPLETED) 0915 ( Given - Provider: Bradley Castañeda R.N.) 30 mg, intravenous, Once as needed, mode rate pain or score 4-6 of 10, Starting on Wed07/03/18 at 1200, For 1 dose, Adult IV push rate: Over 15 seconds. Peds IV push rate: Over 1 minute. 60 mg dose only for IM, not recommended for IV. ketorolac injection 30 mg (TORADOL) (CANCELED) 1855 (G iven - Provider: Dian Thao RMadeleineNMadeleine)2355 (Given - Provider: Paula Jaimes R.N.) 0530 (Given - Provider: Paula Jaimes RMadeleineNMadeleine)1231 (Given - Provider: Quynh Ferreira R.N.)1804 (Given - Provider: Quynh Ferreira R.N.) 0037 (Given - Provider: Julia Arzate R.N.)0805 (Return to Cabinet - Provider: Ave Gibson R.N., C.Noé.S.R.N.) 30 mg, intravenous, Every 6 hours PRN, m oderate pain or score 4-6 of 10, Starting on Wed07/03/18 at 1838, For 5 days, Adult IV push rate: Over 15 seconds. Peds IV push rate: Over 1 minute. 60 mg dose only for IM, not recommended for IV. LORazepam tablet 1 mg (ATIVAN) 0214 (Giv en - Provider: Paula Jaimes R.N.)1510 (Given - Provider: Quynh Ferreira R.N.)211 (Given - Provider: Julia Arzate R.N.) 0413 (Given - Provider: Julia Arzate R.N.)1242 (Given - Provider: Regina Garland RMadeleineNMadeleine)2056 (Given - Provider: Julia Arzate R.N.) 1 mg, oral, 3 times daily PRN, anxiety, Starting on Wed07/03/18 at 2154 naloxone injection 0.2 mg (NARCAN) 0.2 mg, intravenous, As needed, respirat ory depression, Starting on Wed07/05/18 at 0800, For respiratory rate less than 8 breaths per minute or RASS score of - 3, -4, -5. Apply oxygen to keep oxygen saturations greater than 90% and notify service. prochlorperazine injection 5 mg (COMPAZINE) (CANCELED) 1214 (Given - Provider: Bradley Castañeda RDonis) 0432 (Given - Provider: Paula gordon R.NMadeleine)1020 (Given - Provider: Luciano Lee R.N., CCRN)212 (Given - Provider: Julia Arzate R.N.) 5 mg, intravenous, Every 6 hours PRN, na usea, vomiting, headache, Starting on 07/03/18 at 1146 promethazine injection 12.5 mg (PHENERGAN) 2320 (Given - Provider: Julia Arzate R.N.) 0531 (Given - Provider: Julia Arzate R.N.)1106 (Given - Provider: Ave Gibson R.N., C.M.S.R.N.)1721 (Given - Provider: Regina Garland R.N.) 12.5 mg, intravenous, Every 6 hours PRN, nausea, vomiting, Starting on 07/04/18 at 2236 sodium chloride injection 3 mL 0 858 (Given - Provider: Ave Gibson R.N., C.M.S.R.N.) 3 mL, intravenous, As needed, line care, Starting on 07/02/18 at 1632, Prior to and following infusion and between multiple consecutive infusions: sodium chloride 0.9 % injection traMADol tablet 25 mg (ULTRAM) 0 856 (Given - Provider: Ave Gibson R.N., C.M.S.R.N.)1528 (Given - Provider: Regina Garland R.N.)2139 (Given - Provider: Anna Conley R.N.) 25 mg, oral, Every 6 hours PRN, moderate pain or score 4-6 of 10, Starting on Wed07/05/18 at 0812 Linked Groups Order Group 1: gabapentin capsule 300 mg (NEURONTIN)Jump to med 300 mg, oral, Every morning, First dose on Wed07/05/18 at 0900
Drug Monitoring Program: Pharmacist to adjust medication dosing based on indication and drug clearance factors. And gabapentin tablet 600 mg (NEURONTIN)Jump to med 600 mg, oral, Daily at bedtime, First do se on Wed07/05/18 at 2100
Drug Monitoring Program: Pharmacist to adjust medication dosing based on indication and drug clearance factors. documented in this encounter Care Teams Health Teacher Relationship Specialty Start Date End Date Elsewhere, Pcp PCP - General Family Medicine 07/04/18 08/24/18 documented as of this encounter
--- OUTSIDE RECORDS SUMMARY | 2022-04-21 17:06 | XMS_ITS | Encounter Summary ---
:1975 Author Organization [facility] Address [address] [place] [address] Care Team Providers Name Role Phone Elsewhere, Pcp Primary Care Provider Unavailable Encounter Details Date Type Department Care Team Description 07/06/2018 Abstract DATA ABSTRACTION Provider, Historical Social History Tobacco Use Types Packs/Day Years [...] documented as of this encounter Care Teams Environmental Services Technician Relationship Specialty Start Date End Date Elsewhere, Pcp PCP - General Family Medicine 07/04/18 08/24/18 documented as of this encounter
--- OUTSIDE RECORDS SUMMARY | 2022-04-21 17:06 | XMS_ITS | Encounter Summary ---
:1975 Author Organization [facility] Address [address] [place] [address] Care Team Providers Name Role Phone Unavailable Primary Care Provider Unavailable Encounter Details Date Type Department Care Team Description 02/13/2015 Hospital Encounter HX [facility] Roberto Carlos Vizcaino M.D. [address] [place] [address], [address] [place], [place] [id number] (Wo rk) Social History Tobacco Use Types [...] Sign Reading Time Taken Comments Blood Pressure 136/74 02/13/2015 9:52 AM CDT Pulse - - Temperature - - Respiratory Rate - - Oxygen Saturation - - Inhaled Oxygen Concentration - - Weight 75.4 kg (166 lb 3.6 oz) 02/13/2015 9:52 AM CDT Height - - Body Mass [...] documented as of this encounter Progress Notes Gerry Vizcaino M.D. - 02/13/2015 9:44 AM CDT [id number] CHIEF COMPLAINT/REASON FOR VISIT Follow up neck pain and headaches and low back pain. HISTORY OF PRESENT ILLNESS Ms. Nava returns today in followup. She did have MRI performed of her lumbar and cervical spine at [facility]. I reviewed the images with her. The MRI of the cervical spine was unremarkable for any disc herniation or significant facet arthropathy. There was no evidence of any abnormal spinal cord signal at any level. The MRI of her lumbar spine showed a very mild right eccentric disc bulge at L4-L5 resulting in no significant central canal or foraminal stenosis. There was a multiloculated cystic lesion in the right adnexa, which may represent ovarian cyst. Ms. Nava reports that she is aware of this and follows with OB with respect to that. Ms. Nava reports that her symptoms have not changed since I saw her previous to the MRIs. PHYSICAL EXAMINATION None performed today. IMPRESSION/REPORT/PLAN 1. Neck pain. 2. Migraine headaches. 3. Low back pain. Reassuringly, Ms. Nava's MRIs of the cervical and lumbar spine were unremarkable. I do feel thatshjoana has a significant component of myofascial pain. PLAN: 1. I am going to have Ms. Nava involved in physical therapy and we are going to focus on an aquatic-based program, which I think could be very helpful for her. I discussed this in detail with her today and she is motivated to be involved in this program and I have given her a detailed prescriptionfor this today. 2. Ms. Nava recently saw Dr. Aguila who very appropriately changed her gabapentin dose and sheis currently using 600 mg in the morning and 1200 mg at night. I discussed with her as well, if she is tolerating that dose to gradually increase that dose to 600 mg in the morning, 600 mg in the afternoon, and 1200 mg in the evening. 3. Ms. Nava today inquired about the possibility of nortriptyline. I think that would be a very reasonable thing to consider in the future depending on how she is progressing with the gabapentin. She does take Lexapro and so I would have her discuss that with Dr. Aguila depending how she is progressing with the gabapentin. 4. I will plan on seeing Ms. Nava following physical therapy if she has not noted improvement and she knows to be in contact with me prior to that time if she notes any worsening symptoms, which wewent over in detail today. Ms. Nava voiced agreement and understanding of this plan. Gerry Vizcaino M.D./padmini cc: Umer Aguila [phone] [place] [id number] Electronically Signed By: GERRY VIZCAINO MD On: 02/14/2015 11:44 AM Modified by and Electronically Signed by: GERRY VIZCAINO MD On: 02/14/2015 11:44 AM Source: [facility] MHSDOLBEYNONRADSYS Document Id: [id number] documented in this encounter Miscellaneous Notes Miscellaneous - Gerry Vizcaino M.D. - 02/13/2015 10:15 AM CDT Ambulatory Patient Summary [address] [id number] Visit Information Name: MARITZA NAVA [facility] Number: [id number] Current Date: 02/13/2015 10:15:06 Physicians Attending Provider: GERRY VIZCAINO MD Primary Care Provider: PCP, ELSEWHERE ELIJAH MARITZA has been given the following list [...] you have problems taking your medications. Medication/Strength How to Take Indications/Special Instructions/Comments/Notes for Patient Medication Changes/Routing amLODIPine (amLODIPine 5 mg oral tablet) 1 Tablet(s), Oral, once a day buPROPion (buPROPion XL 300 mg/24 hours oral extended release tablet) 1 Tablet(s), Oral, once a day DULoxetine (Cymbalta 60 mg oral delayed release capsule) 1 cap, Oral, once a day folic acid (folic acid 1 mg oral tablet) 1 Tablet(s), Oral, four times a day gabapentin (gabapentin 600 mg oral tablet) 1 Tablet(s), Oral, two times a day LORazepam (LORazepam 1 mg oral tablet) 1 Tablet(s), Oral, three times a day as needed for Anxiety nitrofurantoin (Macrodantin 100 mg oral capsule) 1 cap, Oral after intercourse omeprazole (omeprazole 40 mg oral delayed release capsule) 1 cap, Oral, once a day ondansetron (ondansetron 8 mg oral tablet) 1 Tablet(s), Oral, every 8 hours as needed for Nausea oxyCODONE-acetaminophen (Percocet 5/325 oral tablet) 1 Tablet(s), Oral, every 6 hours as needed for Pain No more than 4,000mg acetaminophen/24hrs rizatriptan (rizatriptan 10 mg oral tablet) 1 Tablet(s), Oral, once as needed for migraine headache topiramate (topiramate 200 mg oral tablet) 1 Tablet(s), Oral, two times a day Stop Taking the Following Medications: Medication list as of 02-13-15 10:15 Attention: If you have any medications at home that are not on this list, DO NOT take them until youcontact your provider for clarification. Give a copy of your medication list to your primary care provider. Update your medication list any time medications or doses are changed and carry your medication list at all times in case of emergency. Electronically Signed By: GERRY VIZCAINO MD Signed On:13-FEB-2015 10:14:43 Your Allergies & Intolerances Substance Reaction Symptoms Category Comments Imitrex Drug Haldol Drug Decadron Drug Your Problem List Problem Status Onset Comments Menorrhagia Active 06/12/2013 Headache, migraine with Aura Active Your Upcoming Appointments Date Time Location Provider No Appointments found Attention: Contact your local Clinic if further appointment detail needed. Consider Using Patient Online Services Patient Online Services is a secure online and Mobile application that lets you: ?? View lab and test results ?? View portions of your medical record including clinical notes, immunizations and discharge summaries ?? Request an appointment or medication refill ?? Review your appointment schedule ?? Send secure messages to your care team Its easy to create an account if you dont have one. Go to [email or web address] and click on Create Your Account. Then, follow the directions to complete the online form. Youll be asked for your [facility] number which you can find at the top of this document. Your Goals/Additional instructions: Source: [facility] POWERCHART Document Id: [id number] Miscellaneous - Gerry Vizcaino M.D. - 02/13/2015 10:15 AM CDT Ambulatory Discharge Medication List [address] [id number] Visit Information Name: MARITZA NAVA [facility] Number: [id number] Visit Date: 02/13/2015 10:15:05 Attending Provider: GERRY VIZCAINO MD Primary Care Provider: PCP, ANDREA BALMARITZA OWENS has been given the following list of medications: Your Medications It is important to take your medications as directed. Use a pill box or chart to help remind you to take your medications. Please let your doctor or nurse know if you have problems taking your medications. Medication/Strength How to Take Indications/Special Instructions/Comments/Notes for Patient Medication Changes/Routing amLODIPine (amLODIPine 5 mg oral tablet) 1 Tablet(s), Oral, once a day buPROPion (buPROPion XL 300 mg/24 hours oral extended release tablet) 1 Tablet(s), Oral, once a day DULoxetine (Cymbalta 60 mg oral delayed release capsule) 1 cap, Oral, once a day folic acid (folic acid 1 mg oral tablet) 1 Tablet(s), Oral, four times a day gabapentin (gabapentin 600 mg oral tablet) 1 Tablet(s), Oral, two times a day LORazepam (LORazepam 1 mg oral tablet) 1 Tablet(s), Oral, three times a day as needed for Anxiety nitrofurantoin (Macrodantin 100 mg oral capsule) 1 cap, Oral after intercourse omeprazole (omeprazole 40 mg oral delayed release capsule) 1 cap, Oral, once a day ondansetron (ondansetron 8 mg oral tablet) 1 Tablet(s), Oral, every 8 hours as needed for Nausea oxyCODONE-acetaminophen (Percocet 5/325 oral tablet) 1 Tablet(s), Oral, every 6 hours as needed for Pain No more than 4,000mg acetaminophen/24hrs rizatriptan (rizatriptan 10 mg oral tablet) 1 Tablet(s), Oral, once as needed for migraine headache topiramate (topiramate 200 mg oral tablet) 1 Tablet(s), Oral, two times a day Stop Taking the Following Medications: Medication list as of 02-13-15 10:15 Attention: If you have any medications at home that are not on this list, DO NOT take them until youcontact your provider for clarification. Give a copy of your medication list to your primary care provider. Update your medication list any time medications or doses are changed and carry your medication list at all times in case of emergency. Electronically Signed By: GERRY VIZCAINO MD Signed On:13-FEB-2015 10:14:43 Additional Information: Source: [facility] POWERCHART Document Id: [id number] Miscellaneous - Liz Pina - 02/13/2015 9:52 AM CDT Adult Health And Safety Tech Intake/History Adult Health And Safety Tech Intake/History Entered On: 02/13/2015 9:54 CDT Performed On: 02/13/2015 9:52 CDT by LIZ PINA Intake Systolic Blood Pressure : 136 mmHg Diastolic Blood Pressure : 74 mmHg NIBP Mean : 95 mmHg BP Location : Right upper extremity Blood Pressure Cuff Size : Regular Actual Weight : 75.4 kg(Converted to: 166 lb 4 oz) Weight Source : Standing scale Dosing Weight Clinic : 75.4 kg LIZ PINA - 02/13/2015 9:52 CDT General Info Information Given By : Patient Preferred Communication Mode : Verbal Languages : Omani Is Patient Female and 13-50 no hysterectomy : Yes Status : Patient denies Are you ? : No LIZ PINA - 02/13/2015 9:52 CDT Subjective Pain Symptoms : No LIZ PINA - 02/13/2015 9:52 CDT Dependent Habits Tobacco Use/Currently Using : No Exposure to Tobacco Smoke : Other: never Smoking Status : Never smoker LIZ PINA - 02/13/2015 9:52 CDT Source: [facility] [employer] Document Id: [id number] CDT!23 documented in this encounter Plan of Treatment Not on filedocumented as of this encounter Visit Diagnoses Not on filedocumented in this encounter
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
--- OUTSIDE RECORDS SUMMARY | 2022-04-21 17:06 | XMS_ITS | Encounter Summary ---
:1975 Author Organization [facility] Address [address] [place] [address] Care Team Providers Name Role Phone Igor Butterfield M.D. Primary Care Provider Encounter Details Date Type Department Care Team Description 09/15/2018 Orders Only [place] Department of Steve Butterfield M.D. Family Medicine and [address] Residency in [facility] [address] [address] [facility] [place] [address] [phone] Social History Tobacco Use Types Packs/Day Years [...] documented as of this encounter Care Teams First Aid Trainer Relationship Specialty Start Date End Date Igor Butterfield M.D. PCP - General Family Medicine 08/25/18 01/15/20 documented as of this encounter
--- OUTSIDE RECORDS SUMMARY | 2022-04-21 17:06 | XMS_ITS | Encounter Summary ---
:1975 Author Organization [facility] Address [address] [place] [address] Care Team Providers Name Role Phone Elsewhere, Pcp Primary Care Provider Unavailable Encounter Details Date Type Department Care Team Description 07/25/2018 Orders Only [facility] - Glenn granda Elsewhere, Pcp [address] [place] [address] Social History Tobacco Use Types Packs/Day [...] documented as of this encounter Care Teams Corrections Lieutenant Relationship Specialty Start Date End Date Elsewhere, Pcp PCP - General Family Medicine 07/04/18 08/24/18 documented as of this encounter
--- OUTSIDE RECORDS SUMMARY | 2022-04-21 17:06 | XMS_ITS | Encounter Summary ---
:1975 Author Organization [facility] Address [address] [place] [address] Care Team Providers Name Role Phone Igor Butterfield M.D. Primary Care Provider Encounter Details Date Type Department Care Team Description 09/05/2018 Orders Only [place] Department of Steve Butterfield M.D. Family Medicine and [address] Residency in [facility] [address] [facility] [place] [place] [address] [phone] Social History Tobacco Use Types Packs/Day Years [...] documented as of this encounter Care Teams Physician Office Specialist Relationship Specialty Start Date End Date Igor Butterfield M.D. PCP - General Family Medicine 08/25/18 01/15/20 documented as of this encounter
--- OUTSIDE RECORDS SUMMARY | 2022-04-21 17:06 | XMS_ITS | Encounter Summary ---
:1975 Author Organization [facility] Address [address] [place] [address] Care Team Providers Name Role Phone Igor Butterfield M.D. Primary Care Provider Reason for Visit Reason Onset Date Comments RX PRIOR AUTHORIZATION 07/25/2018 DENIAL OF LIDOCAI NE 5% PATCHES Encounter Details Date Type Department Care Team Description 07/25/2018 Clinical [facility] - Deedee Morgan RX PRIOR Communication PAT Bolanos, AUTHORIZATION [address] (DENIAL OF [address], [address] 5% PATCHES ) [place] [address] [phone] Social History Tobacco Use Types Packs/Day Years [...] this encounter Miscellaneous Notes Telephone Encounter - John Hernandez - 07/25/2018 11:52 AM CST Images from the original note were not included. The patient???s health insurer has denied prior authorization for LIDOCAINE 5% PATCHES. SEE COMMUNICATIONS. Your options: 1. Appeal the decision by reaching out to the patient???s insurer directly. SEE BELOW. 2. Consider changing the patient???s medication therapy. 3. If not appealing or prescribing a different Rx, the prescription has already been released to thepharmacy so the patient has the option to pay full win for the item if desired. A COPY OF THE INITIAL SUBMISSION AND OF THE COMPLETE DENIAL LETTER CAN BE FOUND UNDER THE PATIENT'S MEDIA TAB. Thank you TAL PRODUCER documented in this encounter Plan of Treatment Not on filedocumented as of this encounter Visit Diagnoses Not on filedocumented in this encounter Additional Health Concerns Assessment Noted Time PHQ-9 Depression Total Score: 21 07/06/2018 1:00 AM CS T documented as of this encounter Care Teams Director Of Development And Marketing Relationship Specialty Start Date End Date Igor Butterfield M.D. PCP - General Family Medicine 08/25/18 01/15/20 documented as of this encounter
--- OUTSIDE RECORDS SUMMARY | 2022-04-21 17:06 | XMS_ITS | Encounter Summary ---
:1975 Author Organization [facility] Address [address] [place] [address] Care Team Providers Name Role Phone Igor Butterfield M.D. Primary Care Provider Reason for Visit Reason Onset Date Comments Med Refill 09/09/2018 lisinopril Encounter Details Date Type Department Care Team Description 09/09/2018 Refill [facility] Department of Igor Butterfield, Med Refill (lisinopril) Family Medicine and M.DMadeleine Residency in [place] [address] [address] [address] [place] [address] [phone] Social History Tobacco Use Types Packs/Day Years [...] Telephone Encounter - Nathalie Schaeffer C.M.A. - 09/12/2018 11:52 AM BUSINESS SUPPORT ASSISTANT Noted NESS SUPPORT ASSISTANT Telephone Encounter - Igor Butterfield M.D. - 09/12/2018 11:51 AM CST Sent. Agapito Arredondo NESS SUPPORT ASSISTANT Telephone Encounter - Loreta Menjivar L.P.N. - 09/12/2018 11:48 AM BUSINESS SUPPORT ASSISTANT Prescription should have been sent to [facility]. I was unable to contact patient and inform she could request a transfer. Can you please re-send prescription for Lisinopril. Thank you NESS SUPPORT ASSISTANT Telephone Encounter - Igor Butterfield M.D. - 09/12/2018 11:26 AM CST Blood pressure well controlled at last visit. BMP in 07/03 showed normal kidney function and electrolytes. Prescription sent in. Agapito Arredondo NESS SUPPORT ASSISTANT Telephone Encounter - Nereyda Jordan L.P.N. - 09/09/2018 1:56 PM BUSINESS SUPPORT ASSISTANT Last OV 08/25/18 NESS SUPPORT ASSISTANT Telephone Encounter - Meg Lewis - 09/09/2018 1:41 PM CST Please do not reply to sender,emails are not monitored. Thank you. If you need a prescription refill please call your pharmacy. Please allow 3 business days for processing. Expert RN: N/A (Med Refill Only) Call Center Template: ??? May we leave a message for you on this phone? yes What can I help you with today? Request was mistakenly sent to wrong provider earlier. Patient needs to pepper picker today. ??? If Medication Refill: o What is the name and strength of the medication? Lisinopril, 40 mg o What do you use the medication for? o How many pills do you have left? none o What pharmacy do you use (include location)? [facility] I will send this information to the appropriate staff member who will look into your concern. Is there anything else I can help you with today? Thank you for calling [facility]. NESS SUPPORT ASSISTANT documented in this encounter Plan of Treatment Not on filedocumented as of this encounter Visit Diagnoses Not on filedocumented in this encounter Additional Health Concerns Assessment Noted Time PHQ-9 Depression Total Score: 12 08/25/2018 3:00 PM CS T documented as of this encounter Care Teams Dryer Feeder Relationship Specialty Start Date End Date Igor Butterfield M.D. PCP - General Family Medicine 08/25/18 01/15/20 documented as of this encounter
--- OUTSIDE RECORDS SUMMARY | 2022-04-21 17:06 | XMS_ITS | Encounter Summary ---
:1975 Author Organization [facility] Address [address] [place] [address] Care Team Providers Name Role Phone Igor Butterfield M.D. Primary Care Provider Reason for Visit Reason Comments Med Refill Encounter Details Date Type Department Care Team Description 09/05/2018 Refill [facility] Department of Family O Igor schultz M.D. Med Refill Medicine and Residency in [address] [place] [address] 101 [facility] [address] [place] [address] [phone] Social History Tobacco Use Types Packs/Day Years [...] Telephone Encounter - Nathalie Schaeffer C.M.A. - 09/06/2018 7:53 AM COMMERCIAL FISHERMAN Noted ERCIAL FISHERMAN Telephone Encounter - Igor Butterfield M.D. - 09/05/2018 5:08 PM CST Prescription sent to pharmacy. Agapito Arredondo ERCIAL FISHERMAN Telephone Encounter - Rita Jacobs LMadeleineP.N. - 09/05/2018 2:29 PM COMMERCIAL FISHERMAN FV-none -08-25-18 Last filled 08-10-18 by ABE Raphael, please review ERCIAL FISHERMAN documented in this encounter Plan of Treatment Not on filedocumented as of this encounter Visit Diagnoses Not on filedocumented in this encounter Additional Health Concerns Assessment Noted Time PHQ-9 Depression Total Score: 12 08/25/2018 3:00 PM CS T documented as of this encounter Care Teams Rotary Engraver Relationship Specialty Start Date End Date Igor Butterfield M.D. PCP - General Family Medicine 08/25/18 01/15/20 documented as of this encounter
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
--- OUTSIDE RECORDS SUMMARY | 2022-04-21 17:06 | XMS_ITS | Encounter Summary ---
:1975 Author Organization [facility] Address [address] [place] [address] Care Team Providers Name Role Phone Igor Butterfield M.D. Primary Care Provider Reason for Visit Reason Comments Med Refill Encounter Details Date Type Department Care Team Description 09/19/2018 Refill [facility] Department of Family J Annmarie mike Med Refill Medicine in [place], [place] [address] [facility] [place] [address] [place] [address] [phone] Social History Tobacco Use Types Packs/Day Years [...] this encounter Miscellaneous Notes Telephone Encounter - LinaAnnmarie - 09/19/2018 12:59 PM CST LV 08/25/18 No future visits #1 Depression Major Recurrent Without Psychotic Features [...] mouth daily., Starting Wed08/25/2018, Until 09/24/2018, Normal TH SCIENCE INSTRUCTOR documented in this encounter Plan of Treatment Not on filedocumented as of this encounter Visit Diagnoses Not on filedocumented in this encounter Additional Health Concerns Assessment Noted Time PHQ-9 Depression Total Score: 12 08/25/2018 3:00 PM CS T documented as of this encounter Care Teams Reel Winder Relationship Specialty Start Date End Date Igor Butterfield M.D. PCP - General Family Medicine 08/25/18 01/15/20 (work) documented as of this encounter
--- OUTSIDE RECORDS SUMMARY | 2022-04-21 17:06 | XMS_ITS | Encounter Summary ---
:1975 Author Organization [facility] Address [address] [place] [address] Care Team Providers Name Role Phone Igor Butterfield M.D. Primary Care Provider Reason for Visit Reason Onset Date Comments Communication 09/09/2018 mistaken request Encounter Details Date Type Department Care Team Description 09/09/2018 Clinical Department of Sajan Garcia Communication Communication Family Medicine luis Willis M.D. (mistaken request) [place], [place] [address] [facility], [address] [place] [address] [phone] Social History Tobacco Use Types Packs/Day Years [...] this encounter Miscellaneous Notes Telephone Encounter - Bebe Carlos, C.M.AMadeleine - 09/09/2018 2:16 PM AGATE SETTER noted E SETTER Telephone Encounter - Meg Lewis - 09/09/2018 1:45 PM CST Courtesy call from [facility]- A request was accidentally made to Dr Sajan Garcia for lisinopril for patient. It was supposed to go to Dr Agapito Butterfield. Please disregard request to Dr Sajan Garcia. E SETTER documented in this encounter Plan of Treatment Not on filedocumented as of this encounter Visit Diagnoses Not on filedocumented in this encounter Additional Health Concerns Assessment Noted Time PHQ-9 Depression Total Score: 12 08/25/2018 3:00 PM CS T documented as of this encounter Care Teams Tire Molder Relationship Specialty Start Date End Date Igor Butterfield M.D. PCP - General Family Medicine 08/25/18 01/15/20 documented as of this encounter
--- OUTSIDE RECORDS SUMMARY | 2022-04-21 17:06 | XMS_ITS | Encounter Summary ---
:1975 Author Organization [facility] Address [address] [place] [address] Care Team Providers Name Role Phone Igor Butterfield M.D. Primary Care Provider Encounter Details Date Type Department Care Team Description 2018 Clinical Communication [place] Department Agapito Butterfield, of Family Medicine and M.Hina Residency in [place] [address] [address] [place] [address] (Work) [phone] Social History Tobacco Use Types Packs/Day Years [...] this encounter Miscellaneous Notes Telephone Encounter - Tierney Burks R.M.A. - 2018 11:54 AM ORDER PICKER Left patient a VM that Dr. Butterfield feels the Hydroxyzine will help the patient with her allergies. He does not reccommended taking the two medication together. Asked patient to call with any questions orconcerns. R PICKER Telephone Encounter - Igor Butterfield M.D. - 2018 10:36 AM CST I started patient on hydroxyzine which works on the same receptors as benadryl so I would not recommend using them together. She should have improvement in her allergies with the hydroxyzine also. Maria Elena, Agapito R PICKER Telephone Encounter - Nathalie Schaeffer C.M.A. - 2018 10:01 AM ORDER PICKER , please see message below. R PICKER Telephone Encounter - Erendira Perez - 2018 7:47 AM CST Patient saw Dr. Butterfield yesterday. Amanda (nurse at [facility]) called and patient would like an RX for benadryl so she can take for allergies. She uses [facility] in [place]. Amanda's contact number is [phone] if needed. R PICKER documented in this encounter Plan of Treatment Not on filedocumented as of this encounter Visit Diagnoses Not on filedocumented in this encounter Additional Health Concerns Assessment Noted Time PHQ-9 Depression Total Score: 12 08/25/2018 3:00 PM CS T documented as of this encounter Care Teams Supervisor Newspaper Deliveries Relationship Specialty Start Date End Date Igor Butterfield M.D. PCP - General Family Medicine 08/25/18 01/15/20 documented as of this encounter
--- OUTSIDE RECORDS SUMMARY | 2022-04-21 17:06 | XMS_ITS | Encounter Summary ---
:1975 Author Organization [facility] Address [address] [place] [address] Care Team Providers Name Role Phone Igor Butterfield M.D. Primary Care Provider Reason for Visit Reason Comments Med Refill Encounter Details Date Type Department Care Team Description 09/05/2018 Refill [facility] Department of Family O Igor schultz M.D. Med Refill Medicine and Residency in [address] [place] [address] 101 [facility] [address] [place] [address] [phone] Social History Tobacco Use Types Packs/Day Years [...] this encounter Miscellaneous Notes Telephone Encounter - Nola Toledo LMadeleineP.N. - 09/05/2018 8:20 AM FRESH FOODS CAKE DECORATOR Last seen 08/25/18 No upcoming fam med visits Last filled 08/04/18 H FOODS CAKE DECORATOR documented in this encounter Plan of Treatment Not on filedocumented as of this encounter Visit Diagnoses Not on filedocumented in this encounter Additional Health Concerns Assessment Noted Time PHQ-9 Depression Total Score: 12 08/25/2018 3:00 PM CS T documented as of this encounter Care Teams Test Bore Helper Relationship Specialty Start Date End Date Igor Butterfield M.D. PCP - General Family Medicine 08/25/18 01/15/20 documented as of this encounter
--- OUTSIDE RECORDS SUMMARY | 2022-04-21 17:07 | XMS_ITS | Encounter Summary ---
:1975 Author Organization [facility] Address [address] [place] [address] Care Team Providers Name Role Phone Unavailable Primary Care Provider Unavailable Encounter Details Date Type Department Care Team Description 08/29/2001 Hospital Encounter [facility], [facility] Social History Tobacco Use Types Packs/Day Years [...]
--- OUTSIDE RECORDS SUMMARY | 2022-04-21 17:07 | XMS_ITS | Encounter Summary ---
:1975 Author Organization [facility] Address [address] [place] [address] Care Team Providers Name Role Phone Unavailable Primary Care Provider Unavailable Encounter Details Date Type Department Care Team Description 01/10/2002 Hospital Encounter [facility]X [facility] Oracio Swanson W, P.A. [address] [place] [address] (Wo rk) Social History Tobacco Use Types [...]
--- OUTSIDE RECORDS SUMMARY | 2022-04-21 17:07 | XMS_ITS | Encounter Summary ---
:1975 Author Organization [facility] Address [address] [place] [address] Care Team Providers Name Role Phone Unavailable Primary Care Provider Unavailable Encounter Details Date Type Department Care Team Description 04/16/2011 - 04/17/2011 Hospital Encounter HX NO MAPPING Social History Tobacco Use Types Packs/Day Years [...] Name Priority Date/Time Associated Diagnosis Comme nts ABORH, RBC Routine 04/17/2011 12:22 AM Results for this CDT procedure are i n the results section. ANTIBODY SCREEN, B Routine 04/17/2011 12:22 AM Re sults for this CDT procedure are i n the results section. documented in this encounter Results Antibody Screen, RBC (04/17/2011 12:22 AM CDT) Patholo gist Method Time Signature Antibody Negative [facility] Screen LABORATORIES - [facility] Specimen (Source) Anatomical Collection Method Collection Time Re ceived Time Location / / Volume Laterality 04/17/2011 12:22 AM CDT Historical Provider LAB BLOOD BANK TEST ORDERABL ES Performing Organization Address City/State/ZIP Code Phon e Number [facility] - [address] [place], [place] [address] [facility] ABORh, RBC (04/17/2011 12:22 AM CDT) P athologist Signature HXABO/RH B POS [facility] - [facility] Specimen (Source) Anatomical Collection Method Collection Time Re ceived Time Location / / Volume Laterality 04/17/2011 12:22 AM CDT Historical Provider LAB BLOOD BANK TEST ORDERABL ES Performing Organization Address City/State/ZIP Code Phon e Number [facility] - [address] [place], [place] [address] [facility] documented in this encounter Visit Diagnoses Not on filedocumented in this encounter
--- OUTSIDE RECORDS SUMMARY | 2022-04-21 17:07 | XMS_ITS | Encounter Summary ---
:1975 Author Organization [facility] Address [address] [place] [address] Care Team Providers Name Role Phone Unavailable Primary Care Provider Unavailable Encounter Details Date Type Department Care Team Description 10/24/2001 Hospital Encounter [facility] Oracio Swanson W, P.A. [address] [place] [address] (Wo rk) Social History Tobacco Use Types [...]
--- OUTSIDE RECORDS SUMMARY | 2022-04-21 17:07 | XMS_ITS | Encounter Summary ---
:1975 Author Organization [facility] Address [address] [place] [address] Care Team Providers Name Role Phone Unavailable Primary Care Provider Unavailable Encounter Details Date Type Department Care Team Description 11/14/2003 Hospital Encounter [facility] Juanacrlos Anthony D.O. [address] [place], [place] [address] (Wo rk) Social History Tobacco Use Types [...]
--- OUTSIDE RECORDS SUMMARY | 2022-04-21 17:07 | XMS_ITS | Encounter Summary ---
:1975 Author Organization [facility] Address [address] [place] [address] Care Team Providers Name Role Phone Unavailable Primary Care Provider Unavailable Encounter Details Date Type Department Care Team Description 12/19/2001 Hospital Encounter [facility] Provider, [facility] Social History Tobacco Use Types Packs/Day Years [...]
--- OUTSIDE RECORDS SUMMARY | 2022-04-21 17:07 | XMS_ITS | Encounter Summary ---
:1975 Author Organization [facility] Address [address] [place] [address] Care Team Providers Name Role Phone Unavailable Primary Care Provider Unavailable Encounter Details Date Type Department Care Team Description 10/28/2002 Hospital Encounter [facility] Grecia Gandhi M.D. [address] [place] [phone] (Wo rk) Social History Tobacco Use Types [...]
--- OUTSIDE RECORDS SUMMARY | 2022-04-21 17:07 | XMS_ITS | Encounter Summary ---
:1975 Author Organization [facility] Address [address] [place] [address] Care Team Providers Name Role Phone Unavailable Primary Care Provider Unavailable Encounter Details Date Type Department Care Team Description 01/03/2002 Hospital Encounter [facility] Provider, [facility] Social History Tobacco Use Types Packs/Day Years [...]
--- OUTSIDE RECORDS SUMMARY | 2022-04-21 17:07 | XMS_ITS | Encounter Summary ---
:1975 Author Organization [facility] Address [address] [place] [address] Care Team Providers Name Role Phone Unavailable Primary Care Provider Unavailable Encounter Details Date Type Department Care Team Description 12/15/2001 Hospital Encounter [facility] Scott Zamudio M.D. [address] [place] [address] (Wo rk) Social History Tobacco Use Types [...]
--- OUTSIDE RECORDS SUMMARY | 2022-04-21 17:07 | XMS_ITS | Encounter Summary ---
:1975 Author Organization [facility] Address [address] [place] [address] Care Team Providers Name Role Phone Unavailable Primary Care Provider Unavailable Encounter Details Date Type Department Care Team Description 12/14/2001 Hospital Encounter [facility] Provider, [facility]3] Social History Tobacco Use Types Packs/Day Years [...]
--- OUTSIDE RECORDS SUMMARY | 2022-04-21 17:07 | XMS_ITS | Encounter Summary ---
:1975 Author Organization [facility] Address [address] [place] [address] Care Team Providers Name Role Phone Unavailable Primary Care Provider Unavailable Encounter Details Date Type Department Care Team Description 11/04/2003 Hospital Encounter [facility] Provider, [facility] Social History Tobacco Use Types Packs/Day Years [...]
--- OUTSIDE RECORDS SUMMARY | 2022-04-21 17:07 | XMS_ITS | Encounter Summary ---
:1975 Author Organization [facility] Address [address] [place] [address] Care Team Providers Name Role Phone Unavailable Primary Care Provider Unavailable Encounter Details Date Type Department Care Team Description 11/13/2003 Hospital Encounter [facility] Anneliese Billingsley M.D. [address] [place], [place] [address] (Wo rk) Social History Tobacco Use Types [...]
--- OUTSIDE RECORDS SUMMARY | 2022-04-21 17:07 | XMS_ITS | Encounter Summary ---
:1975 Author Organization [facility] Address [address] [place] [address] Care Team Providers Name Role Phone Unavailable Primary Care Provider Unavailable Encounter Details Date Type Department Care Team Description 12/08/2003 Hospital Encounter [facility] Ronen Mac M.D. [address] [place] [phone] (Wo rk) Social History Tobacco Use Types [...]
--- OUTSIDE RECORDS SUMMARY | 2022-04-21 17:07 | XMS_ITS | Encounter Summary ---
:1975 Author Organization [facility] Address [address] [place] [address] Care Team Providers Name Role Phone Unavailable Primary Care Provider Unavailable Encounter Details Date Type Department Care Team Description 09/11/2002 Hospital Encounter [facility] Provider, [facility] Social History Tobacco Use Types Packs/Day Years [...]
--- OUTSIDE RECORDS SUMMARY | 2022-04-21 17:07 | XMS_ITS | Encounter Summary ---
:1975 Author Organization [facility] Address [address] [place] [address] Care Team Providers Name Role Phone Unavailable Primary Care Provider Unavailable Encounter Details Date Type Department Care Team Description 07/16/2003 Hospital Encounter [facility]X [facility] Juancarlos Anthony D.OMadleeine [address] [place], [place] [address] (Wo rk) Social History [...]
--- OUTSIDE RECORDS SUMMARY | 2022-04-21 17:07 | XMS_ITS | Encounter Summary ---
:1975 Author Organization [facility] Address [address] [place] [address] Care Team Providers Name Role Phone Unavailable Primary Care Provider Unavailable Encounter Details Date Type Department Care Team Description 09/09/2002 Hospital Encounter [facility] Ronen Mac M.D. [address] [place] [phone] (Wo rk) Social History Tobacco Use Types [...]
--- OUTSIDE RECORDS SUMMARY | 2022-04-21 17:07 | XMS_ITS | Encounter Summary ---
:1975 Author Organization [facility] Address [address] [place] [address] Care Team Providers Name Role Phone Unavailable Primary Care Provider Unavailable Encounter Details Date Type Department Care Team Description 05/29/2002 Hospital Encounter [facility] Juancarlos Anthony D.OMadeleine [address] [place], [place] [address] (Wo rk) Social History [...]
--- OUTSIDE RECORDS SUMMARY | 2022-04-21 17:07 | XMS_ITS | Encounter Summary ---
:1975 Author Organization [facility] Address [address] [place] [address] Care Team Providers Name Role Phone Unavailable Primary Care Provider Unavailable Encounter Details Date Type Department Care Team Description 03/23/2001 Hospital Encounter [facility] Provider, [...]
--- OUTSIDE RECORDS SUMMARY | 2022-04-21 17:07 | XMS_ITS | Encounter Summary ---
:1975 Author Organization [facility] Address [address] [place] [address] Care Team Providers Name Role Phone Unavailable Primary Care Provider Unavailable Encounter Details Date Type Department Care Team Description 01/23/2002 Hospital Encounter [facility] Oracio Swanson W, P.A. [address] [place] [address] (Wo rk) Social History Tobacco Use Types [...]
--- OUTSIDE RECORDS SUMMARY | 2022-04-21 17:07 | XMS_ITS | Encounter Summary ---
:1975 Author Organization [facility] Address [address] [place] [address] Care Team Providers Name Role Phone Unavailable Primary Care Provider Unavailable Encounter Details Date Type Department Care Team Description 09/12/2001 Hospital Encounter [facility] Provider, [facility] Social History Tobacco Use Types [...]
--- OUTSIDE RECORDS SUMMARY | 2022-04-21 17:07 | XMS_ITS | Encounter Summary ---
:1975 Author Organization [facility] Address [address] [place] [address] Care Team Providers Name Role Phone Unavailable Primary Care Provider Unavailable Encounter Details Date Type Department Care Team Description 06/13/2003 Hospital Encounter [facility] Grecia Gandhi M.D. [address] [place] [phone] (Wo rk) Social History Tobacco [...]
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
--- OUTSIDE RECORDS SUMMARY | 2022-04-21 17:07 | XMS_ITS | Encounter Summary ---
:[address] [facility] Address [address] [place] [address] Care Team Providers Name Role Phone Unavailable Primary Care Provider Unavailable Encounter Details Date Type Department Care Team Description 12/07/2001 Hospital Encounter [facility] Oracio Swanson W, P.A. [address] [place] [address] (Wo rk) Social History Tobacco Use Types [...]
--- OUTSIDE RECORDS SUMMARY | 2022-04-21 17:07 | XMS_ITS | Encounter Summary ---
:1975 Author Organization [facility] Address [address] [place] [address] Care Team Providers Name Role Phone Unavailable Primary Care Provider Unavailable Encounter Details Date Type Department Care Team Description 04/12/2008 Hospital [facility] Jamal Hagen M.D. [address] [place] [id number] (Wo rk) Social History Tobacco Use Types [...]
--- OUTSIDE RECORDS SUMMARY | 2022-04-21 17:07 | XMS_ITS | Encounter Summary ---
:1975 Author Organization [facility] Address [address] [place] [address] Care Team Providers Name Role Phone Unavailable Primary Care Provider Unavailable Encounter Details Date Type Department Care Team Description 01/26/2002 Hospital Encounter HX [facility] Oracio Swanson W, P.A. [address] [place] [address] (Wo rk) Social History Tobacco Use Types [...]
--- OUTSIDE RECORDS SUMMARY | 2022-04-21 17:07 | XMS_ITS | Encounter Summary ---
:1975 Author Organization [facility] Address [address] [place] [address] Care Team Providers Name Role Phone Unavailable Primary Care Provider Unavailable Encounter Details Date Type Department Care Team Description 01/02/2002 Hospital Encounter HX [facility] Oracio Swanson W, P.A. [address] [place] [address] (Wo rk) Social History Tobacco Use Types [...]
--- OUTSIDE RECORDS SUMMARY | 2022-04-21 17:07 | XMS_ITS | Encounter Summary ---
:1975 Author Organization [facility] Address [address] [place] [address] Care Team Providers Name Role Phone Unavailable Primary Care Provider Unavailable Encounter Details Date Type Department Care Team Description 04/16/2011 Hospital Encounter HX NO MAPPING Guillaume Velasquez M.D. [address] [place] [address] (Wo rk) Social History Tobacco Use Types [...]
--- OUTSIDE RECORDS SUMMARY | 2022-04-21 17:07 | XMS_ITS | Encounter Summary ---
:1975 Author Organization [facility] Address [address] [place] [address] Care Team Providers Name Role Phone Unavailable Primary Care Provider Unavailable Encounter Details Date Type Department Care Team Description 01/30/2002 Hospital Encounter [facility]X [facility] Oracio Swanson W, P.A. [address] [place] [address] (Wo rk) Social History Tobacco Use Types [...]
--- OUTSIDE RECORDS SUMMARY | 2022-04-21 17:07 | XMS_ITS | Encounter Summary ---
:1975 Author Organization [facility] Address [address] [place] [address] Care Team Providers Name Role Phone Unavailable Primary Care Provider Unavailable Encounter Details Date Type Department Care Team Description 01/18/2002 Hospital Encounter HX [facility] Provider, [facility] Social History Tobacco Use Types Packs/Day [...]
--- OUTSIDE RECORDS SUMMARY | 2022-04-21 17:07 | XMS_ITS | Encounter Summary ---
:1975 Author Organization [facility] Address [address] [place] [address] Care Team Providers Name Role Phone Unavailable Primary Care Provider Unavailable Encounter Details Date Type Department Care Team Description 12/12/2001 Hospital Encounter HX [facility] Provider, [facility] Social History Tobacco Use Types [...]
--- OUTSIDE RECORDS SUMMARY | 2022-04-21 17:07 | XMS_ITS | Encounter Summary ---
:1975 Author Organization [facility] Address [address] [place] [address] Care Team Providers Name Role Phone Unavailable Primary Care Provider Unavailable Encounter Details Date Type Department Care Team Description 08/03/2002 Hospital Encounter [facility]X [facility] Grecia Gandhi M.D. [address] [place] [phone] (Wo rk) Social History Tobacco [...]
--- OUTSIDE RECORDS SUMMARY | 2022-04-21 17:07 | XMS_ITS | Encounter Summary ---
:1975 Author Organization [facility] Address [address] [place] [address] Care Team Providers Name Role Phone Unavailable Primary Care Provider Unavailable Encounter Details Date Type Department Care Team Description 01/24/2002 Hospital Encounter HX [facility] Provider, [...]
--- OUTSIDE RECORDS SUMMARY | 2022-04-21 17:07 | XMS_ITS | Encounter Summary ---
:1975 Author Organization [facility] Address [address] [place] [address] Care Team Providers Name Role Phone Unavailable Primary Care Provider Unavailable Encounter Details Date Type Department Care Team Description 11/21/2001 Hospital Encounter [facility]X [facility] Juancarlos Anthony D.OMadeleine [address] [place], [place] [address] (Wo rk) Social History [...]
--- OUTSIDE RECORDS SUMMARY | 2022-04-21 17:07 | XMS_ITS | Encounter Summary ---
:1975 Author Organization [facility] Address [address] [place] [address] Care Team Providers Name Role Phone Unavailable Primary Care Provider Unavailable Encounter Details Date Type Department Care Team Description 11/30/2003 Hospital Encounter [facility]X [facility] Grecia Gandhi M.D. [address] [place] [phone] (Wo rk) Social History Tobacco [...]
--- OUTSIDE RECORDS SUMMARY | 2022-04-21 17:07 | XMS_ITS | Encounter Summary ---
:1975 [address] [facility] Address [address] [place] [address] Care Team Providers Name Role Phone Unavailable Primary Care Provider Unavailable Encounter Details Date Type Department Care Team Description 03/31/2001 Hospital Encounter HX [facility] Geovanny Desir M.D. [address] [place] [phone] (Wo rk) Social History Tobacco Use Types [...]
== END 2022-04-21 17:13 | disposition home or self-care (01) ==
LOC: ED 17:02
PROVIDERS: Emergency Provider Emergency Medicine; PCP Family Medicine
DX: G89.18 Other acute postprocedural pain (principal)
CPT/HCPCS: 99282

== ENCOUNTER 2022-12-07 13:41 | Outpatient (CLI) | payer MEDICAID, SELFPAY ==
--- NOTE | 2022-12-07 13:40 | CRLHL7_ITS ---
For Patients: As a result of the Century Cures Act, medical imaging exams and procedure reports are released immediately into your electronic medical record. You may view this report before your referring provider. If you have questions, please contact your health care provider. BILATERAL SCREENING MAMMOGRAM WITH COMPUTER-AIDED DETECTION TECHNIQUE: CC and MLO views were obtained. These mammographic images have been obtained using full-field digital technique. These mammographic images were interpreted with the benefit of computer-aided detection. COMPARISON FILM: 10/21/21 FINDINGS: There are scattered areas of fibroglandular density IMPRESSION: There is no radiographic evidence for malignancy. ASSESSMENT: BI-RADS Category 1: Negative RECOMMENDATION: Routine screening mammogram in 1 year. A lay language report of this examination will be provided to the patient. Mark Coleman M.D. Diagnostic/Nuclear Medicine Radiologist [email or web address] Transcribed: 8:45 a.m. PT/Dictated by: Mark Coleman MD @ 12/08/2022 8:29:00 AM (Electronically Signed)
--- OUTSIDE RECORDS SUMMARY | 2022-12-07 13:44 | XMS_ITS | Continuity of Care Document ---
Author Name Unknown Organization [facility] enter Address [address] [place] [id number] Phone Care Team Providers Care Occupational Health Nursing Director Name Role Phone [facility] Unavailable Unava ilable Procedures Procedure Date INJ FORAMEN EPIDURAL L/S INJ FORAMEN EPIDURAL L/S Advance Directives Directive Yes / No Effective Date File Name No Information Encounters Encounter Description Practice Location Reason(s) For Visit Diagnoses Date Provider Providers Copied on Encounter [facility], [address] [place] [address], [id number], tel:[phone] [facility] No Information [facility]. [address] [place] [address], [id number], . tel:[phone] Referring Provider: Deondre Mart, [address] [facility] [place], [address] . tel:[phone] Family History Family Member Type Diagnosis Age [...]
--- OUTSIDE RECORDS SUMMARY | 2022-12-07 13:44 | XMS_ITS | Continuity of Care Document ---
Author Name Unknown Organization [facility] Address [address] [facility] [place] [address] Phone Care Team Providers Care Broker Associate Name Role Phone Will Deondre CHAPPELL Unavailable Unavailabl e Allergies, Adverse Reactions, Alerts Substance Reaction Status [...] Diagnoses Date Provider Providers Copied on Encounter [facility], [address] [place] [address], [id number] , tel:[phone] [facility] No Information 2 Will Deondre. [address] [place] [address], [id number] , [place]. tel:[phone] [facility], [address] [place] [address], [id number] , [place] [phone] [facility] Radiculopathy, lumbar region 1 Will Deondre. [address] [place] [address], [id number] , [place]. [phone] Referring Provider: Deondre Mart, [address] [place] [address], [id number]. tel:[phone] OFFICE VISIT, EST TELEMEDICINE [facility], [address] [place] [address], [id number] , [place] [phone] [facility] Widespread pain (chief complaint) Chronic migraine without aura, intractable, without status migrainosusFibro myalgiaChronic migraine w/o aura, intractable, w status migrainosusLong term (current) use of opiate analgesicLow back painMyalgia, other siteCervicalgiaR adiculopathy, lumbar region 1 Duong Igor. [address] [place] [address] [address], [place], [place], [id number] , . tel:[phone] Referring Provider: Deondre Mart, [address] [place] [address], [id number]. tel:[phone] OFFICE VISIT, EST TELEMEDICINE [facility], [address] [place] [address], [id number] , [place] [phone] [facility] Widespread pain (chief complaint) Chronic migraine without aura, intractable, without status migrainosusFibro myalgiaChronic migraine w/o aura, intractable, w status migrainosusLong term (current) use of opiate analgesicLow back painMyalgia, other siteCervicalgia 1 Rhoda Costa. [address] [place] [address] [address], [place], [place], [id number] , [place]. tel:[phone] Referring Provider: Deondre Mart, [address] [place] [address], [id number]. tel:[phone] [facility], [address] [place] [address], [id number] , [place] tel:[phone] [facility] Chronic migraine without aura, intractable, without status migrainosus 1 Rhoda Costa. [address] [place] [address] [address], [place], [place], [id number] , [place]. tel:[phone] Referring Provider: Deondre Mart, [address] [place] [address], [id number]. tel:[phone] OFFICE VISIT, EST TELEMEDICINE [facility], [address] [place] [address], [id number] , [place] tel:[phone] [facility] Widespread pain (chief complaint) Chronic migraine without aura, intractable, without status migrainosusFibro myalgiaChronic migraine w/o aura, intractable, w status migrainosusLong term (current) use of opiate analgesicLow back painMyalgia, other site 1 Duong Igor. [address] [place] [address] [address], [place], [id number] , [place]. [phone] Referring Provider: Deondre Mart, [address] [place] [address], [id number]. [phone] OFFICE VISIT, [facility] TELEMEDICINE [facility], [address] [place] [address], [id number] , [place] tel:[phone] [facility] Widespread pain (chief complaint) Chronic migraine without aura, intractable, without status migrainosusFibro myalgiaChronic migraine w/o aura, intractable, w status migrainosusLong term (current) use of opiate analgesicLow back painMyalgia, other site 1 Rhoda Costa. [address] [place] [address] [address], [place], [place], [id number] , [place]. tel:[phone] Referring Provider: Deondre Mart, [address] [place] [address], [id number]. [phone] OFFICE VISIT, [facility] TELEMEDICINE [facility], [address] [place] [address], [id number] , [place] tel:[phone] [facility] Widespread pain (chief complaint) Chronic migraine without aura, intractable, without status migrainosusFibro myalgiaChronic migraine w/o aura, intractable, w status migrainosusLong term (current) use of opiate analgesicLow back painMyalgia, other site 1 Rhoda Costa. [address] [place] [address] [address], [place], [id number] , [place]. [phone] Referring Provider: Deondre Mart, [address] [place] [address], [id number]. tel:[phone] [facility], [address] [place] [address], [id number] , [place] tel: [phone] [facility] Chronic migraine without aura, intractable, without status migrainosus 1 Duongliyah Costa. [address] [place] [address] [address], [place], [place], [id number] , [place]. tel: [phone] Referring Provider: Deondre Mart, [address] [place] [address], [id number]. tel:[phone] OFFICE VISIT, EST TELEMEDICINE [facility], [address] [place] [address], [id number] , [place] tel: [phone] [facility] Widespread pain (chief complaint) Chronic migraine without aura, intractable, without status migrainosusChron ic migraine w/o aura, intractable, w status migrainosusFibro myalgiaLong term (current) use of opiate analgesicLow back painMyalgia, other site 1 Duongliyah Costa. [address] [place] [address] [address], [place], [place], [id number] , [place]. tel: [phone] Referring Provider: Deondre Mart, [address] [place] [address], [id number]. tel:[phone] OFFICE VISIT, EST TELEMEDICINE [facility], [address] [place] [address], [id number] , [place] tel: [phone] [facility] Widespread pain (chief complaint) Chronic migraine without aura, intractable, without status migrainosusChron ic migraine w/o aura, intractable, w status migrainosusFibro myalgiaLong term (current) use of opiate analgesicLow back painMyalgia, other site 0 Duong Igor. [address] [place] [address] [address], [place], [place], [id number] , [place]. tel: [phone] Referring Provider: Deondre Mart, [address] [place] [address], [address]. tel:[phone] OFFICE VISIT, EST TELEMEDICINE [facility], [address] [place] [address], [id number] , [place] tel: [phone] [facility] Widespread pain (chief complaint) Chronic migraine without aura, intractable, without status migrainosusChron ic migraine w/o aura, intractable, w status migrainosusFibro myalgiaLong term (current) use of opiate analgesicLow back painMyalgia, other siteMyalgia of auxiliary muscles, head and neck Jun-08 17- 0 Duongliyah Costa. [facility] [facility] [address], [place], [id number] , [place]. tel: [phone] Referring Provider: Umer Lamb, [facility] [address], [place], [address]. tel:[phone] OFFICE/OUTPAT IENT VISIT, [facility], [address] [place] [address], [id number] , [place] tel: [phone] [facility] Widespread pain (chief complaint) Chronic migraine without aura, intractable, without status migrainosusChron ic migraine w/o aura, intractable, w status migrainosusFibro myalgiaLong term (current) use of opiate analgesicLow back painMyalgia, other siteMyalgia of auxiliary muscles, head and neck May- 0 Duongliyah Costa. [address] [place] [address] [address], [place], [id number] , [place]. tel: [phone] Referring Provider: Umer Lamb, [facility] [address] [place], [address]. [phone] [facility], [address] [place] [address], [id number] , [place] tel: [phone] [facility] Chronic migraine without aura, intractable, without status migrainosus Apr- 0 Duongliyah Costa. [address] [place] [address] [address], [place], [id number] , [place]. tel:[phone] Referring Provider: Umer Lamb, [facility] [address], [place], [address]. tel:[phone] OFFICE/OUTPAT IENT VISIT, [facility], [address] [place], [place], [id number] , [place] tel: [phone] [facility] Widespread pain (chief complaint) Chronic migraine w/o aura, intractable, w/o stat migrChronic migraine w/o aura, intractable, w status migrainosusLow back painFibromyalgia exterminator helper (current) use of opiate analgesicMyalgia , other site 0 Rhoda Costa. [address] [place] [address] [address], [place], [place], [id number] , [place]. tel: [phone] Referring Provider: Umer Lamb, [facility] [address] [place], [address]. [phone] OFFICE/OUTPAT IENT VISIT, [facility], [address] [place], [place], [id number] , [place] tel: [phone] [facility] Widespread pain (chief complaint) Chronic migraine w/o aura, intractable, w/o stat migrChronic migraine w/o aura, intractable, w status migrainosusLow back painFibromyalgia group home (current) use of opiate analgesicMyalgia , other site 0 Rhoda Costa. [address] [place] [address] [address], [place], [id number] , [place]. tel: [phone] Referring Provider: Umer Lamb, [facility] [address] [place], [address]. 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 [address] [place] [address] [address], [place], [id number] , [place]. tel:[phone] Referring Provider: Umer Lamb, [facility] [address] [place], [address]. tel:[phone] [facility], [address] [place] [address], [id number] , [place] tel:[phone] [facility] Chronic migraine w/o aura, intractable, w/o stat migr 0 Rhoda Costa. [address] [place] [address] [address], [place], [place], [id number] , [place]. tel:[phone] Referring Provider: Umer Lamb, [facility] [address] [place], [address]. tel:[phone] OFFICE VISIT, EST TELEMEDICINE [facility], [address] [place] [address], [id number] , [place] tel:[phone] [facility] Widespread pain (chief complaint) Chronic migraine w/o aura, intractable, w status migrainosusLow back painFibromyalgia group home (current) use of opiate analgesic 0 Rhoda Costa. [address] [place] [address] [address], [place], [place], [id number] , [place]. tel:[phone] Referring Provider: Deondre Mart, [address] [place] [address], [id number]. 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 [address] [place] [address] [address], [place], [place], [id number] , [place]. [phone] Referring Provider: Deondre Mart, [address] [place] [address], [address]. 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 [facility] [address], [place], [place], [id number] , [place]. tel:[phone] Referring Provider: Deondre Mart, [address] [place] [address], [id number]. [phone] OFFICE VISIT, EST TELEMEDICINE [facility], [address] [place] [address], [id number] , [place] tel:[phone] [facility] Widespread pain (chief complaint) Chronic migraine w/o aura, intractable, w status migrainosusLow back painFibromyalgia Chronic pain syndromeLong term (current) use of opiate analgesic Apr-0 0 Duong Igor. [address] [place] [address] [address], [place], [place], [id number] , [place]. tel:[phone] Referring Provider: Umer Lamb, [facility] [address], [address]. tel:[phone] OFFICE/OUTPAT IENT VISIT, [facility], [address] [place] [address], [id number] , [place] tel:[phone] [facility] Widespread pain (chief complaint) Chronic migraine w/o aura, intractable, w status migrainosusLow back painFibromyalgia Encounter for screening for other disorderOther usp (current) drug therapyEncounter for therapeutic drug level monitoringMyalgi a, other siteLong term (current) use of opiate analgesic Oct-2 0 Duongkushal Costa. [facility] [address], [place], [place], [id number] , [place]. tel:[phone] Ref[facility]: [facility] [address], [place], [address]. tel:[phone] [facility], [address] [facility] [place], [place], [id number] , [place] [phone] [facility] No Information Oct- 0 Will Deondre. [address] [facility] [place], [place], [id number] , [place]. tel:[phone] Family History Family Member Type Diagnosis Age [...] Goal ALT (SGPT). Due on due Goal HOT BOX SPOTTER Paperwork. Due on due Goal UDT. Due on due Goal WATCH TECHNICIAN Scanned. Due on due Goal AST (SGOT). [...] Allergy L ist. Due on due Goal WATCH TECHNICIAN Scanned. Due on due Goal UDT. Due on due Goal HOT BOX SPOTTER Paperwork. Due on due Goal ALT (SGPT). Due on due Goal Order Annual PT. Due on due Goal OARS. Due on due Goal Creatinine. Due on due Goal AST (SGOT). Due on due Goal WATCH TECHNICIAN Scanned. Due on due Goal UDT. Due on due Goal HOT BOX SPOTTER Paperwork. Due on due Goal ALT (SGPT). [...] fever and incontinence (urinary). Widespread pain (comments) Rosette [...] rest, heat and cold. Widespread pain Duration: chroni c. Location of [...] and incontinence (urinary). Widespread pain (comments) Kyleigh nt is here [...] increasing medication today. Currently doing PT at [facility] which has been beneficial. Interested in TPIs [...] concern today.Previously managed on opioids, however her HOT BOX SPOTTER was terminated as she trialed on of her friends Suboxone which showed in her UDT. She then was managed on Suboxone through [facility] but is unable to continue [...]
== END 2022-12-07 13:42 | disposition home or self-care (01) ==
LOC: MAMMO 13:42
PROVIDERS: PCP Family Medicine; Visit Provider Family Medicine
DX: Z12.31 Encounter for screening mammogram for malignant neoplasm of breast (principal)
CPT/HCPCS: 77067

== ENCOUNTER 2023-01-25 10:39 | Outpatient (CLI) | payer MEDICAID, SELFPAY ==
--- OUTSIDE RECORDS SUMMARY | 2023-01-25 10:43 | XMS_ITS | Continuity of Care Document ---
Author Name Unknown Organization [facility] Address [address] [facility] [place] [address] Phone Care Team Providers Care All Source Analyst Name Role Phone Will Deondre CHAPPELL Unavailable [...] Diagnoses Date Provider Providers Copied on Encounter [facility], [address] [place] [address], [id number] , tel:[phone] [facility] No Information 2 Will Deondre. [address] [place] [address], [id number] , [place]. tel:[phone] [facility], [address] [place] [address], [id number] , [place] [phone] [facility] Radiculopathy, lumbar region 1 Will Deondre. [address] [place] [address], [id number] , [place]. [phone] Referring Provider: Deondre Mart, [address] [place] [address], [id number]. tel:[phone] OFFICE VISIT, EST TELEMEDICINE [facility], [address] [place] [address], [id number] , [place] [phone] [facility] Widespread pain (chief complaint) Chronic migraine without aura, intractable, without status migrainosusFibro myalgiaChronic migraine w/o aura, intractable, w status migrainosusLong term (current) use of opiate analgesicLow back painMyalgia, other siteCervicalgiaR adiculopathy, lumbar region 1 Duong Igor. [address] [place] [address] [address], [place], [place], [id number] , . tel:[phone] Referring Provider: Deondre Mart, [address] [place] [address], [id number]. tel:[phone] OFFICE VISIT, EST TELEMEDICINE [facility], [address] [place] [address], [id number] , [place] [phone] [facility] Widespread pain (chief complaint) Chronic migraine without aura, intractable, without status migrainosusFibro myalgiaChronic migraine w/o aura, intractable, w status migrainosusLong term (current) use of opiate analgesicLow back painMyalgia, other siteCervicalgia 1 Rhoda Costa. [address] [place] [address] [address], [place], [place], [id number] , [place]. tel:[phone] Referring Provider: Deondre Mart, [address] [place] [address], [id number]. tel:[phone] [facility], [address] [place] [address], [id number] , [place] tel:[phone] [facility] Chronic migraine without aura, intractable, without status migrainosus 1 Rhoda Costa. [address] [place] [address] [address], [place], [place], [id number] , [place]. tel:[phone] Referring Provider: Deondre Mart, [address] [place] [address], [id number]. tel:[phone] OFFICE VISIT, EST TELEMEDICINE [facility], [address] [place] [address], [id number] , [place] tel:[phone] [facility] Widespread pain (chief complaint) Chronic migraine without aura, intractable, without status migrainosusFibro myalgiaChronic migraine w/o aura, intractable, w status migrainosusLong term (current) use of opiate analgesicLow back painMyalgia, other site 1 Duong Igor. [address] [place] [address] [address], [place], [id number] , [place]. [phone] Referring Provider: Deondre Mart, [address] [place] [address], [id number]. [phone] OFFICE VISIT, [facility] TELEMEDICINE [facility], [address] [place] [address], [id number] , [place] tel:[phone] [facility] Widespread pain (chief complaint) Chronic migraine without aura, intractable, without status migrainosusFibro myalgiaChronic migraine w/o aura, intractable, w status migrainosusLong term (current) use of opiate analgesicLow back painMyalgia, other site 1 Rhoda Costa. [address] [place] [address] [address], [place], [place], [id number] , [place]. tel:[phone] Referring Provider: Deondre Mart, [address] [place] [address], [id number]. [phone] OFFICE VISIT, [facility] TELEMEDICINE [facility], [address] [place] [address], [id number] , [place] tel:[phone] [facility] Widespread pain (chief complaint) Chronic migraine without aura, intractable, without status migrainosusFibro myalgiaChronic migraine w/o aura, intractable, w status migrainosusLong term (current) use of opiate analgesicLow back painMyalgia, other site 1 Rhoda Costa. [address] [place] [address] [address], [place], [id number] , [place]. [phone] Referring Provider: Deondre Mart, [address] [place] [address], [id number]. tel:[phone] [facility], [address] [place] [address], [id number] , [place] tel: [phone] [facility] Chronic migraine without aura, intractable, without status migrainosus 1 Duongliyah Costa. [address] [place] [address] [address], [place], [place], [id number] , [place]. tel: [phone] Referring Provider: Deondre Mart, [address] [place] [address], [id number]. tel:[phone] OFFICE VISIT, EST TELEMEDICINE [facility], [address] [place] [address], [id number] , [place] tel: [phone] [facility] Widespread pain (chief complaint) Chronic migraine without aura, intractable, without status migrainosusChron ic migraine w/o aura, intractable, w status migrainosusFibro myalgiaLong term (current) use of opiate analgesicLow back painMyalgia, other site 1 Duongliyah Costa. [address] [place] [address] [address], [place], [place], [id number] , [place]. tel: [phone] Referring Provider: Deondre Mart, [address] [place] [address], [id number]. tel:[phone] OFFICE VISIT, EST TELEMEDICINE [facility], [address] [place] [address], [id number] , [place] tel: [phone] [facility] Widespread pain (chief complaint) Chronic migraine without aura, intractable, without status migrainosusChron ic migraine w/o aura, intractable, w status migrainosusFibro myalgiaLong term (current) use of opiate analgesicLow back painMyalgia, other site 0 Duong Igor. [address] [place] [address] [address], [place], [place], [id number] , [place]. tel: [phone] Referring Provider: Deondre Mart, [address] [place] [address], [address]. tel:[phone] OFFICE VISIT, EST TELEMEDICINE [facility], [address] [place] [address], [id number] , [place] tel: [phone] [facility] Widespread pain (chief complaint) Chronic migraine without aura, intractable, without status migrainosusChron ic migraine w/o aura, intractable, w status migrainosusFibro myalgiaLong term (current) use of opiate analgesicLow back painMyalgia, other siteMyalgia of auxiliary muscles, head and neck Jun-08 17- 0 Duongliyah Costa. [facility] [facility] [address], [place], [id number] , [place]. tel: [phone] Referring Provider: Umer Lamb, [facility] [address], [place], [address]. tel:[phone] OFFICE/OUTPAT IENT VISIT, [facility], [address] [place] [address], [id number] , [place] tel: [phone] [facility] Widespread pain (chief complaint) Chronic migraine without aura, intractable, without status migrainosusChron ic migraine w/o aura, intractable, w status migrainosusFibro myalgiaLong term (current) use of opiate analgesicLow back painMyalgia, other siteMyalgia of auxiliary muscles, head and neck May- 0 Duongliyah Costa. [address] [place] [address] [address], [place], [id number] , [place]. tel: [phone] Referring Provider: Umer Lamb, [facility] [address] [place], [address]. [phone] [facility], [address] [place] [address], [id number] , [place] tel: [phone] [facility] Chronic migraine without aura, intractable, without status migrainosus Apr- 0 Duongliyah Costa. [address] [place] [address] [address], [place], [id number] , [place]. tel:[phone] Referring Provider: Umer Lamb, [facility] [address], [place], [address]. tel:[phone] OFFICE/OUTPAT IENT VISIT, [facility], [address] [place], [place], [id number] , [place] tel: [phone] [facility] Widespread pain (chief complaint) Chronic migraine w/o aura, intractable, w/o stat migrChronic migraine w/o aura, intractable, w status migrainosusLow back painFibromyalgia detention (current) use of opiate analgesicMyalgia , other site 0 Rhoda Costa. [address] [place] [address] [address], [place], [place], [id number] , [place]. tel: [phone] Referring Provider: Umer Lamb, [facility] [address] [place], [address]. [phone] OFFICE/OUTPAT IENT VISIT, [facility], [address] [place], [place], [id number] , [place] tel: [phone] [facility] Widespread pain (chief complaint) Chronic migraine w/o aura, intractable, w/o stat migrChronic migraine w/o aura, intractable, w status migrainosusLow back painFibromyalgia detention (current) use of opiate analgesicMyalgia , other site 0 Rhoda Costa. [address] [place] [address] [address], [place], [id number] , [place]. tel: [phone] Referring Provider: Umer Lamb, [facility] [address] [place], [address]. 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 [address] [place] [address] [address], [place], [id number] , [place]. tel:[phone] Referring Provider: Umer Lamb, [facility] [address] [place], [address]. tel:[phone] [facility], [address] [place] [address], [id number] , [place] tel:[phone] [facility] Chronic migraine w/o aura, intractable, w/o stat migr 0 Rhoda Costa. [address] [place] [address] [address], [place], [place], [id number] , [place]. tel:[phone] Referring Provider: Umer Lamb, [facility] [address] [place], [address]. 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 [address] [place] [address] 100, [place], [place], [id number] , [place]. tel:[phone] Referring Provider: Deondre Mart, [address] [place] [address], [id number]. 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 [address] [place] [address] 100, [place], [place], [id number] , [place]. [phone] Referring Provider: Deondre Mart, [address] [place] [address], [id number]. 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 [facility] [address], [place], [place], [id number] , [place]. tel:[phone] Referring Provider: Deondre Mart, [address] [place] [address], [id number]. [phone] OFFICE VISIT, EST TELEMEDICINE [facility], [address] [place] [address], [id number] , [place] tel:[phone] [facility] Widespread pain (chief complaint) Chronic migraine w/o aura, intractable, w status migrainosusLow back painFibromyalgia Chronic pain syndromeLong term (current) use of opiate analgesic Apr-0 0 Duong Igor. [address] [place] [address] [address], [place], [place], [id number] , [place]. tel:[phone] Referring Provider: Umer Lamb, [facility] [address], [address]. tel:[phone] OFFICE/OUTPAT IENT VISIT, [facility], [address] [place] [address], [id number] , [place] tel:[phone] [facility] Widespread pain (chief complaint) Chronic migraine w/o aura, intractable, w status migrainosusLow back painFibromyalgia Encounter for screening for other disorderOther nursing home (current) drug therapyEncounter for therapeutic drug level monitoringMyalgi a, other siteLong term (current) use of opiate analgesic Oct-2 0 Duongkushal Costa. [facility] [address], [place], [place], [id number] , [place]. tel:[phone] Ref[facility]: [facility] [address], [place], [address]. tel:[phone] [facility], [address] [facility] [place], [place], [id number] , [place] [phone] [facility] [place] No Information Oct- 0 Will Deondre. [address] [facility] [place], [place], [id number] , [place]. tel:[phone] Family History Family Member Type Diagnosis Age [...] Goal ALT (SGPT). Due on due Goal DRYWALLER Paperwork. Due on due Goal UDT. Due on due Goal RECORD PRESS TENDER Scanned. Due on due Goal AST (SGOT). [...] Goal ALT (SGPT). Due on due Goal DRYWALLER Paperwork. Due on due Goal UDT. Due on due Goal RECORD PRESS TENDER Scanned. Due on due Goal AST (SGOT). [...] Goal ALT (SGPT). Due on due Goal DRYWALLER Paperwork. Due on due Goal UDT. Due on due Goal RECORD PRESS TENDER Scanned. Due on 021 due Goal AST (SGOT). Due on due Goal Creatinine. Due on due Goal OARS. Due on due Future [...] positions, ice and lying down. Widespread pain Duration: chroni c. Location of [...] other concerns today. Widespread pain (comments) Kyleigh cassidy is here [...] increasing medication today. Currently doing PT at [facility] which has been beneficial. Interested in TPIs [...] findings. Widespread pain Severity level i s 9. Duration: chronic. Location of the pain is lower back. The patient describes it as achy, numbness and tingling. It occurs persistently. The problem is worsening. Symptom is aggravated by bending, walking upstairs, walking downstairs, sitting, standing, supine, housework and lifting. Relieving factors include stretching, cold and Rx Meds. Widespread pain (comments) Troy ellis presents for [...] short. Widespread pain Severity level i s 8. 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 She then was managed on Suboxone through [facility] but is unable to continue [...]
--- OUTSIDE RECORDS SUMMARY | 2023-01-25 10:43 | XMS_ITS | Continuity of Care Document ---
Author Name Unknown Organization [facility] enter Address [address] [place] [address] [address] Phone Care Team Providers Care Upper Extremity Surgeon Name Role Phone [facility] Unavailable Unava ilable Procedures Procedure Date INJ FORAMEN EPIDURAL L/S INJ FORAMEN EPIDURAL L/S Advance Directives Directive Yes / No Effective Date File Name No Information Encounters Encounter Description Practice Location Reason(s) For Visit Diagnoses Date Provider Providers Copied on Encounter [facility], [address] [place] [address], [id number], tel:[phone] [facility] No Information [facility]. [address] [place] [address], [id number], . tel:[phone] Referring Provider: Deondre Mart, [address] [facility] [place], [address] . tel:[phone] Family History Family Member Type Diagnosis Age [...]
== END 2023-01-25 10:40 | disposition home or self-care (01) ==
PROVIDERS: PCP Family Medicine; Visit Provider Family Medicine
DX: R53.83 Other fatigue (principal)
CPT/HCPCS: 84443

== ENCOUNTER 2023-02-03 08:59 | Outpatient (CLI) | payer OTHER, SELFPAY ==
--- OUTSIDE RECORDS SUMMARY | 2023-02-03 09:01 | XMS_ITS | Continuity of Care Document ---
Author Name Unknown Organization [facility] enter Address [address] [place] [id number] Phone Care Team Providers Care Livestock Showman Name Role Phone [facility] Unavailable Unava ilable Procedures Procedure Date INJ FORAMEN EPIDURAL L/S INJ FORAMEN EPIDURAL L/S Advance Directives Directive Yes / No Effective Date File Name No Information Encounters Encounter Description Practice Location Reason(s) For Visit Diagnoses Date Provider Providers Copied on Encounter [facility], [address] [place] [address], [id number], tel:[phone] [facility] No Information [facility]. [address] [place] [address], [id number], . tel:[phone] Referring Provider: Deondre Mart, [address] [facility] [place], [address] . tel:[phone] Family History Family Member Type Diagnosis Age At Onset No Information Payers Payer name Insurance type Covered libertarian ID Authoriza tion(s) No Information Social History [...]
--- OUTSIDE RECORDS SUMMARY | 2023-02-03 09:01 | XMS_ITS | Continuity of Care Document ---
Author Name Unknown Organization [facility] Address [address] [facility] [place] [address] Phone Care Team Providers Care Hand Therapist Name Role Phone Will Deondre CHAPPELL Unavailable [...] on Encounter [facility], [address] [place] [address], [id number] , tel:[phone] [facility] No Information 2 Will Deondre. [address] [place] [address], [id number] , [place]. tel:[phone] [facility], [address] [place] [address], [id number] , [place] [phone] [facility] Radiculopathy, lumbar region 1 Will Deondre. [address] [place] [address], [id number] , [place]. [phone] Referring Provider: Deondre Mart, [address] [place] [address], [id number]. tel:[phone] OFFICE VISIT, EST TELEMEDICINE [facility], [address] [place] [address], [id number] , [place] [phone] [facility] Widespread pain (chief complaint) Chronic migraine without aura, intractable, without status migrainosusFibro myalgiaChronic migraine w/o aura, intractable, w status migrainosusLong term (current) use of opiate analgesicLow back painMyalgia, other siteCervicalgiaR adiculopathy, lumbar region 1 Duong Igor. [address] [place] [address] [address], [place], [place], [id number] , . tel:[phone] Referring Provider: Deondre Mart, [address] [place] [address], [id number]. tel:[phone] OFFICE VISIT, EST TELEMEDICINE [facility], [address] [place] [address], [id number] , [place] [phone] [facility] Widespread pain (chief complaint) Chronic migraine without aura, intractable, without status migrainosusFibro myalgiaChronic migraine w/o aura, intractable, w status migrainosusLong term (current) use of opiate analgesicLow back painMyalgia, other siteCervicalgia 1 Rhoda Costa. [address] [place] [address] [address], [place], [place], [id number] , [place]. tel:[phone] Referring Provider: Deondre Mart, [address] [place] [address], [id number]. tel:[phone] [facility], [address] [place] [address], [id number] , [place] tel:[phone] [facility] Chronic migraine without aura, intractable, without status migrainosus 1 Rhoda Costa. [address] [place] [address] [address], [place], [place], [id number] , [place]. tel:[phone] Referring Provider: Deondre Mart, [address] [place] [address], [id number]. tel:[phone] OFFICE VISIT, EST TELEMEDICINE [facility], [address] [place] [address], [id number] , [place] tel:[phone] [facility] Widespread pain (chief complaint) Chronic migraine without aura, intractable, without status migrainosusFibro myalgiaChronic migraine w/o aura, intractable, w status migrainosusLong term (current) use of opiate analgesicLow back painMyalgia, other site 1 Duong Igor. [address] [place] [address] [address], [place], [id number] , [place]. [phone] Referring Provider: Deondre Mart, [address] [place] [address], [id number]. [phone] OFFICE VISIT, [facility] TELEMEDICINE [facility], [address] [place] [address], [id number] , [place] tel:[phone] [facility] Widespread pain (chief complaint) Chronic migraine without aura, intractable, without status migrainosusFibro myalgiaChronic migraine w/o aura, intractable, w status migrainosusLong term (current) use of opiate analgesicLow back painMyalgia, other site 1 Rhoda Costa. [address] [place] [address] [address], [place], [place], [id number] , [place]. tel:[phone] Referring Provider: Deondre Mart, [address] [place] [address], [id number]. [phone] OFFICE VISIT, [facility] TELEMEDICINE [facility], [address] [place] [address], [id number] , [place] tel:[phone] [facility] Widespread pain (chief complaint) Chronic migraine without aura, intractable, without status migrainosusFibro myalgiaChronic migraine w/o aura, intractable, w status migrainosusLong term (current) use of opiate analgesicLow back painMyalgia, other site 1 Rhoda Costa. [address] [place] [address] [address], [place], [id number] , [place]. [phone] Referring Provider: Deondre Mart, [address] [place] [address], [id number]. tel:[phone] [facility], [address] [place] [address], [id number] , [place] tel: [phone] [facility] Chronic migraine without aura, intractable, without status migrainosus 1 Duongliyah Costa. [address] [place] [address] [address], [place], [place], [id number] , [place]. tel: [phone] Referring Provider: Deondre Mart, [address] [place] [address], [id number]. tel:[phone] OFFICE VISIT, EST TELEMEDICINE [facility], [address] [place] [address], [id number] , [place] tel: [phone] [facility] Widespread pain (chief complaint) Chronic migraine without aura, intractable, without status migrainosusChron ic migraine w/o aura, intractable, w status migrainosusFibro myalgiaLong term (current) use of opiate analgesicLow back painMyalgia, other site 1 Duongliyah Costa. [address] [place] [address] [address], [place], [place], [id number] , [place]. tel: [phone] Referring Provider: Deondre Mart, [address] [place] [address], [id number]. tel:[phone] OFFICE VISIT, EST TELEMEDICINE [facility], [address] [place] [address], [id number] , [place] tel: [phone] [facility] Widespread pain (chief complaint) Chronic migraine without aura, intractable, without status migrainosusChron ic migraine w/o aura, intractable, w status migrainosusFibro myalgiaLong term (current) use of opiate analgesicLow back painMyalgia, other site 0 Duong Igor. [address] [place] [address] [address], [place], [place], [id number] , [place]. tel: [phone] Referring Provider: Deondre Mart, [address] [place] [address], [id number]. tel:[phone] OFFICE VISIT, EST TELEMEDICINE [facility], [address] [place] [address], [id number] , [place] tel: [phone] [facility] Widespread pain (chief complaint) Chronic migraine without aura, intractable, without status migrainosusChron ic migraine w/o aura, intractable, w status migrainosusFibro myalgiaLong term (current) use of opiate analgesicLow back painMyalgia, other siteMyalgia of auxiliary muscles, head and neck Jun-08 17- 0 Duongliyah Costa. [facility] [facility] [address], [place], [id number] , [place]. tel: [phone] Referring Provider: Umer Lamb, [facility] [address], [place], [address]. tel:[phone] OFFICE/OUTPAT IENT VISIT, [facility], [address] [place] [address], [id number] , [place] tel: [phone] [facility] Widespread pain (chief complaint) Chronic migraine without aura, intractable, without status migrainosusChron ic migraine w/o aura, intractable, w status migrainosusFibro myalgiaLong term (current) use of opiate analgesicLow back painMyalgia, other siteMyalgia of auxiliary muscles, head and neck May- 0 Duongliyah Costa. [address] [place] [address] [address], [place], [id number] , [place]. tel: [phone] Referring Provider: Umer Lamb, [facility] [address] [place], [address]. [phone] [facility], [address] [place] [address], [id number] , [place] tel: [phone] [facility] Chronic migraine without aura, intractable, without status migrainosus Apr- 0 Duongliyah Costa. [address] [place] [address] [address], [place], [id number] , [place]. tel:[phone] Referring Provider: Umer Lamb, [facility] [address], [place], [address]. tel:[phone] OFFICE/OUTPAT IENT VISIT, [facility], [address] [place], [place], [id number] , [place] tel: [phone] [facility] Widespread pain (chief complaint) Chronic migraine w/o aura, intractable, w/o stat migrChronic migraine w/o aura, intractable, w status migrainosusLow back painFibromyalgia half-way (current) use of opiate analgesicMyalgia , other site 0 Rhoda Costa. [address] [place] [address] [address], [place], [place], [id number] , [place]. tel: [phone] Referring Provider: Umer Lamb, [facility] [address] [place], [address]. [phone] OFFICE/OUTPAT IENT VISIT, [facility], [address] [place], [place], [id number] , [place] tel: [phone] [facility] Widespread pain (chief complaint) Chronic migraine w/o aura, intractable, w/o stat migrChronic migraine w/o aura, intractable, w status migrainosusLow back painFibromyalgia half-way (current) use of opiate analgesicMyalgia , other site 0 Rhoda Costa. [address] [place] [address] [address], [place], [id number] , [place]. tel: [phone] Referring Provider: Umer Lamb, [facility] [address] [place], [address]. 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 [address] [place] [address] [address], [place], [id number] , [place]. tel:[phone] Referring Provider: Umer Lamb, [facility] [address] [place], [address]. tel:[phone] [facility], [address] [place] [address], [id number] , [place] tel:[phone] [facility] Chronic migraine w/o aura, intractable, w/o stat migr 0 Rhoda Costa. [address] [place] [address] [address], [place], [place], [id number] , [place]. tel:[phone] Referring Provider: Umer Lamb, [facility] [address] [place], [address]. 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 [address] [place] [address] 100, [place], [place], [id number] , [place]. tel:[phone] Referring Provider: Deondre Mart, [address] [place] [address], [id number]. 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 [address] [place] [address] 100, [place], [place], [id number] , [place]. [phone] Referring Provider: Deondre Mart, [address] [place] [address], [id number]. 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 [facility] [address], [place], [place], [id number] , [place]. tel:[phone] Referring Provider: Deondre Mart, [address] [place] [address], [id number]. [phone] OFFICE VISIT, EST TELEMEDICINE [facility], [address] [place] [address], [id number] , [place] tel:[phone] [facility] Widespread pain (chief complaint) Chronic migraine w/o aura, intractable, w status migrainosusLow back painFibromyalgia Chronic pain syndromeLong term (current) use of opiate analgesic Apr-0 0 Duong Igor. [address] [place] [address] [address], [place], [place], [id number] , [place]. tel:[phone] Referring Provider: Umer Lamb, [facility] [address], [address]. tel:[phone] OFFICE/OUTPAT IENT VISIT, [facility], [address] [place] [address], [id number] , [place] tel:[phone] [facility] Widespread pain (chief complaint) Chronic migraine w/o aura, intractable, w status migrainosusLow back painFibromyalgia Encounter for screening for other disorderOther mcc (current) drug therapyEncounter for therapeutic drug level monitoringMyalgi a, other siteLong term (current) use of opiate analgesic Oct-2 0 Duongkushal Costa. [facility] [address], [place], [place], [id number] , [place]. tel:[phone] Referring Provider: [facility] [address], [place], [address]. tel:[phone] [facility], [address] [place], [place], [id number] , [place] [phone] [facility] [place] No Information Oct- 0 Will Deondre. [address] [place], [place], [id number] , [place]. [phone] Family History Family Member Type Diagnosis Age [...] Goal ALT (SGPT). Due on due Goal SUPPLIER SPECIALIST Paperwork. Due on due Goal UDT. Due on due Goal MARKET REPORTER Scanned. Due on due Goal AST (SGOT). [...] Allergy L ist. Due on due Goal OARS. Due on due Goal Creatinine. Due on due Goal AST (SGOT). Due on due Goal MARKET REPORTER Scanned. Due on due Goal UDT. Due on due Goal SUPPLIER SPECIALIST Paperwork. Due on due Goal ALT (SGPT). Due on due Goal Order Annual PT. Due on due Goal AST (SGOT). Due on due Goal Creatinine. Due on due Goal OARS. Due on due Goal MARKET REPORTER Scanned. Due on due Goal UDT. Due on due Goal SUPPLIER SPECIALIST Paperwork. Due on due Goal ALT (SGPT). [...] fever and incontinence (urinary). Widespread pain (comments) Patijoana nt is here for follow-up and medication [...] increasing medication today. Currently doing PT at [facility] which has been beneficial. Interested in TPIs [...] that's why she is short. 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 She then was managed on Suboxone through [facility] but is unable to continue [...]
--- NOTE | 2023-02-03 09:15 | CRLHL7_ITS ---
For Patients: As a result of the Century Cures Act, medical imaging exams and procedure reports are released immediately into your electronic medical record. You may view this report before your referring provider. If you have questions, please contact your health care provider. INDICATION: Lumbar radiculopathy. TECHNIQUE : Lumbar spine MRI without contrast. The following sequences were obtained: Sagittal T1, T2 weighted and STIR sequences. Axial T1 and T2 weighted sequences. COMPARISON: Lumbar spine MRI from 07/02/2017. FINDINGS : Five lumbar type vertebral bodies, with the last fully formed disc space designated as L5-S1. Normal lumbar lordotic curve. No recent compression fracture or marrow replacing process. Lower cord/conus signal is normal. The conus terminates at a normal location. No intradural lesion. No extraspinal soft tissue abnormalities. Discs/Endplates: L4-5 mild disc height loss/disc dehydration. Remaining discs exhibit normal height and signal. Findings at individual levels as follows: T12-L1: No spinal canal or neural foraminal stenosis. L1-2: No spinal canal or neural foraminal stenosis. L2-3: No spinal canal or neural foraminal stenosis. L3-4: No spinal canal or neural foraminal stenosis. L4-5: 4 millimeters anterolisthesis. Bilateral facet arthrosis. 7 millimeter left-sided facet joint synovial cyst protrudes into the subarticular recess and mildly compresses the traversing left L5 nerve root. Mild spinal canal stenosis and mild bilateral neural foraminal stenosis. L5-S1: A tiny right foraminal disc protrusion with annular fissure contacts the exiting right L5 nerve root. Mild right neural foraminal stenosis. No left neural foraminal stenosis or spinal canal stenosis. Imaged SI joints: Bilateral arthrosis. Imaged sacrum: Within normal limits. IMPRESSION: 1. At L4-5, grade 1 degenerative anterolisthesis and bilateral facet arthrosis with 7 millimeter left-sided facet joint synovial cyst which mildly compresses the traversing left L5 nerve root. Correlate for left L5 radiculopathy. Mild spinal canal stenosis and mild bilateral foraminal stenosis. Findings are essentially new since 2017. 2. At L5-S1, a tiny right foraminal disc protrusion with annular fissure contacts the exiting right L5 nerve root. Stable. 3. No spinal canal/neural foraminal stenosis or neural impingement elsewhere. Dictated by Tapan Pepe MD @ 02/05/2023 1:46:14 PM (Electronically Signed)
== END 2023-02-03 09:00 | disposition home or self-care (01) ==
LOC: MRI 08:59
PROVIDERS: PCP Family Medicine; Visit Provider Family Medicine
DX: M54.16 Radiculopathy, lumbar region (principal); M51.27 Other intervertebral disc displacement, lumbosacral region
CPT/HCPCS: 72148

== ENCOUNTER 2023-03-16 09:18 | Outpatient (CLI) | payer OTHER, SELFPAY ==
--- OUTSIDE RECORDS SUMMARY | 2023-03-16 09:20 | XMS_ITS | Continuity of Care Document ---
Author Name Unknown Organization [facility] enter Address [address] [place] [address] [address] Phone Care Team Providers Care Filter Tank Tender Helper Name Role Phone [facility] Unavailable Unava ilable Procedures Procedure Date INJ FORAMEN EPIDURAL L/S INJ FORAMEN EPIDURAL L/S Advance Directives Directive Yes / No Effective Date File Name No Information Encounters Encounter Description Practice Location Reason(s) For Visit Diagnoses Date Provider Providers Copied on Encounter [facility], [address] [place] [address], [id number], tel:[phone] [facility] No Information [facility]. [address] [place] [address], [id number], . tel:[phone] Referring Provider: Deondre Mart, [address] [facility] [place], [address] . tel:[phone] Family History Family Member Type Diagnosis Age At Onset No Information Payers Payer name Insurance type Covered republican ID Authoriza tion(s) No Information Social History [...]
--- OUTSIDE RECORDS SUMMARY | 2023-03-16 09:21 | XMS_ITS | Continuity of Care Document ---
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 [address] [place] [address], [id number] , [place]. tel:[phone] [facility], [address] [place] [address], [id number] , [place] [phone] [facility] Radiculopathy, lumbar region 1 Will Deondre. [address] [place] [address], [id number] , [place]. [phone] Referring Provider: Deondre Mart, [address] [place] [address], [id number]. tel:[phone] OFFICE VISIT, EST TELEMEDICINE [facility], [address] [place] [address], [id number] , [place] [phone] [facility] Widespread pain (chief complaint) Chronic migraine without aura, intractable, without status migrainosusFibro myalgiaChronic migraine w/o aura, intractable, w status migrainosusLong term (current) use of opiate analgesicLow back painMyalgia, other siteCervicalgiaR adiculopathy, lumbar region 1 Duong Igor. [address] [place] [address] [address], [place], [place], [id number] , . tel:[phone] Referring Provider: Deondre Mart, [address] [place] [address], [id number]. tel:[phone] OFFICE VISIT, EST TELEMEDICINE [facility], [address] [place] [address], [id number] , [place] [phone] [facility] Widespread pain (chief complaint) Chronic migraine without aura, intractable, without status migrainosusFibro myalgiaChronic migraine w/o aura, intractable, w status migrainosusLong term (current) use of opiate analgesicLow back painMyalgia, other siteCervicalgia 1 Rhoda Costa. [address] [place] [address] [address], [place], [place], [id number] , [place]. tel:[phone] Referring Provider: Deondre Mart, [address] [place] [address], [id number]. tel:[phone] [facility], [address] [place] [address], [id number] , [place] tel:[phone] [facility] Chronic migraine without aura, intractable, without status migrainosus 1 Rhoda Costa. [address] [place] [address] [address], [place], [place], [id number] , [place]. tel:[phone] Referring Provider: Deondre Mart, [address] [place] [address], [id number]. tel:[phone] OFFICE VISIT, EST TELEMEDICINE [facility], [address] [place] [address], [id number] , [place] tel:[phone] [facility] Widespread pain (chief complaint) Chronic migraine without aura, intractable, without status migrainosusFibro myalgiaChronic migraine w/o aura, intractable, w status migrainosusLong term (current) use of opiate analgesicLow back painMyalgia, other site 1 Duong Igor. [address] [place] [address] [address], [place], [id number] , [place]. [phone] Referring Provider: Deondre Mart, [address] [place] [address], [id number]. [phone] OFFICE VISIT, [facility] TELEMEDICINE [facility], [address] [place] [address], [id number] , [place] tel:[phone] [facility] Widespread pain (chief complaint) Chronic migraine without aura, intractable, without status migrainosusFibro myalgiaChronic migraine w/o aura, intractable, w status migrainosusLong term (current) use of opiate analgesicLow back painMyalgia, other site 1 Rhoda Costa. [address] [place] [address] [address], [place], [place], [id number] , [place]. tel:[phone] Referring Provider: Deondre Mart, [address] [place] [address], [id number]. [phone] OFFICE VISIT, [facility] TELEMEDICINE [facility], [address] [place] [address], [id number] , [place] tel:[phone] [facility] Widespread pain (chief complaint) Chronic migraine without aura, intractable, without status migrainosusFibro myalgiaChronic migraine w/o aura, intractable, w status migrainosusLong term (current) use of opiate analgesicLow back painMyalgia, other site 1 Rhoda Costa. [address] [place] [address] [address], [place], [id number] , [place]. [phone] Referring Provider: Deondre Mart, [address] [place] [address], [id number]. tel:[phone] [facility], [address] [place] [address], [id number] , [place] tel: [phone] [facility] Chronic migraine without aura, intractable, without status migrainosus 1 Duongliyah Costa. [address] [place] [address] [address], [place], [place], [id number] , [place]. tel: [phone] Referring Provider: Deondre Mart, [address] [place] [address], [id number]. tel:[phone] OFFICE VISIT, EST TELEMEDICINE [facility], [address] [place] [address], [id number] , [place] tel: [phone] [facility] Widespread pain (chief complaint) Chronic migraine without aura, intractable, without status migrainosusChron ic migraine w/o aura, intractable, w status migrainosusFibro myalgiaLong term (current) use of opiate analgesicLow back painMyalgia, other site 1 Duongliyah Costa. [address] [place] [address] [address], [place], [place], [id number] , [place]. tel: [phone] Referring Provider: Deondre Mart, [address] [place] [address], [id number]. tel:[phone] OFFICE VISIT, EST TELEMEDICINE [facility], [address] [place] [address], [id number] , [place] tel: [phone] [facility] Widespread pain (chief complaint) Chronic migraine without aura, intractable, without status migrainosusChron ic migraine w/o aura, intractable, w status migrainosusFibro myalgiaLong term (current) use of opiate analgesicLow back painMyalgia, other site 0 Duong Igor. [address] [place] [address] [address], [place], [place], [id number] , [place]. tel: [phone] Referring Provider: Deondre Mart, [address] [place] [address], [address]. tel:[phone] OFFICE VISIT, EST TELEMEDICINE [facility], [address] [place] [address], [id number] , [place] tel: [phone] [facility] Widespread pain (chief complaint) Chronic migraine without aura, intractable, without status migrainosusChron ic migraine w/o aura, intractable, w status migrainosusFibro myalgiaLong term (current) use of opiate analgesicLow back painMyalgia, other siteMyalgia of auxiliary muscles, head and neck Jun-08 17- 0 Duongliyah Costa. [facility] [facility] [address], [place], [id number] , [place]. tel: [phone] Referring Provider: Umer Lamb, [facility] [address], [place], [address]. tel:[phone] OFFICE/OUTPAT IENT VISIT, [facility], [address] [place] [address], [id number] , [place] tel: [phone] [facility] Widespread pain (chief complaint) Chronic migraine without aura, intractable, without status migrainosusChron ic migraine w/o aura, intractable, w status migrainosusFibro myalgiaLong term (current) use of opiate analgesicLow back painMyalgia, other siteMyalgia of auxiliary muscles, head and neck May- 0 Duongliyah Costa. [address] [place] [address] [address], [place], [id number] , [place]. tel: [phone] Referring Provider: Umer Lamb, [facility] [address] [place], [address]. [phone] [facility], [address] [place] [address], [id number] , [place] tel: [phone] [facility] Chronic migraine without aura, intractable, without status migrainosus Apr- 0 Duongliyah Costa. [address] [place] [address] [address], [place], [id number] , [place]. tel:[phone] Referring Provider: Umer Lamb, [facility] [address], [place], [address]. tel:[phone] OFFICE/OUTPAT IENT VISIT, [facility], [address] [place], [place], [id number] , [place] tel: [phone] [facility] Widespread pain (chief complaint) Chronic migraine w/o aura, intractable, w/o stat migrChronic migraine w/o aura, intractable, w status migrainosusLow back painFibromyalgia moth exterminator (current) use of opiate analgesicMyalgia , other site 0 Rhoda Costa. [address] [place] [address] [address], [place], [place], [id number] , [place]. tel: [phone] Referring Provider: Umer Lamb, [facility] [address] [place], [address]. [phone] OFFICE/OUTPAT IENT VISIT, [facility], [address] [place], [place], [id number] , [place] tel: [phone] [facility] Widespread pain (chief complaint) Chronic migraine w/o aura, intractable, w/o stat migrChronic migraine w/o aura, intractable, w status migrainosusLow back painFibromyalgia senior care (current) use of opiate analgesicMyalgia , other site 0 Rhoda Costa. [address] [place] [address] [address], [place], [id number] , [place]. tel: [phone] Referring Provider: Umer Lamb, [facility] [address] [place], [address]. 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 [address] [place] [address] [address], [place], [id number] , [place]. tel:[phone] Referring Provider: Umer Lamb, [facility] [address] [place], [address]. tel:[phone] [facility], [address] [place] [address], [id number] , [place] tel:[phone] [facility] Chronic migraine w/o aura, intractable, w/o stat migr 0 Rhoda Costa. [address] [place] [address] [address], [place], [place], [id number] , [place]. tel:[phone] Referring Provider: Umer Lamb, [facility] [address] [place], [address]. tel:[phone] OFFICE VISIT, EST TELEMEDICINE [facility], [address] [place] [address], [id number] , [place] tel:[phone] [facility] Widespread pain (chief complaint) Chronic migraine w/o aura, intractable, w status migrainosusLow back painFibromyalgia senior care (current) use of opiate analgesic 0 Rhoda Costa. [address] [place] [address] 100, [place], [place], [id number] , [place]. tel:[phone] Referring Provider: Deondre Mart, [address] [place] [address], [address]. [phone] OFFICE VISIT, EST TELEMEDICINE [facility], [address] [place] [address], [id number] , [place] tel:[phone] [facility] Widespread pain (chief complaint) moth exterminator (current) use of opiate analgesicLow back painFibromyalgia Chronic migraine w/o aura, intractable, w status migrainosus 0 Rhoda Costa. [address] [place] [address] 100, [place], [place], [id number] , [place]. [phone] Referring Provider: Deondre Mart, [address] [place] [address], [id number]. 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 [facility] [address], [place], [place], [id number] , [place]. tel:[phone] Referring Provider: Deondre Mart, [address] [place] [address], [id number]. [phone] OFFICE VISIT, EST TELEMEDICINE [facility], [address] [place] [address], [id number] , [place] tel:[phone] [facility] Widespread pain (chief complaint) Chronic migraine w/o aura, intractable, w status migrainosusLow back painFibromyalgia Chronic pain syndromeLong term (current) use of opiate analgesic Apr-0 0 Duong Igor. [address] [place] [address] [address], [place], [place], [id number] , [place]. tel:[phone] Referring Provider: Umer Lamb, [facility] [place], [address]. tel:[phone] OFFICE/OUTPAT IENT VISIT, [facility], [address] [place] [address], [id number] , [place] tel:[phone] [facility] Widespread pain (chief complaint) Chronic migraine w/o aura, intractable, w status migrainosusLow back painFibromyalgia Encounter for screening for other disorderOther group home (current) drug therapyEncounter for therapeutic drug level monitoringMyalgi a, other siteLong term (current) use of opiate analgesic Oct-2 0 Duongkushal Costa. [facility] [address], [place], [place], [id number] , [place]. tel:[phone] Referring Provider: [facility] [address], [place], [address]. tel:[phone] [facility], [address] [facility] [place], [place], [id number] , [place] [phone] [facility] [place] No Information Oct- 0 Will Deondre. [address] [facility] [place], [place], [id number] , [place]. tel:[phone] Family History Family Member Type Diagnosis Age At Onset Mother Problem (finding) back pain Payers Payer name Insurance type Covered republican ID Authoriza tion(s) No Information Social History Type Description Quantity Date Captured Comments Sex Female Smoking Status No Information Chief Complaint And Reason For Visit No Information Reason For Referral Reason For Referral No Information Plan Of Treatment Date Type Action Status Goal Order Annual PT. Due on due Goal ALT (SGPT). 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 Due on due Goal UDT. Due on due Goal DETAILER FURNITURE Scanned. Due on due Goal AST (SGOT). [...] Goal ALT (SGPT). 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 Due on due Goal UDT. Due on due Goal DETAILER FURNITURE Scanned. Due on due Goal AST (SGOT). [...] Goal ALT (SGPT). 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 Due on due Goal UDT. Due on due Goal DETAILER FURNITURE Scanned. Due on 021 due Goal AST [...] increasing medication today. Currently doing PT at [facility] which has been beneficial. Interested in TPIs [...] today. Widespread pain Severity level i s 4. 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 She then was managed on Suboxone through [facility] but is unable to continue [...]
== END 2023-03-16 09:19 | disposition home or self-care (01) ==
LOC: INJ CL 09:19
PROVIDERS: PCP Family Medicine; Visit Provider Family Medicine
DX: M54.16 Radiculopathy, lumbar region (principal); M47.816 Spondylosis without myelopathy or radiculopathy, lumbar region
CPT/HCPCS: 64483; 64494; J0702; Q9966

== ENCOUNTER 2023-05-26 08:48 | Outpatient (CLI) | payer OTHER, SELFPAY ==
--- OUTSIDE RECORDS SUMMARY | 2023-05-26 08:50 | XMS_ITS | Continuity of Care Document ---
Author Name Unknown Organization [facility] enter Address [address] [place] [address] [address] Phone Care Team Providers Care Car Knocker Name Role Phone [facility] Unavailable Unava ilable Procedures Procedure Date INJ FORAMEN EPIDURAL L/S INJ FORAMEN EPIDURAL L/S Advance Directives Directive Yes / No Effective Date File Name No Information Encounters Encounter Description Practice Location Reason(s) For Visit Diagnoses Date Provider Providers Copied on Encounter [facility], [address] [place] [address], [id number], tel:[phone] [facility] No Information 1 [facility]. [address] [place] [address], [id number], . tel:[phone] Referring Provider: Deondre Mart, [address] [facility] [place], [address] . tel:[phone] Family History Family Member Type Diagnosis Age [...]
--- OUTSIDE RECORDS SUMMARY | 2023-05-26 08:50 | XMS_ITS | Continuity of Care Document ---
Author Name Unknown Organization [facility] Address [address] [place] [address] Phone Care Team Providers Care Chair Frame Builder Name Role Phone Koko HAIR, PhD, Livan Unavailable Unavai lable Allergies, Adverse Reactions, Alerts Substance Reaction Status Criticality dexamethasone Active No Information SUMATRIPTAN SUCCINATE Active No Inf ormation sumatriptan Active No Information HALOPERIDOL LACTATE Active No Infor mation haloperidol Active No Information Medications Medication Instructions Dosage Effective Dates (start - stop) Status Comments GABAPENTIN (unknown strength) Not Available - Active TIZANIDINE HCL (unknown strength) Not Available - Active LORAZEPAM (unknown strength) Not Available - Active Advance Directives Directive Yes / No Effective Date File Name No Information Encounters Encounter Description Practice Location Reason(s) For Visit Diagnoses Date Provider Providers Copied on Encounter [facility], [address], [place], [place], [id number], [place] tel:[phone] [facility] No Information Koko Licona. [facility], [address], [place], [address], [place]. tel:[phone] Referring Provider: Javon Moreno [facility] ER Physician-D o Not Fax, [place], [address]. tel:[phone] Family History Family Member Type Diagnosis Age At Onset No Information Payers Payer name Insurance type Covered democrat ID Authoraugustina tialfredo(s) Medicare MB [id number] [facility] All2021 CI [id number] Social History Type Description Quantity Date Captured Comments Alcohol Use Details Unknown Caffeine Use Details Unknown Tobacco Use Status Current non-smoker Smoking Status Never smoker Non-Smoking Tobacco Use Details : No Details Available : No Details Available Sex Female Vital Signs Date / Time: Height Weight BMI Pulse Rate Blood Pressure Temperature Respiratory Rate Body Surface Area Head Circumference Head Circ. Percentile Wt./Jose E. Percentile BMI percentile Pulse Ox Inhaled Ox 2:53 PM 70.08 in 98.883 kg (218.00 lbs) 31.2 1 kg/m eter (2) Chief Complaint And Reason For Visit No [...]
--- OUTSIDE RECORDS SUMMARY | 2023-05-26 08:51 | XMS_ITS | Continuity of Care Document ---
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 [address] [place] [address], [id number] , [place]. tel: [phone] [facility], [address] [place] [address], [id number] , [place] [phone] [facility] Radiculopathy, lumbar region 1 Will Deondre. [address] [place] [address], [id number] , [place]. [phone] Referring Provider: Deondre Mart, [address] [place] [address], [id number]. tel:[phone] OFFICE VISIT, EST TELEMEDICINE [facility], [address] [place] [address], [id number] , [place] [phone] [facility] Widespread pain (chief complaint) Chronic migraine without aura, intractable, without status migrainosusFibro myalgiaChronic migraine w/o aura, intractable, w status migrainosusLong term (current) use of opiate analgesicLow back painMyalgia, other siteCervicalgiaR adiculopathy, lumbar region 1 Duong Igor. [address] [place] [address] [address], [place], [place], [id number] , . tel:[phone] Referring Provider: Deondre Mart, [address] [place] [address], [id number]. tel:[phone] OFFICE VISIT, EST TELEMEDICINE [facility], [address] [place] [address], [id number] , [place] [phone] [facility] Widespread pain (chief complaint) Chronic migraine without aura, intractable, without status migrainosusFibro myalgiaChronic migraine w/o aura, intractable, w status migrainosusLong term (current) use of opiate analgesicLow back painMyalgia, other siteCervicalgia 1 Rhoda Costa. [address] [place] [address] [address], [place], [place], [id number] , [place]. tel:[phone] Referring Provider: Deondre Mart, [address] [place] [address], [id number]. tel:[phone] [facility], [address] [place] [address], [id number] , [place] tel:[phone] [facility] Chronic migraine without aura, intractable, without status migrainosus 1 Rhoda Costa. [address] [place] [address] [address], [place], [place], [id number] , [place]. tel:[phone] Referring Provider: Deondre Mart, [address] [place] [address], [id number]. tel:[phone] OFFICE VISIT, EST TELEMEDICINE [facility], [address] [place] [address], [id number] , [place] tel:[phone] [facility] Widespread pain (chief complaint) Chronic migraine without aura, intractable, without status migrainosusFibro myalgiaChronic migraine w/o aura, intractable, w status migrainosusLong term (current) use of opiate analgesicLow back painMyalgia, other site 1 Duong Igor. [address] [place] [address] [address], [place], [id number] , [place]. [phone] Referring Provider: Deondre Mart, [address] [place] [address], [address]. [phone] OFFICE VISIT, [facility] TELEMEDICINE [facility], [address] [place] [address], [id number] , [place] tel:[phone] [facility] Widespread pain (chief complaint) Chronic migraine without aura, intractable, without status migrainosusFibro myalgiaChronic migraine w/o aura, intractable, w status migrainosusLong term (current) use of opiate analgesicLow back painMyalgia, other site 1 Rhoda Costa. [address] [place] [address] [address], [place], [place], [id number] , [place]. tel:[phone] Referring Provider: Deondre Mart, [address] [place] [address], [address]. [phone] OFFICE VISIT, [facility] TELEMEDICINE [facility], [address] [place] [address], [id number] , [place] tel:[phone] [facility] Widespread pain (chief complaint) Chronic migraine without aura, intractable, without status migrainosusFibro myalgiaChronic migraine w/o aura, intractable, w status migrainosusLong term (current) use of opiate analgesicLow back painMyalgia, other site 1 Rhoda Costa. [address] [place] [address] [address], [place], [id number] , [place]. [phone] Referring Provider: Deondre Mart, [address] [place] [address], [id number]. tel:[phone] [facility], [address] [place] [address], [id number] , [place] tel: [phone] [facility] Chronic migraine without aura, intractable, without status migrainosus 1 Duongliyah Costa. [address] [place] [address] [address], [place], [place], [id number] , [place]. tel: [phone] Referring Provider: Deondre Mart, [address] [place] [address], [address]. tel:[phone] OFFICE VISIT, EST TELEMEDICINE [facility], [address] [place] [address], [id number] , [place] tel: [phone] [facility] Widespread pain (chief complaint) Chronic migraine without aura, intractable, without status migrainosusChron ic migraine w/o aura, intractable, w status migrainosusFibro myalgiaLong term (current) use of opiate analgesicLow back painMyalgia, other site 1 Duongliyah Costa. [address] [place] [address] [address], [place], [place], [id number] , [place]. tel: [phone] Referring Provider: Deondre Mart, [address] [place] [address], [id number]. tel:[phone] OFFICE VISIT, EST TELEMEDICINE [facility], [address] [place] [address], [id number] , [place] tel: [phone] [facility] Widespread pain (chief complaint) Chronic migraine without aura, intractable, without status migrainosusChron ic migraine w/o aura, intractable, w status migrainosusFibro myalgiaLong term (current) use of opiate analgesicLow back painMyalgia, other site 0 Duong Igor. [address] [place] [address] [address], [place], [place], [id number] , [place]. tel: [phone] Referring Provider: Deondre Mart, [address] [place] [address], [address]. tel:[phone] OFFICE VISIT, EST TELEMEDICINE [facility], [address] [place] [address], [id number] , [place] tel: [phone] [facility] Widespread pain (chief complaint) Chronic migraine without aura, intractable, without status migrainosusChron ic migraine w/o aura, intractable, w status migrainosusFibro myalgiaLong term (current) use of opiate analgesicLow back painMyalgia, other siteMyalgia of auxiliary muscles, head and neck Jun-08 17- 0 Duongliyah Costa. [facility] [facility] [address], [place], [id number] , [place]. tel: [phone] Referring Provider: Umer Lamb, [facility] [address], [place], [address]. tel:[phone] OFFICE/OUTPAT IENT VISIT, [facility], [address] [place] [address], [id number] , [place] tel: [phone] [facility] Widespread pain (chief complaint) Chronic migraine without aura, intractable, without status migrainosusChron ic migraine w/o aura, intractable, w status migrainosusFibro myalgiaLong term (current) use of opiate analgesicLow back painMyalgia, other siteMyalgia of auxiliary muscles, head and neck May- 0 Duongliyah Costa. [address] [place] [address] [address], [place], [id number] , [place]. tel: [phone] Referring Provider: Umer Lamb, [facility] [address] [place], [address]. [phone] [facility], [address] [place] [address], [id number] , [place] tel: [phone] [facility] Chronic migraine without aura, intractable, without status migrainosus Apr- 0 Duongliyah Costa. [address] [place] [address] [address], [place], [id number] , [place]. tel:[phone] Referring Provider: Umer Lamb, [facility] [address], [place], [address]. tel:[phone] OFFICE/OUTPAT IENT VISIT, [facility], [address] [place], [place], [id number] , [place] tel: [phone] [facility] Widespread pain (chief complaint) Chronic migraine w/o aura, intractable, w/o stat migrChronic migraine w/o aura, intractable, w status migrainosusLow back painFibromyalgia half-way (current) use of opiate analgesicMyalgia , other site 0 Rhoda Costa. [address] [place] [address] [address], [place], [place], [id number] , [place]. tel: [phone] Referring Provider: Umer Lamb, [facility] [address] [place], [address]. [phone] OFFICE/OUTPAT IENT VISIT, [facility], [address] [place], [place], [id number] , [place] tel: [phone] [facility] Widespread pain (chief complaint) Chronic migraine w/o aura, intractable, w/o stat migrChronic migraine w/o aura, intractable, w status migrainosusLow back painFibromyalgia terminal clerk (current) use of opiate analgesicMyalgia , other site 0 Rhoda Costa. [address] [place] [address] [address], [place], [id number] , [place]. tel: [phone] Referring Provider: Umer Lamb, [facility] [address] [place], [address]. tel:[phone] OFFICE VISIT, [facility] TELEMEDICINE [facility], [address] [place], [place], [id number] , [place] tel: [phone] [facility] Widespread pain (chief complaint) Chronic migraine w/o aura, intractable, w/o stat migrChronic migraine w/o aura, intractable, w status migrainosusLow back painFibromyalgia half-way (current) use of opiate analgesic 0 Duong Igor. [address] [place] [address] [address], [place], [id number] , [place]. tel:[phone] Referring Provider: Umer Lamb, [facility] [address] [place], [address]. tel:[phone] [facility], [address] [place] [address], [id number] , [place] tel:[phone] [facility] Chronic migraine w/o aura, intractable, w/o stat migr 0 Rhoda Costa. [address] [place] [address] [address], [place], [place], [id number] , [place]. tel:[phone] Referring Provider: Umer Lamb, [facility] [address] [place], [address]. tel:[phone] OFFICE VISIT, EST TELEMEDICINE [facility], [address] [place] [address], [id number] , [place] tel:[phone] [facility] Widespread pain (chief complaint) Chronic migraine w/o aura, intractable, w status migrainosusLow back painFibromyalgia half-way (current) use of opiate analgesic 0 Rhoda Costa. [address] [place] [address] [address], [place], [place], [id number] , [place]. tel:[phone] Referring Provider: Deondre Mart, [address] [place] [address], [address]. [phone] OFFICE VISIT, EST TELEMEDICINE [facility], [address] [place] [address], [id number] , [place] tel:[phone] [facility] Widespread pain (chief complaint) terminal clerk (current) use of opiate analgesicLow back painFibromyalgia Chronic migraine w/o aura, intractable, w status migrainosus 0 Rhoda Costa. [address] [place] [address] 100, [place], [place], [id number] , [place]. [phone] Referring Provider: Deondre Mart, [address] [place] [address], [address]. tel:[phone] OFFICE VISIT, EST TELEMEDICINE [facility], [address] [place], [place], [id number] , [place] tel:[phone] [facility] Widespread pain (chief complaint) Chronic migraine w/o aura, intractable, w status migrainosusLow back painFibromyalgia half-way (current) use of opiate analgesic Nov-1 0 Duongliyah Costa. [facility] [facility] [address], [place], [place], [id number] , [place]. tel:[phone] Referring Provider: Deondre Mart, [address] [place] [address], [address]. [phone] OFFICE VISIT, EST TELEMEDICINE [facility], [address] [place] [address], [id number] , [place] tel:[phone] [facility] Widespread pain (chief complaint) Chronic migraine w/o aura, intractable, w status migrainosusLow back painFibromyalgia Chronic pain syndromeLong term (current) use of opiate analgesic Apr-0 0 Duong Igor. [address] [place] [address] [address], [place], [place], [id number] , [place]. tel:[phone] Referring Provider: Umer Lamb, [facility] [address], [address]. tel:[phone] OFFICE/OUTPAT IENT VISIT, [facility], [address] [place] [address], [id number] , [place] tel:[phone] [facility] Widespread pain (chief complaint) Chronic migraine w/o aura, intractable, w status migrainosusLow back painFibromyalgia Encounter for screening for other disorderOther skilled nursing (current) drug therapyEncounter for therapeutic drug level monitoringMyalgi a, other siteLong term (current) use of opiate analgesic Oct-2 0 Duongkushal Costa. [facility] [facility] [address], [place], [place], [id number] , [place]. tel:[phone] Referring [facility]: [facility] [address], [place], [address]. tel:[phone] [facility], [address] [facility] [place], [place], [id number] , [place] [phone] [facility] [place] No Information Oct- 0 Will Deondre. [address] [facility] [place], [place], [id number] , [place]. 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 Due on due Goal OARS. Due on due Goal UDT. Due on due Goal Weight. Due on d ue Goal Medication Recon ciliation. Due on due Goal Order Annual PT. Due on due Goal Tobacco Use. Due on due Goal PHQ-9. Due on du e Goal Update Social Hi story. Due on due Goal Height. Due on d ue Goal ALT (SGPT). Due on due Goal AST (SGOT). Due on due Goal Creatinine. Due on due Goal Review Allergy L ist. Due on due Goal ALT (SGPT). Due on due Goal Update Social Hi story. Due on due Goal Creatinine. 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 Due on due Goal Tobacco Use. Due on due Goal OARS. Due on due Goal UDT. Due on due Goal Order Annual PT. Due on due Goal Weight. Due on d ue Goal AST (SGOT). Due on due Goal Medication Recon ciliation. Due on due Goal Height. 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 Due on due Goal Review Allergy L ist. Due on due Goal PHQ-9. Due on du e Goal Order Annual PT. Due on due Goal ALT (SGPT). Due on due Goal PHQ-9. 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 Due on due Goal UDT. Due on due Goal Tobacco Use. 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 Due on due Goal Update Social Hi story. Due on due Goal Height. Due on d ue Goal Weight. Due on d ue Goal Medication Recon ciliation. Due on due Goal Review Allergy L ist. Due on due Goal OARS. Due on due Goal Creatinine. Due on due Goal AST (SGOT). Due on due Future Order: Radiology Order [...] increasing medication today. Currently doing PT at [facility] which has been beneficial. 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 She then was managed on Suboxone through [facility] but is unable to continue [...]
[2023-05-26 14:32] LABS: PCR FLU A Negative PCR FLU A (Negative); PCR FLU B Negative PCR FLU B (Negative); PCR RSV Negative PCR RSV (Negative)
[2023-05-26 14:40] LABS: SARS PCR* Negative SARS-CoV-2 (Negative)
== END 2023-05-26 08:49 | disposition home or self-care (01) ==
LOC: FBOREF 08:49
PROVIDERS: PCP Family Medicine; Visit Provider Family Medicine
DX: R05.9 Cough, unspecified (principal); R09.81 Nasal congestion; R51.9 Headache, unspecified
CPT/HCPCS: 87631

== ENCOUNTER 2023-07-05 13:13 | Outpatient (CLI) | payer OTHER, SELFPAY | END 2023-07-05 13:14 | disposition home or self-care (01) | PROVIDERS: PCP Family Medicine; Visit Provider Family Medicine | DX: E11.9 Type 2 diabetes mellitus without complications (principal); I10 Essential (primary) hypertension; Z79.4 Long term (current) use of insulin | CPT/HCPCS: 80048; 80061 ==

== ENCOUNTER 2023-09-28 10:06 | Outpatient (CLI) | payer OTHER, SELFPAY ==
--- NOTE | 2023-09-28 10:15 | MR_ITS ---
[facility] [address] [facility] [address] Phone:?[phone] Fax:?[phone] Referring Physician Information: Livan Sutherland M.D., PhD [address] [address] Phone:?[phone] Fax:[phone] Patient:?Maritza Leyva D.O.B:?1975 Sex:?Female Phone:?[phone] [facility] MRN:?[id number] Exam Date:?09/28/2023 EXAM:?MR LUMBAR SPINE WITHOUT CONTRAST CLINICAL INFORMATION: Lower back pain. COMPARISON: 02/03/2023.?SEDATION:?None. TECHNICAL INFORMATION: Imaging was performed at [facility]. Sagittal and axial T1/ FSE T2, sagittal STIR and coronal T1 images were obtained through the lumbar spine. INTERPRETATION: L5-S1:?Normal disc height and no central or foraminal stenosis. Mild right facet hypertrophy and small joint effusion. Conjoined right S1-S2 root sleeve. L4-5: 2 mm degenerative spondylolisthesis and mild disc degeneration. Bulge abuts dural sac, bilateral facet degeneration and small right joint effusion. Also right posterior extraspinal synovial cysts and mild capsulitis. No evidence of residual or recurrent left intraspinal synovial cyst. L1-2-L3-4: Normal disc height and no central or foraminal stenosis. Unremarkable facet joints. T12-L1: Normal disc height and annular margins. Unremarkable facet joints. T11-12: Right hypertrophic facet degeneration and no central or foraminal stenosis. Osseous Structures: Fat suppressed images are negative for acute or subacute fractures. Paraspinous Soft Tissues: No mass lesions. Conus, Cord and Cauda Equina: Normal position conus and no evidence of intradural mass or arachnoiditis. CONCLUSION: 1. Grade I degenerative spondylolisthesis at L4-5 with facet hypertrophy, no spinal stenosis or impingement, right facet joint effusion and active right capsulitis/dorsal extraspinal synovial cysts. 2. L4-5 bulge abuts dural sac. 3. No disc herniation or neural compression. 4. Comparison to 02/03/2023 shows resolution of left intraspinal synovial cyst at L4-5, no change in grade I, L4-5 spondylolisthesis and seemingly mildly increased right L4-5 facet joint effusion. Electronically signed on 09/29/2023 11:48:00 AM by Yony Vences M.D.
--- OUTSIDE RECORDS SUMMARY | 2023-09-28 10:17 | XMS_ITS | Continuity of Care Document ---
Author Name Unknown Organization [facility] Address [address] [place] [address] Phone Care Team Providers Care Blankmaker Name Role Phone Will Deondre CHAPPELL Unavailable [...] Diagnoses Date Provider Providers Copied on Encounter [facility], [address] [place] [address], [id number] , tel:[phone] [facility] No Information 2 Will Deondre. [address] [place] [address], [id number] , [place]. tel:[phone] [facility], [address] [place] [address], [id number] , [place] [phone] [facility] Radiculopathy, lumbar region 1 Will Deondre. [address] [place] [address], [id number] , [place]. [phone] Referring Provider: Deondre Mart, [address] [place] [address], [id number]. tel:[phone] OFFICE VISIT, EST TELEMEDICINE [facility], [address] [place] [address], [id number] , [place] [phone] [facility] Widespread pain (chief complaint) Chronic migraine without aura, intractable, without status migrainosusFibro myalgiaChronic migraine w/o aura, intractable, w status migrainosusLong term (current) use of opiate analgesicLow back painMyalgia, other siteCervicalgiaR adiculopathy, lumbar region 1 Duong Igor. [address] [place] [address] [address], [place], [place], [id number] , . tel:[phone] Referring Provider: Deondre Mart, [address] [place] [address], [id number]. tel:[phone] OFFICE VISIT, EST TELEMEDICINE [facility], [address] [place] [address], [id number] , [place] [phone] [facility] Widespread pain (chief complaint) Chronic migraine without aura, intractable, without status migrainosusFibro myalgiaChronic migraine w/o aura, intractable, w status migrainosusLong term (current) use of opiate analgesicLow back painMyalgia, other siteCervicalgia 1 Rhoda Costa. [address] [place] [address] [address], [place], [place], [id number] , [place]. tel:[phone] Referring Provider: Deondre Mart, [address] [place] [address], [id number]. tel:[phone] [facility], [address] [place] [address], [id number] , [place] tel:[phone] [facility] Chronic migraine without aura, intractable, without status migrainosus 1 Rhoda Costa. [address] [place] [address] [address], [place], [place], [id number] , [place]. tel:[phone] Referring Provider: Deondre Mart, [address] [place] [address], [id number]. tel:[phone] OFFICE VISIT, EST TELEMEDICINE [facility], [address] [place] [address], [id number] , [place] tel:[phone] [facility] Widespread pain (chief complaint) Chronic migraine without aura, intractable, without status migrainosusFibro myalgiaChronic migraine w/o aura, intractable, w status migrainosusLong term (current) use of opiate analgesicLow back painMyalgia, other site 1 Duong Igor. [address] [place] [address] [address], [place], [id number] , [place]. [phone] Referring Provider: Deondre Mart, [address] [place] [address], [id number]. [phone] OFFICE VISIT, [facility] TELEMEDICINE [facility], [address] [place] [address], [id number] , [place] tel:[phone] [facility] Widespread pain (chief complaint) Chronic migraine without aura, intractable, without status migrainosusFibro myalgiaChronic migraine w/o aura, intractable, w status migrainosusLong term (current) use of opiate analgesicLow back painMyalgia, other site 1 Rhoda Costa. [address] [place] [address] [address], [place], [place], [id number] , [place]. tel:[phone] Referring Provider: Deondre Mart, [address] [place] [address], [id number]. [phone] OFFICE VISIT, [facility] TELEMEDICINE [facility], [address] [place] [address], [id number] , [place] tel:[phone] [facility] Widespread pain (chief complaint) Chronic migraine without aura, intractable, without status migrainosusFibro myalgiaChronic migraine w/o aura, intractable, w status migrainosusLong term (current) use of opiate analgesicLow back painMyalgia, other site 1 Rhoda Costa. [address] [place] [address] [address], [place], [id number] , [place]. [phone] Referring Provider: Deondre Mart, [address] [place] [address], [id number]. tel:[phone] [facility], [address] [place] [address], [id number] , [place] tel: [phone] [facility] Chronic migraine without aura, intractable, without status migrainosus 1 Duongliyah Costa. [address] [place] [address] [address], [place], [place], [id number] , [place]. tel: [phone] Referring Provider: Deondre Mart, [address] [place] [address], [address]. tel:[phone] OFFICE VISIT, EST TELEMEDICINE [facility], [address] [place] [address], [id number] , [place] tel: [phone] [facility] Widespread pain (chief complaint) Chronic migraine without aura, intractable, without status migrainosusChron ic migraine w/o aura, intractable, w status migrainosusFibro myalgiaLong term (current) use of opiate analgesicLow back painMyalgia, other site 1 Duongliyah Costa. [address] [place] [address] [address], [place], [place], [id number] , [place]. tel: [phone] Referring Provider: Deondre Mart, [address] [place] [address], [id number]. tel:[phone] OFFICE VISIT, EST TELEMEDICINE [facility], [address] [place] [address], [id number] , [place] tel: [phone] [facility] Widespread pain (chief complaint) Chronic migraine without aura, intractable, without status migrainosusChron ic migraine w/o aura, intractable, w status migrainosusFibro myalgiaLong term (current) use of opiate analgesicLow back painMyalgia, other site 0 Duong Igor. [address] [place] [address] [address], [place], [place], [id number] , [place]. tel: [phone] Referring Provider: Deondre Mart, [address] [place] [address], [address]. tel:[phone] OFFICE VISIT, EST TELEMEDICINE [facility], [address] [place] [address], [id number] , [place] tel: [phone] [facility] Widespread pain (chief complaint) Chronic migraine without aura, intractable, without status migrainosusChron ic migraine w/o aura, intractable, w status migrainosusFibro myalgiaLong term (current) use of opiate analgesicLow back painMyalgia, other siteMyalgia of auxiliary muscles, head and neck Jun-08 17- 0 Duongliyah Costa. [facility], [place], [id number] , [place]. tel: [phone] Referring Provider: Umer Lamb, [facility] [address], [place], [address]. tel:[phone] OFFICE/OUTPAT IENT VISIT, [facility], [address] [place] [address], [id number] , [place] tel: [phone] [facility] Widespread pain (chief complaint) Chronic migraine without aura, intractable, without status migrainosusChron ic migraine w/o aura, intractable, w status migrainosusFibro myalgiaLong term (current) use of opiate analgesicLow back painMyalgia, other siteMyalgia of auxiliary muscles, head and neck May- 0 Duongliyah Costa. [address] [place] [address] [address], [place], [id number] , [place]. tel: [phone] Referring Provider: Umer Lamb, [facility] [address] [place], [address]. [phone] [facility], [address] [place] [address], [id number] , [place] tel: [phone] [facility] Chronic migraine without aura, intractable, without status migrainosus Apr- 0 Duongliyah Costa. [address] [place] [address] [address], [place], [id number] , [place]. tel:[phone] Referring Provider: Umer Lamb, [facility] [address], [place], [address]. tel:[phone] OFFICE/OUTPAT IENT VISIT, [facility], [address] [place], [place], [id number] , [place] tel: [phone] [facility] Widespread pain (chief complaint) Chronic migraine w/o aura, intractable, w/o stat migrChronic migraine w/o aura, intractable, w status migrainosusLow back painFibromyalgia shelter (current) use of opiate analgesicMyalgia , other site 0 Rhoda Costa. [address] [place] [address] [address], [place], [place], [id number] , [place]. tel: [phone] Referring Provider: Umer Lamb, [facility] [address] [place], [address]. [phone] OFFICE/OUTPAT IENT VISIT, [facility], [address] [place], [place], [id number] , [place] tel: [phone] [facility] Widespread pain (chief complaint) Chronic migraine w/o aura, intractable, w/o stat migrChronic migraine w/o aura, intractable, w status migrainosusLow back painFibromyalgia shelter (current) use of opiate analgesicMyalgia , other site 0 Rhoda Costa. [address] [place] [address] [address], [place], [id number] , [place]. tel: [phone] Referring Provider: Umer Lamb, [facility] [address] [place], [address]. 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 [address] [place] [address] [address], [place], [id number] , [place]. tel:[phone] Referring Provider: Umer Lamb, [facility] [address] [place], [address]. tel:[phone] [facility], [address] [place] [address], [id number] , [place] tel:[phone] [facility] Chronic migraine w/o aura, intractable, w/o stat migr 0 Rhoda Costa. [address] [place] [address] [address], [place], [place], [id number] , [place]. tel:[phone] Referring Provider: Umer Lamb, [facility] [address] [place], [address]. tel:[phone] OFFICE VISIT, EST TELEMEDICINE [facility], [address] [place] [address], [id number] , [place] tel:[phone] [facility] Widespread pain (chief complaint) Chronic migraine w/o aura, intractable, w status migrainosusLow back painFibromyalgia shelter (current) use of opiate analgesic 0 Rhoda Costa. [address] [place] [address] [address], [place], [place], [id number] , [place]. tel:[phone] Referring Provider: Deondre Mart, [address] [place] [address], [address]. [phone] OFFICE VISIT, EST TELEMEDICINE [facility], [address] [place] [address], [id number] , [place] tel:[phone] [facility] Widespread pain (chief complaint) shelter (current) use of opiate analgesicLow back painFibromyalgia Chronic migraine w/o aura, intractable, w status migrainosus 0 Rhoda Costa. [address] [place] [address] [address], [place], [place], [id number] , [place]. [phone] Referring Provider: Deondre Mart, [address] [place] [address], [address]. tel:[phone] OFFICE VISIT, EST TELEMEDICINE [facility], [address] [place], [place], [id number] , [place] tel:[phone] [facility] Widespread pain (chief complaint) Chronic migraine w/o aura, intractable, w status migrainosusLow back painFibromyalgia shelter (current) use of opiate analgesic Nov-1 0 Duongliyah Costa. [facility], [facility] [address], [place], [place], [id number] , [place]. tel:[phone] Referring Provider: Deondre Mart, [address] [place] [address], [id number]. [phone] OFFICE VISIT, EST TELEMEDICINE [facility], [address] [place] [address], [id number] , [place] tel:[phone] [facility] Widespread pain (chief complaint) Chronic migraine w/o aura, intractable, w status migrainosusLow back painFibromyalgia Chronic pain syndromeLong term (current) use of opiate analgesic Apr-0 0 Duong Igor. [address] [place] [address] [address], [place], [place], [id number] , [place]. tel:[phone] Referring Provider: Umer Lamb, [facility] [address], [address]. tel:[phone] OFFICE/OUTPAT IENT VISIT, [facility], [address] [place] [address], [id number] , [place] tel:[phone] [facility] Widespread pain (chief complaint) Chronic migraine w/o aura, intractable, w status migrainosusLow back painFibromyalgia Encounter for screening for other disorderOther halfway (current) drug therapyEncounter for therapeutic drug level monitoringMyalgi a, other siteLong term (current) use of opiate analgesic Oct-2 0 Duongkushal Costa. [facility], [facility] [address], [place], [place], [id number] , [place]. tel:[phone] Referring Provider: [facility] [address], [place], [address]. tel:[phone] [facility], [address] [facility] [address] [place], [place], [id number] , [place] [phone] [facility] [place] No Information Oct- 0 Will Deondre. [address] [facility] [address] [place], [place], [id number] , [place]. tel:[phone] Family History Family Member Type Diagnosis Age At Onset Mother Problem (finding) back pain Payers Payer name Insurance type Covered libertarian ID Authoriza tion(s) No Information Social History Type Description Quantity Date Captured Comments Sex Female Smoking Status No Information Chief Complaint And Reason For Visit No Information Reason For Referral Reason For Referral No Information Plan Of Treatment Date Type Action Status Goal Review Allergy L ist. Due on due Goal Creatinine. Due on due Goal AST (SGOT). Due on due Goal ALT (SGPT). Due on due Goal Height. Due on d ue Goal Update Social Hi story. Due on due Goal PHQ-9. Due on du e Goal Tobacco Use. Due on due Goal Order Annual PT. Due on due Goal Medication Recon ciliation. Due on due Goal Weight. Due on d ue Goal UDT. Due on due Goal OARS. Due on due Goal GLUE SPREADER Scanned. 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 Due on due Goal ALT (SGPT). Due on due Goal Update Social Hi story. Due on due Goal Creatinine. 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 Due on due Goal Tobacco Use. Due on due Goal OARS. Due on due Goal UDT. Due on due Goal Order Annual PT. Due on due Goal Weight. Due on d ue Goal AST (SGOT). Due on due Goal Medication Recon ciliation. Due on due Goal Height. Due on d ue Goal GLUE SPREADER Scanned. Due on due Goal Review Allergy L ist. Due on due Goal PHQ-9. Due on du e Goal Tobacco Use. Due on due Goal GLUE SPREADER Scanned. Due on due Goal Update Social ThoughtFocus story. Due on due Goal Height. Due on d ue Goal Weight. Due on d ue Goal Medication Recon ciliation. Due on due Goal Review Allergy L ist. Due on due Goal UDT. 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 Due on due Goal PHQ-9. Due on du e Goal ALT (SGPT). Due on due Goal [...] Meds. Widespread pain Severity level i s 5. [...] accompanied. No other concerns today. Widespread pain (comments) Troy ellis is here for follow-up and medication refills. She presents with widespread pain most bothersome in her low back. This pain radiates down BLE. Scheduled next month for repeat Botox injections. Inquires about increasing medication today. Currently doing PT at [facility] which has been beneficial. Interested in TPIs [...] Meds and lying down. 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 She then was managed on Suboxone through [facility] but is unable to continue [...]
--- OUTSIDE RECORDS SUMMARY | 2023-09-28 10:17 | XMS_ITS | Continuity of Care Document ---
Author Name Unknown Organization [facility] Address [address] [place] [address] Phone Care Team Providers Care Aoc Aadc Operations Staff Officer Name Role Phone Koko HAIR, PhD, Livan [...] LORAZEPAM (unknown strength) Not Available - Active Procedures Procedure Date Office/Outpatient Visit,[facility] [place] Advance Directives Directive Yes / No Effective Date File Name No Information Encounters Encounter Description Practice Location Reason(s) For Visit Diagnoses Date Provider Providers Copied on Encounter [facility], [address], [place], [place], [id number], [place] tel:[phone] [facility] No Information Koko Licona. [facility], [address], [place], [address], [place]. tel:[phone] Referring Provider: Javon Smith, [facility] ER Physician-D o Not Fax, [place], [address]. tel:[phone] Office/Outpat ient Visit,[facility], [facility], [address], [place], [place], [id number], [place] tel:[phone] [facility] Low back pain, unspecified Koko Licona. [facility], [address], [place], [address], [place]. [phone] Referring Provider: Javon Smith, [facility] ER Physician-D o Not Fax, [place], [address]. tel:[phone] Family History Family Member Type Diagnosis Age At Onset No Information Payers Payer name Insurance type Covered green party ID Authorfrancois aviles(s) Medicare [id number] [facility] [place] CI [id number] Social History Type Description Quantity Date Captured [...] Percentile BMI percentile Pulse Ox Inhaled Ox 1:19 PM 70.94 in 92.533 kg (204.00 lbs) 28.5 0 kg/m eter (2) Chief Complaint And Reason [...]
--- OUTSIDE RECORDS SUMMARY | 2023-09-28 10:17 | XMS_ITS | Clinical Summary ---
Author Name Unknown Organization [facility] Address [place], [place] [address] Care Team Providers Care Service Technician Copier Name Role Phone Umer Aguila MD Primary Care Provider + Allergies Active Allergy Reactions Criticality Noted Date Comments Adhesive Tape-Silicones Itching Low 01/11/2020 Dexamethasone Rash,Hives 04/17/2011 Haloperidol Tachycardia,Hives 05/26/2007 Sumatriptan Headache,Hives 10/14/2006 Sertraline Hallucinations 01/02/2019 Olanzapine *Unknown - Pt Doesn' t Remember 03/23/2018 Medications Medication Sig Dispensed Refills Start Date End Date Status DULoxetine (CYMBALTA) 60 mg Delayed-release capsuleIndications:B orderline personality disorder (HC),Generalized anxiety disorder,Major depressive disorder, recurrent episode, moderate (HC) Take 1 capsule by mouth 2 times daily. 120 capsule 0 05/20/2018 Active acetaminophen (TYLENOL EXTRA STRGTH) 500 mg tablet Take 1,000 mg by mouth. 0 07/05/2018 Active ibuprofen (ADVIL; MOTRIN) 200 mg tablet Take 400 mg by mouth. 0 Active DULoxetine (CYMBALTA) 30 mg Delayed-release capsule 0 12/19/2018 Active lisinopril (PRINIVIL; ZESTRIL) 40 mg tablet 0 11/21/2018 Active LORazepam (ATIVAN) 0.5 mg tab Take 1 mg by mouth 3 times daily. 0 10/22/2018 Active tiZANidine (ZANAFLEX) 4 mg tabletIndications:Ch ronic bilateral low back pain without sciatica Take 1 tablet by mouth every 8 hours if needed for Muscle Spasm. 90 tablet 6 01/02/2019 Active ondansetron (ZOFRAN) 8 mg tabletIndications:Na usea and vomiting, intractability of vomiting not specified, unspecified vomiting type Take 1 tablet by mouth every 8 hours if needed for Nausea/Vomiting. 40 tablet 2 01/02/2019 Active metoclopramide HCl (REGLAN) 10 mg tabletIndications:No nintractable headache, unspecified chronicity pattern, unspecified headache type Take 1 tablet by mouth every 6 hours if needed for Nausea/Vomiting (or headache). 20 tablet 0 05/28/2019 Active topiramate (TOPAMAX) 50 mg tabletIndications:Ny meza without aura and without status migrainosus, not intractable TAKE 1 TABLET BY MOUTH TWICE DAILY 180 tablet 0 07/26/2019 Active meloxicam 15 mg tabletIndications:Sabi mbar radiculopathy Take 1 tablet by mouth once daily. 30 tablet 2 08/04/2019 Active promethazine (PHENERGAN) 25 mg tabletIndications:In tractable migraine without status migrainosus, unspecified migraine type Take 1 tablet by mouth every 6 hours if needed for Nausea/Vomiting for up to 3 doses. 3 tablet 0 08/12/2019 Active ondansetron (ZOFRAN ODT) 4 mg disintegrating tabletIndications:Ot her migraine without status migrainosus, not intractable Place 1 tablet on the tongue every 8 hours if needed for Nausea/Vomiting. 10 tablet 0 11/06/2019 Active metoclopramide HCl (REGLAN) 10 mg tabletIndications:Ny meza with aura and without status migrainosus, not intractable Take 1 tablet by mouth every 6 hours if needed for Other (Specify) (headache). 20 tablet 0 12/01/2019 Active busPIRone (BUSPAR) 10 mg tablet Take 10 mg by mouth 3 times daily if needed. FOR ANXIETY 0 02/29/2020 Active SUBOXONE 2-0.[address] 1 STRIP UNDER THE TONGUE TWICE DAILY ALLOW TO DISSOLVE SLOWLY IN MOUTH WITHOUT CHEWING OR SWALLOWING 0 11/16/2019 Active buprenorphine-naloxo ne, 2 mg-0.5 mg, (SUBOXONE) sublingual tablet PLACE 1 TABLET UNDER THE TONGUE THREE TIMES DAILY ALLOW TO DISSOLVE SLOWLY IN MOUTH WITHOUT CHEWING OR SWALLOWING 0 02/28/2020 Active trazodone HCl (TRAZODONE ORAL) Take by mouth. 0 Acti ve fluticasone (50 mcg per actuation) nasal solution (FLONASE)Indications :Sinus congestion Inhale 1 [place] into affected nostril(s) once daily. 1 Bottle 0 12/10/2020 Active loratadine (CLARITIN) 10 mg tabletIndications:Si nus congestion Take 1 Tablet (10 mg) by mouth once daily. 30 Tablet 0 12/10/2020 Active eletriptan (RELPAX) 40 mg tabletIndications:Ot her migraine without status migrainosus, not intractable Take 1 Tablet (40 mg) by mouth 2 times daily if needed for Migraine. 6 tablet. 1 01/13/2021 Active azithromycin (ZITHROMAX) 250 mg tabletIndications:Pn eumonia due to COVID-19 virus First dose given in emergency department, then 250 mg (1 tab) daily for days 2-5. 4 Tablet 0 07/17/2021 Active benzonatate (TESSALON) 200 mg capsuleIndications:P neumonia due to COVID-19 virus Take 1 Capsule (200 mg) by mouth 3 times daily if needed for Cough. 12 Capsule 0 07/17/2021 Active lidocaine 5 % topical patchIndications:Chr onic left-sided low back pain with left-sided sciatica Apply to intact skin to cover most painful area for max 12hr per 24hr period. 12 Patch 0 10/08/2021 Active lidocaine 5 % topical patchIndications:Sci atica, unspecified laterality Apply to intact skin to cover most painful area for max 12hr per 24hr period. 30 Patch 0 10/17/2021 Active miscellaneous medical supply (Blood Pressure Cuff) miscIndications:Hype rtension As directed. Monitor your blood pressure daily and record. Make sure you are sitting for at least 15 minutes, around the same time of day. Continue with same medications. Follow-up with primary care for further evaluation of your blood pressure. 1 Each 0 10/17/2021 Active Hospital, Clinic, or Other Facility Administered Medication Ordered Dose Route Frequency Start Date End Date Status levonorgestrel intrauterine device 1 Device (MIRENA)Indications:Evaluatio n regarding contraception options 1 Device IU Q 5 YEARS 01/17/2019 Active Active Problems Problem Noted Date Diagnosed Date Unspecified psychosis not du e to a substance or known physiological condition 07/14/2018 Chronic pain syndrome 07/06/2018 Traumatic brain injury with loss of consciousnes s 07/03/2018 Nausea, vomiting, and diarrhea 05/08/2018 Hypokalemia 05/08/2018 Insomnia 04/18/2018 Borderline personality disorder 03/17/2018 Intentional trazodone and benzodiazepine overdos e 03/14/2018 Violation of controlled substance agreement 08/17 Overview: Had Suboxone in her urine 08/27/17. NO FURTHER NARCOTICS FOR ANY REASON. Umer Aguila MD 09/08/2017 10:42 PM Irritable bowel syndrome wit h both constipation and diarrhea 08/19/2016 History of nonadherence to medical treatment Migraine with aura and witho ut status migrainosus, not intractable 08/13/2016 Panic disorder with agoraphobia 08/13/2016 PTSD (post-traumatic stress disorder) 07/29/2016 Vitamin D deficiency 12/06/2010 Major depressive disorder, recurrent episode, mo derate 05/09/2010 Generalized anxiety disorder 05/09/2010 Narcotic Overuse [...] respiratory failure Resolved Problems Problem Noted Date Diagnosed Date Resolved Date Hypokalemia 04/18/2018 04/28/2018 Metabolic acidosis 04/18/2018 8 UTI (urinary tract infection) 04/18/2018 04/28/2018 Obesity (BMI 30.0-34.9) 08/13/2016 04/0 01/2018 Vitamin B12 deficiency 08/05/201608/13 Hypokalemia 08/03/2016 08/13/2016 Bipolar 2 disorder, major depressive episode 6 08/13/2016 Controlled substance agreement signed 05/22/2016 11/19/2017 Hypertension 07/29/2015 04/28/2018 Migraine without aura and wi thout status migrainosus, not intractable 01/04/2015 08/13/2016 Controlled substance agreement signed 12/05/2013 07/13/2016 Diabetes mellitus type II 09/25/2012 Overview: a system change updated this record. This will not affect patient care or billing. This comment can be deleted. Diabetes mellitus type 2, uncontrolled 01/18/2012 09/25/2012 Dysthymic disorder 06/19/2011 Issue of repeat prescriptions 03/18/2011 09/08/2017 Overview: Migraine - taking Percocet Major depressive disorder, r ecurrent episode, severe, without mention of psychotic behavior 11/27/2006 12/30/2010 Depressive disorder, not elsewhere classified 10/18/19 07 12/17/2007 Anxiety state, unspecified 10/17/2006 0 12/30/2010 Unspecified essential hypertension 10/14/2006 07/29/2015 Panic disorder without agoraphobia 10/14/2006 08/13/2016 MIGRAINE 10/14/2006 01/04/2015 Overview: OK for 2 ER visits/month for 1 liter IV saline, Norflex 60 mg IV, Phenergan 25 mg IV, and MS 4 mg IV 1-2 doses. Umer Aguila MD 06/23/2014 4:45 PM Immunizations Name Administration Dates Next Due Influenza Virus, Unspecified 08/03/2008,06/14/20 07,07/01/2005 Influenza, IIV3 (Age 6-35 mos) 06/10/2011 Influenza, IIV3 (Age >=3 years) 05/12/20 13,07/21/2012,06/10/2011,08/03/2008, 06/14/2007,07/01/2005 Influenza, IIV4 05/13/2018,06/10/2017,07/07/2016 ,06/12/2014 Tdap 04/16/2011 Family History Medical History Relation [...] Date Smoking Tobacco: Never Smokeless Tobacco: Never Tobacco Cessation:Counseling Given: Yes Alcohol Use Standard Drinks/Week Comments Yes 0 (1 standard drink = 0.6 oz pure alcohol) Every once and a while; not that often. PHQ-2 Answer Date Recorded PHQ-2 Score 3 03/10/2019 Social Connections Answer Date Recorded Frequency of Communication with Friends and Fami ly Not on file 03/17/2023 Sex and Gender Information Value Date Recorded Sex Assigned at Not on file Gender Identity Not on file Sexual Orientation Not on file Obstetrics History Para Term AB IAB SAB Ectopic Multiple Livin g Live Births 3 2 1 1 2 Date Outcome GA Total Labor Labor/2nd/3rd Weight Sex Delivery Anes PTL Kristin A1 A5 Name Cl in SAB Para Para Last Filed Vital Signs Vital Sign Reading Time Taken Comments Blood Pressure 198/140 10/17/2021 11:00 PM THERAPY SITE COORDINATOR provider notified; no new orders at this time. Pulse 108 10/17/2021 11:00 PM THERAPY SITE COORDINATOR Temperature 36.9 ??C (98.5 ??F) 10/17/2021 1 0:30 PM THERAPY SITE COORDINATOR Respiratory Rate 22 10/17/2021 10:3 0 PM THERAPY SITE COORDINATOR Oxygen Saturation 94% 10/17/2021 11: 00 PM THERAPY SITE COORDINATOR Inhaled Oxygen Concentration - - Weight 98.4 kg (217 lb) 10/17/2021 10:3 0 PM THERAPY SITE COORDINATOR Height 175.3 cm (5' 9) 10/17/2021 10:3 0 PM THERAPY SITE COORDINATOR Body Mass Index 32.05 10/17/2021 10:30 PM THERAPY SITE COORDINATOR Plan of Treatment Health Maintenance Due Date Last Done Comments COVID-19 vaccine series (#1) 02/23/1978 HIV for age 15-65 1992 Hepatitis C screening for age 18-79 1995 Depression screening for age 12+ 03/07/2020 03/07/2019, 02/20/2019, 01/02/2019, Additional history exists BMI (ht and wt on same day) for age 18+ 08/04/2020 08/04/2019, 02/20/2019, 01/02/2019, Additional history exists Tetanus booster 04/16/2021 04/16/2011 Colonoscopy through age 75 2022 Lipids for age 45-75 2022 09/19/2012, 04/15/2012, 02/01/2012, Additional history exists Mammogram for age 45-75 2022 Influenza for age 9-49 04/16/2023 8, 06/10/2017, 07/07/2016, Additional history exists Pap test for age 21-65 03/12/2025 2, 01/17/2019, 11/01/2012, Additional history exists Tdap Completed 04/16/2011 Pneumococcal series for age 6-64 Aged Out No longer eligible based on patient's age to complete this topic Advance Directives Latest Code Status on File Code Status Date Activated Date Inactivated Comments Full Code 05/09/2018 12:49 AM 05/09/2018 4:01 PM Question Answer Comments Code Status Discussion: Not Discussed Code Status History Code Status Date Activated Date Inactivated Comments Full Code 04/17/2018 8:28 PM 04/25/2018 4:06 PM Full Code 03/16/2018 8:13 PM 03/31/2018 3:31 PM Full Code 03/14/2018 3:58 PM 03/16/2018 6:57 PM Full Code 02/23/2018 10:24 AM 02/24/2018 3:39 PM Will discuss with pt this am Question Answer Comments Code Status Discussion: Not Discussed Care Teams Service Technician Copier Relationship Specialty Start Date End Date Umer Aguila MD [address] [place] [id number] PCP - General Family Practice 08/12/19
--- OUTSIDE RECORDS SUMMARY | 2023-09-28 10:17 | XMS_ITS | Continuity of Care Document ---
Author Name Unknown Organization [facility] enter Address [address] [place] [address] [address] Phone Care Team Providers Care Associate Vice President Name Role Phone [facility] Unavailable Unava ilable Procedures Procedure Date INJ FORAMEN EPIDURAL L/S INJ FORAMEN EPIDURAL L/S Advance Directives Directive Yes / No Effective Date File Name No Information Encounters Encounter Description Practice Location Reason(s) For Visit Diagnoses Date Provider Providers Copied on Encounter [facility], [address] [place] [address], [id number], tel:[phone] [facility] No Information 1 [facility]. [address] [place] [address], [id number], . tel:[phone] Referring Provider: Deondre Mart, [address] [facility] [place], [address] . tel:[phone] Family History Family Member Type Diagnosis Age [...]
== END 2023-09-28 10:07 | disposition home or self-care (01) ==
PROVIDERS: PCP Family Medicine; Visit Provider Orthopaedic Surgery Orthopaedic Surgery of the Spine
DX: M54.50 Low back pain, unspecified (principal); M47.896 Other spondylosis, lumbar region; M51.26 Other intervertebral disc displacement, lumbar region; M48.061 Spinal stenosis, lumbar region without neurogenic claudication
CPT/HCPCS: 72148

== ENCOUNTER 2023-10-27 12:20 | Outpatient (CLI) | payer OTHER, SELFPAY | END 2023-10-27 12:21 | disposition home or self-care (01) | PROVIDERS: PCP Family Medicine; Visit Provider Family Medicine | DX: E11.9 Type 2 diabetes mellitus without complications (principal); E78.2 Mixed hyperlipidemia; I10 Essential (primary) hypertension | CPT/HCPCS: 80048; 85025 ==

== ENCOUNTER 2023-11-23 18:13 | Emergency (ER) | payer OTHER, SELFPAY ==
[2023-11-23 18:24] VITALS: BP 130/82; PULSE 98; RESP 18; O2SAT 96; BMI 28.2
[2023-11-23 20:40] VITALS: BP 180/90; PULSE 111; RESP 18; O2SAT 97
--- NOTE | 2023-11-23 21:33 | ED_ITS ---
HPI - Back Pain/Injury General Time Seen by Provider: 21:33 Date Seen: 11/23/23 Chief Complaint: Back Injury/Pain Stated Complaint: Back surgery @ [facility] fri-back pain Time Seen by Provider: 11/23/23 21:33 Source: patient, family, RN notes reviewed and old records reviewed Mode of arrival: ambulatory Limitations: no limitations History of Present Illness HPI Narrative: 48-year-old female who presents today with back pain after having a lumbar fusion done last week. She has been taking Dilaudid to 4 mg every 4 hours as well as Tylenol with minimal improvement. She has not had a bowel movement in the last couple of days, denies urinary frequency or urgency, no incontinence. No pain, numbness, tingling, weakness of the legs. Her pain today is centered around her surgical area. Related Data Home Medications Medication Instructions Recorded Confirmed levonorgestrel 21 mcg/24 hours (8 1 intrauterine ONCE 02/23/22 11/26/23 yrs) 52 mg intrauterine device Previous Rx's Medication Instructions Recorded flash glucose scanning reader #1 ea 06/24/22 ([employer] Spencer 2 Virgin) rizatriptan 10 mg disintegrating 10 mg PO Q2H PRN migraine headache 09/24/22 tablet (Maxalt-[facility]) #20 tabs olopatadine 0.2 % eye drops 1 drp ophthalmic (eye) DAILY PRN 11/16/22 itching #2.5 mL ketotifen fumarate 0.025 % (0.035 1 drp ophthalmic (eye) BID #5 mL 11/19/22 %) eye drops (Allergy Eye (ketotifen)) prochlorperazine maleate 10 mg 10 mg PO BID PRN nausea and 02/24/23 tablet vomiting #60 tabs buspirone 30 mg tablet 30 mg PO TID anxiety #90 tabs 03/19/23 pen needle, diabetic 30 gauge x #100 ea 06/03/23 5/ (Pen Needle) verapamil 120 mg tablet,extended 120 mg PO BID #180 tabs 06/25/23 release celecoxib 200 mg capsule (Celebrex) 200 mg PO BID #60 caps 07/30/23 pregabalin 300 mg capsule 300 mg PO BID #60 caps 09/07/23 duloxetine 30 mg capsule,delayed 30 mg PO QDAY #14 caps 09/21/23 release duloxetine 60 mg capsule,delayed 60 mg PO QDAY #90 caps 09/21/23 release escitalopram oxalate 20 mg tablet 20 mg PO DAILY #90 tabs 09/21/23 lisinopril 40 mg tablet 40 mg PO DAILY #90 tabs 09/21/23 metoprolol succinate 200 mg 200 mg PO DAILY #90 tabs 09/21/23 tablet,extended release 24 hr galcanezumab-gnlm 120 mg/mL 120 mg subcut Q30D #1 mL 09/22/23 subcutaneous pen injector (Emgality Pen) semaglutide 1 mg/dose (4 mg/3 mL) 1 mg (0.75 mL) subcut QWEEK #3 mL 10/03/23 subcutaneous pen injector (Ozempic) trazodone 100 mg tablet 300 mg (3 x 100 mg) PO QHS #270 10/07/23 tabs lorazepam 2 mg tablet 1 mg (1/2 x 2 mg) PO TID PRN 10/20/23 anxiety #45 tabs flash glucose sensor (FreeStyle #6 ea 11/09/23 Spencer 14 Day Sensor kit) tizanidine 4 mg tablet 4 mg PO Q6-8H PRN muscle 11/09/23 spasticity #90 tabs oxycodone 5 mg tablet 5 - 10 mg (1 - 2 x 5 mg) PO Q6H 11/26/23 PRN pain #90 tabs Allergies Allergy/AdvReac Type Severity Reaction Status Date / Time dexamethasone Allergy Intermediate Rash Verified 11/26/23 15:53 haloperidol Allergy Intermediate Rash Verified 11/26/23 15:53 sumatriptan Allergy Intermediate Rash Verified 11/26/23 15:53 olanzapine Allergy Mild Rash Verified 11/26/23 15:53 sertraline Allergy Unknown Hallucinati Verified 11/26/23 15:53 ng PFSH PFSH Medical History (Updated 11/26/23 @ 16:33 by Umer Aguila MD) Type 2 diabetes mellitus, without long-term current use of insulin ?E11.9 - Type 2 diabetes mellitus without complications (ICD-10) Postcoital UTI ?N39.0 - Urinary tract infection, site not specified (ICD-10) Mixed hyperlipidemia ?E78.2 - Mixed hyperlipidemia (ICD-10) Primary hypertension ?I10 - Essential (primary) hypertension (ICD-10) Allergic conjunctivitis ?H10.10 - Acute atopic conjunctivitis, unspecified eye (ICD-10) Vitamin D deficiency (12/06/10) ?E55.9 - Vitamin D deficiency, unspecified (ICD-10) Posttraumatic stress disorder ?F43.10 - Post-traumatic stress disorder, unspecified (ICD-10) Panic disorder with agoraphobia (08/13/16) ?F40.01 - Agoraphobia with panic disorder (ICD-10) Opioid dependence ?F11.20 - Opioid dependence, uncomplicated (ICD-10) Moderate episode of recurrent major depressive disorder (05/09/10) ?F33.1 - Major depressive disorder, recurrent, moderate (ICD-10) Migraine headache ?G43.909 - Migraine, unspecified, not intractable, without status migrainosus (ICD-10) Irritable bowel syndrome with both constipation and diarrhea ?K58.2 - Mixed irritable bowel syndrome (ICD-10) Insomnia ?G47.00 - Insomnia, unspecified (ICD-10) History of traumatic brain injury ?Z87.820 - Personal history of traumatic brain injury (ICD-10) Generalized anxiety disorder ?F41.1 - Generalized anxiety disorder (ICD-10) Chronic pain syndrome ?G89.4 - Chronic pain syndrome (ICD-10) Chronic low back pain ?M54.50 - Low back pain, unspecified (ICD-10) ?G89.29 - Other chronic pain (ICD-10) Borderline personality disorder ?F60.3 - Borderline personality disorder (ICD-10) Acquired female bladder prolapse ?N81.10 - Cystocele, unspecified (ICD-10) Surgical History History of left oophorectomy (10/10/09) ?Z90.721 - Acquired absence of ovaries, unilateral (ICD-10) History of laparoscopic cholecystectomy (12/14/06) ?Z90.49 - Acquired absence of other specified parts of digestive tract (ICD- 10) History of cystoscopy (08/07/09) ?Z98.890 - Other specified postprocedural states (ICD-10) Family History Father Liver cancer Type 2 diabetes mellitus Social History (Updated 05/26/23 @ 09:23 by Selina Sanz ~ RMA, RMA) Narrative: , 2 sons, Non-smoker, Social EtOH What is your current living situation?: I presently have a place to live Problems where you live: pests, such as bugs, ants, or mice and water leaks In the past 12 months, utilities in danger of being shut off: no In past 12 months, lack of transportation kept you from medical appts, meetings, work, or getting things needed for daily living: no In the past 12 mos, have been you worried that your food would run out before you had money to buy more?: never true In the past 12 mos, the food you bought just didn't last and you didn't have money to buy more?: never true Smoking Status: Never smoker How often do you have a drink containing alcohol: never AUDIT-C Alcohol total score: 0 Non-prescribed substance use: denies use How often does anyone, including family, friends and others, physically hurt you : never How often does anyone, including family, friends and others, insult or talk down to you: never How often does anyone, including family, friends and others, threaten you with harm: never How often does anyone, including family, friends and others, scream or curse at you: never Little interest or pleasure in doing things: more than half the days Feeling down, depressed, or hopeless: nearly every day Exam Narrative: Exam Narrative: General: Well-developed and well-nourished, no acute distress Head: Atraumatic and normocephalic Eyes: Pupils are equal reactive, extraocular motions intact, conjunctiva clear ENT: External nose and ears are normal, posterior pharynx without erythema or exudate Neck: No midline cervical tenderness, full spontaneous range of motion the neck, trachea midline, no adenopathy Heart: Regular rate and rhythm no murmurs or thrills Lungs: Clear to auscultation bilaterally without wheezes or crackles Abdomen: Soft, nontender, nondistended with active bowel sounds Musculoskeletal: Lumbar spine midline incision is clean dry and intact with surrounding bruising and tenderness. No redness, warmth, or drainage to suggest infection. Neurologic: Awake, alert, and oriented x3, no gross focal neurologic deficits, cranial nerves intact as tested Psych: Mood and affect are appropriate Skin: No rashes Const: Vital Signs, click to edit/add: Vital Signs - 24 hr 11/23/23 18:24 11/23/23 20:40 Pulse Rate [Right] 98 111 H Respiratory Rate 18 18 Blood Pressure [Ri ght Upper Arm] 130/82 180/90 H Pulse Oximetry 96 97 Oxygen Delivery Me thod Room Air Room Air Course Course ED Course: Patient seen examined, prior records reviewed. Patient presents today with back pain after having a lumbar fusion last week. On exam here, she is tearful and anxious appearing. She ambulated in the department with a walker and appears stable on her feet. Strength and sensation of the lower extremities is intact, no saddle anesthesia or neurologic dysfunction to suggest epidural hematoma or abscess. There is no redness, warmth, induration around the incision no systemic signs of infection to suggest epidural abscess or surgical site infection. Symptoms are most consistent with postoperative pain. IV will be placed, fluids and Ativan will be given along with Toradol and Decadron. Reevaluation(s) Time of Reevaluation #1: 23:38 Reevaluation #1: Patient up to the bathroom, still complaining of back pain. Additional Dilaudid ordered. Patient recheck. She is up and walking around well moving about the department. She did have some hematuria which I would attribute to authorization for surgery as she has no other urinary symptoms Vital Signs Vital signs: Initial Vital Signs Pulse Rate 98 11/23/23 18:24 Pulse Rhythm Regular 11/23/23 18: Pulse Strength 3+ Normal 11/23/23 18:24 Respiratory Rate 18 11/23/23 18:24 Blood Pressure 130/82 11/23/23 18:24 Blood Pressure Mean 98 11/23/23 18:24 Blood Pressure Position Sitting 11/23/23 18:24 Pulse Oximetry 96 11/23/23 18:24 Oxygen Delivery Method Room Air 11/23/23 18:24 Vital Signs Pulse Rate 98 11/23/23 18:24 Respiratory Rate 18 11/23/23 18:24 Blood Pressure 130/82 11/23/23 18:24 Pulse Oximetry 96 11/23/23 18:24 Oxygen Delivery Method Room Air 11/23/23 18:24 Pulse Rate 111 H 11/23/23 20:40 Respiratory Rate 18 11/23/23 20:40 Blood Pressure 180/90 H 11/23/23 20:40 Pulse Oximetry 97 11/23/23 20:40 Oxygen Delivery Method Room Air 11/23/23 20:40 Medications Administered Medications: Discontinued Medications Generic Name Dose Route Start Last Admin Trade Name Freq PRN Reason Stop Dose Admin Hydromorphone HCl 0.5 mg 11/23/23 22:47 11/23/23 23:04 Hydromorphone 0.5 Mg/0.5 Ml Inj IVP 11/23/23 22:48 0.5 mg ONCE ONE Administration Hydromorphone HCl 0.5 mg 11/23/23 23:29 11/23/23 23:47 Hydromorphone 0.5 Mg/0.5 Ml Inj IVP 11/23/23 23:30 0.5 mg ONCE ONE Administration Sodium Chloride 1,000 mls @ 1,000 mls/hr 11/23/23 21:45 11/23/23 23:47 0.9 % Sodium Chloride 1000 Ml IV 11/23/23 22:44 Infused .Q1H KWESI Infusion Ketorolac Tromethamine 15 mg 11/23/23 21:41 11/23/23 22:13 Ketorolac 15 Mg/Ml Inj IVP 11/23/23 21:42 15 mg ONCE ONE Administration Ondansetron HCl 4 mg 11/23/23 21:41 11/23/23 22:13 Ondansetron 2 Mg/Ml Inj IVP 11/23/23 21:42 4 mg ONCE ONE Administration Discharge Plan Discharge Clinical Impression: Post-op pain Patient Disposition: Home w/ Parent or Adult Condition: Stable Instructions: Opioid Safety (ED), Pain Management After Surgery (DC) Additional Instructions: Continue Dilaudid Tylenol and ibuprofen to supplement Dilaudid. Take Tylenol 1000 mg every 6 hours alternating with ibuprofen 600 mg every 6 hours Call your surgeon in the morning to discuss further treat Activity Level: Activity as Tolerated Discharge Diet: Regular Prescriptions: No Action levonorgestrel 20 mcg/24 hours (7 yrs) 52 mg intrauterine device 1 intrauterine ONCE (DME) FreeStyle Spencer 2 Virgin Misc See Rx Instructions .Route Qty: 1 0RF Rx Instructions: As directed olopatadine 0.2 % drops 1 drp ophthalmic (eye) DAILY PRN (Reason: itching) Qty: 2.5 5RF celecoxib [Celebrex] 200 mg capsule 200 mg PO BID Qty: 60 2RF lisinopril 40 mg tablet 40 mg PO DAILY Qty: 90 1RF metoprolol succinate 200 mg tablet extended release 24 hr 200 mg PO DAILY Qty: 90 1RF escitalopram oxalate 20 mg tablet 20 mg PO DAILY Qty: 90 1RF Rx Instructions: 1/2 QD x 10 days then 1 QD duloxetine 30 mg capsule,delayed release(DR/EC) 30 mg PO QDAY Qty: 14 0RF Rx Instructions: 30 mg QD x 10 days then 60 mg QD duloxetine 60 mg capsule,delayed release(DR/EC) 60 mg PO QDAY Qty: 90 1RF oxycodone 5 mg tablet 5 - 10 mg PO Q6H MDD 8 PRN (Reason: pain) Qty: 90 0RF rizatriptan [Maxalt-[employer]] 10 mg tablet,disintegrating 10 mg PO Q2H MDD 20 mg PRN (Reason: migraine headache) Qty: 20 5RF ketotifen fumarate [Allergy Eye (ketotifen)] 0.025 % (0.035 %) drops 1 drp ophthalmic (eye) BID Qty: 5 5RF Rx Instructions: administer at least 8 hours apart prochlorperazine maleate 10 mg tablet 10 mg PO BID PRN (Reason: nausea and vomiting) Qty: 60 1RF buspirone 30 mg tablet 30 mg PO TID Qty: 90 5RF (DME) pen needle, diabetic [Pen Needle] 30 gauge x 5/16 needle See Rx Instructions .Route Qty: 100 3RF Rx Instructions: Injects daily verapamil 120 mg tablet extended release 120 mg PO BID Qty: 180 3RF pregabalin 300 mg capsule 300 mg PO BID Qty: 60 5RF Emgality Pen 120 mg/mL pen injector 120 mg subcut Q30D Qty: 1 5RF Ozempic 1 mg/dose (4 mg/3 mL) pen injector 1 mg subcut QWEEK Qty: 3 2RF trazodone 100 mg tablet 300 mg PO QHS Qty: 270 1RF lorazepam 2 mg tablet 1 mg PO TID PRN (Reason: anxiety) Qty: 45 2RF (DME) FreeStyle Spencer 14 Day Sensor Kit See Rx Instructions .Route Qty: 6 5RF Rx Instructions: Change every 2 weeks tizanidine 4 mg tablet 4 mg PO Q6-8H PRN (Reason: muscle spasticity) Qty: 90 1RF Follow Up/Referrals: Umer Aguila MD [Primary Care Provider] - Stand Alone Forms: [employer] Info Instructions
[2023-11-23] MEDS: 0.9 % SODIUM CHLORIDE 1000 ml 1,000 ML IV (22:12)
[2023-11-23] MEDS: KETOROLAC 15 MG/ML inj IVP (22:13)
[2023-11-23] MEDS: ONDANSETRON 2 MG/ML inj 4 MG IVP (22:13)
[2023-11-23] MEDS: HYDROmorphone 0.5 mg/0.5 ml inj IVP ×2 (23:04→23:47)
--- NOTE | 2023-11-24 00:12 | PC.NURSE ---
Written and verbal D/C. IV D/C intact. SO at BS and supportive. Has script for intsy meds. Ambulate out with steady gait.
== END 2023-11-24 00:17 | disposition home or self-care (01) ==
PROVIDERS: Emergency Provider Family Medicine; PCP Family Medicine
DX: G89.18 Other acute postprocedural pain (principal)
CPT/HCPCS: 96374; 96375; 96376; 99283; J1170; J1885; J2405; J7030

== ENCOUNTER 2024-01-21 08:27 | Outpatient (CLI) | payer OTHER, SELFPAY ==
--- OUTSIDE RECORDS SUMMARY | 2024-01-21 08:30 | XMS_ITS | Continuity of Care Document ---
Author Organization [facility] rakesh Address [address] [facility] [place] Lorenz [address] Phone Care Team Providers Care Supervisor Liquid Yeast Name Role Phone Will Deondre CHAPPELL Unavailable [...] Diagnoses Date Provider Providers Copied on Encounter [facility], [address] [place] [address], [id number] , tel:[phone] [facility] No Information 2 Will Deondre. [address] [place] [address], [id number] , [place]. tel:[phone] [facility], [address] [place] [address], [id number] , [place] tel:[phone] [facility] Radiculopathy, lumbar region 1 Will Deondre. [address] [place] [address], [id number] , [place]. tel:[phone] Referring Provider: Deondre Mart, [address] [place] [address], [id number]. tel:[phone] OFFICE VISIT, EST TELEMEDICINE [facility], [address] [place] [address], [id number] , [place] tel:[phone] [facility] Widespread pain (chief complaint) Chronic migraine without aura, intractable, without status migrainosusFibro myalgiaChronic migraine w/o aura, intractable, w status migrainosusLong term (current) use of opiate analgesicLow back painMyalgia, other siteCervicalgiaR adiculopathy, lumbar region 1 Duongliyah Costa. [address] [place] [address] [address], [place], [place], [id number] , . tel:[phone] Referring Provider: Deondre Mart, [address] [place] [address], [id number]. tel:[phone] OFFICE VISIT, EST TELEMEDICINE [facility], [address] [place] [address], [id number] , [place] [phone] [facility] Widespread pain (chief complaint) Chronic migraine without aura, intractable, without status migrainosusFibro myalgiaChronic migraine w/o aura, intractable, w status migrainosusLong term (current) use of opiate analgesicLow back painMyalgia, other siteCervicalgia 1 Duongliyah Gravesel. [address] [place] [address] 11 [facility] [address], [place], [place], [id number] , [place]. tel:[phone] Referring Provider: Deondre Mart, [address] [place] [address], [id number]. tel:[phone] [facility], [address] [place] [address], [id number] , [place] [phone] [facility] Chronic migraine without aura, intractable, without status migrainosus 1 Rhoda Costa. [address] [place] [address] [address], [place], [place], [id number] , [place]. tel:[phone] Referring Provider: Deondre Mart, [address] [place] [address], [id number]. tel:[phone] OFFICE VISIT, EST TELEMEDICINE [facility], [address] [place] [address], [id number] , [place] tel:[phone] [facility] Widespread pain (chief complaint) Chronic migraine without aura, intractable, without status migrainosusFibro myalgiaChronic migraine w/o aura, intractable, w status migrainosusLong term (current) use of opiate analgesicLow back painMyalgia, other site [address] [place] [address] [address], [place], [id number] , [place]. tel:[phone] Referring Provider: Deondre Mart, [address] [place] [address], [id number]. tel:[phone] OFFICE VISIT, [facility] TELEMEDICINE [facility], [address] [place] [address], [id number] , [place] tel: [phone] [facility] Widespread pain (chief complaint) Chronic migraine without aura, intractable, without status migrainosusFibro myalgiaChronic migraine w/o aura, intractable, w status migrainosusLong term (current) use of opiate analgesicLow back painMyalgia, other site 1 Rhoda Costa. [address] [place] [address] [address], [place], [id number] , [place]. tel: [phone] Referring Provider: Deondre Mart, [address] [place] [address], [id number]. tel:[phone] OFFICE VISIT, [facility] TELEMEDICINE [facility], [address] [place] [address], [id number] , [place] tel: [phone] [facility] Widespread pain (chief complaint) Chronic migraine without aura, intractable, without status migrainosusFibro myalgiaChronic migraine w/o aura, intractable, w status migrainosusLong term (current) use of opiate analgesicLow back painMyalgia, other site 1 Duong Igor. [address] [place] [address] [address], [place], [id number] , [place]. tel:[phone] Referring Provider: Deondre Mart, [address] [place] [address], [id number]. tel:[phone] [facility], [address] [place] [address], [id number] , [place] tel:[phone] [facility] Chronic migraine without aura, intractable, without status migrainosus 1 Duongliyah Costa. [address] [place] [address] [address], [place], [place], [id number] , [place]. tel: [phone] Referring Provider: Deondre Mart, [address] [place] [address], [id number]. tel:[phone] OFFICE VISIT, EST TELEMEDICINE [facility], [address] [place] [address], [id number] , [place] tel: [phone] [facility] Widespread pain (chief complaint) Chronic migraine without aura, intractable, without status migrainosusChron ic migraine w/o aura, intractable, w status migrainosusFibro myalgiaLong term (current) use of opiate analgesicLow back painMyalgia, other site 1 Duongliyah Costa. [address] [place] [address] [address], [place], [place], [id number] , [place]. tel: [phone] Referring Provider: Deondre Mart, [address] [place] [address], [id number]. tel:[phone] OFFICE VISIT, EST TELEMEDICINE [facility], [address] [place] [address], [id number] , [place] tel: [phone] [facility] Widespread pain (chief complaint) Chronic migraine without aura, intractable, without status migrainosusChron ic migraine w/o aura, intractable, w status migrainosusFibro myalgiaLong term (current) use of opiate analgesicLow back painMyalgia, other site 0 Duong Igor. [address] [place] [address] [address], [place], [place], [id number] , [place]. tel: [phone] Referring Provider: Deondre Mart, [address] [place] [address], [id number]. tel:[phone] OFFICE VISIT, EST TELEMEDICINE [facility], [address] [place] [address], [id number] , [place] tel: [phone] [facility] Widespread pain (chief complaint) Chronic migraine without aura, intractable, without status migrainosusChron ic migraine w/o aura, intractable, w status migrainosusFibro myalgiaLong term (current) use of opiate analgesicLow back painMyalgia, other siteMyalgia of auxiliary muscles, head and neck Jun-08 17- 0 Rhoda Costa. [address] [facility] [address], [place], [id number] , [place]. tel:[phone] Referring Provider: Umer Lamb, [facility] [address], [place], [address]. tel:[phone] OFFICE/OUTPAT IENT VISIT, [facility], [address] [place] [address], [id number] , [place] tel: [phone] [facility] Widespread pain (chief complaint) Chronic migraine without aura, intractable, without status migrainosusChron ic migraine w/o aura, intractable, w status migrainosusFibro myalgiaLong term (current) use of opiate analgesicLow back painMyalgia, other siteMyalgia of auxiliary muscles, head and neck May- 0 [address] [place] [address] [address], [place], [id number] , [place]. tel:[phone] Referring Provider: Umer Lamb, [facility] [address], [place], [address]. [phone] [facility], [address] [place] [address], [id number] , [place] tel:[phone] [facility] Chronic migraine without aura, intractable, without status migrainosus Sep- 0 Duongliyah [address] [place] [address] [address], [place], [id number] , [place]. tel:[phone] Referring Provider: Umer Lamb, [facility] [address], [place], [address]. 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 [address] [place] [address] [address], [place], [place], [id number] , [place]. tel: [phone] Referring Provider: Umer Lamb, [facility] [address] [place], [address]. [phone] OFFICE/OUTPAT IENT VISIT, [facility], [address] [place], [place], [id number] , [place] tel: [phone] [facility] Widespread pain (chief complaint) Chronic migraine w/o aura, intractable, w/o stat migrChronic migraine w/o aura, intractable, w status migrainosusLow back painFibromyalgia FPC (current) use of opiate analgesicMyalgia , other site 0 Rhoda Costa. [address] [place] [address] [address], [place], [id number] , [place]. tel: [phone] Referring Provider: Umer Lamb, [facility] [address] [place], [address]. 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 [address] [place] [address] [address], [place], [id number] , [place]. tel:[phone] Referring Provider: Umer Lamb, [facility] [address] [place], [address]. tel:[phone] [facility], [address] [place] [address], [id number] , [place] [phone] [facility] Chronic migraine w/o aura, intractable, w/o stat migr 0 Rhoda Costa. [address] [place] [address] [address], [place], [place], [id number] , [place]. tel:[phone] Referring Provider: Umer Lamb, [facility] [address] [place], [address]. tel:[phone] OFFICE VISIT, EST TELEMEDICINE [facility], [address] [place] [address], [id number] , [place] tel:[phone] [facility] Widespread pain (chief complaint) Chronic migraine w/o aura, intractable, w status migrainosusLow back painFibromyalgia FPC (current) use of opiate analgesic 0 Rhoda Costa. [address] [place] [address] [address], [place], [place], [id number] , [place]. tel:[phone] Referring Provider: Deondre Mart, [address] [place] [address], [id number]. tel:[phone] OFFICE VISIT, EST TELEMEDICINE [facility], [address] [place] [address], [id number] , [place] tel:[phone] [facility] Widespread pain (chief complaint) FPC (current) use of opiate analgesicLow back painFibromyalgia Chronic migraine w/o aura, intractable, w status migrainosus 0 Rhoda Costa. [address] [place] [address] [address], [place], [place], [id number] , [place]. [phone] Referring Provider: Deondre Mart, [address] [place] [address], [id number]. 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 [address] [facility] [address], [place], [place], [id number] , [place]. tel:[phone] Referring Provider: Deondre Mart, [address] [place] [address], [id number]. tel:[phone] OFFICE VISIT, EST TELEMEDICINE [facility], [address] [place] [address], [id number] , [place] [phone] [facility] Widespread pain (chief complaint) Chronic migraine w/o aura, intractable, w status migrainosusLow back painFibromyalgia Chronic pain syndromeLong term (current) use of opiate analgesic Apr-0 0 Duong Igor. [facility] [address], [place], [place], [id number] , [place]. [phone] Referring Provider: Umer Lamb, [facility] [address] [place], [address]. tel:[phone] OFFICE/OUTPAT IENT VISIT, [facility], [address] [place] [address], [id number] , [place] tel:[phone] [facility] Widespread pain (chief complaint) Chronic migraine w/o aura, intractable, w status migrainosusLow back painFibromyalgia Encounter for screening for other disorderOther roasterman (current) drug therapyEncounter for therapeutic drug level monitoringMyalgi a, other siteLong term (current) use of opiate analgesic Mar-2 - 0 Duong Igor. [address] [facility] [address], [place], [place], [id number] , [place]. [phone] Referring Provider: [facility] [address] , [place], [address]. tel:[phone] [facility], [address] [place], [place], [id number] , [place] tel:[phone] [facility] [place] No Information 0 Will Deondre. [address] [place], [id number] , [place]. tel:[phone] Family History Family Member Type Diagnosis Age [...] Of Treatment Date Type Action Status Goal TILE MOLDER HAND Paperwork. Due on due Goal RN POST PARTUM Scanned. Due on due Goal OARS. Due [...] due Goal Creatinine. Due on due Goal TILE MOLDER HAND Paperwork. Due on due Goal Tobacco Use. Due on due Goal OARS. Due on due Goal UDT. Due on due Goal Order Annual PT. Due on due Goal Weight. Due on d ue Goal AST (SGOT). Due on due Goal Medication Recon ciliation. Due on due Goal Height. Due on d ue Goal RN POST PARTUM Scanned. Due on due Goal Review Allergy L ist. Due on due Goal PHQ-9. Due on du e Goal Order Annual PT. Due on due Goal ALT (SGPT). Due on due Goal PHQ-9. Due on du e Goal TILE MOLDER HAND Paperwork. Due on due Goal UDT. Due on due Goal Tobacco Use. Due on due Goal RN POST PARTUM Scanned. Due on due Goal Update [employer] story. Due on due Goal Height. Due [...] increasing medication today. Currently doing PT at [facility] which has been beneficial. 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 She then was managed on Suboxone through [facility] but is unable to continue [...]
--- OUTSIDE RECORDS SUMMARY | 2024-01-21 08:30 | XMS_ITS | Continuity of Care Document ---
Author Organization [facility] enter Address [address] [place] [address] [address] Phone Care Team Providers Care Broadcast Director Operations Name Role Phone [facility] Unavailable Unava ilable Procedures Procedure Date INJ FORAMEN EPIDURAL L/S INJ FORAMEN EPIDURAL L/S Advance Directives Directive Yes / No Effective Date File Name No Information Encounters Encounter Description Practice Location Reason(s) For Visit Diagnoses Date Provider Providers Copied on Encounter [facility], [address] [place] [address], [id number], [place] tel:[phone] [facility] No Information [facility]. [address] [place] [address], [id number], . tel:[phone] Referring Provider: Deondre Mart, [address] [facility] [place], [address] . tel:[phone] Family History Family Member Type Diagnosis Age At Onset No Information Payers Payer name Insurance type Covered constitution [...]
--- OUTSIDE RECORDS SUMMARY | 2024-01-21 08:30 | XMS_ITS | Clinical Summary ---
Author Organization [employer] [facility] [employer] Address [place], [place] [address] Care Team Providers Care Agricultural Research Technologist Name Role Phone Umer Aguila MD Primary Care Provider + Allergies Active Allergy Reactions Criticality Noted Date Comments Adhesive Tape-Silicones Itching Low 01/11/2020 Dexamethasone Rash,Hives 04/17/2011 Haloperidol Tachycardia,Hives 05/26/2007 Sumatriptan Headache,Hives,Rash High 10/14/2006 Sertraline Hallucinations 01/02/2019 Olanzapine Rash,*Unknown - Pt D oesn't Remember 03/23/2018 Medications Medication Sig Dispensed Refills Start Date End Date Status tiZANidine (ZANAFLEX) 4 mg tabletIndications:Ch ronic bilateral low back pain without sciatica Take 1 tablet by mouth every 8 hours if needed for Muscle Spasm. 90 tablet 6 01/02/2019 Active miscellaneous medical supply (Blood Pressure Cuff) miscIndications:Hype rtension As directed. Monitor your blood pressure daily and record. Make sure you are sitting for at least 15 minutes, around the same time of day. Continue with same medications. Follow-up with primary care for further evaluation of your blood pressure. 1 Each 10/17/2021 Active Emgality Pen 120 mg/mL pen Inject 120 mg subcutaneous once a month. 05/31/2023 Active Lantus Solostar U-100 Insulin 100 unit/mL (3 mL) pen Inject 25 units subcutaneous before bedtime. Active olopatadine (PATADAY) 0.2 % ophthalmic solution Place 1 Drop into both eyes once daily if needed. 02/24/2023 Active pregabalin (LYRICA) 300 mg capsule Take 300 mg by mouth two times daily. 05/20/2023 Active prochlorperazine (COMPAZINE) 10 mg tablet Take 10 mg by mouth 2 times daily if needed for Nausea/Vomiting (prn migraine or anxiety). 02/24/2023 Active escitalopram oxalate (LEXAPRO) 20 mg tablet Take 20 mg by mouth once daily. Active ketotifen (ZADITOR) 0.025 % (0.035 %) ophthalmic solution Place 1 Drop into both eyes 2 times daily if needed. Active rizatriptan (MAXALT HEEL SEAT POUNDER) [address] 10 mg on the tongue 2 times daily if needed for Migraine. Give at minimum 2hrs apart. Max Dose: 30mg per 24hrs. Active busPIRone (BUSPAR) 30 mg tablet Take 2 tablets by mouth in the morning and 1 tablet in the evening 10/28/2023 Active LORazepam (ATIVAN) 2 mg tab Take 1 mg by mouth 3 times daily if needed for Anxiety. 10/20/2023 Active Ozempic 1 mg/dose (4 mg/3 mL) pen Inject 1 mg subcutaneous once weekly. Active traZODone (DESYREL) 100 mg tablet Take 300 mg by mouth at bedtime. Active DULoxetine (CYMBALTA) 60 mg Delayed-release capsule Take 60 mg by mouth once daily. Active acetaminophen (TYLENOL EXTRA STRGTH) 500 mg tabletIndications:Sp ondylolisthesis of lumbar region Take 1 to 2 Tablets (500-1,000 mg) by mouth every 6 hours if needed for Pain. Max acetaminophen dose: 4000mg in 24 hrs. 40 Tablet 11/20/2023 Active sennosides-docusate (SENOKOT S) (8.6-50 mg) tabletIndications:Co nstipation due to opioid therapy Take 2 Tablets by mouth two times daily. 20 Tablet 11/20/2023 Active WalkerIndications:Sp ondylolisthesis of lumbar region Walker with front wheels for home use. 1 Each 11/20/2023 Active HYDROmorphone (DILAUDID) 2 mg tabletIndications:Sp ondylolisthesis of lumbar region Take 1-2 Tablets (2-4 mg) by mouth every 4 hours if needed for Pain. 35 Tablet 11/21/2023 Active Hospital, Clinic, or Other Facility Administered Medication Ordered Dose Route Frequency Start Date End Date Status levonorgestrel intrauterine device 1 Device (MIRENA)Indications:Evaluatio n regarding contraception options 1 Device IU Q 5 YEARS 01/17/2019 Active Active Problems Problem Noted Date Diagnosed Date Spondylolisthesis of lumbar region 11/19/2023 Unspecified psychosis not du e to a [...] 2, uncontrolled 01/18/2012 09/25/2012 Dysthymic disorder 06/19/2011 5 Issue of repeat prescriptions 03/18/2011 09/08/2017 Overview: [...] MD 06/23/2014 4:45 PM Encounters Date Type Department Care Team Description 12/30/2023 10:15 AM CDT Ancillary Procedure [facility] [address] [place] [address] 12/30/2023 Travel 12/24/2023 Orders Only [facility] [address] [place] [address] Livan Sutherland MD <No scans attached> 11/19/2023 1:08 PM CDT Anesthesia Event [facility] [address] [place] [address] Parish Butterfield, Estephania Brennan MD 11/19/2023 12:55 PM CDT - 11/19/2023 4:50 PM CDT Surgery [address] [place] [address] Livan Sutherland MD POSTERIOR SPINE FUSION L4-L5, TRANSFORMINAL LUMBAR INTERBODY FUSION L4-L5 LEFT, DECOMPRESSION LAMINECTOMY L4-L5 BILATERAL, INSTRUMENTATION AND BONE GRAFT AUTOGRAFT, ALLOGRAFT 11/19/2023 10:08 AM CDT - 11/21/2023 12:41 PM CDT Hospital Encounter [address] [place] [address] Livan Sutherland MD Spondylolisthesis of lumbar region (Primary Dx); Constipation due to opioid therapy Discharge Disposition: Home Self Care 11/18/2023 Travel from Last 3 Months Immunizations Name Administration [...] Packs/Day Years Used Date Smoking Tobacco: Never Passive Smoke Exposure: Never Smokeless Tobacco: Never Tobacco Cessation:Counseling Given: Not Answered Alcohol Use Standard Drinks/Week Comments Yes 0 (1 standard drink = 0.6 oz pure alcohol) Every once and a while; not that often. PHQ-2 Answer Date Recorded PHQ-2 Score 3 03/10/2019 Social Connections Answer Date Recorded Frequency of Communication with Friends and Fami ly 0 11/21/2023 Financial Resource Strain Answer Date R ecorded Difficulty of Paying Living Expenses 2 11/21/2023 Difficulty of Paying Living Expenses 1 11/21/2023 Food Insecurity Answer Date Recorded Worried About Running Out of Food in the Last Ye ar 1 11/21/2023 Transportation Needs Answer Date Record ed Lack of Transportation (Medical) 1 11/21/2023 Housing Stability Answer Date Recorded Unable to Pay for Housing in the Last Year 1 11/21/2023 Sex and Gender Information Value Date Recorded [...] Sign Reading Time Taken Comments Blood Pressure 107/60 11/21/2023 11:00 AM CDT Pulse 93 11/21/2023 9:22 AM CDT Temperature 37.6 ??C (99.7 ??F) 11/21/2023 7:57 AM CD T Respiratory Rate 16 11/21/2023 7:57 AM CDT Oxygen Saturation 94% 11/21/2023 9:22 AM CDT Inhaled Oxygen Concentration - - Weight 89.6 kg (197 lb 9.6 oz) 11/19/2023 11:15 AM CDT Height 175.3 cm (5' 9) 11/19/2023 11:15 AM CDT Body Mass Index 29.18 11/19/2023 11:15 AM CDT Plan of Treatment Health Maintenance Due Date Last Done Comments HIV for age 15-65 1992 Hepatitis C [...] history exists Mammogram for age 45-75 2022 COVID-19 vaccine series ( season) 2023 Influenza for age 9-49 04/16/2024 8, 06/10/2017, 07/07/2016, Additional history exists Pap test for age 21-65 03/12/2025 2, 01/17/2019, 11/01/2012, Additional history exists Tdap Completed 04/16/2011 Pneumococcal series for age 6-64 Aged Out No longer eligible based on patient's age to complete this topic Medical Devices Implanted Type Area Graphics Coordinator Device Identifier Shelf Expiration Date Model / Serial / Lot Screw Lmbr Post 6.5x50mm Solera 5.5/6 Va Cocr - [id number] Implanted:Qty : 2 on 11/19/2023 by Livan Sutherland MD at [facility] N/A: Spine Medtronic Spine/Ortho [id number] / / Screw Lmbr Post 6.5x40mm Solera 5.5/6 Va Cocr - [id number] Implanted:Qty : 2 on 11/19/2023 by Livan Sutherland MD at [facility] N/A: Spine Medtronic Spine/Ortho [id number] / / Set Screw Lmbr Ant 5.5mm Solera Break Off - [id number] Implanted:Qty : 4 on 11/19/2023 by Livan Sutherland MD at [facility] N/A: Spine Medtronic Spine/Ortho [id number] / / Bone 1-4mm 60cc Medtronic Fine Canclls Freeze Dried - [id number] Implanted:Qty : 1 on 11/19/2023 by Livan Sutherland MD at [facility] N/A: Spine Medtronic Spine/Ortho 02/04/2028 [id number] / [id number] / [id number] Spacer Lmbr 99h20gu - [id number] Implanted:Qty : 1 on 11/19/2023 by Livan Sutherland MD at [facility] N/A: Spine Medtronic Spine/Ortho 01/28/2031 [id number] / / [id number] Donald Lmbr 40x5.5mm Solera 5.5/6 Cvd Titnm - [id number] Implanted:Qty : 2 on 11/19/2023 by Livan Sutherland MD at [facility] N/A: Spine Medtronic Spine/Ortho [id number] / / Procedures Procedure Name Priority Date/Time Associated Diagnosis Comments XR SPINE LUMBAR 2 VIEWS STANDING Routine 12/30/2023 10:10 AM CDT S/P lumbar fusion GLUCOSE METER Timed 11/21/2023 8:22 AM CDT GLUCOSE METER Timed 11/20/2023 9:06 PM CDT GLUCOSE METER Timed 11/20/2023 5:37 PM CDT GLUCOSE METER Timed 11/20/2023 11:47 AM CDT GLUCOSE METER Timed 11/20/2023 8:49 AM CDT XR SPINE LUMBAR 2 VIEWS Routine 11/20/2023 8:31 AM CDT HEMOGLOBIN A1C Today 11/20/2023 7:19 AM CDT HEMOGLOBIN Early AM 11/20/2023 7:19 AM CDT GLUCOSE METER Timed 11/20/2023 6:55 AM CDT GLUCOSE METER Timed 11/19/2023 5:14 PM CDT XR C-ARM EQUAL OR GREATER 2 HR Routine 11/19/2023 4:30 PM CDT ENDOTRACHEAL TUBE Routine 11/19/2023 2:0 6 PM CDT ENDOTRACHEAL TUBE Routine 11/19/2023 2:0 6 PM CDT ENDOTRACHEAL TUBE Routine 11/19/2023 2:0 6 PM CDT FUSION POSTERIOR SPINE LEVEL 01 11/19/2023 12:48 PM CDT SPONDYLOLISTHESIS, LUMBARSTENOSIS, LUMBAR W/NEUROGENIC CLAUDICATION Case Notes 3 HOURS 30 MINS-SWINGSOLERA 5.5/6.0CRESCENT Solera instruments Solera implants Prebent rodsBm adds PMI confirmed w/Osmar Al [phone] 11/08 JT - Mayur De Leon will cover case ([phone]) BD 4/3MAGNETO'S (SYNTHETIC)C-RUBY TABLEMEDICREA UNID Special Needs 5 ft 9 in, 88.1 kg, BMI 28.67DM 2Last Ozempic 11-16-2023r. Rafael aware GLUCOSE METER Timed 11/19/2023 11:05 AM CDT URINE STAT 11/19/2023 10:40 AM CDT SCAN-CARDIAC STRIP 11/19/2023 12:00 AM CDT SLIVER FORMER THIN PREP PAP SCREEN IMAGED Routine 03/12/2022 10:00 AM CDT LDL CHOLESTEROL,DIRECT Routine 09/19/2012 6:31 PM SIGN BOARD ERECTOR from Last 3 Months or Most Recently Relevant to Health Maintenance Results * XR SPINE LUMBAR 2 VIEWS STANDING (12/30/2023 10:10 AM CDT) Anatomical Region Laterality Modality Spine, LUMBAR SPINE Computed Rad iography 12/30/2023 9:45 PM CDT Impressions 12/30/2023 9:45 PM CDT 1. No radiographic evidence of acute osseous injury. 2. Stable postoperative change compatible with anterior/posterior L4-5 fusion. Dictated by Holland Horner MD @ 12/30/2023 9:45:23 PM (Electronically Signed) Narrative 12/30/2023 9:45 PM CDT For Patients: ??As a result of the Cures Act, medical imaging exams and procedure reports are released immediately into your electronic medical record. ??You may view this report before your referring provider. ??If you have questions, please contact your health care provider. INDICATION: Low back pain. History of lumbar fusion FINDINGS: Two views of the lumbar spine are submitted. Compared to prior study from November 20, 2023 Stable postop changes compatible with anterior/posterior L4-5 fusion. Surgical hardware appears stable. Evidence of IUD. The overall stature and alignment of the lumbar spine is within normal limits. Remainder the intervertebral disc space height appears within normal limits. Nonspecific bowel gas pattern. Procedure Note Darion Horner, - 12/30/2023 For Patients: As a result of the Cures Act, medical imagingexams and procedure reports are released immediately into your electronicmedical record. You may view this report before your referring provider.If you have questions, please contact your health care provider. INDICATION: Low back pain. History of lumbar fusion FINDINGS: Two views of the lumbar spine are submitted. Compared to prior study fromNovember 20, 2023 Stable postop changes compatible with anterior/posterior L4-5 fusion.Surgical hardware appears stable. Evidence of IUD. The overall stature andalignment of the lumbar spine is within normal limits. Remainder theintervertebral disc space height appears within normal limits. Nonspecificbowel gas pattern. IMPRESSION: 1. No radiographic evidence of acute osseous injury. 2. Stable postoperative change compatible with anterior/posterior L4-5fusion. Dictated by Holland Horner MD @ 12/30/2023 9:45:23 PM (Electronically Signed) Livan Sutherland MD GENERAL IMAGING * (ABNORMAL) GLUCOSE METER (11/21/2023 8:22 AM CDT) Only the most recent of8 resultswithin the time period is included. GLUCOSE METER 185(H) 65 - 100 mg/dL 11/21/2023 8:33 AM CDT [facility] Blood BLOOD SPECIMEN / Unknown 11/21/2023 8:22 AM CDT 11/21/2023 8:33 AM CDT Livan Sutherland MD CHEMISTRY [facility] SENDOUT [place] ZIP [id number] [address] [place] [address] * XR SPINE LUMBAR 2 VIEWS (11/20/2023 8:31 AM CDT) Anatomical Region Laterality Modality LUMBAR SPINE Computed Radiogr aphy 11/20/2023 8:31 AM CDT Impressions 11/20/2023 8:55 AM CDT 5 lumbar-type vertebral bodies. Postsurgical changes posterior fusion and interbody graft at L4/L5. No hardware complication. The vertebral bodies of the lumbar spine have normal stature and alignment without evidence of compression fracture. The disc spaces are well-maintained. No other significant degenerative changes. Soft tissues unremarkable. Narrative 11/20/2023 8:55 AM CDT For Patients: As a result of the Cures Act, medical imaging exams and procedure reports are released immediately into your electronic medical record. You may view this report before your referring provider. If you have questions, please contact your health care provider. EXAM: XR SPINE LUMBAR 2 VIEWS LOCATION: [facility] DATE: 11/20/2023 INDICATION: Post op evaluation COMPARISON: None. Procedure Note David Vila MD - 11/20/2023 For Patients: As a result of the Cures Act, medical imagingexams and procedure reports are released immediately into your electronicmedical record. You may view this report before your referring provider.If you have questions, please contact your health care provider. EXAM: XR SPINE LUMBAR 2 VIEWS LOCATION: [facility] DATE: 11/20/2023 INDICATION: Post op evaluation COMPARISON: None. IMPRESSION: 5 lumbar-type vertebral bodies. Postsurgical changes posterior fusion andinterbody graft at L4/L5. No hardware complication. The vertebral bodiesof the lumbar spine have normal stature and alignment without evidence ofcompression fracture. The disc spaces are well-maintained. No othersignificant degenerative changes. Soft tissues unremarkable. Misha FISH GENERAL IMAGING * Hemoglobin - In AM (11/20/2023 7:19 AM CDT) Pathologist [facility] HEMOGLOBIN 12.6 12.0 - 16.0 g/dL 11/20/2023 7:30 AM CDT [facility] MCV 90 80 - 100 fL 11/20/2023 7:30 AM CDT [facility] Blood BLOOD SPECIMEN / Unknown Venipuncture / Unknown 11/20/2023 7:19 AM CDT 11/20/2023 7:26 AM CDT Narrative [facility] - 11/20/2023 7:30 AM CDT Call surgeon if Hemoglobin is less than 9. Misha FISH HEMATOLOGY Performing Organization Address City/[facility]/ZIP Co de Phone Number [facility] SENDOUT INTERNAL ZIP [id number] [place] [id number] * Hemoglobin A1C (11/20/2023 7:19 AM CDT) [facility] HEMOGLOBIN A1C MONITORING (POCT) 5.8 <=6.4 % 11/20/2023 8:12 AM CDT [facility] Blood BLOOD SPECIMEN / Unknown Venipuncture / Unknown 11/20/2023 7:19 AM CDT 11/20/2023 7:26 AM CDT Narrative [facility] - 11/20/2023 8:12 AM CDT ? (<=6.9%) ? Indicates good control ? (7.0% to 7.9%) ? Indicates fair control ? (>=8.0%) ? Indicates poor control ?? NOTE: ??These thresholds are guidelines and ?individual targets may vary. Falsely low levels may be seen with: Recent Transfusion, Recent Significant Blood Loss, Hemolytic Diseases, or Falsely elevated levels may be seen with: Untreated Anemias, Splenectomy ? Opal Raymond DO CHEMISTRY Performing Organization Address [facility]/ZIP Co de Phone Number [facility] SENDOUT INTERNAL ZIP [phone] [place] [address] * XR C-ARM EQUAL OR GREATER 2 HR (11/19/2023 4:30 PM CDT) Anatomical Region Laterality Modality Computed Radiogr aphy 11/19/2023 4:30 PM CDT Narrative 11/20/2023 1:02 PM CDT For Patients: As a result of the Cures Act, medical imaging exams and procedure reports are released immediately into your electronic medical record. You may view this report before your referring provider. If you have questions, please contact your health care provider. EXAM: XR C-ARM EQUAL OR GREATER 2 HR LOCATION: [facility] DATE: 11/19/2023 INDICATION: Back pain, and posterior fusion at L4-L5 COMPARISON: Lumbar spine MRI dated 09/28/2023, radiographs dated 11/20/2023 TECHNIQUE: Intraoperative fluoroscopy performed during the patient's procedure. RADIATION DOSE: KARINA 21.30 mGy FINDINGS: 3 intraoperative fluoroscopic images were obtained of the lumbar spine for surgical localization. Posterior fusion with interbody disc spacer placement at L4-L5. See operative note for further details. Procedure Note Radha Duke MD - 11/20/2023 For Patients: As a result of the Cures Act, medical imagingexams and procedure reports are released immediately into your electronicmedical record. You may view this report before your referring provider.If you have questions, please contact your health care provider. EXAM: XR C-ARM EQUAL OR GREATER 2 HR LOCATION: [facility] DATE: 11/19/2023 INDICATION: Back pain, and posterior fusion at L4-L5 COMPARISON: Lumbar spine MRI dated 09/28/2023, radiographs dated11/20/2023 TECHNIQUE: Intraoperative fluoroscopy performed during the patient'sprocedure. RADIATION DOSE: KARINA 21.30 mGy FINDINGS: 3 intraoperative fluoroscopic images were obtained of the lumbarspine for surgical localization. Posterior fusion with interbody discspacer placement at L4-L5. See operative note for further details. Livan Sutherland MD FLUOROSCOPY * HCHG TUBE PR1, HCHG STYLET PR1, HCHG MOUTHPIECE PR1 (11/19/2023 2:06 PM CDT) Narrative Sravanthi Ware CRNA - 11/19/2023 2:06 PM CDT Sravanthi Ware CRNA ? 11/19/2023 ??2:07 PM Procedure: ETT Patient location during procedure: OR ETT Properties Mask Ventilation: not attempted Final Technique: direct laryngoscopy Type: straight Location: oral Cuffed: yes Tube Size: 7.0 mm Stylet: yes Laryngoscope Blade: Mac Blade Size: 4 Cormack-Lehane Grade View: 3 Insertion Attempts: 1 Placement Verification: auscultation, end tidal CO2 and symmetrical chest wall movement Assessment: pharynx clear, atraumatic and dentition unchanged Secured at: 23 Measured From: gums Tooth guard used and removed: yes Bite Block: soft Difficulty: 1 (somewhat) Parish Butterfield DO ANESTHESIA PX NOTE ORDERABLES * Urine Lab Performed - [facility] Only (11/19/2023 10:40 AM CDT) ,URIN E Negative Negative 11/19/2023 11:07 AM CDT [facility] Urine URINE SPECIMEN / Unknown Non-Blood / Unknown 11/19/2023 10:40 AM CDT 11/19/2023 11:02 AM CDT Estephania rOlando MD URINE [facility] SENDOUT INTERNAL ZIP [phone] [place] [id number] * SCAN-CARDIAC STRIP (11/19/2023 12:00 AM CDT) Narrative 11/19/2023 12:00 AM CDT Ordered by an unspecified provider. Other Clinical Staff OTHER * SLIVER FORMER THIN PREP PAP SCREEN IMAGED (03/12/2022 10:00 AM CDT) Case Report Gynecologic Cytology Report ? Case: [id number] ? Authorizing Provider: ??Umer Aguila MD ??Collected: ? 03/12/2022 1000 ? Ordering Location: ? [facility] ?Received: ?03/13/2022 1048 ? First Screen: ?Shaunna Hernandes ? Pathologist: ? Scottie Currie ? MD Aniya ? Specimen: ?SLIVER FORMER ThinPrep Vial Screening, Cervical/Vaginal ? 03/30/2022 2:06 PM CDT [facility] INTERPRETATION/ RESULT NEGATIVE FOR INTRAEPITHELIAL LESION OR MALIGNANCY (NIL) (none) 03/30/2022 2:06 PM CDT [facility] R NON-NEOPLASTIC FINDING(S) Reactive cellular changes associated with inflammation/repa ir 03/30/2022 2:06 PM CDT [facility] SPECIMEN ADEQUACY Satisfactory for evaluation Endocervical component present 03/30/2022 2:06 PM CDT [facility] HPV REQUEST HPV not requested 2021 2:06 PM CDT [facility] Date of LMP 03/30/2022 2:06 PM CDT [facility] Comment:Mirena Last Pap Result NIL 2:06 PM CDT [facility] Menstrual Status Hormonally Suppressed 03/30/2022 2:06 PM CDT [facility] Additional Information 03/30/2022 2:06 PM CDT [facility] Comment: Interpreted at [facility] - [address], [place] [address] Automated Review Successful 03/30/2022 2:06 PM CDT [facility] Comment:Specimen processed s uccessfully by automated operations plant attendant device, ThinPrep Imaging System, [employer] Note The pap test is a screening technique, not a diagnostic procedure. It is used primarily to screen for squamous cancers and precursor lesions. Published studies have shown that it is subject to both false negative and false positive results. The pap test should not be used as the sole means to diagnose or exclude pre-malignant and malignant lesions. 03/30/2022 2:06 PM CDT [facility] Other (Cervical/Vagina l) 03/12/2022 10:00 AM CDT 03/13/2022 10:48 AM CDT Umer Aguila MD PATHOLOGY/[facility] [address] [place] [address], [place] * LDL CHOLESTEROL,DIRECT (09/19/2012 6:31 PM SIGN BOARD ERECTOR) LDL CHOLESTEROL,DI RECT 86 mg/dL 09/20/2012 9:18 AM SIGN BOARD ERECTOR [facility] PATIENT STATUS NON-FASTIN G 09/20/2012 9:18 AM SIGN BOARD ERECTOR [facility] Blood specimen (specimen) BLOOD SPECIMEN / Unknown 09/19/2012 6:31 PM SIGN BOARD ERECTOR 09/19/2012 6:31 PM SIGN BOARD ERECTOR Narrative [facility] - 09/20/2012 9:18 AM SIGN BOARD ERECTOR ?RISK CATEGORY LDL GOAL ?(mg/dL) ? Vascular disease and/or diabetes (<100) Multiple (2+) risk factors ? (<130) 0-1 risk factor ?(<160) Umer Aguila MD CHEMISTRY Performing Organization Address City/State/[facility] Co de Phone Number [facility] [address] [place] [address] from Last 3 Months or Most Recently Relevant to Health Maintenance Advance Directives * Full Code (Latest Code Status on File) Date Activated Date Inactivated Comments 11/19/2023 6:53 PM 11/21/2023 2:51 PM Question Answer Comments Code Status Discussion: Other * Full Code Date Activated Date Inactivated Comments 11/19/2023 10:47 AM 11/19/2023 6:53 PM Question Answer Comments Code Status Discussion: Unable to Assess Preferences, Provider to review later * Full Code Date Activated Date Inactivated Comments 05/09/2018 12:49 AM 05/09/2018 4:01 PM Question Answer Comments Code Status Discussion: Not Discussed * Full Code Date Activated Date Inactivated Comments 04/17/2018 8:28 PM 04/25/2018 4:06 PM * Full Code Date Activated Date Inactivated Comments 03/16/2018 8:13 PM 03/31/2018 3:31 PM Care Teams Agricultural Research Technologist Relationship Specialty Start Date End Date Umer Aguila MD [address] [place] [address] PCP - General Family Practice 08/12/19
--- OUTSIDE RECORDS SUMMARY | 2024-01-21 08:30 | XMS_ITS | Continuity of Care Document ---
Author Organization [facility] Address [address] [place] [address] Phone Care Team Providers Care Sales Service Technician Name Role Phone Koko HAIR, PhD, Livan Unavailable Unavai lable Allergies, Adverse Reactions, Alerts Substance Reaction Status Criticality dexamethasone Active No Information SUMATRIPTAN SUCCINATE Active No Inf ormation sumatriptan Active No Information HALOPERIDOL LACTATE Active No Infor mation haloperidol Active No Information Medications Medication Instructions Dosage Effective Dates (start - stop) Status Comments Medrol (Frandy) 4 mg tablets in a dose pack take by Oral route as directed per package instructions - Active hydromorphone 2 mg tablet take 1 to 2 tablets by oral route every 4 - 6 hours as needed for postop pain - Active LORAZEPAM (unknown strength) Not Available - Active TIZANIDINE HCL (unknown strength) Not Available - Active GABAPENTIN (unknown strength) Not Available - Active Procedures Procedure Date POSTOP FOLLOW-UP VISIT Telephone 2023 TLIF - Includes PSF at the same level - PA NEUMANN FACETC/FRMT ARTHRD LUM 1 Posterior Instrumentation, Non-segmental - PA PEEK/ Cage/ Implant, For Interbody Fusio n - PA TLIF - Includes PSF at the same level Ap NEUMANN FACETC/FRMT ARTHRD LUM 1 Posterior Instrumentation, Non-segmental PEEK/ Cage/ Implant, For Interbody Fusio n Office/Outpatient Visit,Est, Mod 2023 [place] [place] Directives Directive Yes / No Effective Date File Name No Information Encounters Encounter Description Practice Location Reason(s) For Visit Diagnoses Date Provider Providers Copied on Encounter [facility], [address], [place], [place], [id number], [place] tel:[phone] [facility] No Information Koko Licona. [facility], [address], [place], [address], [place]. tel:[phone] Referring Provider: Javon Smith, [facility]D [facility] Not Fax, [place], [address]. tel:[phone] [facility], [address], [place], [place], [id number], [place] tel:[phone] [facility] No Information Koko Licona. [facility], [address], [place], [address], [place]. [phone] [facility], [address], [place], [place], [id number], [place] tel:[phone] [facility] No Information Danie Cabral. [facility], [address], [place], [place], [id number] , [place]. tel:[phone] Referring Provider: Javon Smith, [facility] Not Fax, [place], [address]. tel:[phone] [facility], [address], [place], [place], [id number], [place] tel:[phone] [facility] No Information Koko Licona. [facility], [address], [place], [address], [place]. tel:[phone] Referring Provider: Javon Smith, [facility] Not Fax, [place], [address]. tel:[phone] Office/Outpat ient Visit,Est, Mod [facility], [address], [place], [place], [id number], [place] tel:[phone] [facility] Spinal stenosis, lumbar region with neurogenic claudicationS pondylolisthe sis, lumbar region Koko Licona. [facility], [address], [place], [address], [place]. tel:[phone] Referring Provider: Javon Smith, [facility]ician[facility] Not Fax, [place], [address]. tel:[phone] Office/Outpat ient Visit,New, Mod [facility], [address], [facility], [id number], [place] tel:[phone] [facility] Low back pain, unspecified Koko Licona. [facility], [address], [place], [address], [place]. tel:[phone] Referring Provider: Javon Smith, [facility] Not Fax, [place], [address]. tel:[phone] Family History Family Member Type Diagnosis Age At Onset No Information Payers Payer name Insurance type Covered constitution party ID Lisarhonda vickiealfredo(s) Zahida CENTENO [place]annah 2021 CI [id number] Social History Type Description Quantity Date Captured [...]
== END 2024-01-21 08:28 | disposition home or self-care (01) ==
LOC: FBOREF 08:28
PROVIDERS: PCP Family Medicine; Visit Provider Family Medicine
DX: R63.5 Abnormal weight gain (principal)
CPT/HCPCS: 84443

== ENCOUNTER 2024-01-25 14:24 | Emergency (ER) | payer OTHER, SELFPAY ==
[2024-01-25] VITALS (19 sets, daily range): BP systolic 174–214; BP diastolic 91–137; PULSE 60–100; RESP 20; TEMP 35.8; O2SAT 96–98
--- NOTE | 2024-01-25 14:52 | CRLHL7_ITS ---
For Patients: As a result of the Century Cures Act, medical imaging exams and procedure reports are released immediately into your electronic medical record. You may view this report before your referring provider. If you have questions, please contact your health care provider. Indication: Jaw pain and swelling Technique: Volumetric multidetector CT images of the facial bones were obtained without the administration of IV contrast. Comparison: None available. Findings: The partially visualized brain is normal in attenuation without evidence of midline shift or fluid collection. There is chronic mucosal thickening seen within the right frontal sinus and ethmoid air cells as well as the right maxillary sinus with minimal dependent air-fluid level. Minimal polypoid mucosal changes in the left maxillary sinus are appreciated. Ajeg-wo-kqhilpks leftward nasal septal deviation. The bony orbits are grossly intact. There is no significant periorbital soft tissue swelling. The zygomatic arches are grossly intact. The bilateral maxillae are intact. The pterygoid plates are grossly intact. The nasal bones and anterior nasal spine are intact without displaced fracture. The mandible is predominantly edentulous with demonstration of remnant bilateral wisdom teeth. The maxilla is edentulous. Otherwise, the mandible is grossly intact without evidence of displaced fracture. No significant perimandibular soft tissue changes are appreciated. The partially visualized cervical spine is grossly intact without displaced fracture. Impression: The mandible is predominantly edentulous with remnant bilateral wisdom teeth. No significant perimandibular soft tissue swelling or acute fracture is identified. Acute on chronic sinus disease within the right maxillary sinus and frontal sinus. Please note that all CT scans at this facility use dose modulation, iterative reconstruction, and/or weight-based dosing when appropriate to reduce radiation dose to as low as reasonably achievable. Dictated by Russ Hardin MD @ 01/25/2024 4:23:34 PM (Electronically Signed)
--- NOTE | 2024-01-25 15:07 | ED.GENADULT ---
HPI - General Adult General Chief complaint: Dental/Oral/Mouth Injury/Pain Stated complaint: Jaw locked up-05/25 pain Time Seen by Provider: 01/25/24 14:27 History of Present Illness HPI narrative: This 48-year-old female comes in reporting bilateral jaw pain back toward the temporal mandibular joint. She also states that she had some vomiting yesterday. She indicates some swelling of her cheeks and her tongue. She is able to pull her tongue into her mouth but does speak differently as her tongue seems to be a bit larger and appears somewhat cyanotic. The patient is not taking any Shmuel inhibitors. She was on lisinopril but has not been on it for more than half a year. Currently she is taking for wrap a mill for blood pressure management. She arrives with normal vital signs except her blood pressure is elevated. Related Data Home Medications ?Medication ?Instructions ?Recorded ?Confirmed levonorgestrel 21 mcg/24 hr (up to 1 intrauterine ONCE 02/23/22 01/21/24 8 years) 52 mg intrauterine device naloxone 4 mg/actuation nasal spray 1 spray intranasal 12/22/23 01/21/24 Previous Rx's ?Medication ?Instructions ?Recorded flash glucose scanning reader #1 ea 06/24/22 (Scaled Inference Spencer 2 [place]) olopatadine 0.2 % eye drops 1 drp ophthalmic (eye) DAILY PRN 11/16/22 itching #2.5 mL ketotifen fumarate 0.025 % (0.035 1 drp ophthalmic (eye) BID #5 mL 11/19/22 %) eye drops (Allergy Eye (ketotifen)) prochlorperazine maleate 10 mg 10 mg PO BID PRN nausea and 02/24/23 tablet vomiting #60 tabs buspirone 30 mg tablet 30 mg PO TID anxiety #90 tabs 03/19/23 pen needle, diabetic 30 gauge x #100 ea 06/03/2312/29 (Pen Needle) verapamil 120 mg tablet,extended 120 mg PO BID #180 tabs 06/25/23 release celecoxib 200 mg capsule (Celebrex) 200 mg PO BID #60 caps 07/30/23 pregabalin 300 mg capsule 300 mg PO BID #60 caps 09/07/23 duloxetine 30 mg capsule,delayed 30 mg PO QDAY #14 caps 09/21/23 release duloxetine 60 mg capsule,delayed 60 mg PO QDAY #90 caps 09/21/23 release escitalopram oxalate 20 mg tablet 20 mg PO DAILY #90 tabs 09/21/23 metoprolol succinate 200 mg 200 mg PO DAILY #90 tabs 09/21/23 tablet,extended release 24 hr galcanezumab-gnlm 120 mg/mL 120 mg subcut Q30D #1 mL 09/22/23 subcutaneous pen injector (Emgality Pen) trazodone 100 mg tablet 300 mg (3 x 100 mg) PO QHS #270 10/07/23 tabs lorazepam 2 mg tablet 1 mg (1/2 x 2 mg) PO TID PRN 10/20/23 anxiety #45 tabs flash glucose sensor (FreeStyle #6 ea 11/09/23 Spencer 14 Day Sensor kit) rizatriptan 10 mg disintegrating 10 mg PO Q2H PRN migraine headache 12/30/23 tablet (Maxalt-EDUCATION DIAGNOSTICIAN) #20 tabs tizanidine 4 mg tablet 4 mg PO Q6-8H PRN muscle 01/13/24 spasticity #90 tabs oxycodone 5 mg tablet 5 mg PO Q6H PRN pain #21 tabs 01/18/24 semaglutide 1 mg/dose (4 mg/3 mL) 2 mg (1.5 mL) subcut QWEEK #3 mL 01/21/24 subcutaneous pen injector (Ozempic) amoxicillin 875 mg-potassium 1 tab PO BID #20 tabs 01/25/24 clavulanate 125 mg tablet hydrocodone 5 mg-acetaminophen 325 1 tab PO Q4-6H PRN pain #10 tabs 01/25/24 mg tablet Allergies Allergy/AdvReac Type Severity Reaction Status Date / Time dexamethasone Allergy Intermediate Rash Verified 01/21/24 07:49 haloperidol Allergy Intermediate Rash Verified 01/21/24 07:49 sumatriptan Allergy Intermediate Rash Verified 01/21/24 07:49 olanzapine Allergy Mild Rash Verified 01/21/24 07:49 sertraline Allergy Unknown Hallucinati Verified 01/21/24 07:49 ng Review of Systems Status of ROS: Reports: 10 or more systems reviewed and unremarkable except as noted in History and below Narrative: Constitutional: No fevers, no weight gain or loss. Eyes: No discharge. No vision changes. HENT: No congestion, no sore throat, no ear pain. She reports bilateral jaw pain with some overlying swelling and swelling of her tongue. Cardiovascular: No chest pain, no palpitations. Respiratory: No shortness of breath, no wheezes, no cough. Gastrointestinal: No abdominal pain, no vomiting, no diarrhea. Genitourinary: No dysuria, no hematuria. Musculoskeletal: Normal range of motion. Skin: No rashes, no pruritis. Neurological: No dizziness, weakness, sensory change, speech change. Endo/Heme/Allergies: No bruising or bleeding. No polydipsia. Pysch: no suicidality, no anxiety, no insomnia. All other systems reviewed and are negative. [facility] Medical History (Updated 01/25/24 @ 16:49 by David Baptiste MD) Type 2 diabetes mellitus, without long-term current use of insulin ?E11.9 - Type 2 diabetes mellitus without complications (ICD-10) Postcoital UTI ?N39.0 - Urinary tract infection, site not specified (ICD-10) Mixed hyperlipidemia ?E78.2 - Mixed hyperlipidemia (ICD-10) Primary hypertension ?I10 - Essential (primary) hypertension (ICD-10) Allergic conjunctivitis ?H10.10 - Acute atopic conjunctivitis, unspecified eye (ICD-10) Vitamin D deficiency (12/06/10) ?E55.9 - Vitamin D deficiency, unspecified (ICD-10) Posttraumatic stress disorder ?F43.10 - Post-traumatic stress disorder, unspecified (ICD-10) Panic disorder with agoraphobia (08/13/16) ?F40.01 - Agoraphobia with panic disorder (ICD-10) Opioid dependence ?F11.20 - Opioid dependence, uncomplicated (ICD-10) Moderate episode of recurrent major depressive disorder (05/09/10) ?F33.1 - Major depressive disorder, recurrent, moderate (ICD-10) Migraine headache ?G43.909 - Migraine, unspecified, not intractable, without status migrainosus (ICD-10) Irritable bowel syndrome with both constipation and diarrhea ?K58.2 - Mixed irritable bowel syndrome (ICD-10) Insomnia ?G47.00 - Insomnia, unspecified (ICD-10) History of traumatic brain injury ?Z87.820 - Personal history of traumatic brain injury (ICD-10) Generalized anxiety disorder ?F41.1 - Generalized anxiety disorder (ICD-10) Chronic pain syndrome ?G89.4 - Chronic pain syndrome (ICD-10) Chronic low back pain ?M54.50 - Low back pain, unspecified (ICD-10) ?G89.29 - Other chronic pain (ICD-10) Borderline personality disorder ?F60.3 - Borderline personality disorder (ICD-10) Acquired female bladder prolapse ?N81.10 - Cystocele, unspecified (ICD-10) Surgical History History of left oophorectomy (10/10/09) ?Z90.721 - Acquired absence of ovaries, unilateral (ICD-10) History of laparoscopic cholecystectomy (12/14/06) ?Z90.49 - Acquired absence of other specified parts of digestive tract (ICD-10) History of cystoscopy (08/07/09) ?Z98.890 - Other specified postprocedural states (ICD-10) Family History Father Liver cancer Type 2 diabetes mellitus Social History (Updated 05/26/23 @ 09:23 by Selina Sanz ~ RMA, RMA) Narrative: , 2 sons, Non-smoker, Social EtOH What is your current living situation?: I presently have a place to live Problems where you live: pests, such as bugs, ants, or mice and water leaks In the past 12 months, utilities in danger of being shut off: no In past 12 months, lack of transportation kept you from medical appts, meetings, work, or getting things needed for daily living: no In the past 12 mos, have been you worried that your food would run out before you had money to buy more?: never true In the past 12 mos, the food you bought just didn't last and you didn't have money to buy more?: never true Smoking Status: Never smoker How often do you have a drink containing alcohol: never AUDIT-C Alcohol total score: 0 Non-prescribed substance use: denies use How often does anyone, including family, friends and others, physically hurt you: never How often does anyone, including family, friends and others, insult or talk down to you: never How often does anyone, including family, friends and others, threaten you with harm: never How often does anyone, including family, friends and others, scream or curse at you: never Little interest or pleasure in doing things: several days Feeling down, depressed, or hopeless: several days Exam Narrative: Exam Narrative: Constitutional: Well-developed, well-nourished, no acute distress. HEENT: Bilateral jaw pain with some mild overlying swelling of her cheeks bilaterally. No sign of abscess on oral exam. She does not have any of her own teeth and has upper and lower dentures which have been removed. Her tongue is enlarged with some cyanosis the. Her posterior oropharynx appears normal without any edema or swelling. Her airway is sufficiently intact currently. Neck: Normal range of motion. Nontender. Supple. Heart: Regular. No murmurs. Normal rate. Intact distal pulses. Lungs: Clear to auscultation. No chest discomfort. No wheezes, rhonchi, or rales. Abdomen: Normal bowel sounds. Nontender. No rebound tenderness. Genitalia: Deferred. Back: No midline tenderness. Normal range of motion. Extremities: Normal range of motion. No injury. Skin: Intact. No rash. Warm. No erythema or pallor. Neurologic: No altered sensation. No weakness. Alert and oriented. Psychiatric: No suicidality. No anxiety or depression. No insomnia. Nursing notes and vitals signs are reviewed. Const: Vital Signs, click to edit/add: Vital Signs - 24 hr 01/25/24 14:29 01/25/24 14:49 01/25/24 14:50 Temperature 96.4 F L Pulse Rate 79 Pulse Rate [Pulse Oximeter] 83 Respiratory Rate 20 Blood Pressure 190/109 H Blood Pressure [Le ft Upper Arm] 214/137 H Pulse Oximetry 98 96 Oxygen Delivery Me thod Room Air 01/25/24 14:50 01/25/24 15:00 01/25/24 15:02 Temperature Pulse Rate 78 78 77 Pulse Rate [Pulse Oximeter] Respiratory Rate Blood Pressure 195/114 H Blood Pressure [Le ft Upper Arm] Pulse Oximetry 97 97 97 Oxygen Delivery Me thod 01/25/24 15:15 01/25/24 15:17 01/25/24 15:18 Temperature Pulse Rate 75 79 81 Pulse Rate [Pulse Oximeter] Respiratory Rate 20 Blood Pressure 174/121 H Blood Pressure [Le ft Upper Arm] Pulse Oximetry 97 96 97 Oxygen Delivery Me thod 01/25/24 15:30 01/25/24 15:31 01/25/24 15:45 Temperature Pulse Rate 60 71 77 Pulse Rate [Pulse Oximeter] Respiratory Rate Blood Pressure 188/91 H Blood Pressure [Le ft Upper Arm] Pulse Oximetry 96 97 96 Oxygen Delivery Me thod 01/25/24 15:50 01/25/24 16:00 01/25/24 16:04 Temperature Pulse Rate 77 100 90 Pulse Rate [Pulse Oximeter] Respiratory Rate Blood Pressure Blood Pressure [Le ft Upper Arm] Pulse Oximetry 97 97 97 Oxygen Delivery Me thod 01/25/24 16:05 01/25/24 16:15 01/25/24 16:19 Temperature Pulse Rate 88 88 86 Pulse Rate [Pulse Oximeter] Respiratory Rate Blood Pressure Blood Pressure [Le ft Upper Arm] Pulse Oximetry 97 97 96 Oxygen Delivery Me thod 01/25/24 16:30 01/25/24 16:45 Temperature Pulse Rate 89 95 Pulse Rate [Pulse Oximeter] Respiratory Rate Blood Pressure Blood Pressure [Le ft Upper Arm] Pulse Oximetry 96 98 Oxygen Delivery Me thod Course Vital Signs Vital signs: Initial Vital Signs Temperature Source Temporal Artery Scan 01/25/24 14:29 Pulse Rate 83 01/25/24 14:29 Respiratory Rate 20 01/25/24 14:29 Blood Pressure 214/137 H 01/25/24 14:29 Blood Pressure Mean 162 H 01/25/24 14:29 Blood Pressure Position Supine 01/25/24 14:29 Pulse Oximetry 98 01/25/24 14:29 Oxygen Delivery Method Room Air 01/25/24 14:29 Vital Signs Pulse Rate 83 01/25/24 14:29 Respiratory Rate 01/25/24 14:29 Blood Pressure 214/137 H 01/25/24 14:29 Pulse Oximetry 98 01/25/24 14:29 Oxygen Delivery Method Room Air 01/25/24 14:29 Temperature 96.4 F L 01/25/24 14:50 Pulse Rate 95 01/25/24 16:45 Respiratory Rate 20 01/25/24 15:17 Blood Pressure 188/91 H 01/25/24 15:31 Pulse Oximetry 98 01/25/24 16:45 Oxygen Delivery Method Room Air 01/25/24 14:29 Medications Administered Medications: Discontinued Medications Generic Name Dose Route Start Last Admin Trade Name Liana PRN Reason Stop Dose Admin Epinephrine HCl 0.3 mg 01/25/24 14:51 01/25/24 15:15 Epinephrine 0.3 Mg Pen IM 01/25/24 14:52 0.3 mg ONCE ONE Administration Hydromorphone HCl 0.5 mg 01/25/24 14:51 01/25/24 15:16 Hydromorphone 0.5 Mg/0.5 Ml Inj IVP 01/25/24 14:52 0.5 mg ONCE ONE Administration Ketorolac Tromethamine 30 mg 01/25/24 16:43 01/25/24 16:57 Ketorolac 30 Mg/Ml Inj IVP 01/25/24 16:44 30 mg ONCE ONE Administration Ondansetron HCl 4 mg 01/25/24 14:51 01/25/24 15:16 Ondansetron 2 Mg/Ml Inj IVP 01/25/24 14:52 4 mg ONCE ONE Administration Medical Decision Making MDM Narrative Medical decision making narrative: This patient comes in with bilateral jaw pain in the temporal mandibular joint area. She arrives with normal vital signs except for some elevated blood pressure. Her tongue is somewhat swollen and has some cyanosis more typical of trauma. She states that she awoke with these symptoms. She does have false teeth in her upper row and typically leaves them in overnight but takes amount in the morning to clean. She did put her teeth back in and her speech is better when doing so of course. She states that her tongue seems to be improving. I did acquire is CT scan of her facial bones and sinuses and there is evidence of sinusitis in the maxillary and frontal sinuses. This patient seems to be okay to return home. She did receive IV doses of Dilaudid and Toradol for pain management. She states that she is taking oxycodone but is weaning off of this. She does have a history of opioid use but seems to be moving in the right direction in that regard. I did provide prescription for Augmentin and a few tablets of Robbins. She understands she will need to follow-up with her primary physician for ongoing management. I did describe signs and symptoms that would indicate a need for return and re-evaluation. Lab Data Labs: Lab Results 01/25/24 Range/Units 14:40 WBC 11.85 H (4.50-11.00) K/uL RBC 5.02 (4.00-5.20) m/uL Hgb 14.9 (12.0-16.0) gm/dL Hct 44.7 (33.0-51.0) % MCV 89 (80-100) fL MCH 30 (26-34) pg MCHC 33 (32-36) gm/dL RDW Coeff of Bria 12.0 (11.5-15.5) % Plt Count 212 (140-440) K/uL Neut % (Auto) 77.3 H (42.0-72.0) % Lymph % (Auto) 14.9 L (20-44) % Mayes % (Auto) 4.6 (0.0-11.0) % Eos % (Auto) 1.3 (0.0-7.0) % Baso % (Auto) 0.4 (0.0-3.0) % Neut # (Auto) 9.20 H (1.7-7.0) K/uL Lymph # (Auto) 1.80 (0.90-2.90) K/uL Mayes # (Auto) 0.50 (0.00-0.90) K/UL Eos # (Auto) 0.20 (0.00-0.50) K/uL Baso # (Auto) 0.00 (0.00-0.30) K/uL Abs Immat Gran (auto) 0.20 (0.00-0.30) K/uL Imm/Tot Granulo (auto) 1.5 % D-Dimer Quant (PE/DVT) 0.57 H (0.00-0.50) ug/ml Sodium 134 L (135-149) mmol/L Potassium 3.8 (3.6-5.1) mmol/L Chloride 101 (96-114) mmol/L Carbon Dioxide 23 (20-32) mmol/L Anion Gap 10 (7-15) mEq/L BUN 12 (5-24) mg/dL Creatinine 0.5 (0.5-1.5) mg/dL Estimated GFR 117 ml/min Glucose 180 H (60-115) mg/dL Calcium 8.8 (8.4-10.6) mg/dL C-Reactive Protein 1.1 H (0.5-1.0) mg/dL Imaging Data CT Facial bones: Radiologist's impression: The mandible is predominantly edentulous with remnant bilateral wisdom teeth. No significant perimandibular soft tissue swelling or acute fracture is identified. Acute on chronic sinus disease within the right maxillary sinus and frontal sinus. Discharge Plan Discharge Clinical Impression: Sinusitis Patient Disposition: Home w/ Parent or Adult Condition: Stable Additional Instructions: Take medication as prescribed. Follow up with MD for ongoing management or return if worsening. Prescriptions: New hydrocodone-acetaminophen 5-325 mg tablet 1 tab PO Q4-6H PRN (Reason: pain) Qty: 10 0RF amoxicillin-pot clavulanate 875-125 mg tablet 1 tab PO BID Qty: 20 0RF No Action levonorgestrel 20 mcg/24 hours (7 yrs) 52 mg intrauterine device 1 intrauterine ONCE (DME) FreeStyle Spencer 2 [place] Misc See Rx Instructions .Route Qty: 1 0RF Rx Instructions: As directed olopatadine 0.2 % drops 1 drp ophthalmic (eye) DAILY PRN (Reason: itching) Qty: 2.5 5RF celecoxib [Celebrex] 200 mg capsule 200 mg PO BID Qty: 60 2RF metoprolol succinate 200 mg tablet extended release 24 hr 200 mg PO DAILY Qty: 90 1RF escitalopram oxalate 20 mg tablet 20 mg PO DAILY Qty: 90 1RF Rx Instructions: 1/2 QD x 10 days then 1 QD duloxetine 30 mg capsule,delayed release(DR/EC) 30 mg PO QDAY Qty: 14 0RF Rx Instructions: 30 mg QD x 10 days then 60 mg QD duloxetine 60 mg capsule,delayed release(DR/EC) 60 mg PO QDAY Qty: 90 1RF Ozempic 1 mg/dose (4 mg/3 mL) pen injector 2 mg subcut QWEEK Qty: 3 2RF naloxone 4 mg/actuation spray,non-aerosol 1 spray intranasal Patient Comments: Administer a single spray intranasally into one nostril. Call 911. Repeat after 2-3 minutes in alternating nostrils if no or minimal response. ketotifen fumarate [Allergy Eye (ketotifen)] 0.025 % (0.035 %) drops 1 drp ophthalmic (eye) BID Qty: 5 5RF Rx Instructions: administer at least 8 hours apart prochlorperazine maleate 10 mg tablet 10 mg PO BID PRN (Reason: nausea and vomiting) Qty: 60 1RF buspirone 30 mg tablet 30 mg PO TID Qty: 90 5RF (DME) pen needle, diabetic [Pen Needle] 30 gauge x 5/16 needle See Rx Instructions .Route Qty: 100 3RF Rx Instructions: Injects daily verapamil 120 mg tablet extended release 120 mg PO BID Qty: 180 3RF pregabalin 300 mg capsule 300 mg PO BID Qty: 60 5RF Emgality Pen 120 mg/mL pen injector 120 mg subcut Q30D Qty: 1 5RF trazodone 100 mg tablet 300 mg PO QHS Qty: 270 1RF lorazepam 2 mg tablet 1 mg PO TID PRN (Reason: anxiety) Qty: 45 2RF (DME) FreeStyle Spencer 14 Day Sensor Kit See Rx Instructions .Route Qty: 6 5RF Rx Instructions: Change every 2 weeks rizatriptan [Maxalt-EDUCATION DIAGNOSTICIAN] 10 mg tablet,disintegrating 10 mg PO Q2H MDD 20 mg PRN (Reason: migraine headache) Qty: 20 0RF tizanidine 4 mg tablet 4 mg PO Q6-8H PRN (Reason: muscle spasticity) Qty: 90 0RF oxycodone 5 mg tablet 5 mg PO Q6H PRN (Reason: pain) Qty: 21 0RF Rx Instructions: 1 BID x 1 week then 1/2 BID x 1 week. Then stop. Follow Up/Referrals: Umer Aguila MD [Primary Care Provider] - Stand Alone Forms: [facility] Info Instructions
--- OUTSIDE RECORDS SUMMARY | 2024-01-25 15:14 | XMS_ITS | Continuity of Care Document ---
Author Organization [facility] Address [address] [place] [address] Phone Care Team Providers Care Research Professor Name Role Phone Koko HAIR, PhD, Livan Unavailable Unavai lable Allergies, Adverse Reactions, Alerts Substance Reaction Status Criticality dexamethasone Active No Information SUMATRIPTAN SUCCINATE Active No Inf ormation sumatriptan Active No Information HALOPERIDOL LACTATE Active No Infor mation haloperidol Active No Information Medications Medication Instructions Dosage Effective Dates (start - stop) Status Comments hydromorphone 2 mg tablet take 1 to 2 tablets by oral route every 4 - 6 hours as needed for postop pain - Active Medrol (Frandy) 4 mg tablets in a dose pack take by Oral route as directed per package instructions - Active GABAPENTIN (unknown strength) Not Available [...] n Office/Outpatient Visit,Est, Mod 2023 Office/Outpatient Visit,[facility] [place] Advance Directives Directive Yes / No Effective Date File Name No Information Encounters Encounter Description Practice Location Reason(s) For Visit Diagnoses Date Provider Providers Copied on Encounter [facility], [address], [place], [place], [id number], [place] tel:[phone] [facility] No Information Koko Licona. [facility], [address], [place], [address], [place]. tel:[phone] Referring Provider: Javon Smith, [facility] Physician-D o Not Fax, [place], [address]. tel:[phone] [facility], [address], [place], [place], [id number], [place] tel:[phone] [facility] No Information Koko Licona. [facility], [address], [place], [address], [place]. [phone] [facility], [address], [place], [place], [id number], [place] tel:[phone] [facility] No Information Danie Cabral. [facility], [address], [place], [place], [id number] , [place]. tel:[phone] Referring Provider: Javon Smith, [facility] Physician-D o Not Fax, [place], [address]. tel:[phone] [facility], [address], [place], [place], [id number], [place] tel:[phone] [facility] No Information Koko Licona. [facility], [address], [place], [address], [place]. tel:[phone] Referring Provider: Javon Smith, [facility] Physician-D o Not Fax, [place], [address]. tel:[phone] Office/Outpat ient Visit,Est, Mod [facility], [address], [place], [id number], [place] tel:[phone] [facility] Spinal stenosis, lumbar region with neurogenic claudicationS pondylolisthe sis, lumbar region Koko Licona. [facility], [address], [place], [address], [place]. tel:[phone] Referring Provider: Javon Smith, [facility] Physician-D o Not Fax, [place], [address]. tel:[phone] Office/Outpat ient Visit,New, Mod [facility], [address], [facility] [place] [place], [id number], [place] tel:[phone] [facility] Low back pain, unspecified Koko Licona. [facility], [address], [place], [address], [place]. tel:[phone] Referring Provider: Javon Smith, [facility] Physician-D o Not Fax, [place], [address]. tel:[phone] Family History Family Member Type Diagnosis Age At Onset No Information Payers Payer name Insurance type Covered constitution party ID Lisarhonda vickiealfredo(s) Zahida CENTENO Allhannah 2021 CI [id number] Social History Type Description Quantity Date Captured [...]
--- OUTSIDE RECORDS SUMMARY | 2024-01-25 15:14 | XMS_ITS | Clinical Summary ---
Author Organization [facility] [facility] Address [place], [place] [address] Care Team Providers Care Coal Grader Name Role Phone Umer Aguila MD Primary [...] times daily if needed. Active rizatriptan (MAXALT DENTURE PACKER) [address] 10 mg [...] Description 12/30/2023 10:15 AM CDT Ancillary Procedure [facility] [address] [place] [address] 12/30/2023 Travel 12/24/2023 Orders Only [facility] [address] [facility] [address] [place] [address] Livan Sutherland MD <No scans attached> 11/19/2023 1:08 PM CDT Anesthesia Event [facility] [address] [place] [address] [place], Estephania Brennan MD 11/19/2023 12:55 PM CDT - 11/19/2023 4:50 PM CDT Surgery [address] [place] [address] Livan Sutherland MD POSTERIOR SPINE FUSION L4-L5, TRANSFORMINAL LUMBAR INTERBODY FUSION L4-L5 LEFT, DECOMPRESSION LAMINECTOMY L4-L5 BILATERAL, INSTRUMENTATION AND BONE GRAFT AUTOGRAFT, ALLOGRAFT 11/19/2023 10:08 AM CDT - 11/21/2023 12:41 PM CDT Hospital Encounter [address] [place] [address] Livan Sutherland MD Spondylolisthesis of lumbar region [...] Outcome GA Total Labor Labor/2nd/3rd Weight Sex Type Anes PTL Kristin A1 A5 Name Clin SAB Para Para Last Filed Vital Signs [...] this topic Medical Devices Implanted Type Area Wedding Florist Device Identifier Shelf Expiration Date Model / Serial / Lot Screw Lmbr Post 6.5x50mm Solera 5.5/6 Va Cocr - [id number] Implanted:Qty : 2 on 11/19/2023 by Livan Sutherland MD at [facility] N/A: Spine Medtronic Spine/Ortho [id number] / / Screw Lmbr Post 6.5x40mm Solera 5.5/6 Va Cocr - [id number] Implanted:Qty : 2 on 11/19/2023 by Livan Sutherland MD at [facility] N/A: Spine Medtronic Spine/Ortho [id number] / / Set Screw Lmbr Ant 5.5mm Solera Break Off - [id number] Implanted:Qty : 4 on 11/19/2023 by Livan Sutherland MD at [facility] N/A: Spine Med[employer]onic Spine/Ortho [id number] / / Bone 1-4mm 60cc Medtronic Fine Canclls Freeze Dried - [id number] Implanted:Qty : 1 on 11/19/2023 by Livan Sutherland MD at [facility] N/A: Spine Med[employer]onic Spine/Ortho 02/04/2028 [id number] / [id number] / [id number] Spacer Lmbr 49q66mt - [id number] Implanted:Qty : 1 on 11/19/2023 by Livan Sutherland MD at [facility] N/A: Spine Medtronic Spine/Ortho 01/28/2031 [id number] / / 98PE Donald Lmbr 40x5.5mm Solera 5.5/6 Cvd Titnm - [id number] Implanted:Qty : 2 on 11/19/2023 by Livan Sutherland MD at [facility] N/A: Spine Medtronic Spine/Ortho [id number] / / Procedures Procedure Name Priority Date/Time [...] Prebent rodsBm adds PMI confirmed w/Osmar Al [phone] 11/08 JT - Mayur De Leon will cover case ([phone]) BD 4/3MAGNETO'S (SYNTHETIC)C-RUBY TABLEMEDICREA UNID Special Needs 5 ft 9 in, 88.1 kg, BMI 28.67DM 2Last Ozempic 11-16-2023r. Rafael aware GLUCOSE METER Timed 11/19/2023 11:05 AM CDT URINE STAT 11/19/2023 10:40 AM CDT SCAN-CARDIAC STRIP 11/19/2023 12:00 AM CDT LINE TESTER THIN PREP PAP SCREEN IMAGED Routine 03/12/2022 10:00 AM CDT LDL CHOLESTEROL,DIRECT Routine 09/19/2012 6:31 PM SOIL TECHNICIAN from Last 3 Months or Most Recently [...] - 100 mg/dL 11/21/2023 8:33 AM CDT [facility] Blood BLOOD SPECIMEN / Unknown 11/21/2023 8:22 AM CDT 11/21/2023 8:33 AM CDT Livan Sutherland MD CHEMISTRY [facility] SENDOUT [place]NAL ZIP [phone] [place] [address] * XR SPINE LUMBAR 2 VIEWS (11/20/2023 [...] EXAM: XR SPINE LUMBAR 2 VIEWS LOCATION: [facility] DATE: 11/20/2023 INDICATION: Post op evaluation COMPARISON: None. Procedure Note David Vila MD - 11/20/2023 For Patients: As a result of the Cures Act, medical imagingexams and procedure reports are released immediately into your electronicmedical record. You may view this report before your referring provider.If you have questions, please contact your health care provider. EXAM: XR SPINE LUMBAR 2 VIEWS LOCATION: [facility] DATE: 11/20/2023 INDICATION: Post op [...] In AM (11/20/2023 7:19 AM CDT) Pathologist [facility] HEMOGLOBIN 12.6 12.0 - 16.0 g/dL 11/20/2023 7:30 AM CDT [facility] MCV 90 80 - 100 fL 11/20/2023 7:30 AM CDT [facility] Blood BLOOD SPECIMEN / Unknown Venipuncture / Unknown 11/20/2023 7:19 AM CDT 11/20/2023 7:26 AM CDT Narrative [facility] - 11/20/2023 7:30 AM CDT Call surgeon if Hemoglobin is less than 9. Misha FISH HEMATOLOGY Performing Organization Address City/[facility]/ZIP Co de Phone Number [facility] SENDOUT INTERNAL ZIP [id number] [place] [id number] * Hemoglobin A1C (11/20/2023 7:19 AM CDT) [facility] HEMOGLOBIN A1C MONITORING (POCT) 5.8 <=6.4 % 11/20/2023 8:12 AM CDT [facility] Blood BLOOD SPECIMEN / Unknown Venipuncture / Unknown 11/20/2023 7:19 AM CDT 11/20/2023 7:26 AM CDT Narrative [facility] - 11/20/2023 8:12 AM CDT ? [...] Opal Raymond DO CHEMISTRY Performing Organization Address [facility]/ZIP Co de Phone Number [facility] SENDOUT INTERNAL ZIP [phone] [place] [id number] * XR C-ARM EQUAL OR GREATER 2 [...] C-ARM EQUAL OR GREATER 2 HR LOCATION: [facility] DATE: 11/19/2023 INDICATION: Back pain, [...] C-ARM EQUAL OR GREATER 2 HR LOCATION: [facility] DATE: 11/19/2023 INDICATION: Back pain, [...] NOTE ORDERABLES * Urine Lab Performed - [facility] Only (11/19/2023 10:40 AM CDT) ,URIN E Negative Negative 11/19/2023 11:07 AM CDT [facility] Urine URINE SPECIMEN / Unknown Non-Blood / Unknown 11/19/2023 10:40 AM CDT 11/19/2023 11:02 AM CDT Estephania Orlando MD URINE [facility] SENDOUT INTERNAL ZIP [phone] [place] [id number] * SCAN-CARDIAC STRIP (11/19/2023 12:00 AM CDT) Narrative 11/19/2023 12:00 AM CDT Ordered by an unspecified provider. Other Clinical Staff OTHER * LINE TESTER THIN PREP PAP SCREEN IMAGED (03/12/2022 10:00 AM CDT) Case Report Gynecologic Cytology Report ? Case: [id number] ? Authorizing Provider: ??Umer Aguila MD ??Collected: ? 03/12/2022 1000 ? Ordering Location: ? [facility] ?Received: ?03/13/2022 1048 ? First Screen: ?Shaunna Hernandes ? Pathologist: ? Scottie Currie ? MD Aniya ? Specimen: ?LINE TESTER ThinPrep Vial Screening, Cervical/Vaginal ? 03/30/2022 2:06 PM CDT [facility] INTERPRETATION/ RESULT NEGATIVE FOR INTRAEPITHELIAL LESION OR MALIGNANCY (NIL) (none) 03/30/2022 2:06 PM CDT [email or web address] R NON-NEOPLASTIC FINDING(S) Reactive cellular changes associated with inflammation/repa ir 03/30/2022 2:06 PM CDT [facility] SPECIMEN ADEQUACY Satisfactory for evaluation Endocervical component present 03/30/2022 2:06 PM CDT [facility] HPV REQUEST HPV not requested 2021 2:06 PM CDT [facility] Date of LMP 03/30/2022 2:06 PM CDT [facility] Comment:Mirena Last Pap Result NIL 2:06 PM CDT [facility] Menstrual Status Hormonally Suppressed 03/30/2022 2:06 PM CDT [facility] Additional Information 03/30/2022 2:06 PM CDT [facility] Comment: Interpreted at [facility] - [address], [place] [address] Automated Review Successful 03/30/2022 2:06 PM CDT [facility] Comment:Specimen processed s uccessfully by automated terminal block assembler device, ThinPrep Imaging System, [employer] Note The pap test is a [...] and malignant lesions. 03/30/2022 2:06 PM CDT [facility] Other (Cervical/Vagina l) 03/12/2022 10:00 AM CDT 03/13/2022 10:48 AM CDT Umer Aguila MD PATHOLOGY/[facility] [address] [place] [address], [place] * LDL CHOLESTEROL,DIRECT (09/19/2012 6:31 PM SOIL TECHNICIAN) LDL CHOLESTEROL,DI RECT 86 mg/dL 09/20/2012 9:18 AM SOIL [facility]CHNIC[facility] PATIENT STATUS NON-FASTIN G 09/20/2012 9:18 AM SOIL TECHNICIAN [facility] Blood specimen (specimen) BLOOD SPECIMEN / Unknown 09/19/2012 6:31 PM SOIL TECHNICIAN 09/19/2012 6:31 PM SOIL TECHNICIAN Narrative [facility] - 09/20/2012 9:18 AM SOIL TECHNICIAN ?RISK CATEGORY LDL GOAL ?(mg/dL) ? Vascular disease and/or diabetes (<100) Multiple (2+) risk factors ? (<130) 0-1 risk factor ?(<160) Umer Aguila MD CHEMISTRY Performing Organization Address City/State/[facility] Co de Phone Number [facility] [address] [place] [address] from Last 3 Months or Most Recently [...] 8:13 PM 03/31/2018 3:31 PM Care Teams Coal Grader Relationship Specialty Start Date End Date Umer Aguila MD [address] [place] [address] PCP - General Family Practice 08/12/19
--- OUTSIDE RECORDS SUMMARY | 2024-01-25 15:14 | XMS_ITS | Continuity of Care Document ---
Author Organization [facility] enter Address [address] [place] [address] [address] Phone Care Team Providers Care Wafer Substrate Tester Name Role Phone [facility] Unavailable Unava ilable Procedures Procedure Date INJ FORAMEN EPIDURAL L/S INJ FORAMEN EPIDURAL L/S Advance Directives Directive Yes / No Effective Date File Name No Information Encounters Encounter Description Practice Location Reason(s) For Visit Diagnoses Date Provider Providers Copied on Encounter [facility], [address] [place] [address], [id number], [place] tel:[phone] [facility] No Information [facility]. [address] [place] [address], [id number], . tel:[phone] Referring Provider: Deondre Mart, [address] [facility] [place], [address] . tel:[phone] Family History Family Member Type Diagnosis Age [...]
[2024-01-25] MEDS: EPINEPHrine 0.3 MG PEN IM (15:15)
--- OUTSIDE RECORDS SUMMARY | 2024-01-25 15:15 | XMS_ITS | Continuity of Care Document ---
Author Organization [facility] Address [address] [place] [address] Phone Care Team Providers Care Food Service Hotel Runner Name Role Phone Will Deondre CHAPPELL Unavailable [...] times every day 600 MG - Active tizanidine 4 mg tablet take 1 tablet by ORAL route 3 times every day as needed, max 2/day 4 MG - Active trazodone 100 mg tablet take 1 tablet by ORAL route 3 times per day - Active lorazepam 1 mg tablet take 1 tablet by O RAL route every 8 hours prn, max 3/d 1 MG - Active lisinopril 20 mg tablet take 1 tablet by oral route every day 20 MG - Active metoprolol succinate ER 200 mg tablet,extended release 24 hr take 1 tablet by oral route every day 200 MG - Active metformin 500 mg tablet take 1 tablet by oral route 2 times every day with morning and evening meals 500 MG - Active topiramate 50 mg tablet take 1 tablet by oral route every day 50 MG - Active duloxetine 30 mg capsule,delayed release take 3 capsule by ORAL route every day 90 MG - Active duloxetine 60 mg capsule,delayed release take 1 capsule by ORAL route every day 60 MG - Active Procedures Procedure Date INJ FORAMEN [...] Diagnoses Date Provider Providers Copied on Encounter [facility], [address] [place] [address], [id number] , tel:[phone] [facility] No Information 2 Will Deondre. [address] [place] [address], [id number] , [place]. tel:[phone] [facility], [address] [place] [address], [id number] , [place] tel:[phone] [facility] Radiculopathy, lumbar region 1 Will Deondre. [address] [place] [address], [id number] , [place]. tel:[phone] Referring Provider: Deondre Mart, [address] [place] [address], [id number]. tel:[phone] OFFICE VISIT, EST TELEMEDICINE [facility], [address] [place] [address], [id number] , [place] tel:[phone] [facility] Widespread pain (chief complaint) Chronic migraine without aura, intractable, without status migrainosusFibro myalgiaChronic migraine w/o aura, intractable, w status migrainosusLong term (current) use of opiate analgesicLow back painMyalgia, other siteCervicalgiaR adiculopathy, lumbar region 1 Duongliyah Costa. [address] [place] [address] [address], [place], [place], [id number] , . tel:[phone] Referring Provider: Deondre Mart, [address] [place] [address], [id number]. tel:[phone] OFFICE VISIT, EST TELEMEDICINE [facility], [address] [place] [address], [id number] , [place] [phone] [facility] Widespread pain (chief complaint) Chronic migraine without aura, intractable, without status migrainosusFibro myalgiaChronic migraine w/o aura, intractable, w status migrainosusLong term (current) use of opiate analgesicLow back painMyalgia, other siteCervicalgia 1 Duongliyah Gravesel. [address] [place] [address] [address] [facility] [address], [place], [place], [id number] , [place]. tel:[phone] Referring Provider: Deondre Mart, [address] [place] [address], [id number]. tel:[phone] [facility], [address] [place] [address], [id number] , [place] [phone] [facility] Chronic migraine without aura, intractable, without status migrainosus 1 Rhoda Costa. [address] [place] [address] [address], [place], [place], [id number] , [place]. tel:[phone] Referring Provider: Deondre Mart, [address] [place] [address], [id number]. tel:[phone] OFFICE VISIT, EST TELEMEDICINE [facility], [address] [place] [address], [id number] , [place] tel:[phone] [facility] Widespread pain (chief complaint) Chronic migraine without aura, intractable, without status migrainosusFibro myalgiaChronic migraine w/o aura, intractable, w status migrainosusLong term (current) use of opiate analgesicLow back painMyalgia, other site 1 Duongliyah Costa. [address] [place] [address] [address], [place], [id number] , [place]. tel:[phone] Referring Provider: Deondre Mart, [address] [place] [address], [id number]. tel:[phone] OFFICE VISIT, [facility] TELEMEDICINE [facility], [address] [place] [id number] , [place] tel: [phone] [facility] Widespread pain (chief complaint) Chronic migraine without aura, intractable, without status migrainosusFibro myalgiaChronic migraine w/o aura, intractable, w status migrainosusLong term (current) use of opiate analgesicLow back painMyalgia, other site 1 Rhoda Costa. [address] [place] [address] [address], [place], [id number] , [place]. tel: [phone] Referring Provider: Deondre Mart, [address] [place] [address], [id number]. tel:[phone] OFFICE VISIT, [facility] TELEMEDICINE [facility], [address] [place] [address], [id number] , [place] tel: [phone] [facility] Widespread pain (chief complaint) Chronic migraine without aura, intractable, without status migrainosusFibro myalgiaChronic migraine w/o aura, intractable, w status migrainosusLong term (current) use of opiate analgesicLow back painMyalgia, other site 1 Duong Igor. [address] [place] [address] [address], [place], [id number] , [place]. tel:[phone] Referring Provider: Deondre Mart, [address] [place] [address], [address]. tel:[phone] [facility], [address] [place] [address], [id number] , [place] tel:[phone] [facility] Chronic migraine without aura, intractable, without status migrainosus 1 Duongliyah Costa. [address] [place] [address] [address], [place], [place], [id number] , [place]. tel: [phone] Referring Provider: Deondre Mart, [address] [place] [address], [id number]. tel:[phone] OFFICE VISIT, EST TELEMEDICINE [facility], [address] [place] [address], [id number] , [place] tel: [phone] [facility] Widespread pain (chief complaint) Chronic migraine without aura, intractable, without status migrainosusChron ic migraine w/o aura, intractable, w status migrainosusFibro myalgiaLong term (current) use of opiate analgesicLow back painMyalgia, other site 1 Duongliyah Costa. [address] [place] [address] [address], [place], [place], [id number] , [place]. tel: [phone] Referring Provider: Deondre Mart, [address] [place] [address], [address]. tel:[phone] OFFICE VISIT, EST TELEMEDICINE [facility], [address] [place] [address], [id number] , [place] tel: [phone] [facility] Widespread pain (chief complaint) Chronic migraine without aura, intractable, without status migrainosusChron ic migraine w/o aura, intractable, w status migrainosusFibro myalgiaLong term (current) use of opiate analgesicLow back painMyalgia, other site 0 Duong Igor. [address] [place] [address] [address], [place], [place], [id number] , [place]. tel: [phone] Referring Provider: Deondre Mart, [address] [place] [address], [address]. tel:[phone] OFFICE VISIT, EST TELEMEDICINE [facility], [address] [place] [address], [id number] , [place] tel: [phone] [facility] Widespread pain (chief complaint) Chronic migraine without aura, intractable, without status migrainosusChron ic migraine w/o aura, intractable, w status migrainosusFibro myalgiaLong term (current) use of opiate analgesicLow back painMyalgia, other siteMyalgia of auxiliary muscles, head and neck Jun-08 17- 0 Rhoda Costa. [address] [facility] [address], [place], [id number] , [place]. tel:[phone] Referring Provider: Umer Lamb, [facility] [address], [place], [address]. tel:[phone] OFFICE/OUTPAT IENT VISIT, [facility], [address] [place] [address], [id number] , [place] tel: [phone] [facility] Widespread pain (chief complaint) Chronic migraine without aura, intractable, without status migrainosusChron ic migraine w/o aura, intractable, w status migrainosusFibro myalgiaLong term (current) use of opiate analgesicLow back painMyalgia, other siteMyalgia of auxiliary muscles, head and neck May- 0 Duongliyah Costa. [address] [place] [address] [address], [place], [id number] , [place]. tel:[phone] Referring Provider: Umer Lamb, [facility] [address], [place], [address]. [phone] [facility], [address] [place] [address], [id number] , [place] tel:[phone] [facility] Chronic migraine without aura, intractable, without status migrainosus Sep- 0 Duongliyah Costa. [address] [place] [address] [address], [place], [id number] , [place]. tel:[phone] Referring Provider: Umer Lamb, [facility] [address], [place], [address]. [phone] OFFICE/OUTPAT IENT VISIT, [facility], [address] [place], [place], [id number] , [place] tel: [phone] [facility] Widespread pain (chief complaint) Chronic migraine w/o aura, intractable, w/o stat migrChronic migraine w/o aura, intractable, w status migrainosusLow back painFibromyalgia senior care (current) use of opiate analgesicMyalgia , other site 0 Duongliyah Costa. [address] [place] [address] [address], [place], [place], [id number] , [place]. tel: [phone] Referring Provider: Umer Lamb, [facility] [address] [place], [address]. [phone] OFFICE/OUTPAT IENT VISIT, [facility], [address] [place], [place], [id number] , [place] tel: [phone] [facility] Widespread pain (chief complaint) Chronic migraine w/o aura, intractable, w/o stat migrChronic migraine w/o aura, intractable, w status migrainosusLow back painFibromyalgia extermination inspector (current) use of opiate analgesicMyalgia , other site 0 Rhoda Costa. [address] [place] [address] [address], [place], [id number] , [place]. tel: [phone] Referring Provider: Umer Lamb, [facility] [address] [place], [address]. tel:[phone] OFFICE VISIT, [facility] TELEMEDICINE [facility], [address] [place], [place], [id number] , [place] tel: [phone] [facility] Widespread pain (chief complaint) Chronic migraine w/o aura, intractable, w/o stat migrChronic migraine w/o aura, intractable, w status migrainosusLow back painFibromyalgia senior care (current) use of opiate analgesic 0 Duong Igor. [address] [place] [address] [address], [place], [id number] , [place]. tel:[phone] Referring Provider: Umer Lamb, [facility] [address] [place], [address]. tel:[phone] [facility], [address] [place] [address], [id number] , [place] [phone] [facility] Chronic migraine w/o aura, intractable, w/o stat migr 0 Rhoda Costa. [address] [place] [address] [address], [place], [place], [id number] , [place]. tel:[phone] Referring Provider: Umer Lamb, [facility] [address] [place], [address]. 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 [address] [place] [address] [address], [place], [place], [id number] , [place]. tel:[phone] Referring Provider: Deondre Mart, [address] [place] [address], [address]. tel:[phone] OFFICE VISIT, EST TELEMEDICINE [facility], [address] [place] [address], [id number] , [place] tel:[phone] [facility] Widespread pain (chief complaint) senior care (current) use of opiate analgesicLow back painFibromyalgia Chronic migraine w/o aura, intractable, w status migrainosus 0 Rhoda Costa. [address] [place] [address] [address], [place], [place], [id number] , [place]. [phone] Referring Provider: Deondre Mart, [address] [place] [address], [address]. 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 [address] [facility] [address], [place], [place], [id number] , [place]. tel:[phone] Referring Provider: Deondre Mart, [address] [place] [address], [id number]. tel:[phone] OFFICE VISIT, EST TELEMEDICINE [facility], [address] [place] [address], [id number] , [place] [phone] [facility] Widespread pain (chief complaint) Chronic migraine w/o aura, intractable, w status migrainosusLow back painFibromyalgia Chronic pain syndromeLong term (current) use of opiate analgesic Apr-0 0 Duong Igor. [employer] [address], [place], [place], [id number] , [place]. [phone] Referring Provider: Umer Lamb, [facility] [address] [place], [address]. tel:[phone] OFFICE/OUTPAT IENT VISIT, [facility], [address] [place] [address], [id number] , [place] tel:[phone] [facility] Widespread pain (chief complaint) Chronic migraine w/o aura, intractable, w status migrainosusLow back painFibromyalgia Encounter for screening for other disorderOther long term care social worker (current) drug therapyEncounter for therapeutic drug level monitoringMyalgi a, other siteLong term (current) use of opiate analgesic Mar-2 - 0 Duong Igor. [address] [facility] [address], [place], [place], [id number] , [place]. [phone] Referring Provider: [facility] [address] , [place], [address]. tel:[phone] [facility], [address] [facility] [place], [place], [id number] , [place] tel:[phone] [facility] [place] No Information 0 Will Deondre. [address] [place], [id number] , [place]. [phone] Family History Family Member Type Diagnosis Age [...] due Goal OARS. Due on due Goal HOTEL RECREATIONAL FACILITIES MANAGER Scanned. Due on due Goal HOOKER INSPECTOR Paperwork. Due on due Goal ALT (SGPT). Due on due Goal Update Social [employer] story. Due on due Goal Creatinine. Due on due Goal HOOKER INSPECTOR Paperwork. Due on due Goal Tobacco Use. Due on due Goal OARS. Due on due Goal UDT. Due on due Goal Order Annual PT. Due on due Goal Weight. Due on d ue Goal AST (SGOT). Due on due Goal Medication Recon ciliation. Due on due Goal Height. Due on d ue Goal HOTEL RECREATIONAL FACILITIES MANAGER Scanned. Due on due Goal Review Allergy L ist. Due on due Goal PHQ-9. Due on du e Goal Tobacco Use. Due on due Goal HOTEL RECREATIONAL FACILITIES MANAGER Scanned. Due on due Goal Update Social [employer] story. Due on due Goal Height. Due on d ue Goal Weight. Due on d ue Goal Medication Recon ciliation. Due on due Goal Review Allergy L ist. Due on due Goal UDT. Due on due Goal HOOKER INSPECTOR Paperwork. Due on due Goal PHQ-9. Due [...] include rest, cold and changing. Widespread pain Severity level i s 8. [...] increasing medication today. Currently doing PT at [facility] which has been beneficial. Interested in TPIs [...] concern today.Previously managed on opioids, however her HOOKER INSPECTOR was terminated as she trialed on of her friends Suboxone which showed in her UDT. She then was managed on Suboxone through [facility] but is unable to continue [...]
[2024-01-25] MEDS: ONDANSETRON 2 MG/ML inj 4 MG IVP (15:16)
[2024-01-25] MEDS: HYDROmorphone 0.5 mg/0.5 ml inj IVP (15:16)
[2024-01-25 15:18] LABS: Basophils Percent Auto 0.4 % (0.0-3.0); Chloride* 101 mmol/L (96-114); Eosinophils Percent Auto 1.3 % (0.0-7.0); Hematocrit 44.7 % (33.0-51.0); Hemoglobin* 14.9 gm/dL (12.0-16.0); Immature Granulocytes Pct Auto 1.5 %; Lymphocytes Percent Auto 14.9 % (20-44); Mean Corpuscular HGB Conc 33 gm/dL (32-36); Mean Corpuscular Hemoglobin 30 pg (26-34); Mean Corpuscular Volume 89 fL (80-100); Monocytes Percent Auto 4.6 % (0.0-11.0); Neutrophils Percent Auto 77.3 % (42.0-72.0); Platelet Count* 212 K/uL (140-440); Potassium* 3.8 mmol/L (3.6-5.1); Red Blood Count 5.02 m/uL (4.00-5.20); Sodium* 134 mmol/L (135-149); White Blood Count* 11.85 K/uL (4.50-11.00)
[2024-01-25 15:21] LABS: Creatinine* 0.5 mg/dL (0.5-1.5); Estimated Glomerular Filt Rate 117 ml/min
[2024-01-25 15:22] LABS: Anion Gap 10 mEq/L (7-15); Blood Urea Nitrogen* 12 mg/dL (5-24); Calcium* 8.8 mg/dL (8.4-10.6); Carbon Dioxide* 23 mmol/L (20-32); Glucose* 180 mg/dL (60-115)
[2024-01-25 15:25] LABS: C Reactive Protein* 1.1 mg/dL (0.5-1.0)
[2024-01-25 15:29] LABS: Slide Review Reflex No
[2024-01-25 15:31] LABS: D Dimer Quantitative* 0.57 ug/ml (0.00-0.50)
[2024-01-25] MEDS: KETOROLAC 30 MG/ML inj IVP (16:57)
--- NOTE | 2024-01-26 11:44 | ED.NURSE ---
[facility] called questioning rx order for [place] that pt had been prescribed yesterday. Pharmacy was concerned about potential pt hx of substance abuse and wanted clarification about MD intent for rx of [place]. Call was forwarded to MD Fraga.
--- NOTE | 2024-01-26 11:45 | ED.GENADULT ---
HPI - General Adult General Chief complaint: Dental/Oral/Mouth Injury/Pain Stated complaint: Jaw locked up-05/25 pain Time Seen by Provider: 01/25/24 14:27 History of Present Illness HPI narrative: This is an addendum to Dr. Baptiste see ER Note for about this patient from a visit yesterday he gave her prescription for Augmentin and [place] for sinusitis. Has a history of opiate use disorder and apparently is on a tapering dose of oxycodone after a surgery. The pharmacist from [facility] contacted us by phone today at about 11:30 a.m.. He sees in this patient's record that she has current prescriptions for Ativan, oxycodone, and other sedating medications. He has concerned about additional prescription for [place]. The pharmacist is obliquely expressing concern that the patient may have opiate use disorder or addiction and may be at risk for polypharmacy and overdose. He is not comfortable filling the prescription. I reviewed Dr. Baptiste is record from yesterday. In his medical decision-making he does document the patient's history of opiate use and that feels like she is going the right direction on that. It sounds like he was giving her the benefit of the doubt about her new acute pain and treating it. The pharmacists asked me if it is franklin to give another prescription for opiate. She I discussed with him that I was not seeing the patient and I only have Dr. Baptiste is records available. Of course there would be concern for polypharmacy, risk of overdose, as well as addiction or opiate use disorder. However, if there were a new acute painful condition, a short prescription of pain opiate pain medications could theoretically be reasonable. At this point I do not have information that would lead me to specifically discontinue Dr. Baptiste is prescription. Noted to have clear information indicating that the prescription for [place] is definitively safe and appropriate. The pharmacist advises me that he is going to contact her primary care provider, Dr. Aguila for further advice. He is not comfortable filling additional opiate prescriptions for this patient. Related Data Home Medications ?Medication ?Instructions ?Recorded ?Confirmed levonorgestrel 21 mcg/24 hr (up to 1 intrauterine ONCE 02/23/22 01/21/24 8 years) 52 mg intrauterine device naloxone 4 mg/actuation nasal spray 1 spray intranasal 12/22/23 01/21/24 Previous Rx's ?Medication ?Instructions ?Recorded flash glucose scanning reader #1 ea 06/24/22 (FreeStyle Spencer 2 Clemons) olopatadine 0.2 % eye drops 1 drp ophthalmic (eye) DAILY PRN 11/16/22 itching #2.5 mL ketotifen fumarate 0.025 % (0.035 1 drp ophthalmic (eye) BID #5 mL 11/19/22 %) eye drops (Allergy Eye (ketotifen)) prochlorperazine maleate 10 mg 10 mg PO BID PRN nausea and 02/24/23 tablet vomiting #60 tabs buspirone 30 mg tablet 30 mg PO TID anxiety #90 tabs 03/19/23 pen needle, diabetic 30 gauge x #100 ea 06/03/2312/29 (Pen Needle) verapamil 120 mg tablet,extended 120 mg PO BID #180 tabs 06/25/23 release celecoxib 200 mg capsule (Celebrex) 200 mg PO BID #60 caps 07/30/23 pregabalin 300 mg capsule 300 mg PO BID #60 caps 09/07/23 duloxetine 30 mg capsule,delayed 30 mg PO QDAY #14 caps 09/21/23 release duloxetine 60 mg capsule,delayed 60 mg PO QDAY #90 caps 09/21/23 release escitalopram oxalate 20 mg tablet 20 mg PO DAILY #90 tabs 09/21/23 metoprolol succinate 200 mg 200 mg PO DAILY #90 tabs 09/21/23 tablet,extended release 24 hr galcanezumab-gnlm 120 mg/mL 120 mg subcut Q30D #1 mL 09/22/23 subcutaneous pen injector (Emgality Pen) trazodone 100 mg tablet 300 mg (3 x 100 mg) PO QHS #270 10/07/23 tabs flash glucose sensor (FreeStyle #6 ea 11/09/23 Spencer 14 Day Sensor kit) rizatriptan 10 mg disintegrating 10 mg PO Q2H PRN migraine headache 12/30/23 tablet (Maxalt-CLIENT CUSTOMER MANAGER) #20 tabs tizanidine 4 mg tablet 4 mg PO Q6-8H PRN muscle 01/13/24 spasticity #90 tabs oxycodone 5 mg tablet 5 mg PO Q6H PRN pain #21 tabs 06/04/24 semaglutide 1 mg/dose (4 mg/3 mL) 2 mg (1.5 mL) subcut QWEEK #3 mL 01/21/24 subcutaneous pen injector (Ozempic) amoxicillin 875 mg-potassium 1 tab PO BID #20 tabs 01/25/24 clavulanate 125 mg tablet hydrocodone 5 mg-acetaminophen 325 1 tab PO Q4-6H PRN pain #10 tabs 01/25/24 mg tablet lorazepam 1 mg tablet 1 mg PO TID PRN anxiety #90 tabs 01/26/24 Allergies Allergy/AdvReac Type Severity Reaction Status Date / Time dexamethasone Allergy Intermediate Rash Verified 01/21/24 07:49 haloperidol Allergy Intermediate Rash Verified 01/21/24 07:49 sumatriptan Allergy Intermediate Rash Verified 01/21/24 07:49 olanzapine Allergy Mild Rash Verified 01/21/24 07:49 sertraline Allergy Unknown Hallucinati Verified 01/21/24 07:49 ng [facility] Medical History (Updated 01/25/24 @ 16:49 by David Baptiste MD) Type 2 diabetes mellitus, without long-term current use of insulin ?E11.9 - Type 2 diabetes mellitus without complications (ICD-10) Postcoital UTI ?N39.0 - Urinary tract infection, site not specified (ICD-10) Mixed hyperlipidemia ?E78.2 - Mixed hyperlipidemia (ICD-10) Primary hypertension ?I10 - Essential (primary) hypertension (ICD-10) Allergic conjunctivitis ?H10.10 - Acute atopic conjunctivitis, unspecified eye (ICD-10) Vitamin D deficiency (12/06/10) ?E55.9 - Vitamin D deficiency, unspecified (ICD-10) Posttraumatic stress disorder ?F43.10 - Post-traumatic stress disorder, unspecified (ICD-10) Panic disorder with agoraphobia (08/13/16) ?F40.01 - Agoraphobia with panic disorder (ICD-10) Opioid dependence ?F11.20 - Opioid dependence, uncomplicated (ICD-10) Moderate episode of recurrent major depressive disorder (05/09/10) ?F33.1 - Major depressive disorder, recurrent, moderate (ICD-10) Migraine headache ?G43.909 - Migraine, unspecified, not intractable, without status migrainosus (ICD-10) Irritable bowel syndrome with both constipation and diarrhea ?K58.2 - Mixed irritable bowel syndrome (ICD-10) Insomnia ?G47.00 - Insomnia, unspecified (ICD-10) History of traumatic brain injury ?Z87.820 - Personal history of traumatic brain injury (ICD-10) Generalized anxiety disorder ?F41.1 - Generalized anxiety disorder (ICD-10) Chronic pain syndrome ?G89.4 - Chronic pain syndrome (ICD-10) Chronic low back pain ?M54.50 - Low back pain, unspecified (ICD-10) ?G89.29 - Other chronic pain (ICD-10) Borderline personality disorder ?F60.3 - Borderline personality disorder (ICD-10) Acquired female bladder prolapse ?N81.10 - Cystocele, unspecified (ICD-10) Surgical History History of left oophorectomy (10/10/09) ?Z90.721 - Acquired absence of ovaries, unilateral (ICD-10) History of laparoscopic cholecystectomy (12/14/06) ?Z90.49 - Acquired absence of other specified parts of digestive tract (ICD-10) History of cystoscopy (08/07/09) ?Z98.890 - Other specified postprocedural states (ICD-10) Family History Father Liver cancer Type 2 diabetes mellitus Social History (Updated 05/26/23 @ 09:23 by Selina Sanz ~ RMA, RMA) Narrative: , 2 sons, Non-smoker, Social EtOH What is your current living situation?: I presently have a place to live Problems where you live: pests, such as bugs, ants, or mice and water leaks In the past 12 months, utilities in danger of being shut off: no In past 12 months, lack of transportation kept you from medical appts, meetings, work, or getting things needed for daily living: no In the past 12 mos, have been you worried that your food would run out before you had money to buy more?: never true In the past 12 mos, the food you bought just didn't last and you didn't have money to buy more?: never true Smoking Status: Never smoker How often do you have a drink containing alcohol: never AUDIT-C Alcohol total score: 0 Non-prescribed substance use: denies use How often does anyone, including family, friends and others, physically hurt you: never How often does anyone, including family, friends and others, insult or talk down to you: never How often does anyone, including family, friends and others, threaten you with harm: never How often does anyone, including family, friends and others, scream or curse at you: never Little interest or pleasure in doing things: several days Feeling down, depressed, or hopeless: several days Exam Const: Vital Signs, click to edit/add: Vital Signs - 24 hr 01/25/24 14:29 01/25/24 14:49 01/25/24 14:50 Temperature 96.4 F L Pulse Rate 79 Pulse Rate [Pulse Oximeter] 83 Respiratory Rate 20 Blood Pressure 190/109 H Blood Pressure [Le ft Upper Arm] 214/137 H Pulse Oximetry 98 [facility] 01/25/24 14:50 01/25/24 15:00 01/25/24 15:02 Temperature Pulse Rate 78 78 77 Pulse Rate [Pulse Oximeter] Respiratory Rate Blood Pressure 195/114 H Blood Pressure [Le ft Upper Arm] Pulse Oximetry 97 97 97 [facility] 01/25/24 15:15 01/25/24 15:17 01/25/24 15:18 Temperature Pulse Rate 75 79 81 Pulse Rate [Pulse Oximeter] Respiratory Rate 20 Blood Pressure 174/121 H Blood Pressure [Le ft Upper Arm] Pulse Oximetry 97 96 97 [facility] 01/25/24 15:30 01/25/24 15:31 01/25/24 15:45 Temperature Pulse Rate 60 71 77 Pulse Rate [Pulse Oximeter] Respiratory Rate Blood Pressure 188/91 H Blood Pressure [Le ft Upper Arm] Pulse Oximetry 96 97 96 Oxygen Delivery Co thod 01/25/24 15:50 01/25/24 16:00 01/25/24 16:04 Temperature Pulse Rate 77 100 90 Pulse Rate [Pulse Oximeter] Respiratory Rate Blood Pressure Blood Pressure [Le ft Upper Arm] Pulse Oximetry 97 97 97 [facility] 01/25/24 16:05 01/25/24 16:15 01/25/24 16:19 Temperature Pulse Rate 88 88 86 Pulse Rate [Pulse Oximeter] Respiratory Rate Blood Pressure Blood Pressure [Le ft Upper Arm] Pulse Oximetry 97 97 96 Oxygen Delivery Me thod 01/25/24 16:30 01/25/24 16:45 Temperature Pulse Rate 89 95 Pulse Rate [Pulse Oximeter] Respiratory Rate Blood Pressure Blood Pressure [Le ft Upper Arm] Pulse Oximetry 96 98 Oxygen Delivery Me thod Course Vital Signs Vital signs: Initial Vital Signs Temperature Source Temporal Artery Scan 01/25/24 14:29 Pulse Rate 83 01/25/24 14:29 Respiratory Rate 20 01/25/24 14:29 Blood Pressure 214/137 H 01/25/24 14:29 Blood Pressure Mean 162 H 01/25/24 14:29 Blood Pressure Position Supine 01/25/24 14:29 Pulse Oximetry 98 01/25/24 14:29 Oxygen Delivery Method Room Air 01/25/24 14:29 Vital Signs Pulse Rate 83 01/25/24 14:29 Respiratory Rate 01/25/24 14:29 Blood Pressure 214/137 H 01/25/24 14:29 Pulse Oximetry 98 01/25/24 14:29 Oxygen Delivery Method Room Air 01/25/24 14:29 Temperature 96.4 F L 01/25/24 14:50 Pulse Rate 95 01/25/24 16:45 Respiratory Rate 01/25/24 15:17 Blood Pressure 188/91 H 01/25/24 15:31 Pulse Oximetry 98 01/25/24 16:45 Oxygen Delivery Method Room Air 01/25/24 14:29 Medications Administered Medications: Discontinued Medications Generic Name Dose Route Start Last Admin Trade Name Freq PRN Reason Stop Dose Admin Epinephrine HCl 0.3 mg 01/25/24 14:51 01/25/24 15:15 Epinephrine 0.3 Mg Pen IM 01/25/24 14:52 0.3 mg ONCE ONE Administration Hydromorphone HCl 0.5 mg 01/25/24 14:51 01/25/24 15:16 Hydromorphone 0.5 Mg/0.5 Ml Inj IVP 01/25/24 14:52 0.5 mg ONCE ONE Administration Ketorolac Tromethamine 30 mg 01/25/24 16:43 01/25/24 16:57 Ketorolac 30 Mg/Ml Inj IVP 01/25/24 16:44 30 mg ONCE ONE Administration Ondansetron HCl 4 mg 01/25/24 14:51 01/25/24 15:16 Ondansetron 2 Mg/Ml Inj IVP 01/25/24 14:52 4 mg ONCE ONE Administration Medical Decision Making Lab Data Labs: Lab Results 01/25/24 Range/Units 14:40 WBC 11.85 H (4.50-11.00) K/uL RBC 5.02 (4.00-5.20) m/uL Hgb 14.9 (12.0-16.0) gm/dL Hct 44.7 (33.0-51.0) % MCV 89 (80-100) fL MCH 30 (26-34) pg MCHC 33 (32-36) gm/dL RDW Coeff of Bria 12.0 (11.5-15.5) % Plt Count 212 (140-440) K/uL Neut % (Auto) 77.3 H (42.0-72.0) % Lymph % (Auto) 14.9 L (20-44) % Saline % (Auto) 4.6 (0.0-11.0) % Eos % (Auto) 1.3 (0.0-7.0) % Baso % (Auto) 0.4 (0.0-3.0) % Neut # (Auto) 9.20 H (1.7-7.0) K/uL Lymph # (Auto) 1.80 (0.90-2.90) K/uL Saline # (Auto) 0.50 (0.00-0.90) K/UL Eos # (Auto) 0.20 (0.00-0.50) K/uL Baso # (Auto) 0.00 (0.00-0.30) K/uL Abs Immat Gran (auto) 0.20 (0.00-0.30) K/uL Imm/Tot Granulo (auto) 1.5 % D-Dimer Quant (PE/DVT) 0.57 H (0.00-0.50) ug/ml Sodium 134 L (135-149) mmol/L Potassium 3.8 (3.6-5.1) mmol/L Chloride 101 (96-114) mmol/L Carbon Dioxide 23 (20-32) mmol/L Anion Gap 10 (7-15) mEq/L BUN 12 (5-24) mg/dL Creatinine 0.5 (0.5-1.5) mg/dL Estimated GFR 117 ml/min Glucose 180 H (60-115) mg/dL Calcium 8.8 (8.4-10.6) mg/dL C-Reactive Protein 1.1 H (0.5-1.0) mg/dL Discharge Plan Discharge Clinical Impression: Sinusitis Patient Disposition: Home w/ Parent or Adult Condition: Stable Additional Instructions: Take medication as prescribed. Follow up with MD for ongoing management or return if worsening. Prescriptions: New hydrocodone-acetaminophen 5-325 mg tablet 1 tab PO Q4-6H PRN (Reason: pain) Qty: 10 0RF amoxicillin-pot clavulanate 875-125 mg tablet 1 tab PO BID Qty: 20 0RF No Action levonorgestrel 20 mcg/24 hours (7 yrs) 52 mg intrauterine device 1 intrauterine ONCE (DME) FreeStyle Spencer 2 Clemons Misc See Rx Instructions .Route Qty: 1 0RF Rx Instructions: As directed olopatadine 0.2 % drops 1 drp ophthalmic (eye) DAILY PRN (Reason: itching) Qty: 2.5 5RF celecoxib [Celebrex] 200 mg capsule 200 mg PO BID Qty: 60 2RF metoprolol succinate 200 mg tablet extended release 24 hr 200 mg PO DAILY Qty: 90 1RF escitalopram oxalate 20 mg tablet 20 mg PO DAILY Qty: 90 1RF Rx Instructions: 1/2 QD x 10 days then 1 QD duloxetine 30 mg capsule,delayed release(DR/EC) 30 mg PO QDAY Qty: 14 0RF Rx Instructions: 30 mg QD x 10 days then 60 mg QD duloxetine 60 mg capsule,delayed release(DR/EC) 60 mg PO QDAY Qty: 90 1RF Ozempic 1 mg/dose (4 mg/3 mL) pen injector 2 mg subcut QWEEK Qty: 3 2RF naloxone 4 mg/actuation spray,non-aerosol 1 spray intranasal Patient Comments: Administer a single spray intranasally into one nostril. Call 911. Repeat after 2-3 minutes in alternating nostrils if no or minimal response. ketotifen fumarate [Allergy Eye (ketotifen)] 0.025 % (0.035 %) drops 1 drp ophthalmic (eye) BID Qty: 5 5RF Rx Instructions: administer at least 8 hours apart prochlorperazine maleate 10 mg tablet 10 mg PO BID PRN (Reason: nausea and vomiting) Qty: 60 1RF buspirone 30 mg tablet 30 mg PO TID Qty: 90 5RF (DME) pen needle, diabetic [Pen Needle] 30 gauge x 5/16 needle See Rx Instructions .Route Qty: 100 3RF Rx Instructions: Injects daily verapamil 120 mg tablet extended release 120 mg PO BID Qty: 180 3RF pregabalin 300 mg capsule 300 mg PO BID Qty: 60 5RF Emgality Pen 120 mg/mL pen injector 120 mg subcut Q30D Qty: 1 5RF trazodone 100 mg tablet 300 mg PO QHS Qty: 270 1RF (DME) FreeStyle Spencer 14 Day Sensor Kit See Rx Instructions .Route Qty: 6 5RF Rx Instructions: Change every 2 weeks rizatriptan [Maxalt-CLIENT CUSTOMER MANAGER] 10 mg tablet,disintegrating 10 mg PO Q2H MDD 20 mg PRN (Reason: migraine headache) Qty: 20 0RF tizanidine 4 mg tablet 4 mg PO Q6-8H PRN (Reason: muscle spasticity) Qty: 90 0RF oxycodone 5 mg tablet 5 mg PO Q6H PRN (Reason: pain) Qty: 21 0RF Rx Instructions: 1 BID x 1 week then 1/2 BID x 1 week. Then stop. lorazepam 1 mg tablet 1 mg PO TID PRN (Reason: anxiety) Qty: 90 1RF Follow Up/Referrals: Umer Aguila MD [Primary Care Provider] - Stand Alone Forms: [facility] Info Instructions
== END 2024-01-25 17:05 | disposition home or self-care (01) ==
PROVIDERS: Emergency Provider Emergency Medicine Emergency Medical Services; PCP Family Medicine
DX: J32.0 Chronic maxillary sinusitis (principal)
CPT/HCPCS: 36415; 70486; 80048; 85025; 85379; 86140; 96372; 96374; 96375; 99281; 99283; 99284; J0171; J1170; J1885; J2405

== ENCOUNTER 2024-02-10 13:13 | Outpatient (CLI) | payer OTHER, SELFPAY ==
--- OUTSIDE RECORDS SUMMARY | 2024-02-10 13:15 | XMS_ITS | Continuity of Care Document ---
Author Organization [facility] Address [address] [place] [address] Phone Care Team Providers Care Material Worker Name Role Phone Koko HAIR, PhD, Livan [...] Fusio n Office/Outpatient Visit,Est, Mod 2023 Office/Outpatient Visit,[facility] 2022 Advance Directives Directive Yes / No Effective Date File Name No Information Encounters Encounter Description Practice Location Reason(s) For Visit Diagnoses Date Provider Providers Copied on Encounter [facility], [address], [place], [place], [id number], [place] tel:[phone] [facility] No Information Koko Licona. [facility], [address], [place], [address], [place]. tel:[phone] Referring Provider: Javon Smith, [facility] ER Physician-D o Not Fax, [place], [address]. tel:[phone] [facility], [address], [place], [place], [id number], [place] tel:[phone] [facility] No Information oKko Licona. [facility], [address], [place], [address], [place]. [phone] [facility], [address], [place], [place], [id number], [place] tel:[phone] [facility] No Information Danie Cabral. [facility], [address], [place], [place], [id number] , [place]. tel:[phone] Referring Provider: Javon Smith, [facility] ER Physician-D o Not Fax, [place], [address]. tel:[phone] [facility], [address], [place], [place], [id number], [place] tel:[phone] [facility] No Information Koko Licona. [facility], [address], [place], [address], [place]. tel:[phone] Referring Provider: Javon Smith, [facility] ER Physician-D o Not Fax, [place], [address]. tel:[phone] Office/Outpat ient Visit,Est, Mod [facility], [address], [place], [id number], [place] tel:[phone] [facility] Spinal stenosis, lumbar region with neurogenic claudicationS pondylolisthe sis, lumbar region Koko Licona. [facility], [address], [place], [address], [place]. tel:[phone] Referring Provider: Javon Smith, [facility] ER Physician-D o Not Fax, [place], [address]. tel:[phone] Office/Outpat ient Visit,New, Mod [facility], [address], [facility] [place], [id number], [place] tel:[phone] [facility] Low back pain, unspecified Koko Licona. [facility], [address], [place], [address], [place]. tel:[phone] Referring Provider: Javon Smith, [facility] ER Physician-D o Not Fax, [place], [address]. tel:[phone] Family History Family Member Type Diagnosis Age At Onset No Information Payers Payer name Insurance type Covered green party ID Lisarhonda vickiealfredo(s) Zahida [employer] 2021 CI [id number] Social History Type Description Quantity Date Captured [...]
--- OUTSIDE RECORDS SUMMARY | 2024-02-10 13:15 | XMS_ITS | Clinical Summary ---
Author Organization [employer] Address [place], [place] [address] Care Team Providers Care Commercial Banker Name Role Phone Umer Aguila MD Primary [...] times daily if needed. Active rizatriptan (MAXALT DOWEL INSPECTOR) [address] 10 mg [...] 12/30/2023 10:15 AM CDT Ancillary Procedure [facility] [address] [place] [address] 12/30/2023 Travel 12/24/2023 Orders Only [facility] [address] [facility] [address] [place] [address] Livan Sutherland MD <No scans attached> 11/19/2023 1:08 PM CDT Anesthesia Event [facility] [address] [place] [address] Parish Butterfield, Estephania Brennan MD 11/19/2023 12:55 PM CDT - 11/19/2023 4:50 PM CDT Surgery [address] [place] [address] Livan Sutherland MD POSTERIOR SPINE FUSION L4-L5, TRANSFORMINAL LUMBAR INTERBODY FUSION L4-L5 LEFT, DECOMPRESSION LAMINECTOMY L4-L5 BILATERAL, INSTRUMENTATION AND BONE GRAFT AUTOGRAFT, ALLOGRAFT 11/19/2023 10:08 AM CDT - 11/21/2023 12:41 PM CDT Hospital Encounter [address] [place] [address] Livan Sutherland MD Spondylolisthesis of lumbar region [...] this topic Medical Devices Implanted Type Area V Belt Mold Assembler And Curer Device Identifier Shelf Expiration Date Model / Serial / Lot Screw Lmbr Post 6.5x50mm Solera 5.5/6 Va Cocr - [id number] Implanted:Qty : 2 on 11/19/2023 by Livan Sutherland MD at [facility] N/A: Spine Medtronic Spine/Ortho [id number] / / Screw Lmbr Post 6.5x40mm Solera 5.5/6 Va Cocr - [id number] Implanted:Qty : 2 on 11/19/2023 by Livan Sutherland MD at [facility] N/A: Spine Medtronic Spine/Ortho [id number] / / Set Screw Lmbr Ant 5.5mm Solera Break Off - [id number] Implanted:Qty : 4 on 11/19/2023 by Livan Sutherland MD at [facility] N/A: Spine Medtronic Spine/Ortho [id number] / / Bone 1-4mm 60cc Medtronic Fine Canclls Freeze Dried - [id number] Implanted:Qty : 1 on 11/19/2023 by Livan Sutherland MD at [facility] N/A: Spine Medtronic Spine/Ortho 02/04/2028 [id number] / [id number] / [id number] Spacer Lmbr [id number] - [id number] Implanted:Qty : 1 on 11/19/2023 by Livan Sutherland MD at [facility] N/A: Spine Medtronic Spine/Ortho 01/28/2031 [id number] / / 98PE Donald Lmbr 40x5.5mm Solera 5.5/6 Cvd Titnm - [id number] Implanted:Qty : 2 on 11/19/2023 by Livan Sutherland MD at [facility] N/A: Spine Medtronic Spine/Ortho [id number] / / Procedures Procedure Name Priority Date/Time [...] Prebent rodsBm adds PMI confirmed w/Osmar Al [phone] 11/08 JT - Mayur De Leon will cover case ([phone]) BD 4/3MAGNETO'S (SYNTHETIC)C-RUBY TABLEMEDICREA UNID Special Needs 5 ft 9 in, 88.1 kg, BMI 28.67DM 2Last Ozempic 11-16-2023r. Rafael aware GLUCOSE METER Timed 11/19/2023 11:05 AM CDT URINE STAT 11/19/2023 10:40 AM CDT SCAN-CARDIAC STRIP 11/19/2023 12:00 AM CDT DOMESTIC HELPER THIN PREP PAP SCREEN IMAGED Routine 03/12/2022 10:00 AM CDT LDL CHOLESTEROL,DIRECT Routine 09/19/2012 6:31 PM SLURRY WORKER from Last 3 Months or Most Recently [...] - 100 mg/dL 11/21/2023 8:33 AM CDT [facility] Blood BLOOD SPECIMEN / Unknown 11/21/2023 8:22 AM CDT 11/21/2023 8:33 AM CDT Livan Sutherland MD CHEMISTRY [facility] SENDOUT INTERNAL ZIP [phone] [place] [address] * XR SPINE LUMBAR 2 VIEWS (11/20/2023 [...] EXAM: XR SPINE LUMBAR 2 VIEWS LOCATION: [facility] DATE: 11/20/2023 INDICATION: Post op evaluation COMPARISON: None. Procedure Note David Vila MD - 11/20/2023 For Patients: As a result of the Cures Act, medical imagingexams and procedure reports are released immediately into your electronicmedical record. You may view this report before your referring provider.If you have questions, please contact your health care provider. EXAM: XR SPINE LUMBAR 2 VIEWS LOCATION: [facility] DATE: 11/20/2023 INDICATION: Post op [...] In AM (11/20/2023 7:19 AM CDT) Pathologist [facility] HEMOGLOBIN 12.6 12.0 - 16.0 g/dL 11/20/2023 7:30 AM CDT [facility] MCV 90 80 - 100 fL 11/20/2023 7:30 AM CDT [facility] Blood BLOOD SPECIMEN / Unknown Venipuncture / Unknown 11/20/2023 7:19 AM CDT 11/20/2023 7:26 AM CDT Narrative [facility] - 11/20/2023 7:30 AM CDT Call surgeon if Hemoglobin is less than 9. Misha FISH HEMATOLOGY Performing Organization Address City/[facility]/ZIP Co de Phone Number [facility] SENDOUT INTERNAL ZIP [phone] [place] [address] * Hemoglobin A1C (11/20/2023 7:19 AM CDT) [facility] HEMOGLOBIN A1C MONITORING (POCT) 5.8 <=6.4 % 11/20/2023 8:12 AM CDT [facility] Blood BLOOD SPECIMEN / Unknown Venipuncture / Unknown 11/20/2023 7:19 AM CDT 11/20/2023 7:26 AM CDT Narrative [facility] - 11/20/2023 8:12 AM CDT ? [...] Opal Raymond DO CHEMISTRY Performing Organization Address [facility]/ZIP Co de Phone Number [facility] SENDOUT INTERNAL ZIP [phone] [place] [address] * XR C-ARM EQUAL OR GREATER 2 [...] C-ARM EQUAL OR GREATER 2 HR LOCATION: [facility] DATE: 11/19/2023 INDICATION: Back pain, [...] C-ARM EQUAL OR GREATER 2 HR LOCATION: [facility] DATE: 11/19/2023 INDICATION: Back pain, [...] Ware CRNA - 11/19/2023 2:06 PM CDT rSavanthi Ware CRNA ? 11/19/2023 ??2:07 PM Procedure: [...] NOTE ORDERABLES * Urine Lab Performed - [facility] Only (11/19/2023 10:40 AM CDT) ,URIN E Negative Negative 11/19/2023 11:07 AM CDT [facility] Urine URINE SPECIMEN / Unknown Non-Blood / Unknown 11/19/2023 10:40 AM CDT 11/19/2023 11:02 AM CDT Estephania Orlando MD URINE [facility] SENDOUT INTERNAL ZIP [address] [place] [address] * SCAN-CARDIAC STRIP (11/19/2023 12:00 AM CDT) Narrative 11/19/2023 12:00 AM CDT Ordered by an unspecified provider. Other Clinical Staff OTHER * DOMESTIC HELPER THIN PREP PAP SCREEN IMAGED (03/12/2022 10:00 AM CDT) Case Report Gynecologic Cytology Report ? Case: [id number] ? Authorizing Provider: ??Umer Aguila MD ??Collected: ? 03/12/2022 1000 ? Ordering Location: ? [facility] ?Received: ?03/13/2022 1048 ? First Screen: ?Shaunna Hernandes ? Pathologist: ? Scottie Currie ? MD Aniya ? Specimen: ?DOMESTIC HELPER ThinPrep Vial Screening, Cervical/Vaginal ? 03/30/2022 2:06 PM CDT [facility] INTERPRETATION/ RESULT NEGATIVE FOR INTRAEPITHELIAL LESION OR MALIGNANCY (NIL) (none) 03/30/2022 2:06 PM CDT [facility]AL LABORATORY R NON-NEOPLASTIC FINDING(S) Reactive cellular changes associated with inflammation/repa ir 03/30/2022 2:06 PM CDT [facility] SPECIMEN ADEQUACY Satisfactory for evaluation Endocervical component present 03/30/2022 2:06 PM CDT [facility] HPV REQUEST HPV not requested 2021 2:06 PM CDT [facility] Date of LMP 03/30/2022 2:06 PM CDT [facility] Comment:Mirena Last Pap Result NIL 2:06 PM CDT [facility] Menstrual Status Hormonally Suppressed 03/30/2022 2:06 PM CDT [facility] Additional Information 03/30/2022 2:06 PM CDT [facility] Comment: Interpreted at [facility] - [address], [place] [address] Automated Review Successful 03/30/2022 2:06 PM CDT [facility] Comment:Specimen processed s uccessfully by automated carpet binder device, ThinPrep Imaging System, [employer] Note The pap test is a [...] and malignant lesions. 03/30/2022 2:06 PM CDT [facility] Other (Cervical/Vagina l) 03/12/2022 10:00 AM CDT 03/13/2022 10:48 AM CDT Umer Aguila MD PATHOLOGY/[facility] [address] [place] [address], [place] * LDL CHOLESTEROL,DIRECT (09/19/2012 6:31 PM SLURRY WORKER) LDL CHOLESTEROL,DI RECT 86 mg/dL 09/20/2012 9:18 AM SLURRY WORKER [facility] PATIENT STATUS NON-FASTIN G 09/20/2012 9:18 AM SLURRY WORKER [facility] Blood specimen (specimen) BLOOD SPECIMEN / Unknown 09/19/2012 6:31 PM SLURRY WORKER 09/19/2012 6:31 PM SLURRY WORKER Narrative [facility] - 09/20/2012 9:18 AM SLURRY WORKER ?RISK CATEGORY LDL GOAL ?(mg/dL) ? Vascular disease and/or diabetes (<100) Multiple (2+) risk factors ? (<130) 0-1 risk factor ?(<160) Umer Aguila MD CHEMISTRY Performing Organization Address City/State/[facility] Co de Phone Number [facility] [address] [place] [address] from Last 3 Months or Most Recently [...] 8:13 PM 03/31/2018 3:31 PM Care Teams Commercial Banker Relationship Specialty Start Date End Date Umer Aguila MD [address] [place] [address] PCP - General Family Practice 08/12/19
--- NOTE | 2024-02-10 13:20 | CRLHL7_ITS ---
For Patients: As a result of the Century Cures Act, medical imaging exams and procedure reports are released immediately into your electronic medical record. You may view this report before your referring provider. If you have questions, please contact your health care provider. BILATERAL SCREENING MAMMOGRAM WITH COMPUTER-AIDED DETECTION AND TOMOSYNTHESIS TECHNIQUE: CC and MLO views were obtained. These mammographic images have been obtained using full-field digital technique. These mammographic images were interpreted with the benefit of computer-aided detection. Breast Tomosynthesis was used in this interpretation. COMPARISON FILM: 12/07/22, 10/21/21. FINDINGS: There are scattered areas of fibroglandular density. IMPRESSION: There is no radiographic evidence for malignancy. ASSESSMENT: BI-RADS Category 1: Negative RECOMMENDATION: Routine screening mammogram in 1 year. A lay language report of this examination will be provided to the patient. Umer Conteh M.D. Diagnostic Radiologist [email or web address] SP/Dictated by: Umer Conteh MD @ 02/16/2024 12:20:00 PM (Electronically Signed)
== END 2024-02-10 13:14 | disposition home or self-care (01) ==
LOC: MAMMO 13:14
PROVIDERS: PCP Family Medicine; Visit Provider Family Medicine
DX: Z12.31 Encounter for screening mammogram for malignant neoplasm of breast (principal)
CPT/HCPCS: 77063; 77067

== ENCOUNTER 2024-02-16 10:54 | Outpatient (CLI) | payer OTHER, SELFPAY ==
--- OUTSIDE RECORDS SUMMARY | 2024-02-16 10:56 | XMS_ITS | Continuity of Care Document ---
Author Organization [facility] Address [address] [place] [address] Phone Care Team Providers Care Numerical Control Programmer Name Role Phone Koko HAIR, PhD, Livan [...] Fusio n Office/Outpatient Visit,Est, Mod 2023 [place] Visit[place] [place] Advance Directives Directive Yes / No Effective Date File Name No Information Encounters Encounter Description Practice Location Reason(s) For Visit Diagnoses Date Provider Providers Copied on Encounter [facility], [address], [place], [place], [id number], [place] tel:[phone] [facility] No Information Koko Licona. [facility], [address], [place], [address], [place]. tel:[phone] Referring Provider: Javon Smith, [facility] ER Physician-D o Not Fax, [place], [address]. tel:[phone] [facility], [address], [place], [place], [id number], [place] tel:[phone] [facility] No Information Koko Licona. [facility], [address], [place], [address], [place]. [phone] [facility], [address], [place], [id number], [place] tel:[phone] [facility] No Information Danie Cabral. [facility], [address], [place], [place], [id number] , [place]. tel:[phone] Referring Provider: Javon Smith, [facility] ER Physician-D o Not Fax, [place], [address]. tel:[phone] [facility], [address], [place], [id number], [place] tel:[phone] [facility] No Information Koko Liocna. [facility], [address], [place], [address], [place]. tel:[phone] Referring Provider: Javon Smith, [facility] ER Physician-D o Not Fax, [place], [address]. tel:[phone] Office/Outpat ient Visit,Est, Mod [facility], [address], [place], [id number], [place] tel:[phone] [facility] Spinal stenosis, lumbar region with neurogenic claudicationS pondylolisthe sis, lumbar region Koko Licona. [facility], [address], [place], [address], [place]. tel:[phone] Referring Provider: Javon Smith, [facility] ER Physician-D o Not Fax, [place], [address]. tel:[phone] Office/Outpat ient Visit,New, Mod [facility], [address], [facility] [place] [id number], [place] tel:[phone] [facility] Low back pain, unspecified Koko Licona. [facility], [address], [place], [address], [place]. tel:[phone] Referring Provider: Javon Smith, [facility] ER Physician-D o Not Fax, [place], [address]. tel:[phone] Family History Family Member Type Diagnosis Age At Onset No Information Payers Payer name Insurance type Covered alliance party ID Lisarhonda vickiealfredo(s) Zahida CENTENO Allhannah 2021 CI [id number] Social History Type Description Quantity Date Captured [...]
--- OUTSIDE RECORDS SUMMARY | 2024-02-16 10:56 | XMS_ITS | Clinical Summary ---
Author Organization [employer] Address [place], [place] [address] Care Team Providers Care Child Psychometrist Name Role Phone Umer Aguila MD Primary [...] times daily if needed. Active rizatriptan (MAXALT CREMATORY ATTENDANT) [address] 10 mg [...] Description 12/30/2023 10:15 AM CDT Ancillary Procedure [facility] [address] [place] [address] 12/30/2023 Travel 12/24/2023 Orders Only [facility] [address] [facility] [address] [place] [address] Livan Sutherland MD <No scans attached> 11/19/2023 1:08 PM CDT Anesthesia Event [facility] [address] [place] [address] Parish Butterfield, Estephania Brennan MD 11/19/2023 12:55 PM CDT - 11/19/2023 4:50 PM CDT Surgery [address] [place] [address] Livan Sutherland MD POSTERIOR SPINE FUSION L4-L5, TRANSFORMINAL LUMBAR INTERBODY FUSION L4-L5 LEFT, DECOMPRESSION LAMINECTOMY L4-L5 BILATERAL, INSTRUMENTATION AND BONE GRAFT AUTOGRAFT, ALLOGRAFT 11/19/2023 10:08 AM CDT - 11/21/2023 12:41 PM CDT Hospital Encounter [address] [place] [address] Livan Sutherland MD Spondylolisthesis of lumbar region [...] this topic Medical Devices Implanted Type Area Rn Clinical Device Identifier Shelf Expiration Date Model / Serial / Lot Screw Lmbr Post 6.5x50mm Solera 5.5/6 Va Cocr - [id number] Implanted:Qty : 2 on 11/19/2023 by Livan Sutherland MD at [facility] N/A: Spine Medtronic Spine/Ortho [id number] / / Screw Lmbr Post 6.5x40mm Solera 5.5/6 Va Cocr - [id number] Implanted:Qty : 2 on 11/19/2023 by Livan Sutherland MD at [facility] N/A: Spine Medtronic Spine/Ortho [id number] / / Set Screw Lmbr Ant 5.5mm Solera Break Off - [id number] Implanted:Qty : 4 on 11/19/2023 by Livan Sutherland MD at [facility] N/A: Spine Medtronic Spine/Ortho [id number] / / Bone 1-4mm 60cc Medtronic Fine Canclls Freeze Dried - [id number] Implanted:Qty : 1 on 11/19/2023 by Livan Sutherland MD at [facility] N/A: Spine Medtronic Spine/Ortho 02/04/2028 [id number] / [id number] / [id number] Spacer Lmbr [id number] - [id number] Implanted:Qty : 1 on 11/19/2023 by Livan Sutherland MD at [facility] N/A: Spine Medtronic Spine/Ortho 01/28/2031 [id number] / / 98PE Donald Lmbr 40x5.5mm Solera 5.5/6 Cvd Titnm - [id number] Implanted:Qty : 2 on 11/19/2023 by Livan Sutherland MD at [facility] N/A: Spine Medtronic Spine/Ortho [id number] / / Procedures Procedure Name Priority Date/Time [...] Prebent rodsBm adds PMI confirmed w/Osmar Al [phone] 11/08 JT - Mayur De Leon will cover case ([phone]) BD 4/3MAGNETO'S (SYNTHETIC)C-RUBY TABLEMEDICREA UNID Special Needs 5 ft 9 in, 88.1 kg, BMI 28.67DM 2Last Ozempic 11-16-2023r. Rafael aware GLUCOSE METER Timed 11/19/2023 11:05 AM CDT URINE STAT 11/19/2023 10:40 AM CDT SCAN-CARDIAC STRIP 11/19/2023 12:00 AM CDT NUCLEAR FUEL ENRICHMENT TECHNICIAN THIN PREP PAP SCREEN IMAGED Routine 03/12/2022 10:00 AM CDT LDL CHOLESTEROL,DIRECT Routine 09/19/2012 6:31 PM WIRE FENCE ERECTOR from Last 3 Months or Most [...] - 100 mg/dL 11/21/2023 8:33 AM CDT [facility] Blood BLOOD SPECIMEN / Unknown 11/21/2023 8:22 AM CDT 11/21/2023 8:33 AM CDT Livan Sutherland MD CHEMISTRY [facility] SENDOUT INTERNAL ZIP [phone] [place] [address] * XR SPINE LUMBAR 2 VIEWS (11/20/2023 [...] EXAM: XR SPINE LUMBAR 2 VIEWS LOCATION: [facility] DATE: 11/20/2023 INDICATION: Post [...] EXAM: XR SPINE LUMBAR 2 VIEWS LOCATION: [facility] DATE: 11/20/2023 INDICATION: Post op [...] In AM (11/20/2023 7:19 AM CDT) Pathologist [facility] HEMOGLOBIN 12.6 12.0 - 16.0 g/dL 11/20/2023 7:30 AM CDT [facility] MCV 90 80 - 100 fL 11/20/2023 7:30 AM CDT [facility] Blood BLOOD SPECIMEN / Unknown Venipuncture / Unknown 11/20/2023 7:19 AM CDT 11/20/2023 7:26 AM CDT Narrative [facility] - 11/20/2023 7:30 AM CDT Call surgeon if Hemoglobin is less than 9. Msiha FISH HEMATOLOGY Performing Organization Address City/[facility]/ZIP Co de Phone Number [facility] SENDOUT INTERNAL ZIP [phone] [place] [address] * Hemoglobin A1C (11/20/2023 7:19 AM CDT) [facility] HEMOGLOBIN A1C MONITORING (POCT) 5.8 <=6.4 % 11/20/2023 8:12 AM CDT [facility] Blood BLOOD SPECIMEN / Unknown Venipuncture / Unknown 11/20/2023 7:19 AM CDT 11/20/2023 7:26 AM CDT Narrative [facility] - 11/20/2023 8:12 AM CDT ? [...] Opal Raymond DO CHEMISTRY Performing Organization Address [facility]/ZIP Co de Phone Number [facility] SENDOUT INTERNAL ZIP [address] [place] [phone] * XR C-ARM EQUAL OR GREATER 2 [...] C-ARM EQUAL OR GREATER 2 HR LOCATION: [facility] DATE: 11/19/2023 INDICATION: Back [...] C-ARM EQUAL OR GREATER 2 HR LOCATION: [facility] DATE: 11/19/2023 INDICATION: Back [...] NOTE ORDERABLES * Urine Lab Performed - [facility] Only (11/19/2023 10:40 AM CDT) ,URIN E Negative Negative 11/19/2023 11:07 AM CDT [facility] Urine URINE SPECIMEN / Unknown Non-Blood / Unknown 11/19/2023 10:40 AM CDT 11/19/2023 11:02 AM CDT Estephania Orlando MD URINE [facility] SENDOUT INTERNAL ZIP [address] [place] [phone] * SCAN-CARDIAC STRIP (11/19/2023 12:00 AM CDT) Narrative 11/19/2023 12:00 AM CDT Ordered by an unspecified provider. Other Clinical Staff OTHER * NUCLEAR FUEL ENRICHMENT TECHNICIAN THIN PREP PAP SCREEN IMAGED (03/12/2022 10:00 AM CDT) Case Report Gynecologic Cytology Report ? Case: [id number] ? Authorizing Provider: ??Umer Aguila MD ??Collected: ? 03/12/2022 1000 ? Ordering Location: ? [facility] ?Received: ?03/13/2022 1048 ? First Screen: ?Shaunna Hernandes ? Pathologist: ? Scottie Currie ? MD Aniya ? Specimen: ?NUCLEAR FUEL ENRICHMENT TECHNICIAN ThinPrep Vial Screening, Cervical/Vaginal ? 03/30/2022 2:06 PM CDT [facility] LABORATORY INTERPRETATION/ RESULT NEGATIVE FOR INTRAEPITHELIAL LESION OR MALIGNANCY (NIL) (none) 03/30/2022 2:06 PM CDT [facility] LAB[facility] R NON-NEOPLASTIC FINDING(S) Reactive cellular changes associated with inflammation/repa ir 03/30/2022 2:06 PM CDT [facility] SPECIMEN ADEQUACY Satisfactory for evaluation Endocervical component present 03/30/2022 2:06 PM CDT [facility] HPV REQUEST HPV not requested 2021 2:06 PM CDT [facility] Date of LMP 03/30/2022 2:06 PM CDT [facility] Comment:Mirena Last Pap Result NIL 2:06 PM CDT [facility] Menstrual Status Hormonally Suppressed 03/30/2022 2:06 PM CDT [facility] Additional Information 03/30/2022 2:06 PM CDT [facility] Comment: Interpreted at [facility] - [address], [place] [address] Automated Review Successful 03/30/2022 2:06 PM CDT [facility] Comment:Specimen processed s uccessfully by automated manager urgent care device, ThinPrep Imaging System, [employer] Note The pap test is a [...] and malignant lesions. 03/30/2022 2:06 PM CDT [facility] Other (Cervical/Vagina l) 03/12/2022 10:00 AM CDT 03/13/2022 10:48 AM CDT Umer Aguila MD PATHOLOGY/[facility] [address] [place] [address], [place] * LDL CHOLESTEROL,DIRECT (09/19/2012 6:31 PM WIRE FENCE ERECTOR) LDL CHOLESTEROL,DI RECT 86 mg/dL 09/20/2012 9:18 AM WIRE FENCE ERECTOR [facility] PAT[facility]US NON-FASTIN G 09/20/2012 9:18 AM WIRE FENCE ERECTOR [facility] Blood specimen (specimen) BLOOD SPECIMEN / Unknown 09/19/2012 6:31 PM WIRE FENCE ERECTOR 09/19/2012 6:31 PM WIRE FENCE ERECTOR Narrative [facility] - 09/20/2012 9:18 AM WIRE FENCE ERECTOR ?RISK CATEGORY LDL GOAL ?(mg/dL) ? Vascular disease and/or diabetes (<100) Multiple (2+) risk factors ? (<130) 0-1 risk factor ?(<160) Umer Aguila MD CHEMISTRY Performing Organization Address City/State/[facility] Co de Phone Number [facility] [address] [place] [address] from Last 3 Months or Most Recently [...] 8:13 PM 03/31/2018 3:31 PM Care Teams Child Psychometrist Relationship Specialty Start Date End Date Umer Aguila MD [address] [place] [address] PCP - General Family Practice 08/12/19
[2024-02-16 13:55] LABS: Creatinine Urine 28.9 mg/dL
[2024-02-16 13:59] LABS: Microalbumin Creatinine Ratio 30 mg/g (0-30); Microalbumin Urine < 1 mg/dL
== END 2024-02-16 10:55 | disposition home or self-care (01) ==
LOC: FBOREF 10:54
PROVIDERS: PCP Family Medicine; Visit Provider Family Medicine
DX: E11.9 Type 2 diabetes mellitus without complications (principal)
CPT/HCPCS: 82043; 82570

== ENCOUNTER 2024-07-10 16:04 | Emergency (ER) | payer OTHER, SELFPAY ==
[2024-07-10 16:11] VITALS: BP 157/101; PULSE 84; RESP 18; TEMP 37.1; O2SAT 95; BMI 31.0
--- NOTE | 2024-07-10 16:16 | ED.EYEPROB ---
HPI - Eye Problem General Time Seen by Provider: 16:18 Date Seen: 07/10/24 Chief complaint: Eye Problems Stated complaint: rt eye bloodshot, pain behind eye Time Seen by Provider: 07/10/24 16:07 Source: patient and RN notes reviewed Mode of arrival: ambulatory Limitations: no limitations History of Present Illness HPI Narrative: This 48yo female is coming into the ED for right eye redness/bloodshot starting this am when she awoke. She has been putting her prescription eyedrops in, says the redness has improved. She states basically the whole I was near blood shot this morning. Feels some of it has improved. She did have a migraine headache this weekend, is feeling right retro-orbital pain. She does feel like the IA seems a little blurry but visual acuity is not overtly concerning on arrival. She denies any double vision. She has not been sick with anything, no fevers chills but does note she has some sinus drainage, does wonder she could have some sinus issues. There is absolutely no trauma to this eye. She is on no blood thinners. She called her clinic and they advised her to come to the ER. She has had some ibuprofen use recently but again no blood thinners. Related Data Home Medications ?Medication ?Instructions ?Recorded ?Confirmed levonorgestrel 1 intrauterine ONCE 02/23/22 06/13/24 naloxone 4 mg/actuation nasal spray 1 spray intranasal PRN 03/22/24 06/13/24 Previous Rx's ?Medication ?Instructions ?Recorded flash glucose scanning reader #1 ea 06/24/22 (FreeStyle Spencer 2 [place]) prochlorperazine maleate 10 mg 10 mg PO BID PRN nausea and 02/24/23 tablet vomiting #60 tabs pen needle, diabetic 30 gauge x #100 ea 06/03/23/16 (Pen Needle) duloxetine 30 mg capsule,delayed 30 mg PO QDAY #14 caps 09/21/23 release duloxetine 60 mg capsule,delayed 60 mg PO QDAY #90 caps 09/21/23 release flash glucose sensor (FreeStyle #6 ea 11/09/23 Spencer 14 Day Sensor kit) celecoxib 200 mg capsule (Celebrex) 200 mg PO BID #60 caps 03/22/24 rizatriptan 10 mg disintegrating 10 mg PO Q2H PRN migraine headache 03/23/24 tablet (Maxalt-BILINGUAL PATIENT SUPPORT CASEWORKER) #20 tabs lorazepam 1 mg tablet 1 mg PO TID PRN anxiety #90 tabs 05/01/24 tizanidine 4 mg tablet 4 mg PO Q6-8H PRN muscle 05/01/24 spasticity #90 tabs buspirone 30 mg tablet 30 mg PO TID anxiety #90 tabs 05/09/24 pregabalin 300 mg capsule 300 mg PO BID #60 caps 05/09/24 semaglutide 2 mg/dose (8 mg/3 mL) 2 mg (0.75 mL) subcut QWEEK #3.75 05/15/24 subcutaneous pen injector mL blood-glucose sensor (FreeStyle #2 ea 06/13/24 Spencer 3 Plus Sensor device) galcanezumab-gnlm 120 mg/mL 120 mg subcut Q30D #1 mL 06/13/24 subcutaneous pen injector (Emgality Pen) ketotifen fumarate 0.025 % (0.035 1 drp ophthalmic (eye) BID #5 mL 06/13/24 %) eye drops (Allergy Eye (ketotifen)) metoprolol succinate 200 mg 200 mg PO QDAY #90 tabs 06/13/24 tablet,extended release 24 hr olopatadine 0.2 % eye drops 1 drp ophthalmic (eye) DAILY PRN 06/13/24 itching #2.5 mL oxycodone 5 mg tablet 5 mg PO BID PRN pain #60 tabs 06/13/24 trazodone 100 mg tablet 300 mg (3 x 100 mg) PO QHS #270 06/23/24 tabs Allergies Allergy/AdvReac Type Severity Reaction Status Date / Time dexamethasone Allergy Intermediate Rash Verified 06/13/24 13:12 haloperidol Allergy Intermediate Rash Verified 06/13/24 13:12 sumatriptan Allergy Intermediate Rash Verified 06/13/24 13:12 olanzapine Allergy Mild Rash Verified 06/13/24 13:12 sertraline Allergy Unknown Hallucinati Verified 06/13/24 13:12 ng Review of Systems Narrative: As per HPI. [facility] Medical History Type 2 diabetes mellitus, without long-term current use of insulin ?E11.9 - Type 2 diabetes mellitus without complications (ICD-10) Postcoital UTI ?N39.0 - Urinary tract infection, site not specified (ICD-10) Mixed hyperlipidemia ?E78.2 - Mixed hyperlipidemia (ICD-10) Primary hypertension ?I10 - Essential (primary) hypertension (ICD-10) Allergic conjunctivitis ?H10.10 - Acute atopic conjunctivitis, unspecified eye (ICD-10) Vitamin D deficiency (12/06/10) ?E55.9 - Vitamin D deficiency, unspecified (ICD-10) Posttraumatic stress disorder ?F43.10 - Post-traumatic stress disorder, unspecified (ICD-10) Panic disorder with agoraphobia (08/13/16) ?F40.01 - Agoraphobia with panic disorder (ICD-10) Opioid dependence ?F11.20 - Opioid dependence, uncomplicated (ICD-10) Moderate episode of recurrent major depressive disorder (05/09/10) ?F33.1 - Major depressive disorder, recurrent, moderate (ICD-10) Migraine headache ?G43.909 - Migraine, unspecified, not intractable, without status migrainosus (ICD-10) Irritable bowel syndrome with both constipation and diarrhea ?K58.2 - Mixed irritable bowel syndrome (ICD-10) Insomnia ?G47.00 - Insomnia, unspecified (ICD-10) History of traumatic brain injury ?Z87.820 - Personal history of traumatic brain injury (ICD-10) Generalized anxiety disorder ?F41.1 - Generalized anxiety disorder (ICD-10) Chronic pain syndrome ?G89.4 - Chronic pain syndrome (ICD-10) Chronic low back pain ?M54.50 - Low back pain, unspecified (ICD-10) ?G89.29 - Other chronic pain (ICD-10) Borderline personality disorder ?F60.3 - Borderline personality disorder (ICD-10) Acquired female bladder prolapse ?N81.10 - Cystocele, unspecified (ICD-10) Surgical History History of left oophorectomy (10/10/09) ?Z90.721 - Acquired absence of ovaries, unilateral (ICD-10) History of laparoscopic cholecystectomy (12/14/06) ?Z90.49 - Acquired absence of other specified parts of digestive tract (ICD-10) History of cystoscopy (08/07/09) ?Z98.890 - Other specified postprocedural states (ICD-10) Family History Father Liver cancer Type 2 diabetes mellitus Social History Narrative: , 2 sons, Non-smoker, Social EtOH What is your current living situation?: I presently have a place to live Problems where you live: pests, such as bugs, ants, or mice and water leaks In the past 12 months, utilities in danger of being shut off: no In the past 12 mos, have been you worried that your food would run out before you had money to buy more?: never true In the past 12 mos, the food you bought just didn't last and you didn't have money to buy more?: never true Smoking Status: Never smoker How often do you have a drink containing alcohol: never AUDIT-C Alcohol total score: 0 Non-prescribed substance use: denies use How often does anyone, including family, friends and others, physically hurt you: never How often does anyone, including family, friends and others, insult or talk down to you: never How often does anyone, including family, friends and others, threaten you with harm: never How often does anyone, including family, friends and others, scream or curse at you: never Health Related Social Needs: Inadequate housing (Z59.1) Exam Const: Vital Signs, click to edit/add: Vital Signs - 24 hr 07/10/24 16:11 Temperature 98.7 F Pulse Rate [Pulse Oximeter] 84 Respiratory Rate 18 Blood Pressure [Ri ght Upper Arm] 157/101 H Pulse Oximetry 95 Oxygen Delivery Me thod Room Air This 48-year-old female is alert, interactive, no apparent stress. Pupils are equal and reactive, extraocular muscles intact, no nystagmus, conjugate gaze. Along the right outer lower conjunctiva, there is erythema consistent with subconjunctival hematoma. There is no ciliary flush, this is in the right lower quadrant of the eye. There are no facial changes, normal symmetrical facial function. There is no periorbital edema or swelling, no drainage noted. Documenting provider has reviewed patient's vital signs: yes Course Course ED Course: Patient is concerned about the sense of retro-orbital pain and the migraine headaches this weekend. She does get underlying migraine headaches. Did discuss doing CT imaging of her head, this may not completely rule out intracranial pathology but certainly is 1st step and do not think she requires MRI imaging at this time based on her clinical exam and presentation. Discussed subconjunctival hematomas are benign, they can feel uncomfortable but usually do not give full orbital pain. CT should give us a cursory look at the or buts. If the head CT is without pathology, will have her observe and follow-up with [place] [facility] if ongoing symptoms. Reevaluation(s) Time of Reevaluation #1: 17:08 Reevaluation #1: Reviewed with patient her head CT report and provided a copy of this. Orbits and sinuses are without any visible pathology on this imaging. The head CT otherwise was read as normal. Vital Signs Vital signs: Initial Vital Signs Temperature 98.7 F 07/10/24 16:11 Temperature Source Temporal Artery Scan 07/10/24 16:11 Pulse Rate 84 07/10/24 16:11 Respiratory Rate 18 07/10/24 16:11 Blood Pressure 157/101 H 07/10/24 16:11 Blood Pressure Mean 119 H 07/10/24 16:11 Blood Pressure Position Sitting 07/10/24 16:11 Pulse Oximetry 95 07/10/24 16:11 Oxygen Delivery Method Room Air 07/10/24 16:11 Vital Signs Temperature 98.7 F 07/10/24 16:11 Pulse Rate 84 07/10/24 16:11 Respiratory Rate 18 07/10/24 16:11 Blood Pressure 157/101 H 07/10/24 16:11 Pulse Oximetry 95 07/10/24 16:11 Oxygen Delivery Method Room Air 07/10/24 16:11 Temperature 98.7 F 07/10/24 16:11 Pulse Rate 84 07/10/24 16:11 Respiratory Rate 18 07/10/24 16:11 Blood Pressure 157/101 H 07/10/24 16:11 Pulse Oximetry 95 07/10/24 16:11 Oxygen Delivery Method Room Air 07/10/24 16:11 MDM - Eye Problem Imaging Data CT scan - head: Attestation: I have reviewed the pertinent imaging results. Radiologist's impression: Patient: BRENNAN NAVA Facility:?[facility] Patient ID:?[id number] Site Patient ID:?[id number]. Site :?[id number] Study:?CT-Head WITHOUT-07/10/2024 4:49:50 PM Ordering Physician:Matty St Final Report: INDICATION: Headache, right eye redness. TECHNIQUE: Noncontrast CT of the head with multiplanar reconstruction utilizing bone and soft tissue algorithms. COMPARISON: None available. FINDINGS: No acute intracranial hemorrhage. The salmeron-white matter interface is preserved. The ventricles are normal in size. No abnormal extra-axial fluid collection is identified. Normal calvarium and skull base. Unremarkable orbits. The imaged paranasal sinuses and mastoid air cells are clear. IMPRESSION: Unremarkable noncontrast CT of the head. Please note that all CT scans at this facility use dose modulation, iterative reconstruction, and/or weight-based dosing when appropriate to reduce radiation dose to as low as reasonably achievable. Dictated by Deondre Womack MD @ 07/10/2024 5:02:59 PM (Electronic Signature) Discharge Plan Discharge Clinical Impression: Subconjunctival hemorrhage Qualifiers: Laterality: right Qualified Code(s): H11.31 - Conjunctival hemorrhage, right eye Additional Instructions: Can use some Tylenol per bottle directions for any irritation from the subconjunctival hemorrhage or hematoma in your right eye. The sometimes can be uncomfortable or bothersome but try not to rub your eye. Can follow-up with your eye clinic if this is causing you further problems or not improving over the next week. May want to try to minimize ibuprofen or NSAID use until this has resolved. Activity Level: Activity as Tolerated Prescriptions: No Action levonorgestrel 20 mcg/24 hours (7 yrs) 52 mg intrauterine device 1 intrauterine ONCE (DME) FreeStyle Spencer 2 [place] Misc See Rx Instructions .Route Qty: 1 0RF Rx Instructions: As directed duloxetine 30 mg capsule,delayed release(DR/EC) 30 mg PO QDAY Qty: 14 0RF Rx Instructions: 30 mg QD x 10 days then 60 mg QD duloxetine 60 mg capsule,delayed release(DR/EC) 60 mg PO QDAY Qty: 90 1RF naloxone 4 mg/actuation spray,non-aerosol 1 spray intranasal PRN Patient Comments: Administer a single spray intranasally into one nostril. Call 911. Repeat after 2-3 minutes in alternating nostrils if no or minimal response. celecoxib [Celebrex] 200 mg capsule 200 mg PO BID Qty: 60 5RF metoprolol succinate 200 mg tablet extended release 24 hr 200 mg PO QDAY Qty: 90 3RF Emgality Pen 120 mg/mL pen injector 120 mg subcut Q30D Qty: 1 5RF ketotifen fumarate [Allergy Eye (ketotifen)] 0.025 % (0.035 %) drops 1 drp ophthalmic (eye) BID Qty: 5 5RF Rx Instructions: administer at least 8 hours apart olopatadine 0.2 % drops 1 drp ophthalmic (eye) DAILY PRN (Reason: itching) Qty: 2.5 5RF (DME) FreeStyle Spencer 3 Plus Sensor Device See Rx Instructions .Route Qty: 2 5RF Rx Instructions: As directed oxycodone 5 mg tablet 5 mg PO BID PRN (Reason: pain) Qty: 60 0RF prochlorperazine maleate 10 mg tablet 10 mg PO BID PRN (Reason: nausea and vomiting) Qty: 60 1RF (DME) pen needle, diabetic [Pen Needle] 30 gauge x 5/16 needle See Rx Instructions .Route Qty: 100 3RF Rx Instructions: Injects daily (DME) FreeStyle Spencer 14 Day Sensor Kit See Rx Instructions .Route Qty: 6 5RF Rx Instructions: Change every 2 weeks rizatriptan [Maxalt-BILINGUAL PATIENT SUPPORT CASEWORKER] 10 mg tablet,disintegrating 10 mg PO Q2H MDD 20 mg PRN (Reason: migraine headache) Qty: 20 5RF tizanidine 4 mg tablet 4 mg PO Q6-8H PRN (Reason: muscle spasticity) Qty: 90 5RF lorazepam 1 mg tablet 1 mg PO TID PRN (Reason: anxiety) Qty: 90 1RF Rx Instructions: Must last a month buspirone 30 mg tablet 30 mg PO TID Qty: 90 1RF pregabalin 300 mg capsule 300 mg PO BID Qty: 60 5RF semaglutide 2 mg/dose (8 mg/3 mL) pen injector 2 mg subcut QWEEK Qty: 3.75 2RF trazodone 100 mg tablet 300 mg PO QHS Qty: 270 0RF Follow Up/Referrals: Umer Aguila MD [Primary Care Provider] - Stand Alone Forms: [employer] Info Instructions
--- NOTE | 2024-07-10 16:29 | CRLHL7_ITS ---
For Patients: As a result of the Century Cures Act, medical imaging exams and procedure reports are released immediately into your electronic medical record. You may view this report before your referring provider. If you have questions, please contact your health care provider. INDICATION: Headache, right eye redness. TECHNIQUE: Noncontrast CT of the head with multiplanar reconstruction utilizing bone and soft tissue algorithms. COMPARISON: None available. FINDINGS: No acute intracranial hemorrhage. The salmeron-white matter interface is preserved. The ventricles are normal in size. No abnormal extra-axial fluid collection is identified. Normal calvarium and skull base. Unremarkable orbits. The imaged paranasal sinuses and mastoid air cells are clear. IMPRESSION: Unremarkable noncontrast CT of the head. Please note that all CT scans at this facility use dose modulation, iterative reconstruction, and/or weight-based dosing when appropriate to reduce radiation dose to as low as reasonably achievable. Dictated by Deondre Womack MD @ 07/10/2024 5:02:59 PM (Electronically Signed)
--- OUTSIDE RECORDS SUMMARY | 2024-07-10 16:58 | XMS_ITS | Continuity of Care Document ---
Author Organization [facility] Address [address] [place] [address] Phone Care Team Providers Care Machine Burrer Name Role Phone Koko HAIR, PhD, Livan [...] Available - Active Procedures Procedure Date Office/Outpatient Visit,Est, Mod 2023 POSTOP FOLLOW-UP VISIT Telephone 2023 TLIF - Includes PSF at the same level - PA NEUMANN FACETC/FRMT ARTHRD LUM 1 Posterior Instrumentation, Non-segmental - PA PEEK/ Cage/ Implant, For Interbody Fusio n - PA TLIF - Includes PSF at the same level Ap NEUMANN FACETC/FRMT ARTHRD LUM 1 Posterior Instrumentation, Non-segmental PEEK/ Cage/ Implant, For Interbody Fusio n Apr-05-2024 Office/Outpatient Visit,Est, Mod Feb-12- 2024 Office/Outpatient Visit,New, Mod 2022 Advance Directives Directive Yes / No Effective Date File Name No Information Encounters Encounter Description Practice Location Reason(s) For Visit Diagnoses Date Provider Providers Copied on Encounter Office/Outpat ient Visit,Est, Mod [facility], [address], [place], [place], [id number], [place] tel:[phone] [facility] Arthrodesis status Koko Licona. [facility], [address], [place], [address], [place]. tel:[phone] Referring Provider: Javon Smith, [facility] Physician-D o Not Fax, [place], [address]. tel:[phone] [facility], [address], [place], [place], [id number], [place] tel:[phone] [facility] No Information Koko Licona. [facility], [address], [place], [address], [place]. tel:[phone] Referring Provider: Javon Smith, [facility] Physician-D o Not Fax, [place], [address]. tel:[phone] [facility], [address], [place], [place], [id number], [place] tel:[phone] [facility] No Information Koko Licona. [facility], [address], [place], [address], [place]. tel:[phone] [facility], [address], [place], [place], [id number], [place] tel:[phone] [facility] No Information Danie Cabral. [facility], [address], [place], [place], [id number] , [place]. tel:[phone] Referring Provider: Javon Smith, [facility] Physician-D o Not Fax, [place], [address]. tel:[phone] [facility], [address], [place], [place], [id number], [place] tel:[phone] [facility] No Information Koko Licona. [facility], [address], [place], [address], [place]. tel:[phone] Referring Provider: Javon Smith, [facility] Physician-D o Not Fax, [place], [address]. tel:[phone] Office/Outpat ient Visit,Est, Mod [facility], [address], [place], [place], [id number], [place] tel:[phone] [facility] Spinal stenosis, lumbar region with neurogenic claudicationS pondylolisthe sis, lumbar region Koko Licona. [facility], [address], [place], [address], [place]. tel:[phone] Referring Provider: Javon Smith, [facility] Physician-D o Not Fax, [place], [address]. tel:[phone] Office/Outpat ient Visit,New, Mod [facility], [address], [place], [place], [id number], [place] tel:[phone] [facility] Low back pain, unspecified Koko Licona. [facility], [address], [place], [address], [place]. tel:[phone] Referring Provider: Javon Smith, [facility] Physician-D o Not Fax, [place], [address]. tel:[phone] Family History Family Member Type Diagnosis Age At Onset No Information Payers Payer name Insurance type Covered alliance party ID Annette aviles(s) Zahida TARYN [facility] 2021 CI [id number] Social History Type Description Quantity Date Captured [...] Percentile BMI percentile Pulse Ox Inhaled Ox 1:37 PM 69.00 in 92.986 kg (205.00 lbs) 30.2 7 kg/m eter (2) Chief Complaint And Reason [...]
--- OUTSIDE RECORDS SUMMARY | 2024-07-10 16:58 | XMS_ITS | Clinical Summary ---
Author Organization [employer] [facility] Address [place], [place] [address] Care Team Providers Care Tobacco Drummer Name Role Phone Umer Aguila MD Primary [...] times daily if needed. Active rizatriptan (MAXALT HAIRSPRING ASSEMBLER) [address] 10 mg [...] 03/14/2018 Violation of controlled substance agreement 08/17 Overview (09/08/2017): Had Suboxone in her urine 08/27/17. NO [...] Generalized anxiety disorder 05/09/2010 Narcotic Overuse 10/17/2006 Overview (09/08/2017): Suboxone found in her urine 08/27/17 violates [...] 12/05/2013 07/13/2016 Diabetes mellitus type II 09/25/2012 Overview (10/31/2013): a system change updated this record. This will not affect patient care or billing. This comment can be deleted. Diabetes mellitus type 2, uncontrolled 01/18/2012 09/25/2012 Dysthymic disorder 06/19/2011 5 Issue of repeat prescriptions 03/18/2011 09/08/2017 Overview (03/18/2011): Migraine - taking Percocet Major depressive disorder, r ecurrent episode, severe, without mention of psychotic behavior 11/27/2006 12/30/2010 Depressive disorder, not elsewhere classified 10/18/19 07 12/17/2007 Anxiety state, unspecified 10/17/2006 0 12/30/2010 Unspecified essential hypertension 10/14/2006 07/29/2015 Panic disorder without agoraphobia 10/14/2006 08/13/2016 MIGRAINE 10/14/2006 01/04/2015 Overview (06/23/2014): OK for 2 ER visits/month for 1 [...] 3 03/10/2019 Social Connections Answer Date Recorded Do you often feel lonely or isolated from those around you? 0 11/21/2023 Financial Resource Strain Answer Date R ecorded Difficulty of Paying Living Expenses 2 11/21/2023 Difficulty of Paying Living Expenses 1 11/21/2023 Food Insecurity Answer Date Recorded Do you worry your food will run out before you are able to buy more? 1 11/21/2023 Transportation Needs Answer Date Record ed Does lack of transportation keep you from medica l appointments? 1 11/21/2023 Does lack of transportation keep you from work, meetings or getting things that you need? 1 11/21/2023 Housing Stability Answer Date Recorded What is your housing situation today? 1 11/21/2023 Sex and Gender Information Value [...] 93 11/21/2023 9:22 AM CDT Temperature 37.6 C (99.7 F) 11/21/2023 7:57 AM CDT Respiratory Rate 16 11/21/2023 7:57 AM CDT [...] 45-75 2022 COVID-19 vaccine series ( season) 2024 Influenza for age 9-49 04/16/2024 8, 06/10/2017, 07/07/2016, Additional history exists Pap test for age 21-65 03/12/2025 2, 01/17/2019, 11/01/2012, Additional history exists Tdap Completed 04/16/2011 Pneumococcal series for age 6-64 Aged Out No longer eligible based on patient's age to complete this topic Medical Devices Implanted Type Area Press And Blow Machine Tender Device Identifier Shelf Expiration Date Model / Serial / Lot Screw Lmbr Post 6.5x50mm Solera 5.5/6 Va Cocr - [id number] Implanted:Qty : 2 on 11/19/2023 by Livan Sutherland MD at [facility] N/A: Spine Medtronic Spine/Ortho [id number] / / Screw Lmbr Post 6.5x40mm Solera 5.5/6 Va Cocr - [id number] Implanted:Qty : 2 on 11/19/2023 by Livan Sutherland MD at [facility] N/A: Spine Medtronic Spine/Ortho [id number] / / Set Screw Lmbr Ant 5.5mm Solera Break Off - [id number] Implanted:Qty : 4 on 11/19/2023 by Livan Sutherland MD at [facility] N/A: Spine Medtronic Spine/Ortho [id number] / / Bone 1-4mm 60cc Medtronic Fine Canclls Freeze Dried - [id number] Implanted:Qty : 1 on 11/19/2023 by Livan Sutherland MD at [facility] N/A: Spine Medtronic Spine/Ortho 02/04/2028 [id number] / [id number] / [id number] Spacer Lmbr 07b53mn - [id number] Implanted:Qty : 1 on 11/19/2023 by Livan Sutherland MD at [facility] N/A: Spine Medtronic Spine/Ortho 01/28/2031 [id number] / / 98PE Donald Lmbr 40x5.5mm Solera 5.5/6 Cvd Titnm - [id number] Implanted:Qty : 2 on 11/19/2023 by Livan Sutherland MD at [facility] N/A: Spine Medtronic Spine/Ortho [id number] / / Procedures Procedure Name Priority Date/Time Associated Diagnosis Comments PLASTIC HOSPITAL PRODUCTS ASSEMBLER THIN PREP PAP SCREEN IMAGED Routine 03/12/2022 10:00 AM CDT LDL CHOLESTEROL,DIRECT Routine 09/19/2012 6:31 PM FUR MACHINE OPERATOR from Last 3 Months or Most Recently Relevant to Health Maintenance Results * PLASTIC HOSPITAL PRODUCTS ASSEMBLER THIN PREP PAP SCREEN IMAGED (03/12/2022 10:00 AM CDT) Case Report Gynecologic Cytology Report Case: [id number] Authorizing Provider: Umer Aguila MD Collected: 03/12/2022 1000 Ordering Location: [facility] Received: 03/13/2022 1048 First Screen: Shaunna Hernandes Pathologist: Scottie Currie MD Specimen: PLASTIC HOSPITAL PRODUCTS ASSEMBLER ThinPrep Vial Screening, Cervical/Vaginal 03/30/2022 2:06 PM CDT [facility] INTERPRETATION/ RESULT NEGATIVE FOR INTRAEPITHELIAL LESION OR MALIGNANCY (NIL) (none) 03/30/2022 2:06 PM CDT [facility] R NON-NEOPLASTIC FINDING(S) Reactive cellular changes associated with inflammation/repa ir 03/30/2022 2:06 PM CDT [facility] SPECIMEN ADEQUACY Satisfactory for evaluation Endocervical component present 03/30/2022 2:06 PM CDT [facility] HPV REQUEST HPV not requested 2021 2:06 PM CDT [facility] Date of LMP 03/30/2022 2:06 PM CDT [facility] Comment:Mirena Last Pap Result NIL 2:06 PM CDT [facility] Menstrual Status Hormonally Suppressed 03/30/2022 2:06 PM CDT [facility] Additional Information 03/30/2022 2:06 PM CDT [facility] Comment: Interpreted at [facility] - [address], [place] [address] Automated Review Successful 03/30/2022 2:06 PM CDT [facility] Comment:Specimen processed s uccessfully by automated entertainment reporter device, ThinPrep Imaging System, [employer] Note The pap test is a [...] and malignant lesions. 03/30/2022 2:06 PM CDT [facility] Other (Cervical/Vagina l) 03/12/2022 10:00 AM CDT 03/13/2022 10:48 AM CDT Umer Aguila MD PATHOLOGY/CYTOLO GY [facility] [address] [place] [address], * LDL CHOLESTEROL,DIRECT (09/19/2012 6:31 PM FUR MACHINE OPERATOR) LDL CHOLESTEROL,DI RECT 86 mg/dL 09/20/2012 9:18 AM FUR MACHINE OPERATOR [facility] PATIENT STATUS NON-FASTIN G 09/20/2012 9:18 AM FUR MACHINE OPERATOR [facility] Blood specimen (specimen) BLOOD SPECIMEN / Unknown 09/19/2012 6:31 PM FUR MACHINE OPERATOR 09/19/2012 6:31 PM FUR MACHINE OPERATOR Narrative [facility] - 09/20/2012 9:18 AM FUR MACHINE OPERATOR RISK CATEGORY LDL GOAL (mg/dL) Vascular disease and/or diabetes (<100) Multiple (2+) risk factors (<130) 0-1 risk factor (<160) Umer Aguila MD CHEMISTRY [facility] [address] [place] [address] from Last 3 Months or Most Recently [...] 8:13 PM 03/31/2018 3:31 PM Care Teams Tobacco Drummer Relationship Specialty Start Date End Date Umer Aguila MD [address] [place] [id number] PCP - General Family Practice 08/12/19
--- OUTSIDE RECORDS SUMMARY | 2024-07-10 16:58 | XMS_ITS | Continuity of Care Document ---
Author Organization [facility] Address [address] [facility] [place] [address] Phone Care Team Providers Care Flow Coordinator Name Role Phone Will MD RED, Deondre [...] Diagnoses Date Provider Providers Copied on Encounter [facility], [address] [place] [address], [id number] , tel:[phone] [facility] No Information 2 Will Deondre. [address] [place] [address], [id number] , [place]. tel:[phone] [facility], [address] [place] [address], [id number] , [place] tel:[phone] [facility] Radiculopathy, lumbar region 1 Will Deondre. [address] [place] [address], [id number] , [place]. [phone] Referring Provider: Deondre Mart, [address] [place] [address], [id number]. tel:[phone] OFFICE VISIT, EST TELEMEDICINE [facility], [address] [place] [address], [id number] , [place] tel:[phone] [facility] Widespread pain (chief complaint) Chronic migraine without aura, intractable, without status migrainosusFibro myalgiaChronic migraine w/o aura, intractable, w status migrainosusLong term (current) use of opiate analgesicLow back painMyalgia, other siteCervicalgiaR adiculopathy, lumbar region 1 Duongliyah Costa. [address] [place] [address] [address], [place], [place], [id number] , [place]. [phone] Referring Provider: Deondre Mart, [address] [place] [address], [id number]. [phone] OFFICE VISIT, EST TELEMEDICINE [facility], [address] [place] [address], [id number] , [place] tel:[phone] [facility] Widespread pain (chief complaint) Chronic migraine without aura, intractable, without status migrainosusFibro myalgiaChronic migraine w/o aura, intractable, w status migrainosusLong term (current) use of opiate analgesicLow back painMyalgia, other siteCervicalgia 1 Duong Igor. [address] [place] [address] 11 [facility] [address], [place], [place], [id number] , [place]. tel:[phone] Referring Provider: Deondre Mart, [address] [place] [address], [id number]. [phone] [facility], [address] [place] [address], [id number] , [place] tel:[phone] [facility] Chronic migraine without aura, intractable, without status migrainosus 1 Duong Igor. [address] [place] [address] [address], [place], [place], [id number] , [place]. tel:[phone] Referring Provider: Deondre Mart, [address] [place] [address], [id number]. [phone] OFFICE VISIT, EST TELEMEDICINE [facility], [address] [place] [address], [id number] , [place] tel:[phone] [facility] Widespread pain (chief complaint) Chronic migraine without aura, intractable, without status migrainosusFibro myalgiaChronic migraine w/o aura, intractable, w status migrainosusLong term (current) use of opiate analgesicLow back painMyalgia, other site 1 Duong Igor. [address] [place] [address] [address], [place], [id number] , [place]. tel:[phone] Referring Provider: Deondre Mart, [address] [place] [address], [id number]. [phone] OFFICE VISIT, EST TELEMEDICINE [facility], [address] [place] [address], [id number] , [place] tel:[phone] [facility] Widespread pain (chief complaint) Chronic migraine without aura, intractable, without status migrainosusFibro myalgiaChronic migraine w/o aura, intractable, w status migrainosusLong term (current) use of opiate analgesicLow back painMyalgia, other site 1 Rhoda Costa. [address] [place] [address] [address], [place], [id number] , [place]. tel:[phone] Referring Provider: Deondre Mart, [address] [place] [address], [id number]. [phone] OFFICE VISIT, [facility] TELEMEDICINE [facility], [address] [place] [address], [id number] , [place] tel:[phone] [facility] Widespread pain (chief complaint) Chronic migraine without aura, intractable, without status migrainosusFibro myalgiaChronic migraine w/o aura, intractable, w status migrainosusLong term (current) use of opiate analgesicLow back painMyalgia, other site 1 Rhoda Costa. [address] [place] [address] [address], [place], [id number] , [place]. tel:[phone] Referring Provider: Deondre Mart, [address] [place] [address], [id number]. tel:[phone] [facility], [address] [place] [address], [id number] , [place] tel:[phone] [facility] Chronic migraine without aura, intractable, without status migrainosus 1 Rhoda Costa. [address] [place] [address] [address], [place], [place], [id number] , [place]. tel: [phone] Referring Provider: Deondre Mart, [address] [place] [address], [address]. tel:[phone] OFFICE VISIT, EST TELEMEDICINE [facility], [address] [place] [address], [id number] , [place] tel: [phone] [facility] Widespread pain (chief complaint) Chronic migraine without aura, intractable, without status migrainosusChron ic migraine w/o aura, intractable, w status migrainosusFibro myalgiaLong term (current) use of opiate analgesicLow back painMyalgia, other site 1 Rhoda Costa. [address] [place] [address] [address], [place], [place], [id number] , [place]. tel: [phone] Referring Provider: Deondre Mart, [address] [place] [address], [id number]. tel:[phone] OFFICE VISIT, EST TELEMEDICINE [facility], [address] [place] [address], [id number] , [place] tel: [phone] [facility] Widespread pain (chief complaint) Chronic migraine without aura, intractable, without status migrainosusChron ic migraine w/o aura, intractable, w status migrainosusFibro myalgiaLong term (current) use of opiate analgesicLow back painMyalgia, other site 0 Rhoda Costa. [address] [place] [address] [address], [place], [place], [id number] , [place]. tel: [phone] Referring Provider: Deondre Mart, [address] [place] [address], [id number]. tel:[phone] OFFICE VISIT, EST TELEMEDICINE [facility], [address] [place] [address], [id number] , [place] tel:[phone] [facility] Widespread pain (chief complaint) Chronic migraine without aura, intractable, without status migrainosusChron ic migraine w/o aura, intractable, w status migrainosusFibro myalgiaLong term (current) use of opiate analgesicLow back painMyalgia, other siteMyalgia of auxiliary muscles, head and neck Nov- 2- 0 Rhoda Costa. [address] [facility] [address], [place], [id number] , [place]. tel:[phone] Referring Provider: Umer Lamb, [facility] [address], [place], [address]. tel:[phone] OFFICE/OUTPAT IENT VISIT, [facility], [address] [place] [address], [id number] , [place] tel: [phone] [facility] Widespread pain (chief complaint) Chronic migraine without aura, intractable, without status migrainosusChron ic migraine w/o aura, intractable, w status migrainosusFibro myalgiaLong term (current) use of opiate analgesicLow back painMyalgia, other siteMyalgia of auxiliary muscles, head and neck May-08 18- 0 Duongliyah Costa. [address] [place] [address] [address], [place], [place], [id number] , [place]. tel:[phone] Referring Provider: Umer Lamb, [facility] [address] [place], [address]. tel:[phone] [facility], [address] [place] [address], [id number] , [place] tel:[phone] [facility] Chronic migraine without aura, intractable, without status migrainosus Sep-2 0 Duongliyah Costa. [address] [place] [address] [address], [place], [id number] , [place]. tel:[phone] Referring Provider: Umer Lamb, [facility] [address] , [place], [address]. [phone] OFFICE/OUTPAT IENT VISIT, [facility], [address] [place], [place], [id number] , [place] tel: [phone] [facility] Widespread pain (chief complaint) Chronic migraine w/o aura, intractable, w/o stat migrChronic migraine w/o aura, intractable, w status migrainosusLow back painFibromyalgia FPC (current) use of opiate analgesicMyalgia , other site 0 Duongliyah Costa. [address] [facility] [address], [place], [place], [id number] , [place]. tel: [phone] Referring Provider: Umer Lamb, [facility] [address] [place], [address]. [phone] OFFICE/OUTPAT IENT VISIT, [facility], [address] [place], [place], [id number] , [place] tel: [phone] [facility] Widespread pain (chief complaint) Chronic migraine w/o aura, intractable, w/o stat migrChronic migraine w/o aura, intractable, w status migrainosusLow back painFibromyalgia rn long term care (current) use of opiate analgesicMyalgia , other site 0 Rhoda Costa. [address] [place] [address] [address], [place], [place], [id number] , [place]. tel: [phone] Referring Provider: Umer Lamb, [facility] [address] [place], [address]. [phone] OFFICE VISIT, EST TELEMEDICINE [facility], [address] [place], [place], [id number] , [place] tel: [phone] [facility] Widespread pain (chief complaint) Chronic migraine w/o aura, intractable, w/o stat migrChronic migraine w/o aura, intractable, w status migrainosusLow back painFibromyalgia FPC (current) use of opiate analgesic 0 Duong Igor. [address] [facility] [address], [place], [place], [id number] , [place]. tel:[phone] Referring Provider: Umer Lamb, [facility] [address] [place], [address]. tel:[phone] [facility], [address] [place] [address], [id number] , [place] [phone] [facility] Chronic migraine w/o aura, intractable, w/o stat migr 0 Rhoda Costa. [address] [place] [address] [address], [place], [place], [id number] , [place]. tel:[phone] Referring Provider: Umer Lamb, [facility] [address] [place], [address]. tel:[phone] OFFICE VISIT, EST TELEMEDICINE [facility], [address] [place] [address], [id number] , [place] [phone] [facility] Widespread pain (chief complaint) Chronic migraine w/o aura, intractable, w status migrainosusLow back painFibromyalgia FPC (current) use of opiate analgesic 0 Rhoda Costa. [address] [place] [address], [place], [place], [id number] , [place]. tel:[phone] Referring Provider: Deondre Mart, [address] [place] [address], [address]. tel:[phone] OFFICE VISIT, EST TELEMEDICINE [facility], [address] [place] [address], [id number] , [place] tel:[phone] [facility] Widespread pain (chief complaint) rn long term care (current) use of opiate analgesicLow back painFibromyalgia Chronic migraine w/o aura, intractable, w status migrainosus 0 Rhoda Costa. [address] [place] [address] [address], [place], [place], [id number] , [place]. [phone] Referring Provider: Deondre Mart, [address] [place] [address], [address]. tel:[phone] OFFICE VISIT, EST TELEMEDICINE [facility], [address] [place], [place], [id number] , [place] tel: [phone] [facility] Widespread pain (chief complaint) Chronic migraine w/o aura, intractable, w status migrainosusLow back painFibromyalgia FPC (current) use of opiate analgesic Apr-1 - 0 Rhoda Costa. [address] [facility] [address], [place], [place], [id number] , [place]. tel: [phone] Referring Provider: Deondre Mart, [address] [place], [address]. [phone] OFFICE VISIT, EST TELEMEDICINE [facility], [address] [place], [place], [id number] , [place] tel:[phone] [facility] Widespread pain (chief complaint) Chronic migraine w/o aura, intractable, w status migrainosusLow back painFibromyalgia Chronic pain syndromeLong term (current) use of opiate analgesic Apr-0 0 Duong Igor. [facility] [address], [place], [place], [id number] , [place]. tel: [phone] Referring Provider: Umer Lamb [facility] [address] [place], [address]. tel:[phone] OFFICE/OUTPAT IENT VISIT, [facility], [address] [place], [place], [id number] , [place] tel: [phone] [facility] Widespread pain (chief complaint) Chronic migraine w/o aura, intractable, w status migrainosusLow back painFibromyalgia Encounter for screening for other disorderOther intermediate accountant (current) drug therapyEncounter for therapeutic drug level monitoringMyalgi a, other siteLong term (current) use of opiate analgesic Mar-2 - 0 Rhoda Costa. [address] [facility] [address], [place], [place], [id number] , [place]. tel: [phone] Referring Provider: Umer Lamb [facility] [address] , [place], [address]. tel:[phone] [facility], [address] [facility] [place], [place], [id number] , [place] tel:[phone] [facility] [place] No Information Oct- 0 Will Deondre. [address] [facility] [place], [place], [id number] , [place]. tel:[phone] Family History Family Member Type Diagnosis Age [...] Goal ALT (SGPT). Due on due Goal MANAGER HARDWARE Paperwork. Due on due Goal UDT. Due on due Goal LIFE [employer] Scanned. Due on due Goal AST (SGOT). [...] Goal ALT (SGPT). Due on due Goal MANAGER HARDWARE Paperwork. Due on due Goal UDT. Due on due Goal LIFE INS[employer]ANCE [employer] Scanned. Due on due Goal AST (SGOT). [...] Goal ALT (SGPT). Due on due Goal MANAGER HARDWARE Paperwork. Due on due Goal UDT. Due on due Goal [employer] INS[employer]ANCE [employer] Scanned. Due on 021 due Goal AST (SGOT). Due on due Goal Creatinine. Due on 21 due [...] increasing medication today. Currently doing PT at [facility] which has been beneficial. Interested in TPIs [...] concern today.Previously managed on opioids, however her MANAGER HARDWARE was terminated as she trialed on of her friends Suboxone which showed in her UDT. She then was managed on Suboxone through [facility] but is unable to continue [...]
--- OUTSIDE RECORDS SUMMARY | 2024-07-10 16:58 | XMS_ITS | Continuity of Care Document ---
Author Organization [facility] enter Address [address] [place] [address] Phone Care Team Providers Care Floral Designer Name Role Phone [facility] Unavailable Unava ilable Procedures Procedure Date INJ FORAMEN EPIDURAL L/S INJ FORAMEN EPIDURAL L/S Advance Directives Directive Yes / No Effective Date File Name No Information Encounters Encounter Description Practice Location Reason(s) For Visit Diagnoses Date Provider Providers Copied on Encounter [facility], [address] [place] [address], [id number], [place] tel:[phone] [facility] No Information [facility]. [address] [place] [address], [id number], [place]. tel:[phone] Referring Provider: Deondre Mart, [address] [facility] [place], [address] . tel:[phone] Family History Family Member Type Diagnosis Age [...]
--- OUTSIDE RECORDS SUMMARY | 2024-07-10 16:58 | XMS_ITS | Continuity of Care Document ---
Author Organization [facility] Address [address] [facility] [place] [address] Phone Care Team Providers Care Glass Furnace Tender Name Role Phone Will MD RED, Deondre [...] Diagnoses Date Provider Providers Copied on Encounter [facility], [address] [place] [address], [id number] , tel:[phone] [facility] No Information 2 Will Deondre. [address] [place] [address], [id number] , [place]. tel:[phone] [facility], [address] [place] [address], [id number] , [place] tel:[phone] [facility] Radiculopathy, lumbar region 1 Will Deondre. [address] [place] [address], [id number] , [place]. [phone] Referring Provider: Deondre Mart, [address] [place] [address], [address]. tel:[phone] OFFICE VISIT, EST TELEMEDICINE [facility], [address] [place] [address], [id number] , [place] tel:[phone] [facility] Widespread pain (chief complaint) Chronic migraine without aura, intractable, without status migrainosusFibro myalgiaChronic migraine w/o aura, intractable, w status migrainosusLong term (current) use of opiate analgesicLow back painMyalgia, other siteCervicalgiaR adiculopathy, lumbar region 1 Duongliyah Costa. [address] [place] [address] [address], [place], [place], [id number] , [place]. [phone] Referring Provider: Deondre Mart, [address] [place] [address], [address]. [phone] OFFICE VISIT, EST TELEMEDICINE [facility], [address] [place] [address], [id number] , [place] tel:[phone] [facility] Widespread pain (chief complaint) Chronic migraine without aura, intractable, without status migrainosusFibro myalgiaChronic migraine w/o aura, intractable, w status migrainosusLong term (current) use of opiate analgesicLow back painMyalgia, other siteCervicalgia 1 Duong Igor. [address] [place] [address] [address] [facility] [address], [place], [place], [id number] , [place]. tel:[phone] Referring Provider: Deondre Mart, [address] [place] [address], [address]. [phone] [facility], [address] [place] [address], [id number] , [place] tel:[phone] [facility] Chronic migraine without aura, intractable, without status migrainosus 1 Duong Igor. [address] [place] [address] [address], [place], [place], [id number] , [place]. tel:[phone] Referring Provider: Deondre Mart, [address] [place] [address], [id number]. [phone] OFFICE VISIT, EST TELEMEDICINE [facility], [address] [place] [address], [id number] , [place] tel:[phone] [facility] Widespread pain (chief complaint) Chronic migraine without aura, intractable, without status migrainosusFibro myalgiaChronic migraine w/o aura, intractable, w status migrainosusLong term (current) use of opiate analgesicLow back painMyalgia, other site 1 Duong Igor. [address] [place] [address] [address], [place], [id number] , [place]. tel:[phone] Referring Provider: Deondre Mart, [address] [place] [address], [address]. [phone] OFFICE VISIT, EST TELEMEDICINE [facility], [address] [place] [address], [id number] , [place] tel:[phone] [facility] Widespread pain (chief complaint) Chronic migraine without aura, intractable, without status migrainosusFibro myalgiaChronic migraine w/o aura, intractable, w status migrainosusLong term (current) use of opiate analgesicLow back painMyalgia, other site 1 Rhoda Costa. [address] [place] [address] [address], [facility] [place], [place], [id number] , [place]. tel:[phone] Referring Provider: Deondre Mart, [address] [place] [address], [address]. [phone] OFFICE VISIT, [facility] TELEMEDICINE [facility], [address] [place] [address], [id number] , [place] tel:[phone] [facility] Widespread pain (chief complaint) Chronic migraine without aura, intractable, without status migrainosusFibro myalgiaChronic migraine w/o aura, intractable, w status migrainosusLong term (current) use of opiate analgesicLow back painMyalgia, other site 1 Rhoda Costa. [address] [place] [address] [address], [place], [id number] , [place]. tel:[phone] Referring Provider: Deondre Mart, [address] [place] [address], [address]. tel:[phone] [facility], [address] [place] [address], [id number] , [place] tel:[phone] [facility] Chronic migraine without aura, intractable, without status migrainosus 1 Rhoda Costa. [address] [place] [address] [address], [place], [place], [id number] , [place]. tel: [phone] Referring Provider: Deondre Mart, [address] [place] [address], [address]. tel:[phone] OFFICE VISIT, EST TELEMEDICINE [facility], [address] [place] [address], [id number] , [place] tel: [phone] [facility] Widespread pain (chief complaint) Chronic migraine without aura, intractable, without status migrainosusChron ic migraine w/o aura, intractable, w status migrainosusFibro myalgiaLong term (current) use of opiate analgesicLow back painMyalgia, other site 1 Rhoda Costa. [address] [place] [address] [address], [place], [place], [id number] , [place]. tel: [phone] Referring Provider: Deondre Mart, [address] [place] [address], [address]. tel:[phone] OFFICE VISIT, EST TELEMEDICINE [facility], [address] [place] [address], [id number] , [place] tel: [phone] [facility] Widespread pain (chief complaint) Chronic migraine without aura, intractable, without status migrainosusChron ic migraine w/o aura, intractable, w status migrainosusFibro myalgiaLong term (current) use of opiate analgesicLow back painMyalgia, other site 0 Rhoda Costa. [address] [place] [address] [address], [place], [place], [id number] , [place]. tel: [phone] Referring Provider: Deondre Mart, [address] [place] [address], [address]. tel:[phone] OFFICE VISIT, EST TELEMEDICINE [facility], [address] [place] [address], [id number] , [place] tel:[phone] [facility] Widespread pain (chief complaint) Chronic migraine without aura, intractable, without status migrainosusChron ic migraine w/o aura, intractable, w status migrainosusFibro myalgiaLong term (current) use of opiate analgesicLow back painMyalgia, other siteMyalgia of auxiliary muscles, head and neck Nov- 2- 0 Rhoda Costa. [address] [facility] [address], [place], [id number] , [place]. tel:[phone] Referring Provider: Umer Lamb, [facility] [address], [place], [address]. tel:[phone] OFFICE/OUTPAT IENT VISIT, [facility], [address] [place] [address], [id number] , [place] tel: [phone] [facility] Widespread pain (chief complaint) Chronic migraine without aura, intractable, without status migrainosusChron ic migraine w/o aura, intractable, w status migrainosusFibro myalgiaLong term (current) use of opiate analgesicLow back painMyalgia, other siteMyalgia of auxiliary muscles, head and neck May-08 18- 0 Duongliyah Costa. [address] [place] [address] [address], [place], [place], [id number] , [place]. tel:[phone] Referring Provider: Umer Lamb, [facility] [address] [place], [address]. tel:[phone] [facility], [address] [place] [address], [id number] , [place] tel:[phone] [facility] Chronic migraine without aura, intractable, without status migrainosus Sep-2 0 Duongliyah Costa. [address] [place] [address] [address], [facility] [place], [place], [id number] , [place]. tel:[phone] Referring Provider: Umer Lamb, [facility] [address] , [place], [address]. [phone] OFFICE/OUTPAT IENT VISIT, [facility], [address] [place], [place], [id number] , [place] tel: [phone] [facility] Widespread pain (chief complaint) Chronic migraine w/o aura, intractable, w/o stat migrChronic migraine w/o aura, intractable, w status migrainosusLow back painFibromyalgia FDC (current) use of opiate analgesicMyalgia , other site 0 Duongliyah Costa. [address] [facility] [address], [place], [place], [id number] , [place]. tel: [phone] Referring Provider: Umer Lamb, [facility] [address] [place], [address]. [phone] OFFICE/OUTPAT IENT VISIT, [facility], [address] [place], [place], [id number] , [place] tel: [phone] [facility] Widespread pain (chief complaint) Chronic migraine w/o aura, intractable, w/o stat migrChronic migraine w/o aura, intractable, w status migrainosusLow back painFibromyalgia rat exterminator (current) use of opiate analgesicMyalgia , other site 0 Rhoda Costa. [address] [place] [address] [address], [place], [place], [id number] , [place]. tel: [phone] Referring Provider: Umer Lamb, [facility] [address] [place], [address]. [phone] OFFICE VISIT, EST TELEMEDICINE [facility], [address] [place], [place], [id number] , [place] tel: [phone] [facility] Widespread pain (chief complaint) Chronic migraine w/o aura, intractable, w/o stat migrChronic migraine w/o aura, intractable, w status migrainosusLow back painFibromyalgia FDC (current) use of opiate analgesic 0 Duong Igor. [address] [facility] [address], [place], [place], [id number] , [place]. tel:[phone] Referring Provider: Umer Lamb, [facility] [address] [place], [address]. tel:[phone] [facility], [address] [place] [address], [id number] , [place] [phone] [facility] Chronic migraine w/o aura, intractable, w/o stat migr 0 Rhoda Costa. [address] [place] [address] [address], [place], [place], [id number] , [place]. tel:[phone] Referring Provider: Umer Lamb, [facility] [address] [place], [address]. tel:[phone] OFFICE VISIT, EST TELEMEDICINE [facility], [address] [place] [address], [id number] , [place] [phone] [facility] Widespread pain (chief complaint) Chronic migraine w/o aura, intractable, w status migrainosusLow back painFibromyalgia FDC (current) use of opiate analgesic 0 Rhoda Costa. [address] [place] [address], [place], [place], [id number] , [place]. tel:[phone] Referring Provider: Deondre Mart, [address] [place] [address], [address]. tel:[phone] OFFICE VISIT, EST TELEMEDICINE [facility], [address] [place] [id number] , [place] tel:[phone] [facility] Widespread pain (chief complaint) rat exterminator (current) use of opiate analgesicLow back painFibromyalgia Chronic migraine w/o aura, intractable, w status migrainosus 0 Rhoda Costa. [address] [place] [address] [address], [place], [place], [id number] , [place]. [phone] Referring Provider: Deondre Mart, [address] [place] [address], [address]. tel:[phone] OFFICE VISIT, EST TELEMEDICINE [facility], [address] [place], [place], [id number] , [place] tel: [phone] [facility] Widespread pain (chief complaint) Chronic migraine w/o aura, intractable, w status migrainosusLow back painFibromyalgia FDC (current) use of opiate analgesic Apr-1 - 0 Rhoda Costa. [address] [facility] [address], [place], [place], [id number] , [place]. tel: [phone] Referring Provider: Deondre Mart, [address] [place], [address]. [phone] OFFICE VISIT, EST TELEMEDICINE [facility], [address] [place], [place], [id number] , [place] tel:[phone] [facility] Widespread pain (chief complaint) Chronic migraine w/o aura, intractable, w status migrainosusLow back painFibromyalgia Chronic pain syndromeLong term (current) use of opiate analgesic Apr-0 0 Duong Igor. [facility] [address], [place], [place], [id number] , [place]. tel: [phone] Referring Provider: Umer Lamb [facility] [address] [place], [address]. tel:[phone] OFFICE/OUTPAT IENT VISIT, [facility], [address] [place], [place], [id number] , [place] tel: [phone] [facility] Widespread pain (chief complaint) Chronic migraine w/o aura, intractable, w status migrainosusLow back painFibromyalgia Encounter for screening for other disorderOther ferry terminal agent (current) drug therapyEncounter for therapeutic drug level monitoringMyalgi a, other siteLong term (current) use of opiate analgesic Mar-2 - 0 Rhoda Costa. [address] [facility] [address], [place], [place], [id number] , [place]. tel: [phone] Referring Provider: Umer Lamb [facility] [address] , [place], [address]. tel:[phone] [facility], [address] [facility] [place], [place], [id number] , [place] tel:[phone] [facility] [place] No Information Oct- 0 Will Deondre. [address] [facility] Rebecca [place], [place], [id number] , [place]. tel:[phone] Family History Family Member Type Diagnosis Age [...] Goal ALT (SGPT). Due on due Goal STAIN SPRAYER Paperwork. Due on due Goal UDT. Due on due Goal DRAMATIC COACH Scanned. Due on due Goal AST (SGOT). [...] Allergy L ist. Due on due Goal DRAMATIC COACH Scanned. Due on due Goal UDT. Due on due Goal STAIN SPRAYER Paperwork. Due on due Goal ALT (SGPT). Due on due Goal Order Annual PT. Due on due Goal OARS. Due on due Goal Creatinine. Due on due Goal AST (SGOT). Due on due Goal DRAMATIC COACH Scanned. Due on due Goal UDT. Due on due Goal STAIN SPRAYER Paperwork. Due on due Goal ALT (SGPT). [...] (urinary). Widespread pain Severity level i s 6. [...] massage, rest, heat and cold. Widespread pain Duration: chroni c. The patient [...] increasing medication today. Currently doing PT at [facility] which has been beneficial. Interested in TPIs [...] and incontinence (urinary). Widespread pain (comments) Troy rhonda presents for a follow up and medication [...] Rx Meds and lying down. Widespread pain Severity level i s 8. [...] concern today.Previously managed on opioids, however her STAIN SPRAYER was terminated as she trialed on of her friends Suboxone which showed in her UDT. She then was managed on Suboxone through [facility] but is unable to continue [...]
--- OUTSIDE RECORDS SUMMARY | 2024-07-10 16:58 | XMS_ITS | Continuity of Care Document ---
Author Organization [facility] Address [address] [place] [address] Phone Care Team Providers Care Channel Business Manager Name Role Phone Koko HAIR, PhD, Livan [...] C, [address], [place], [place], [id number], [place] tel:[phone] [facility] Arthrodesis status Koko Licona. [facility], [address], [place], [address], [place]. tel:[phone] Referring Provider: Javon Smith, [facility] ER Physician-D o Not Fax, [place], [address]. tel:[phone] [facility], [address], [place], [place], [id number], [place] tel:[phone] [facility] No Information Koko Licona. [facility], [address], [place], [address], [place]. tel:[phone] Referring Provider: Javon Smith, [facility] ER Physician-D o Not Fax, [place], [address]. tel:[phone] [facility], [address], [place], [place], [id number], [place] tel:[phone] [facility] No Information Koko Licona. [facility], [address], [place], [address], [place]. tel:[phone] [facility], [address], [place], [place], [id number], [place] tel:[phone] [facility] No Information Danie Cabral. [facility], [address], [place], [place], [id number] , [place]. tel:[phone] Referring Provider: Javon Smith, [facility] ER Physician-D o Not Fax, [place], [address]. tel:[phone] [facility], [address], [place], [place], [id number], [place] tel:[phone] [facility] No Information Koko Licona. [facility], [address], [place], [address], [place]. tel:[phone] Referring Provider: Javon Smith, [facility] ER Physician-D o Not Fax, [place], [address]. tel:[phone] Office/Outpat ient Visit,Est, Mod [facility], [address], [place], [id number], [place] tel:[phone] [facility] Spinal stenosis, lumbar region with neurogenic claudicationS pondylolisthe sis, lumbar region Koko Licona. [facility], [address], [place], [address], [place]. tel:[phone] Referring Provider: Javon Smith, [facility] ER Physician-D o Not Fax, [place], [address]. tel:[phone] Office/Outpat ient Visit,New, Mod [facility], [address], [place], [place], [id number], [place] tel:[phone] [facility] Low back pain, unspecified Koko Licona. [facility], [address], [place], [address], [place]. tel:[phone] Referring Provider: Javon Smith, [facility] ER Physician-D o Not Fax, [place], [address]. tel:[phone] Family History Family Member Type Diagnosis Age At Onset No Information Payers Payer name Insurance type Covered green party ID Annette aviles(s) Zahida TARYN [facility] 2021 CI [id number] Social History Type Description Quantity Date Captured [...]
--- OUTSIDE RECORDS SUMMARY | 2024-07-10 16:58 | XMS_ITS | Continuity of Care Document ---
Author Organization [facility] enter Address [address] [place] [address] Phone Care Team Providers Care Habilitation Training Specialist Name Role Phone [facility] Unavailable Unava ilable Procedures Procedure Date INJ FORAMEN EPIDURAL L/S INJ FORAMEN EPIDURAL L/S Advance Directives Directive Yes / No Effective Date File Name No Information Encounters Encounter Description Practice Location Reason(s) For Visit Diagnoses Date Provider Providers Copied on Encounter [facility], [address] [place] [address], [id number], [place] tel:[phone] [facility] No Information [facility]. [address] [place] [address], [id number], [place]. tel:[phone] Referring Provider: Deondre Mart, [address] [facility] [place], [address] . tel:[phone] Family History Family Member Type Diagnosis Age [...]
== END 2024-07-10 17:18 | disposition home or self-care (01) ==
PROVIDERS: Emergency Provider Family Medicine; PCP Family Medicine
DX: H11.31 Conjunctival hemorrhage, right eye (principal)
CPT/HCPCS: 70450; 99282; 99283; 99284

== ENCOUNTER 2024-09-25 17:07 | Outpatient (CLI) | payer OTHER, SELFPAY | END 2024-09-25 17:08 | disposition home or self-care (01) | PROVIDERS: PCP Family Medicine; Visit Provider Family Medicine | DX: E11.9 Type 2 diabetes mellitus without complications (principal); E78.2 Mixed hyperlipidemia; I10 Essential (primary) hypertension; Z79.85 Long-term (current) use of injectable non-insulin antidiabetic drugs | CPT/HCPCS: 80048; 80061; 84460; 85025 ==

== ENCOUNTER 2025-02-23 23:10 | Emergency (ER) | payer MEDICARE, MEDICAID, SELFPAY ==
--- OUTSIDE RECORDS SUMMARY | 2021-02-19 09:00 | XMS_ITS | Continuity of Care Document ---
Author Organization [facility] enter Address [address] [place] [phone] Phone Care Team Providers Care Seafood Preparer Name Role Phone [facility] Unavailable Unava ilable Procedures Procedure Date INJ FORAMEN EPIDURAL L/S INJ FORAMEN EPIDURAL L/S Advance Directives Directive Yes / No Effective Date File Name No Information Encounters Encounter Description Practice Location Reason(s) For Visit Diagnoses Date Provider Providers Copied on Encounter [facility], [address] [place] [address], [id number], [place] tel:[phone] [facility] No Information [facility]. [address] [place] [address], [id number], [place]. tel:[phone] Referring Provider: Deondre Mart, [address] [facility] [place], [address] . tel:[phone] Family History Family Member Type Diagnosis Age At Onset No Information Payers Payer name Insurance type Covered alliance party ID Authoriza tion(s) No Information Social History Type Description Quantity Date Captured Comments Sex Female Smoking Status No Information Chief Complaint And Reason For Visit No Information Reason For Referral Reason For Referral No Information History Of Present Illness Encounter Date Complaint History Of Prese nt Illness No Information Functional Status Date Functional Assessmen t No Information Instructions Date Instruction Additional Infor mation No Information Assessments Type Assessment Date No Information Patient Care Teams Name Effective Dates (start - stop) Status Members No Information
--- OUTSIDE RECORDS SUMMARY | 2021-02-19 09:00 | XMS_ITS | Continuity of Care Document ---
Author Organization [facility] enter Address [address] [place] [phone] Phone Care Team Providers Care Associate Doctor Name Role Phone [facility] Unavailable Unava ilable Procedures Procedure Date INJ FORAMEN EPIDURAL L/S INJ FORAMEN EPIDURAL L/S Advance Directives Directive Yes / No Effective Date File Name No Information Encounters Encounter Description Practice Location Reason(s) For Visit Diagnoses Date Provider Providers Copied on Encounter [facility], [address] [place] [address], [id number], [place] tel:[phone] [facility] No Information [facility]. [address] [place] [address], [id number], [place]. tel:[phone] Referring Provider: Deondre Mart, [address] [facility] [place], [address] . tel:[phone] Family History Family Member Type Diagnosis Age [...]
--- OUTSIDE RECORDS SUMMARY | 2021-10-02 11:05 | XMS_ITS | Continuity of Care Document ---
Author Organization [facility] Address [address] [place] [address] Phone Care Team Providers Care Behavioral Specialist Name Role Phone Will MD RED, Deondre Espino Allergies, Adverse Reactions, Alerts Substance Reaction Status Criticality HALOPERIDOL LACTATE Rashincreased heart rate Active No Information haloperidol Rashincreased heart rate Active No Information SUMATRIPTAN SUCCINATE Headache Active No Inf ormation sumatriptan Headache Active No Information Medications Medication Instructions Dosage Effective Dates (start - stop) Status Comments aripiprazole 10 mg tablet take 1 tablet by oral route every day 10 MG - Active gabapentin 600 mg tablet take 1 tablet by ORAL route 3 times every day 600 MG - Active duloxetine 60 mg capsule,delayed release take 1 capsule by ORAL route every day 60 MG - Active duloxetine 30 mg capsule,delayed release take 3 capsule by ORAL route every day 90 MG - Active topiramate 50 mg tablet take 1 tablet by oral route every day 50 MG - Active metformin 500 mg tablet take 1 tablet by oral route 2 times every day with morning and evening meals 500 MG - Active metoprolol succinate ER 200 mg tablet,extended release 24 hr take 1 tablet by oral route every day 200 MG - Active lisinopril 20 mg tablet take 1 tablet by oral route every day 20 MG - Active lorazepam 1 mg tablet take 1 tablet by O RAL route every 8 hours prn, max 3/d 1 MG - Active tizanidine 4 mg tablet take 1 tablet by ORAL route 3 times every day as needed, max 2/day 4 MG - Active trazodone 100 mg tablet take 1 tablet by ORAL route 3 times per day - Active Procedures Procedure Date INJ FORAMEN EPIDURAL L/S BILATERAL Foll-up eval q3mo opiod tx OFFICE VISIT, EST TELEMEDICINE OFFICE VISIT, EST TELEMEDICINE Foll-up eval q3mo opiod tx Botulinum toxin a per unit Destroy Nerve Face For Chronic Migraine Botulinum toxin a per unit Foll-up eval q3mo opiod tx OFFICE VISIT, EST TELEMEDICINE OFFICE VISIT, EST TELEMEDICINE Foll-up eval q3mo opiod tx OFFICE VISIT, EST TELEMEDICINE Foll-up eval q3mo opiod tx Botulinum toxin a per unit Destroy Nerve Face For Chronic Migraine OFFICE VISIT, EST TELEMEDICINE Foll-up eval q3mo opiod tx Foll-up eval q3mo opiod tx OFFICE VISIT, EST TELEMEDICINE OFFICE VISIT, EST TELEMEDICINE Foll-up eval q3mo opiod tx INJECT TRIGGER POINTS, =/> 3 Foll-up eval q3mo opiod tx OFFICE/OUTPATIENT VISIT, EST Botulinum toxin a per unit Destroy Nerve Face For Chronic Migraine Botulinum toxin a per unit INJECT TRIGGER POINTS, =/> 3 Foll-up eval q3mo opiod tx OFFICE/OUTPATIENT VISIT, EST INJECT TRIGGER POINTS, =/> 3 Kenalog Triamcinolone acetonide inj Foll-up eval q3mo opiod tx OFFICE/OUTPATIENT VISIT, EST OFFICE VISIT, EST TELEMEDICINE Foll-up eval q3mo opiod tx DESTROY NERVE, FACE MUSCLE Botulinum toxin a per unit Destroy Nerve Face For Chronic Migraine OFFICE VISIT, EST TELEMEDICINE Foll-up eval q3mo opiod tx Foll-up eval q3mo opiod tx OFFICE VISIT, EST TELEMEDICINE Foll-up eval q3mo opiod tx OFFICE VISIT, EST TELEMEDICINE Foll-up eval q3mo opiod tx OFFICE VISIT, EST TELEMEDICINE Drug test def 22+ classes Drug Urine Toxology With Chromatography INJ TRIGGER POINT, 1/2 MUSCL Kenalog Triamcinolone acetonide inj Injection, bupivicaine hydro OFFICE/OUTPATIENT VISIT, NEW Advance Directives Directive Yes / No Effective Date File Name No Information Encounters Encounter Description Practice Location Reason(s) For Visit Diagnoses Date Provider Providers Copied on Encounter [facility], [address] [place] [address], [id number] , tel:[phone] [facility] No Information 2 Will Deondre. [address] [place] [address], [id number] , [place]. tel:[phone] [facility], [address] [place] [address], [id number] , [place] tel:[phone] [facility] Radiculopathy, lumbar region 1 Will Deondre. [address] [place] [address], [id number] , [place]. [phone] Referring Provider: Deondre Mart, [address] [place] [address], [id number]. tel:[phone] OFFICE VISIT, EST TELEMEDICINE [facility], [address] [place] [address], [id number] , [place] tel:[phone] [facility] Widespread pain (chief complaint) Chronic migraine without aura, intractable, without status migrainosusFibro myalgiaChronic migraine w/o aura, intractable, w status migrainosusLong term (current) use of opiate analgesicLow back painMyalgia, other siteCervicalgiaR adiculopathy, lumbar region 1 Rhoda Scott [place], [address] [place], [address], [place]. tel:[phone] Referring Provider: Deondre Mart, [address] [place] [address], [id number]. tel:[phone] OFFICE VISIT, EST TELEMEDICINE [facility], [address] [place] [address], [id number] , [place] [phone] [facility] Widespread pain (chief complaint) Chronic migraine without aura, intractable, without status migrainosusFibro myalgiaChronic migraine w/o aura, intractable, w status migrainosusLong term (current) use of opiate analgesicLow back painMyalgia, other siteCervicalgia 1 Rhoda Scott Riple[place], [address] [place], [address], [place]. tel:[phone] Referring Provider: Deondre Mart, [address] [place] [address], [id number]. tel:[phone] [facility], [address] [place] [address], [id number] , [place] [phone] [facility] Chronic migraine without aura, intractable, without status migrainosus 1 Rhoda Scott Ripley, [address] [place], [address], [place]. tel:[phone] Referring Provider: Deondre Mart, [address] [place] [address], [id number]. tel:[phone] OFFICE VISIT, EST TELEMEDICINE [facility], [address] [place] [address], [id number] , [place] [phone] [facility] Widespread pain (chief complaint) Chronic migraine without aura, intractable, without status migrainosusFibro myalgiaChronic migraine w/o aura, intractable, w status migrainosusLong term (current) use of opiate analgesicLow back painMyalgia, other site 1 Rhoda [place], [address] [place], [address], [place]. [phone] Referring Provider: Deondre Mart, [address] [place] [address], [id number]. [phone] OFFICE VISIT, EST TELEMEDICINE [facility], [address] [place] [address], [id number] , [place] tel:[phone] [facility] Widespread pain (chief complaint) Chronic migraine without aura, intractable, without status migrainosusFibro myalgiaChronic migraine w/o aura, intractable, w status migrainosusLong term (current) use of opiate analgesicLow back painMyalgia, other site 1 Rhoda Perez, [address] [place], [address], [place]. [phone] Referring Provider: Deondre Mart, [address] [place] [address], [id number]. [phone] OFFICE VISIT, EST TELEMEDICINE [facility], [address] [place] [address], [id number] , [place] tel:[phone] [facility] Widespread pain (chief complaint) Chronic migraine without aura, intractable, without status migrainosusFibro myalgiaChronic migraine w/o aura, intractable, w status migrainosusLong term (current) use of opiate analgesicLow back painMyalgia, other site 1 Rhoda [place], [address] [place], [address], [place]. [phone] Referring Provider: Deondre Mart, [address] [place] [address], [id number]. [phone] [facility], [address] [place] [address], [id number] , [place] tel:[phone] [facility] Chronic migraine without aura, intractable, without status migrainosus 1 Rhoda Scott [place], [address] [place], [address], [place]. [phone] Referring Provider: Deondre Mart, [address] [place] [address], [id number]. [phone] OFFICE VISIT, EST TELEMEDICINE [facility], [address] [place] [address], [id number] , [place] tel:[phone] [facility] Widespread pain (chief complaint) Chronic migraine without aura, intractable, without status migrainosusChron ic migraine w/o aura, intractable, w status migrainosusFibro myalgiaLong term (current) use of opiate analgesicLow back painMyalgia, other site 1 Rhoda Scott [place], [address] [place], [address], [place]. tel:[phone] Referring Provider: Deondre Mart, [address] [place] [address], [id number]. tel:[phone] OFFICE VISIT, EST TELEMEDICINE [facility], [address] [place] [address], [id number] , [place] tel:[phone] [facility] Widespread pain (chief complaint) Chronic migraine without aura, intractable, without status migrainosusChron ic migraine w/o aura, intractable, w status migrainosusFibro myalgiaLong term (current) use of opiate analgesicLow back painMyalgia, other site 0 Rhoda Scott [place], [address] [place], [address], [place]. [phone] Referring Provider: Deondre Mart, [address] [place] [address], [id number]. tel:[phone] OFFICE VISIT, EST TELEMEDICINE [facility], [address] [place] [address], [id number] , [place] [phone] [facility] Widespread pain (chief complaint) Chronic migraine without aura, intractable, without status migrainosusChron ic migraine w/o aura, intractable, w status migrainosusFibro myalgiaLong term (current) use of opiate analgesicLow back painMyalgia, other siteMyalgia of auxiliary muscles, head and neck Jun-08 17- 0 Rhoda Scott [place], [address] [place], [address], [place]. tel:[phone] Referring Provider: Umer Lamb, [facility] [address], [place], [address]. [phone] OFFICE/OUTPAT IENT VISIT, [facility], [address] [place], [place], [id number] , [place] [phone] [facility] Widespread pain (chief complaint) Chronic migraine without aura, intractable, without status migrainosusChron ic migraine w/o aura, intractable, w status migrainosusFibro myalgiaLong term (current) use of opiate analgesicLow back painMyalgia, other siteMyalgia of auxiliary muscles, head and neck 0 Rhoda Scott [place], [address] [place], [address], [place]. [phone] Referring Provider: Umer Lamb, [facility] [address], [place], [address]. tel:[phone] [facility], [address] [place], [place], [id number] , [place] [phone] [facility] Chronic migraine without aura, intractable, without status migrainosus Sep-2 0 Rhoda Scott [place], [address] [place], [address], [place]. [phone] Referring Provider: Umer Lamb, [facility] [address], [place], [address]. tel:[phone] OFFICE/OUTPAT IENT VISIT, [facility], [address] [place], [place], [id number] , [place] tel:[phone] [facility] Widespread pain (chief complaint) Chronic migraine w/o aura, intractable, w/o stat migrChronic migraine w/o aura, intractable, w status migrainosusLow back painFibromyalgia [employer] (current) use of opiate analgesicMyalgia , other site 0 Rhoda Perez, [address] [place], [address], [place]. [phone] Referring Provider: Umer Lamb [facility] [address] [place], [address]. tel:[phone] OFFICE/OUTPAT IENT VISIT, [facility], [address] [place], [place], [id number] , [place] [phone] [facility] Widespread pain (chief complaint) Chronic migraine w/o aura, intractable, w/o stat migrChronic migraine w/o aura, intractable, w status migrainosusLow back painFibromyalgia [facility] (current) use of opiate analgesicMyalgia , other site 0 Rhoda Perez, [address] [place], [address], [place]. [phone] Referring Provider: Umer Lamb, [facility] [address] [place], [address]. tel:[phone] OFFICE VISIT, [facility] TELEMEDICINE [facility], [address] [place], [place], [id number] , [place] [phone] [facility] Widespread pain (chief complaint) Chronic migraine w/o aura, intractable, w/o stat migrChronic migraine w/o aura, intractable, w status migrainosusLow back painFibromyalgia [employer] (current) use of opiate analgesic 0 Rhoda Perez, [address] [place], [address], [place]. [phone] Referring Provider: Umer Lamb [facility] [address] [place], [address]. tel:[phone] [facility], [address] [place] [address], [id number] , [place] [phone] [facility] Chronic migraine w/o aura, intractable, w/o stat migr 0 Rhoda [place], [address] [place], [address], [place]. tel:[phone] Referring Provider: Umer Lamb, [facility] [address] [place], [address]. tel:[phone] OFFICE VISIT, EST TELEMEDICINE [facility], [address] [place] [address], [id number] , [place] [phone] [facility] Widespread pain (chief complaint) Chronic migraine w/o aura, intractable, w status migrainosusLow back painFibromyalgia [facility] (current) use of opiate analgesic 0 Rhoda [place], [address] [place], [address], [place]. tel:[phone] Referring Provider: Deondre Mart, [address] [place] [address], [address]. tel:[phone] OFFICE VISIT, EST TELEMEDICINE [facility], [address] [place] [address], [id number] , [place] [phone] [facility] Widespread pain (chief complaint) [employer] (current) use of opiate analgesicLow back painFibromyalgia Chronic migraine w/o aura, intractable, w status migrainosus 0 Rhoda [place], [address] [place], [address], [place]. tel:[phone] Referring Provider: Deondre Mart, [address] [place] [address], [address]. tel:[phone] OFFICE VISIT, EST TELEMEDICINE [facility], [address] [place] [address], [id number] , [place] tel:[phone] [facility] Widespread pain (chief complaint) Chronic migraine w/o aura, intractable, w status migrainosusLow back painFibromyalgia [employer] (current) use of opiate analgesic Apr-1 - 0 Duong Dan. [place], [address] [place], [address], [place]. tel:[phone] Referring Provider: Deondre Mart, [address] [place], [address]. tel:[phone] OFFICE VISIT, [facility], [address] [place] [address], [id number] , [place] [phone] [facility] Widespread pain (chief complaint) Chronic migraine w/o aura, intractable, w status migrainosusLow back painFibromyalgia Chronic pain syndromeLong term (current) use of opiate analgesic Apr-0 0 Rhoda [place], [address] [place], [address], [place]. tel:[phone] [facility] [address] [place], [address]. tel:[phone] OFFICE/OUTPAT IENT VISIT, [facility], [address] [place], [place], [id number] , [place] tel:[phone] [facility] Widespread pain (chief complaint) Chronic migraine w/o aura, intractable, w status migrainosusLow back painFibromyalgia Encounter for screening for other disorderOther shelter (current) drug therapyEncounter for therapeutic drug level monitoringMyalgi a, other siteLong term (current) use of opiate analgesic Mar-2 - 0 Rhoda [place], [address] [place], [address], [place]. tel:[phone] Referring Provider: Umer Lamb [facility] [address] [place], [address]. tel:[phone] [facility], [address] [place], [id number] , [place] tel: [phone] [facility] [place] No Information 0 Will Deondre. [address] [place], [id number] , [place]. tel: [phone] Family History Family Member Type Diagnosis Age At Onset Mother Problem (finding) back pain Payers Payer name Insurance type Covered democrat ID Authoriza tion(s) No Information Social History Type Description Quantity Date Captured Comments Sex Female Smoking Status No Information Chief Complaint And Reason For Visit No Information Reason For Referral Reason For Referral No Information Plan Of Treatment Date Type Action Status Goal Order Annual PT. Due on due Goal ALT (SGPT). Due on due Goal EMR TRAINER Paperwork. Due on due Goal UDT. Due on due Goal STORE TEAM LEADER Scanned. Due on due Goal AST (SGOT). Due on due Goal Creatinine. Due on due Goal OARS. Due on due Goal PHQ-9. Due on du e Goal Tobacco Use. Due on due Goal Update Social Hi story. Due on due Goal Height. Due on d ue Goal Weight. Due on d ue Goal Medication Recon ciliation. Due on due Goal Review Allergy L ist. Due on due Goal Order Annual PT. Due on due Goal ALT (SGPT). Due on due Goal EMR TRAINER Paperwork. Due on due Goal UDT. Due on due Goal STORE TEAM LEADER Scanned. Due on due Goal AST (SGOT). Due on due Goal Creatinine. Due on due Goal OARS. Due on due Goal PHQ-9. Due on du e Goal Tobacco Use. Due on due Goal Update Social Hi story. Due on due Goal Height. Due on d ue Goal Weight. Due on d ue Goal Medication Recon ciliation. Due on due Goal Review Allergy L ist. Due on due Goal PHQ-9. Due on du e Goal Tobacco Use. Due on due Goal Update Social Hi story. Due on due Goal Height. Due on d ue Goal Weight. Due on d ue Goal Medication Recon ciliation. Due on due Goal Review Allergy L ist. Due on due Goal Order Annual PT. Due on due Goal ALT (SGPT). Due on due Goal EMR TRAINER Paperwork. Due on due Goal UDT. Due on due Goal STORE TEAM LEADER Scanned. Due on due Goal AST (SGOT). Due on 21 due Goal Creatinine. Due on 21 due Goal OARS. Due on due Future Order: Radiology Order MR I Lumbar Spine W/O Dye ([id number]), Ordered on: Ordered Future Order: Radiology Order MR I Cervical Spine W/O Dye ([id number]), Ordered on: Ordered Future Order: Lab Order Drug Inga t Def 22+ Classes (G0483), Ordered on: Ordered Future Order: Lab Order Toxicolo gy Preliminary Panel (2100), Sent on: Sent History Of Present Illness Encounter Date Complaint History Of Prese nt Illness Widespread pain Severity level i s 7. Duration: chronic. Location of the pain is lower back, mid back and upper back. The patient describes it as sharp, achy and burning. It occurs persistently. The problem is stable. Symptom is aggravated by bending, walking upstairs, walking downstairs and standing. Relieving factors include rest, heat, cold and Rx Meds. Pertinent negatives include diarrhea, fatigue, fever and incontinence (urinary). Widespread pain (comments) Troy ellis is here for follow-up and medication refills. Ongoing widespread pain persists, tolerable with medication. Pain has been relatively stable. She requests to review cervical and lumbar imaging. She would like to move forward with lumbar JEANNA as recommended. She established care with [facility] chirop[facility]. Notes acupuncture was helpful but did not last long. The current medication regimen continues to provide significant relief and she requests a refill. Reports current medication regimen provides at least 50% pain relief. Denies side effects from current medication regimen. No other concerns today. Widespread pain (comments) Troy ellis is here for follow-up and medication refills. She presents with widespread pain and migraines. Pain has been relatively stable. Botox administered earlier this month continue to provide significant pain relief. Her low back has been more bothersome lately. She is interested in a lumbar MRI. She is also interested in a chiropractic referral. Requests a refill of her current medication regimen.Reports current medication regimen provides at least 50% pain relief. Denies side effects from current medication regimen. No other concerns today. Widespread pain Severity level i s 7. Location of the pain is lower back. The patient describes it as sharp, achy and burning. It occurs persistently. The problem is stable. Symptom is aggravated by bending, walking upstairs, walking downstairs and standing. Relieving factors include rest and heat. Widespread pain Severity level i s 6. Duration: chronic. Location of the pain is lower back and migraines. The patient describes it as achy and tingling. It occurs persistently. The problem is stable. Symptom is aggravated by bending, walking upstairs, walking downstairs and standing. Pertinent negatives include diarrhea, fatigue, fever and incontinence (urinary). Widespread pain (comments) Troy ellis is here for follow-up and medication refills. She returns with widespread pain and migraines. Pain has been relatively stable with occasional flares related to moving apartment units. She has been taking her Suboxone as needed. Migraines have been slightly worse so she plans to schedule Botox injections. She requests a refill of Suboxone as it continues to provide significant pain relief. Reports current medication regimen provides at least 50% pain relief. Denies side effects from current medication regimen. No other concerns today. Widespread pain Severity level i s 6. Duration: chronic. Location of the pain is head and neck. It occurs persistently. The problem is stable. Symptom is aggravated by bending, walking upstairs, walking downstairs and standing. Relieving factors include rest, heat, cold and Rx Meds. Widespread pain (comments) Troy ellis is here for follow-up and medication refills. She presents with widespread pain and chronic migraines. Pain has been stable with occasional flares. She has been self-tapering Suboxone as tolerated. She would interested in a lumbar MRI in the future. She is interested in TPIs next month. Requests a refill of her current medication regimen.Reports current medication regimen provides at least 50% pain relief. Denies side effects from current medication regimen. No other concerns today. Widespread pain Severity level i s 5. Duration: chronic. Location of the pain is head. The patient describes it as sharp, achy and burning. It occurs persistently. The problem is stable. Symptom is aggravated by bending, walking upstairs, walking downstairs and standing. Relieving factors include rest, cold and changing. Widespread pain (comments) Troy ellis is here for virtual follow-up and medication refills. She presents with widespread pain and chronic migraines. Pain has been fluctuating. She presents 1 day short on Suboxone. She explains if she vomits up her medication during a migraine she will take another tablet to make up. She understands she will need to be more mindful of her medication count. Botox injections completed on 09/06 continue to provide significant relief.Reports current medication regimen provides at least 50% pain relief. Denies side effects from current medication regimen. No other concerns today. Widespread pain Severity level i s 8. Location of the pain is migraines. It occurs persistently. The problem is worsening. Symptom is aggravated by bending, walking upstairs, walking downstairs, standing, walking and supine. Relieving factors include changing positions, ice and lying down. Widespread pain (comments) Troy ellis is here for virtual follow-up and medication refills. She c/o chronic migraines and low back pain. Pain has been slightly worse as her low back pain has been become more noticeable. Migraines have been relatively stable. She is looking forward to Botox injections on 08/30. Requests a refill of her current medication regimen as it allows her to complete her ADLs. Reports current medication regimen provides at least 50% pain relief. Denies side effects from current medication regimen. No other concerns today. Widespread pain Duration: chroni c. Location of the pain is headache and low back. The patient describes it as sharp, achy and burning. It occurs persistently. The problem is stable. Symptom is aggravated by bending, walking upstairs, walking downstairs and standing. Relieving factors include rest, heat, cold and Rx Meds. Pertinent negatives include diarrhea, fatigue, fever and incontinence (urinary). Widespread pain (comments) Troy ellis is here for follow-up and medication refills. She returns with chronic low back pain and persistent headaches. She had a severe migraine yesterday so she is experiencing a residual headache today. Her back and neck have been stiff and she requests repeat TPIs next OV. She plans on scheduling Botox injections next month. She would like to continue with the current medication regimen. Reports current medication regimen provides at least 50% pain relief. Denies side effects from current medication regimen. No other concerns today. Widespread pain (comments) Rosette is here for follow-up and medication refills. She presents with widespread pain most bothersome L lower back. Migraines have been stable. Pain has been stable throughout the month besides getting a stomach bug last week. She would like to continue with the current medication regimen. Reports current medication regimen provides at least 50% pain relief. Denies side effects from current medication regimen. No other concerns today. Widespread pain Duration: chroni c. Location of the pain is migraines and widespread. The patient describes it as sharp, achy and burning. It occurs persistently. The problem is stable. Symptom is aggravated by bending, walking upstairs, walking downstairs, sitting and standing. Relieving factors include rest, heat and cold. Widespread pain (comments) Kyleigh cassidy is here for follow-up and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
--- OUTSIDE RECORDS SUMMARY | 2021-10-02 11:05 | XMS_ITS | Continuity of Care Document ---
Author Organization [facility] ra[facility] Address [address] [facility] [place] [address] Phone Care Team Providers Care Climatology Professor Name Role Phone Will MD RED, Deondre [...] Diagnoses Date Provider Providers Copied on Encounter [facility], [address] [place] [address], [id number] , tel:[phone] [facility] No Information 2 Will Deondre. [address] [place] [address], [id number] , [place]. tel:[phone] [facility], [address] [place] [address], [id number] , [place] tel:[phone] [facility] Radiculopathy, lumbar region 1 Will Deondre. [address] [place] [address], [id number] , [place]. [phone] Referring Provider: Deondre Mart, [address] [place] [address], [address]. tel:[phone] OFFICE VISIT, EST TELEMEDICINE [facility], [address] [place] [address], [id number] , [place] tel:[phone] [facility] Widespread pain (chief complaint) Chronic migraine without aura, intractable, without status migrainosusFibro myalgiaChronic migraine w/o aura, intractable, w status migrainosusLong term (current) use of opiate analgesicLow back painMyalgia, other siteCervicalgiaR adiculopathy, lumbar region 1 Rhoda Scott [facility], [address] [place], [address], [place]. tel:[phone] Referring Provider: Deondre Mart, [address] [place] [address], [id number]. tel:[phone] OFFICE VISIT, EST TELEMEDICINE [facility], [address] [place] [address], [id number] , [place] [phone] [facility] Widespread pain (chief complaint) Chronic migraine without aura, intractable, without status migrainosusFibro myalgiaChronic migraine w/o aura, intractable, w status migrainosusLong term (current) use of opiate analgesicLow back painMyalgia, other siteCervicalgia 1 Rhoda Scott [facility], [address] [place], [address], [place]. tel:[phone] Referring Provider: Deondre Mart, [address] [place] [address], [address]. tel:[phone] [facility], [address] [place] [address], [id number] , [place] [phone] [facility] Chronic migraine without aura, intractable, without status migrainosus 1 Rhoda Scott [facility], [address] [place], [address], [place]. tel:[phone] Referring Provider: Deondre Mart, [address] [place] [address], [address]. tel:[phone] OFFICE VISIT, EST TELEMEDICINE [facility], [address] [place] [address], [id number] , [place] [phone] [facility] Widespread pain (chief complaint) Chronic migraine without aura, intractable, without status migrainosusFibro myalgiaChronic migraine w/o aura, intractable, w status migrainosusLong term (current) use of opiate analgesicLow back painMyalgia, other site 1 Rhoda [place], [address] [place], [address], [place]. [phone] Referring Provider: Deondre Mart, [address] [place] [address], [id number]. [phone] OFFICE VISIT, EST TELEMEDICINE [facility], [address] [place] [address], [id number] , [place] tel:[phone] [facility] Widespread pain (chief complaint) Chronic migraine without aura, intractable, without status migrainosusFibro myalgiaChronic migraine w/o aura, intractable, w status migrainosusLong term (current) use of opiate analgesicLow back painMyalgia, other site 1 Rhoda Perez, [address] [place], [address], [place]. [phone] Referring Provider: Deondre Mart, [address] [place] [address], [id number]. [phone] OFFICE VISIT, EST TELEMEDICINE [facility], [address] [place] [address], [id number] , [place] tel:[phone] [facility] Widespread pain (chief complaint) Chronic migraine without aura, intractable, without status migrainosusFibro myalgiaChronic migraine w/o aura, intractable, w status migrainosusLong term (current) use of opiate analgesicLow back painMyalgia, other site 1 Rhoda [place], [address] [place], [address], [place]. [phone] Referring Provider: Deondre Mart, [address] [place] [address], [id number]. [phone] [facility], [address] [place] [address], [id number] , [place] tel:[phone] [facility] Chronic migraine without aura, intractable, without status migrainosus 1 Rhoda Scott [facility], [address] [place], [address], [place]. [phone] Referring Provider: Deondre Mart, [address] [place] [address], [address]. [phone] OFFICE VISIT, EST TELEMEDICINE [facility], [address] [place] [address], [id number] , [place] tel:[phone] [facility] Widespread pain (chief complaint) Chronic migraine without aura, intractable, without status migrainosusChron ic migraine w/o aura, intractable, w status migrainosusFibro myalgiaLong term (current) use of opiate analgesicLow back painMyalgia, other site 1 Rhoda Scott [facility], [address] [place], [address], [place]. tel:[phone] Referring Provider: Deondre Mart, [address] [place] [address], [address]. tel:[phone] OFFICE VISIT, EST TELEMEDICINE [facility], [address] [place] [address], [id number] , [place] tel:[phone] [facility] Widespread pain (chief complaint) Chronic migraine without aura, intractable, without status migrainosusChron ic migraine w/o aura, intractable, w status migrainosusFibro myalgiaLong term (current) use of opiate analgesicLow back painMyalgia, other site 0 Rhoda Scott Olden, [address] [place], [address], [place]. [phone] Referring Provider: Deondre Mart, [address] [place] [address], [id number]. tel:[phone] OFFICE VISIT, EST TELEMEDICINE [facility], [address] [place] [address], [id number] , [place] [phone] [facility] Widespread pain (chief complaint) Chronic migraine without aura, intractable, without status migrainosusChron ic migraine w/o aura, intractable, w status migrainosusFibro myalgiaLong term (current) use of opiate analgesicLow back painMyalgia, other siteMyalgia of auxiliary muscles, head and neck Jun-08 17- 0 Rhoda Scott [facility], [address] [place], [address], [place]. tel:[phone] Referring Provider: Umer Lamb, [facility] [address], [place], [address]. [phone] OFFICE/OUTPAT IENT VISIT, [facility], [address] [place], [place], [id number] , [place] [phone] [facility] Widespread pain (chief complaint) Chronic migraine without aura, intractable, without status migrainosusChron ic migraine w/o aura, intractable, w status migrainosusFibro myalgiaLong term (current) use of opiate analgesicLow back painMyalgia, other siteMyalgia of auxiliary muscles, head and neck 0 Rhoda Scott [place], [address] [place], [address], [place]. [phone] Referring Provider: Umer Lamb, [facility] [address], [place], [address]. tel:[phone] [facility], [address] [place], [place], [id number] , [place] [phone] [facility] Chronic migraine without aura, intractable, without status migrainosus Sep-2 0 Rhoda Scott [facility], [address] [place], [address], [place]. [phone] Referring Provider: Umer Lamb, [facility] [address], [place], [address]. tel:[phone] OFFICE/OUTPAT IENT VISIT, [facility], [address] [place], [place], [id number] , [place] tel:[phone] [facility] Widespread pain (chief complaint) Chronic migraine w/o aura, intractable, w/o stat migrChronic migraine w/o aura, intractable, w status migrainosusLow back painFibromyalgia terminal computer operator (current) use of opiate analgesicMyalgia , other site 0 Rhoda Perez, [address] [place], [address], [place]. [phone] Referring Provider: Umer Lamb [facility] [address] [place], [address]. tel:[phone] OFFICE/OUTPAT IENT VISIT, [facility], [address] [place], [place], [id number] , [place] [phone] [facility] Widespread pain (chief complaint) Chronic migraine w/o aura, intractable, w/o stat migrChronic migraine w/o aura, intractable, w status migrainosusLow back painFibromyalgia care home (current) use of opiate analgesicMyalgia , other site 0 Rhoda Perez, [address] [place], [address], [place]. [phone] Referring Provider: Umer Lamb, [facility] [address] [place], [address]. 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 [phone] Referring Provider: Umer Lamb [facility] [address] [place], [address]. tel:[phone] [facility], [address] [place] [address], [id number] , [place] [phone] [facility] Chronic migraine w/o aura, intractable, w/o stat migr 0 Rhoda [place], [address] [place], [address], [place]. tel:[phone] Referring Provider: Umer Lamb, [facility] [address] [place], [address]. tel:[phone] OFFICE VISIT, EST TELEMEDICINE [facility], [address] [place] [address], [id number] , [place] [phone] [facility] Widespread pain (chief complaint) Chronic migraine w/o aura, intractable, w status migrainosusLow back painFibromyalgia care home (current) use of opiate analgesic 0 Rhoda [place], [address] [place], [address], [place]. tel:[phone] Referring Provider: Deondre Mart, [address] [place] [address], [address]. tel:[phone] OFFICE VISIT, EST TELEMEDICINE [facility], [address] [place] [address], [id number] , [place] [phone] [facility] Widespread pain (chief complaint) terminal computer operator (current) use of opiate analgesicLow back painFibromyalgia Chronic migraine w/o aura, intractable, w status migrainosus 0 Rhoda [place], [address] [place], [address], [place]. tel:[phone] Referring Provider: Deondre Mart, [address] [place] [address], [address]. 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 [place], [address] [place], [address], [place]. tel:[phone] Referring Provider: Deondre Mart, [address] [place], [address]. tel:[phone] OFFICE VISIT, [facility], [address] [place] [address], [id number] , [place] [phone] [facility] Widespread pain (chief complaint) Chronic migraine w/o aura, intractable, w status migrainosusLow back painFibromyalgia Chronic pain syndromeLong term (current) use of opiate analgesic Apr-0 0 Rhoda [place], [address] [place], [address], [place]. tel:[phone] [facility] [address] [place], [address]. tel:[phone] OFFICE/OUTPAT IENT VISIT, [facility], [address] [place], [place], [id number] , [place] tel:[phone] [facility] Widespread pain (chief complaint) Chronic migraine w/o aura, intractable, w status migrainosusLow back painFibromyalgia Encounter for screening for other disorderOther skilled nursing (current) drug therapyEncounter for therapeutic drug level monitoringMyalgi a, other siteLong term (current) use of opiate analgesic Mar-2 - 0 Rhoda [place], [address] [place], [address], [place]. tel:[phone] Referring Provider: Umer Lamb [facility] [address] [place], [address]. tel:[phone] [facility], [address] [place], [id number] , [place] tel: [phone] [facility] [place] No Information 0 Will Deondre. [address] [place], [id number] , [place]. tel: [phone] Family History Family Member Type Diagnosis Age At Onset Mother Problem (finding) back pain Payers Payer name Insurance type Covered green party ID Authoriza tion(s) No Information Social History Type Description Quantity Date Captured Comments Sex Female Smoking Status No Information Chief Complaint And Reason For Visit No Information Reason For Referral Reason For Referral No Information Plan Of Treatment Date Type Action Status Goal OARS. Due on due Goal PHQ-9. Due on du e Goal Tobacco Use. Due on due Goal Update Social Hi story. Due on due Goal Height. Due on d ue Goal Weight. Due on d ue Goal Medication Recon ciliation. Due on due Goal Order Annual PT. Due on due Goal ALT (SGPT). Due on due Goal RELATIONS MGR Paperwork. Due on due Goal UDT. Due on due Goal LEAVE COORDINATOR Scanned. Due on due Goal AST (SGOT). Due on due Goal Creatinine. Due on due Goal Review Allergy L ist. Due on due Goal AST (SGOT). Due [...] Allergy L ist. Due on due Goal LEAVE COORDINATOR Scanned. Due on due Goal UDT. Due on due Goal RELATIONS MGR Paperwork. Due on due Goal ALT (SGPT). Due on due Goal Order Annual PT. Due on due Goal OARS. Due on due Goal Creatinine. Due on due Goal AST (SGOT). Due on due Goal LEAVE COORDINATOR Scanned. Due on due Goal UDT. Due on due Goal RELATIONS MGR Paperwork. Due on due Goal ALT (SGPT). Due on due Goal Order Annual PT. Due on due Goal Review Allergy L ist. Due on due Goal Medication Recon ciliation. Due on due Goal Weight. Due on d ue Goal Height. Due on d ue Goal Update Social Hi story. Due on due Goal Tobacco Use. Due on 021 due Goal PHQ-9. Due on du e Future Order: Radiology Order MR I Lumbar [...] History Of Prese nt Illness Widespread pain (comments) Troy ellis is here for follow-up and medication refills. Ongoing widespread pain persists, tolerable with medication. Pain has been relatively stable. She requests to review cervical and lumbar imaging. She would like to move forward with lumbar JEANNA as recommended. She established care with [facility]. Notes acupuncture was helpful but did [...] (urinary). Widespread pain Severity level i s 7. Location of the pain is lower back. The patient describes it as sharp, achy and burning. It occurs persistently. The problem is stable. Symptom is aggravated by bending, walking upstairs, walking downstairs and standing. Relieving factors include rest and heat. Widespread pain (comments) Troy ellis is here [...] fatigue, fever and incontinence (urinary). Widespread pain Duration: chroni c. Location of the pain is migraines and widespread. The patient describes it as sharp, achy and burning. It occurs persistently. The problem is stable. Symptom is aggravated by bending, walking upstairs, walking downstairs, sitting and standing. Relieving factors include rest, heat and cold. Widespread pain (comments) Rosette is here for [...] No other concerns today. Widespread pain (comments) Kyleigh nt is here for follow-up and medication refills. [...] accompanied. No other concerns today. Widespread pain Severity [...] increasing medication today. Currently doing PT at [facility] which has been beneficial. Interested in TPIs [...] work up, denies any findings. Widespread pain Severity level i s 7. [...] no further questions or concerns. Widespread pain Severity level i s 8. Duration: chronic. The patient describes it as achy. It occurs persistently. The problem is worsening. Symptom is aggravated by most daily activities. Relieving factors include stretching, cold, Rx Meds and peppermint oil. Widespread pain (comments) Troy ellis presents for [...] additional questions or concerns today. Widespread pain (comments) Troy ellis presents for [...] concern today.Previously managed on opioids, however her RELATIONS MGR was terminated as she trialed on of her friends Suboxone which showed in her UDT. She then was managed on Suboxone through [facility] but is unable to continue care because of an outstanding balance. Currently managing pain with gabapentin, Cymbalta, and Tizanidine. PT three years ago without benefit. Maritza reports she was referred for Suboxone induction, Botox, and a nerve block for her back. She is not accompanied by anyone today and has no further questions or concerns. Widespread pain Severity level i s 4. Duration: chronic. The patient describes it as sharp and achy. It occurs persistently. Symptom is aggravated by bending, walking upstairs, walking downstairs, running, sitting, standing, changing positions, housework, lifting and twisting. Relieving factors include stretching, massage, Rx Meds and chiropractic. Pertinent negatives include diarrhea, dyspnea, fever and incontinence (urinary). Functional Status Date Functional Assessmen t No Information Instructions Date Instruction Additional Infor mation No Information Assessments Type Assessment Date No Information Patient Care Teams Name Effective Dates (start - stop) Status Members No Information
--- OUTSIDE RECORDS SUMMARY | 2025-02-23 23:12 | XMS_ITS ---
Author Organization Unknown Medications Medication Instructions Effective Dates (start - stop) Status trazodone hydrochloride 100 MG Oral Tablet - Completed oxycodone hydrochloride 5 MG Oral Tablet - Completed celecoxib 200 MG Oral Capsule 2023-10-30 00:00:00Z - Completed buspirone hydrochloride 30 M G Oral Tablet - Completed - - Compl eted - - Compl eted tizanidine 4 MG Oral Tablet [id number] :00:00Z - Completed - - Compl eted pregabalin 300 MG Oral Capsule 2023-12-31 T00:00:00Z - Completed 3 ML insulin glargine 100 UN T/ML Pen Injector [Lantus] - Completed acetaminophen 325 MG / hydro codone bitartrate 5 MG Oral Tablet - Completed lorazepam 2 MG Oral Tablet [id number]: 00:00Z - Completed - - Compl eted 1 ML galcanezumab-gnlm 120 M G/ML Auto-Injector [Emgality] - Completed benzonatate 200 MG Oral Capsule 2023-12-16 1T00:00:00Z - Completed - - Compl eted tizanidine 4 MG Oral Tablet [id number] :00:00Z - Completed tizanidine 4 MG Oral Tablet [id number] :00:00Z - Completed oxycodone hydrochloride 5 MG Oral Tablet - Completed 24 HR metoprolol succinate 2 00 MG Extended Release Oral Tablet - Complete d rizatriptan 10 MG Disintegra ting Oral Tablet - Completed lorazepam 1 MG Oral Tablet [id number]: 00:00Z - Completed celecoxib 200 MG Oral Capsule 2023-11-02 00:00:00Z - Completed 3 ML semaglutide 1.34 MG/ML Pen Injector [Ozempic] - Completed 1 ML galcanezumab-gnlm 120 M G/ML Auto-Injector [Emgality] - Completed 1 ML galcanezumab-gnlm 120 M G/ML Auto-Injector [Emgality] - Completed lorazepam 2 MG Oral Tablet [id number]: 00:00Z - Completed amoxicillin 875 MG / clavula indira 125 MG Oral Tablet - Completed - - Compl eted 1 ML galcanezumab-gnlm 120 M G/ML Auto-Injector [Emgality] - Completed olopatadine 2 MG/ML Ophthalm ic Solution - Completed - - Compl eted oxycodone hydrochloride 5 MG Oral Tablet - Completed trazodone hydrochloride 100 MG Oral Tablet - Completed oxycodone hydrochloride 5 MG Oral Tablet - Completed trazodone hydrochloride 100 MG Oral Tablet - Completed buspirone hydrochloride 30 M G Oral Tablet - Completed duloxetine 30 MG Delayed Rel ease Oral Capsule - Completed lisinopril 40 MG Oral Tablet [id number] 0:00:00Z - Completed - - Compl eted cefdinir 300 MG Oral Capsule [id number] 0:00:00Z - Completed lorazepam 2 MG Oral Tablet [id number]: 00:00Z - Completed 3 ML semaglutide 1.34 MG/ML Pen Injector [Ozempic] - Completed cefdinir 300 MG Oral Capsule [id number] 0:00:00Z - Completed naloxone hydrochloride 40 MG /ML Nasal [place] - Completed 1 ML galcanezumab-gnlm 120 M G/ML Auto-Injector [Emgality] - Completed oxycodone hydrochloride 5 MG Oral Tablet - Completed buspirone hydrochloride 30 M G Oral Tablet - Completed 1 ML galcanezumab-gnlm 120 M G/ML Auto-Injector [Emgality] - Completed - - Compl eted lorazepam 2 MG Oral Tablet [id number]: 00:00Z - Completed - - Compl eted oxycodone hydrochloride 5 MG Oral Tablet - Completed 1 ML galcanezumab-gnlm 120 M G/ML Auto-Injector [Emgality] - Completed pregabalin 300 MG Oral Capsule 2023-05-21 T00:00:00Z - Completed - - Compl eted buspirone hydrochloride 30 M G Oral Tablet - Completed - - Compl eted trazodone hydrochloride 100 MG Oral Tablet - Completed tizanidine 4 MG Oral Tablet [id number] :00:00Z - Completed hydromorphone hydrochloride 2 MG Oral Tablet - Completed pregabalin 300 MG Oral Capsule 2023-09-09 T00:00:00Z - Completed lorazepam 2 MG Oral Tablet [id number]: 00:00Z - Completed oxycodone hydrochloride 5 MG Oral Tablet - Completed 3 ML semaglutide 1.34 MG/ML Pen Injector [Ozempic] - Completed verapamil hydrochloride 120 MG Extended Release Oral Tablet - Complete d tizanidine 4 MG Oral Tablet [id number] :00:00Z - Completed sulfamethoxazole 800 MG / trimethoprim 160 MG Oral Tablet - Compl eted oxycodone hydrochloride 5 MG Oral Tablet - Completed lorazepam 2 MG Oral Tablet [id number]: 00:00Z - Completed sulfamethoxazole 800 MG / trimethoprim 160 MG Oral Tablet - Compl eted tizanidine 4 MG Oral Tablet [id number] :00:00Z - Completed buspirone hydrochloride 30 M G Oral Tablet - Completed lorazepam 2 MG Oral Tablet [id number]: 00:00Z - Completed - - Compl eted lorazepam 1 MG Oral Tablet [id number]: 00:00Z - Completed pregabalin 300 MG Oral Capsule 2024-02-27 T00:00:00Z - Completed prochlorperazine 10 MG Oral Tablet 00:00:00Z - Completed escitalopram 20 MG Oral Tablet 2023-09-21 T00:00:00Z - Completed lorazepam 2 MG Oral Tablet [id number]: 00:00Z - Completed rizatriptan 10 MG Disintegra ting Oral Tablet - Completed - - Compl eted 1 ML galcanezumab-gnlm 120 M G/ML Auto-Injector [Emgality] - Completed pregabalin 300 MG Oral Capsule 2023-11-10 T00:00:00Z - Completed rizatriptan 10 MG Disintegra ting Oral Tablet - Completed 1 ML galcanezumab-gnlm 120 M G/ML Auto-Injector [Emgality] - Completed - - Compl eted buspirone hydrochloride 15 M G Oral Tablet - Completed 1 ML galcanezumab-gnlm 120 M G/ML Auto-Injector [Emgality] - Completed lorazepam 1 MG Oral Tablet [id number]: 00:00Z - Completed - - Compl eted 3 ML semaglutide 1.34 MG/ML Pen Injector [Ozempic] - Completed lorazepam 2 MG Oral Tablet [id number]: 00:00Z - Completed 1 ML galcanezumab-gnlm 120 M G/ML Auto-Injector [Emgality] - Completed pregabalin 300 MG Oral Capsule 2023-07-21 T00:00:00Z - Completed 1 ML galcanezumab-gnlm 120 M G/ML Auto-Injector [Emgality] - Completed tizanidine 4 MG Oral Tablet [id number] :00:00Z - Completed celecoxib 200 MG Oral Capsule 2023-09-24 00:00:00Z - Completed 3 ML semaglutide 1.34 MG/ML Pen Injector [Ozempic] - Completed tizanidine 4 MG Oral Tablet [id number] :00:00Z - Completed tizanidine 4 MG Oral Tablet [id number] :00:00Z - Completed pregabalin 300 MG Oral Capsule 2023-10-05 T00:00:00Z - Completed rizatriptan 10 MG Disintegra ting Oral Tablet - Completed duloxetine 60 MG Delayed Rel ease Oral Capsule - Completed pregabalin 300 MG Oral Capsule 2024-01-27 T00:00:00Z - Completed lorazepam 1 MG Oral Tablet [id number]: 00:00Z - Completed - - Compl eted oxycodone hydrochloride 5 MG Oral Tablet - Completed tizanidine 4 MG Oral Tablet [id number] :00:00Z - Completed Patient Care team information Name Category Status Period Participants - - Proposed period not known -
--- OUTSIDE RECORDS SUMMARY | 2025-02-23 23:12 | XMS_ITS | Clinical Summary ---
Author Organization [facility] Address [address] [place] [address] Care Team Providers Care Obgyn Hospitalist Physician Name Role Phone Umer Aguila MD Primary Care Provider + Allergies Active Allergy Reactions Criticality Noted Date Comments Adhesive Tape-Silicones Itching Low 01/11/2020 Dexamethasone Rash,Hives 04/17/2011 Haloperidol Tachycardia,Hives 05/26/2007 Sumatriptan Headache,Hives,Rash High 10/14/2006 Sertraline Hallucinations 01/02/2019 Olanzapine Rash,*Unknown - Pt D oesn't Remember 03/23/2018 Medications tiZANidine (ZANAFLEX) 4 mg tabletIndications: Chronic bilateral low back pain without sciatica Take 1 tablet by mouth every 8 hours if needed for Muscle Spasm. 90 tablet 6 01/03/20 19 Active miscellaneous medical supply (Blood Pressure Cuff) miscIndications:Hy pertension As directed. Monitor your blood pressure daily and record. Make sure you are sitting for at least 15 minutes, around the same time of day. Continue with same medications. Follow-up with primary care for further evaluation of your blood pressure. 1 Each 10/18/19 22 Active Emgality Pen 120 mg/mL pen Inject 120 mg subcutaneous once a month. 05/31/20 23 Active Lantus Solostar U-100 Insulin 100 unit/mL (3 mL) pen Inject 25 units subcutaneous before bedtime. Active olopatadine (PATADAY) 0.2 % ophthalmic solution Place 1 Drop into both eyes once daily if needed. 02/25/20 23 Active pregabalin (LYRICA) 300 mg capsule Take 300 mg by mouth two times daily. 05/20/20 Active prochlorperazine (COMPAZINE) 10 mg tablet Take 10 mg by mouth 2 times daily if needed for Nausea/Vomiting (prn migraine or anxiety). 02/25/20 Active escitalopram oxalate (LEXAPRO) 20 mg tablet Take 20 mg by mouth once daily. Active ketotifen (ZADITOR) 0.025 % (0.035 %) ophthalmic solution Place 1 Drop into both eyes 2 times daily if needed. Active rizatriptan (MAXALT REGISTERED VETERINARY TECHNICIAN) [address] 10 mg on the tongue 2 times daily if needed for Migraine. Give at minimum 2hrs apart. Max Dose: 30mg per 24hrs. Active busPIRone (BUSPAR) 30 mg tablet Take 2 tablets by mouth in the morning and 1 tablet in the evening 10/28/19 24 Active LORazepam (ATIVAN) 2 mg tab Take 1 mg by mouth 3 times daily if needed for Anxiety. 10/20/19 24 Active Ozempic 1 mg/dose (4 mg/3 mL) pen Inject 1 mg subcutaneous once weekly. Active traZODone (DESYREL) 100 mg tablet Take 300 mg by mouth at bedtime. Active DULoxetine (CYMBALTA) 60 mg Delayed-release capsule Take 60 mg by mouth once daily. Active acetaminophen (TYLENOL EXTRA STRGTH) 500 mg tabletIndications: Spondylolisthesis of lumbar region Take 1 to 2 Tablets (500-1,000 mg) by mouth every 6 hours if needed for Pain. Max acetaminophen dose: 4000mg in 24 hrs. 40 Tablet 4 3:22 PM CDT 11/20/19 24 Active sennosides-docusat e (SENOKOT S) (8.6-50 mg) tabletIndications: Constipation due to opioid therapy Take 2 Tablets by mouth two times daily. 20 Tablet 4 3:22 PM CDT 11/20/19 24 Active WalkerIndications: Spondylolisthesis of lumbar region Walker with front wheels for home use. 1 Each 11/20/19 24 Active HYDROmorphone (DILAUDID) 2 mg tabletIndications: Spondylolisthesis of lumbar region Take 1-2 Tablets (2-4 mg) by mouth every 4 hours if needed for Pain. 35 Tablet 4 9:25 AM CDT 11/21/19 24 Active Hospital, Clinic, or Other Facility Administered [...] Umer Aguila MD 06/23/2014 4:45 PM Immunizations Immunization Administration Dates Next Due Influenza Virus, Unspecified [...] is your housing situation today? 1 11/21/2023 Interpersonal Safety Answer Date Record ed Are you being hit, kicked, p ushed or yelled at (see row info)? No 11/21/2023 Interpersonal Safety Abuse 12 - 18 Not on file 11/21/2023 Interpersonal Safety Ambulatory Vulnerability No t on file 11/21/2023 Utilities Answer Date Recorded Do you have trouble paying f or utilities (for example, heat, electricity, water, phone)? 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 Not on file Not on file Not on file Obstetrics History Para Term [...] Hepatitis C screening for age 18-79 1995 Hepatitis B series for 19+ (1 of 3 - 19+ 3-dose series) 1996 Depression screening for age 12+ 03/07/2020 03/07/2019, 02/20/2019, 01/02/2019, Additional history exists BMI (ht and wt on same day) for age 18+ 08/04/2020 08/04/2019, 02/20/2019, 01/02/2019, Additional history exists Tetanus booster 04/16/2021 04/16/2011 Colonoscopy through age 75 2022 Lipids for age 45-75 2022 09/19/2012, 04/15/2012, 02/01/2012, Additional history exists Mammogram for age 45-75 2022 COVID-19 vaccine series ( - 2023- season) 2024 Pap test for age 21-65 03/12/2025 2, 01/17/2019, 11/01/2012, Additional history exists Influenza Vaccine (#1) 2025 8, 06/10/2017, 07/07/2016, Additional history exists Pneumococcal series for age 6-49 Aged Out No longer eligible based on patient's age to complete this topic Medical Devices Implanted Type Area Narcotics Investigator Device Identifier Shelf Expiration Date Model / Serial / Lot Screw Lmbr Post 6.5x50mm Solera 5.5/6 Va [employer]ocr - [id number] Implanted:Qty : 2 on 11/19/2023 by Livan Sutherland MD at [facility] N/A: Spine Medtronic Spine/Ortho [id number] / / Screw Lmbr Post 6.5x40mm Solera 5.5/6 Va Cocr - [id number] Implanted:Qty : 2 on 11/19/2023 by Livan Sutherland MD at [facility] N/A: Spine Medtronic Spine/Ortho [id number] / / Set Screw Lmbr Ant 5.5mm Solera Break Off - [id number] Implanted:Qty : 4 on 11/19/2023 by Livan Sutherland MD at [facility] N/A: Spine Medtronic Spine/Ortho [id number] / / Bone 1-4mm 60cc Medtronic Fine Canclls Freeze Dried - [id number] Implanted:Qty : 1 on 11/19/2023 by Livan Sutherland MD at [facility] N/A: Spine Medtronic Spine/Ortho 02/04/2028 [id number] / [id number] / [id number] Spacer Lmbr 32x42lw - [id number] Implanted:Qty : 1 on 11/19/2023 by Livan Sutherland MD at [facility] N/A: Spine Medtronic Spine/Ortho 01/28/2031 [id number] / / 98PE Donald Lmbr 40x5.5mm Solera 5.5/6 Cvd [facility] - [id number] Implanted:Qty : 2 on 11/19/2023 by Livan Sutherland MD at [facility] N/A: Spine Medtronic Spine/Ortho [id number] / / Procedures Procedure Name Priority Date/Time Associated Diagnosis Comments BUGGY OPERATOR THIN PREP PAP SCREEN IMAGED Routine 03/12/2022 10:00 AM CDT LDL CHOLESTEROL,DIRECT Routine 09/19/2012 6:31 PM BEAMER HELPER from Last 3 Months or Most Recently Relevant to Health Maintenance Results * BUGGY OPERATOR THIN PREP PAP SCREEN IMAGED (03/12/2022 10:00 AM CDT) Case Report Gynecologic Cytology Report Case: [id number] Authorizing Provider: Umer Aguila MD Collected: 03/12/2022 1000 Ordering Location: [facility] Received: 03/13/2022 1048 First Screen: Shaunna Hernandes Pathologist: Scottie Currie MD Specimen: BUGGY OPERATOR ThinPrep Vial Screening, Cervical/Vaginal 03/30/2022 2:06 PM CDT [facility] INTERPRETATION/ RESULT NEGATIVE FOR INTRAEPITHELIAL LESION OR MALIGNANCY (NIL) (none) 03/30/2022 2:06 PM CDT [facility] at 1406 CDT OTHER NON-NEOPLASTIC FINDING(S) Reactive cellular changes associated with inflammation/repa ir 03/30/2022 2:06 PM CDT [facility] SPECIMEN ADEQUACY Satisfactory for evaluation Endocervical component present 03/30/2022 2:06 PM CDT [facility] HPV REQUEST HPV not requested 2021 2:06 PM CDT [facility] Date of LMP 03/30/2022 2:06 PM CDT [facility] Comment:Mirena Last Pap Result NIL 2:06 PM CDT [facility] Menstrual Status Hormonally Suppressed 03/30/2022 2:06 PM CDT [facility] Additional Information 03/30/2022 2:06 PM CDT [facility] Comment: Interpreted at [facility] - [address], [place] [address] Automated Review Successful 03/30/2022 2:06 PM CDT [facility] Comment:Specimen processed s uccessfully by automated community service technician device, ThinPrep Imaging System, [employer] Note The pap test is a [...] and malignant lesions. 03/30/2022 2:06 PM CDT [facility] Other (Cervical/Vagina l) 03/12/2022 10:00 AM CDT 03/13/2022 10:48 AM CDT Umer Aguila MD PATHOLOGY/CYTOLOGY Final Result Performing Organization Address City/State/[facility] Co de Phone Number [facility] [address] [place] [address], * LDL CHOLESTEROL,DIRECT (09/19/2012 6:31 PM BEAMER HELPER) LDL CHOLESTEROL,DI RECT 86 mg/dL 09/20/2012 9:18 AM BEAMER HELPER [facility] PATIENT STATUS NON-FASTIN G 09/20/2012 9:18 AM BEAMER HELPER [facility] Blood specimen (specimen) BLOOD SPECIMEN / Unknown 09/19/2012 6:31 PM BEAMER HELPER 09/19/2012 6:31 PM BEAMER HELPER Narrative [facility] - 09/20/2012 9:18 AM BEAMER HELPER RISK CATEGORY LDL GOAL (mg/dL) Vascular disease and/or diabetes (<100) Multiple (2+) risk factors (<130) 0-1 risk factor (<160) Umer Aguila MD CHEMISTRY Final Re sult [facility] [address] [place] [address] from Last 3 Months or Most Recently Relevant to Health Maintenance [place] [address] [place] [address] MEDICARE PART A [place] [address] [place] [address] [facility] [employer] INS on file Advance Directives * Full Code (Latest Code [...] 8:13 PM 03/31/2018 3:31 PM Care Teams Obgyn Hospitalist Physician Relationship Specialty Start Date End Date Umer Aguila MD [address] [place] [id number] PCP - General Family Practice 08/12/19
[2025-02-23 23:13] VITALS: BP 170/116; PULSE 80; RESP 14; TEMP 35.5; O2SAT 100; BMI 32.3
--- NOTE | 2025-02-24 00:11 | ED.GENADULT ---
HPI - General Adult General Chief complaint: Headache/Migraine Stated complaint: migraine Time Seen by Provider: 02/23/25 23:54 History of Present Illness HPI narrative: Patient is a 49-year-old woman with history of headache disorder who presents with a typical migraine headache. Bitemporal. She has had no new neurologic symptoms. Pain is 8/10 and clear. Is consistent with previous migraines. She has taken a limited supply of oxycodone at home to help with her symptoms but symptoms are still persistent. She has some photophobia and some nausea. No other significant symptoms no recent trauma no signs of infection no signs of meningitis or encephalitis. Related Data Home Medications ?Medication ?Instructions ?Recorded ?Confirmed levonorgestrel 1 intrauterine ONCE 02/23/22 01/09/25 naloxone 4 mg/actuation nasal spray 1 spray intranasal PRN 03/22/24 01/09/25 Previous Rx's ?Medication ?Instructions ?Recorded prochlorperazine maleate 10 mg 10 mg PO BID PRN nausea and 02/24/23 tablet vomiting #60 tabs pen needle, diabetic 30 gauge x #100 ea 06/03/23 5/16 (Pen Needle) ketotifen fumarate 0.025 % (0.035 1 drp ophthalmic (eye) BID #5 mL 06/13/24 %) eye drops (Allergy Eye (ketotifen)) olopatadine 0.2 % eye drops 1 drp ophthalmic (eye) DAILY PRN 06/13/24 itching #2.5 mL hydroxyzine HCl 25 mg tablet 25 mg PO TID PRN anxiety #60 tabs 09/25/24 sulfamethoxazole 800 1 tab PO ONCE #30 tabs 09/25/24 mg-trimethoprim 160 mg tablet blood-glucose sensor (FreeStyle #2 ea 10/20/24 Spencer 3 Plus Sensor device) celecoxib 200 mg capsule (Celebrex) 200 mg PO BID #60 caps 10/20/24 trazodone 100 mg tablet 300 mg (3 x 100 mg) PO QHS #270 11/21/24 tabs semaglutide 2 mg/dose (8 mg/3 mL) 2 mg (0.75 mL) subcut QWEEK #3.75 12/07/24 subcutaneous pen injector mL tizanidine 4 mg tablet 4 mg PO Q6-8H PRN muscle 12/12/24 spasticity #90 tabs buspirone 30 mg tablet 30 mg PO TID anxiety #90 tabs 01/09/25 duloxetine 60 mg capsule,delayed 60 mg PO QDAY #90 caps 01/09/25 release fluoxetine 40 mg capsule 80 mg (2 x 40 mg) PO QDAY #60 caps 01/09/25 galcanezumab-gnlm 120 mg/mL 120 mg subcut Q30D #1 mL 01/09/25 subcutaneous pen injector (Emgality Pen) losartan 50 mg tablet 50 mg PO QDAY #90 tabs 01/09/25 pregabalin 300 mg capsule 300 mg PO BID #60 caps 01/09/25 rizatriptan 10 mg disintegrating 10 mg PO Q2H PRN migraine headache 01/09/25 tablet (Maxalt-MEDICAL CLAIMS REPRESENTATIVE) #20 tabs oxycodone 5 mg tablet 5 mg PO TID PRN pain #90 tabs 02/12/25 Allergies Allergy/AdvReac Type Severity Reaction Status Date / Time dexamethasone Allergy Intermediate Rash Verified 02/23/25 23:19 haloperidol Allergy Intermediate Rash Verified 02/23/25 23:19 sumatriptan Allergy Intermediate Rash Verified 02/23/25 23:19 olanzapine Allergy Mild Rash Verified 02/23/25 23:19 sertraline Allergy Unknown Hallucinati Verified 02/23/25 23:19 ng Review of Systems Status of ROS: Reports: 10 or more systems reviewed and unremarkable except as noted in History and below [facility] Medical History Type 2 diabetes mellitus, without long-term current use of insulin ?E11.9 - Type 2 diabetes mellitus without complications (ICD-10) Postcoital UTI ?N39.0 - Urinary tract infection, site not specified (ICD-10) Mixed hyperlipidemia ?E78.2 - Mixed hyperlipidemia (ICD-10) Primary hypertension ?I10 - Essential (primary) hypertension (ICD-10) Allergic conjunctivitis ?H10.10 - Acute atopic conjunctivitis, unspecified eye (ICD-10) Vitamin D deficiency (12/06/10) ?E55.9 - Vitamin D deficiency, unspecified (ICD-10) Posttraumatic stress disorder ?F43.10 - Post-traumatic stress disorder, unspecified (ICD-10) Panic disorder with agoraphobia (08/13/16) ?F40.01 - Agoraphobia with panic disorder (ICD-10) Opioid dependence ?F11.20 - Opioid dependence, uncomplicated (ICD-10) Moderate episode of recurrent major depressive disorder (05/09/10) ?F33.1 - Major depressive disorder, recurrent, moderate (ICD-10) Migraine headache ?G43.909 - Migraine, unspecified, not intractable, without status migrainosus (ICD-10) Irritable bowel syndrome with both constipation and diarrhea ?K58.2 - Mixed irritable bowel syndrome (ICD-10) Insomnia ?G47.00 - Insomnia, unspecified (ICD-10) History of traumatic brain injury ?Z87.820 - Personal history of traumatic brain injury (ICD-10) Generalized anxiety disorder ?F41.1 - Generalized anxiety disorder (ICD-10) Chronic pain syndrome ?G89.4 - Chronic pain syndrome (ICD-10) Chronic low back pain ?M54.50 - Low back pain, unspecified (ICD-10) ?G89.29 - Other chronic pain (ICD-10) Borderline personality disorder ?F60.3 - Borderline personality disorder (ICD-10) Acquired female bladder prolapse ?N81.10 - Cystocele, unspecified (ICD-10) Surgical History History of left oophorectomy (10/10/09) ?Z90.721 - Acquired absence of ovaries, unilateral (ICD-10) History of laparoscopic cholecystectomy (12/14/06) ?Z90.49 - Acquired absence of other specified parts of digestive tract (ICD-10) History of cystoscopy (08/07/09) ?Z98.890 - Other specified postprocedural states (ICD-10) Family History Father Liver cancer Type 2 diabetes mellitus Social History Narrative: , 2 sons, Non-smoker, Social EtOH What is your current living situation?: I presently have a place to live Problems where you live: pests, such as bugs, ants, or mice and water leaks In the past 12 months, utilities in danger of being shut off: no In past 12 months, lack of transportation kept you from medical appts, meetings, work, or getting things needed for daily living: no In the past 12 mos, have been you worried that your food would run out before you had money to buy more?: never true In the past 12 mos, the food you bought just didn't last and you didn't have money to buy more?: never true Smoking Status: Never smoker How often do you have a drink containing alcohol: never AUDIT-C Alcohol total score: 0 Non-prescribed substance use: denies use How often does anyone, including family, friends and others, physically hurt you: never How often does anyone, including family, friends and others, insult or talk down to you: never How often does anyone, including family, friends and others, threaten you with harm: never How often does anyone, including family, friends and others, scream or curse at you: never Health Related Social Needs: Inadequate housing (Z59.1) Exam Narrative: Exam Narrative: EXAM GENERAL: Patient appears mildly uncomfortable. EYES: No scleral icterus. LYMPH: No supraclavicular or cervical lymphadenopathy. SKIN: Visible skin seen during exam normal or with benign process only. EXT: No dependent lower extremity pedal edema. HEART: Regular rate and rhythm with no murmurs, rubs, or gallops. LUNGS: Clear to auscultation bilaterally with no crackles or wheezes. ABD: Soft, non tender, non distended. PSYCH: Good eye contact, speech is not pressured. Const: Vital Signs, click to edit/add: Vital Signs - 24 hr 02/23/25 23:13 Temperature 95.9 F L Pulse Rate [Pulse Oximeter] 80 Respiratory Rate 14 Blood Pressure [Ri ght Upper Arm] 170/116 H Pulse Oximetry 100 Oxygen Delivery Me thod Room Air Course Course ED Course: Patient seen and examined. Toradol Zofran Benadryl and normal saline given. Vital Signs Vital signs: Initial Vital Signs Temperature 95.9 F L 02/23/25 23:13 Temperature Source Temporal Artery Scan 02/23/25 23:13 Pulse Rate 80 02/23/25 23:13 Respiratory Rate 14 02/23/25 23:13 Blood Pressure 170/116 H 02/23/25 23:13 Blood Pressure Mean 134 H 02/23/25 23:13 Pulse Oximetry 100 02/23/25 23:13 Oxygen Delivery Method Room Air 02/23/25 23:13 Vital Signs Temperature 95.9 F L 02/23/25 23:13 Pulse Rate 80 02/23/25 23:13 Respiratory Rate 14 02/23/25 23:13 Blood Pressure 170/116 H 02/23/25 23:13 Pulse Oximetry 100 02/23/25 23:13 Oxygen Delivery Method Room Air 02/23/25 23:13 Temperature 95.9 F L 02/23/25 23:13 Pulse Rate 80 02/23/25 23:13 Respiratory Rate 14 02/23/25 23:13 Blood Pressure 170/116 H 02/23/25 23:13 Pulse Oximetry 100 02/23/25 23:13 Oxygen Delivery Method Room Air 02/23/25 23:13 Medical Decision Making MDM Narrative Medical decision making narrative: Patient is a 49-year-old woman who presents with a typical migraine headache with this time refractory to medical management. She is treated with Benadryl saline Toradol and Zofran with resolution and improvement of her symptoms. She will go home and rest continue current management and follow up with her primary physician as needed. Discharge Plan Discharge Clinical Impression: Headache Patient Disposition: Home, Self-Care Condition: Stable Instructions: Acute Headache (ED) Additional Instructions: Rest Fluids Pain control as previous Follow-up with your doctor as needed. Activity Level: No Restrictions Discharge Diet: Regular Prescriptions: No Action levonorgestrel 20 mcg/24 hours (7 yrs) 52 mg intrauterine device 1 intrauterine ONCE sulfamethoxazole-trimethoprim 800-160 mg tablet 1 tab PO ONCE Qty: 30 2RF Rx Instructions: 1 pill after intercourse hydroxyzine HCl 25 mg tablet 25 mg PO TID PRN (Reason: anxiety) Qty: 60 2RF fluoxetine 40 mg capsule 80 mg PO QDAY Qty: 60 2RF pregabalin 300 mg capsule 300 mg PO BID Qty: 60 5RF losartan 50 mg tablet 50 mg PO QDAY Qty: 90 1RF duloxetine 60 mg capsule,delayed release(DR/EC) 60 mg PO QDAY Qty: 90 1RF buspirone 30 mg tablet 30 mg PO TID Qty: 90 1RF Emgality Pen 120 mg/mL pen injector 120 mg subcut Q30D Qty: 1 5RF rizatriptan [Maxalt-MEDICAL CLAIMS REPRESENTATIVE] 10 mg tablet,disintegrating 10 mg PO Q2H MDD 20 mg PRN (Reason: migraine headache) Qty: 20 5RF naloxone 4 mg/actuation spray,non-aerosol 1 spray intranasal PRN Patient Comments: Administer a single spray intranasally into one nostril. Call 911. Repeat after 2-3 minutes in alternating nostrils if no or minimal response. ketotifen fumarate [Allergy Eye (ketotifen)] 0.025 % (0.035 %) drops 1 drp ophthalmic (eye) BID Qty: 5 5RF Rx Instructions: administer at least 8 hours apart olopatadine 0.2 % drops 1 drp ophthalmic (eye) DAILY PRN (Reason: itching) Qty: 2.5 5RF prochlorperazine maleate 10 mg tablet 10 mg PO BID PRN (Reason: nausea and vomiting) Qty: 60 1RF (DME) pen needle, diabetic [Pen Needle] 30 gauge x 5/16 needle See Rx Instructions .Route Qty: 100 3RF Rx Instructions: Injects daily celecoxib [Celebrex] 200 mg capsule 200 mg PO BID Qty: 60 5RF (DME) FreeStyle Spencer 3 Plus Sensor Device See Rx Instructions .Route Qty: 2 5RF Rx Instructions: As directed trazodone 100 mg tablet 300 mg PO QHS Qty: 270 1RF semaglutide 2 mg/dose (8 mg/3 mL) pen injector 2 mg subcut QWEEK Qty: 3.75 1RF tizanidine 4 mg tablet 4 mg PO Q6-8H PRN (Reason: muscle spasticity) Qty: 90 5RF oxycodone 5 mg tablet 5 mg PO TID MDD 3 PRN (Reason: pain) Qty: 90 0RF Rx Instructions: Must last a month. Follow Up/Referrals: Umer Aguila MD [Primary Care Provider, Family Practice] Stand Alone Forms: [facility] Info Instructions
--- OUTSIDE RECORDS SUMMARY | 2025-02-24 00:12 | XMS_ITS | CCD ---
Author Organization Unknown Care Team Providers [facility] Representative Name Role Phone Telecommunications Facility Examiner, [place] Primary Care Provider Unava ilable Unavailable Chronic Care Management Unavaila ble Summary Purpose DataExchange Insurance Providers Payer name Policy type / Coverage type Covered alliance party ID Effective Begin Date Effective End Date [employer] Commercial Insurance [id number] Unkn own Family History Family History data not found Medication Administered No Medication Administered data Reason For Visit No Reason For Visit data
--- OUTSIDE RECORDS SUMMARY | 2025-02-24 00:15 | XMS_ITS | Clinical Summary ---
Author Organization [facility] Address [address] [place] [id number] Care Team Providers Care Landscape Crew Leader Name Role Phone Umer Aguila MD Primary [...] times daily if needed. 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 Not on file Not on file No [...] this topic Medical Devices Implanted Type Area Construction Executive Device Identifier Shelf Expiration Date Model / Serial / Lot Screw Lmbr Post 6.5x50mm Solera 5.5/6 Va [employer]ocr - [id number] Implanted:Qty : 2 on 11/19/2023 by Livan Sutherland MD at [facility] N/A: Spine Medtronic Spine/Ortho [id number] / / Screw Lmbr Post 6.5x40mm Solera 5.5/6 Va Cocr - [id number] Implanted:Qty : 2 on 11/19/2023 by Livan Sutherland MD at [facility] N/A: Spine Medtronic Spine/Ortho [id number] / / Set Screw Lmbr Ant 5.5mm Solera Break Off - [id number] Implanted:Qty : 4 on 11/19/2023 by Livan Sutherland MD at [facility] N/A: Spine Medtronic Spine/Ortho [id number] / / Bone 1-4mm 60cc Medtronic Fine Canclls Freeze Dried - [id number] Implanted:Qty : 1 on 11/19/2023 by Livan Sutherland MD at [facility] N/A: Spine Medtronic Spine/Ortho 02/04/2028 [id number] / [id number] / [id number] Spacer Lmbr 22q58pr - [id number] Implanted:Qty : 1 on 11/19/2023 by Livan Sutherland MD at [facility] N/A: Spine Medtronic Spine/Ortho 01/28/2031 [id number] / / 98PE Donald Lmbr 40x5.5mm Solera 5.5/6 Cvd [facility] - [id number] Implanted:Qty : 2 on 11/19/2023 by Livan Sutherland MD at [facility] N/A: Spine Medtronic Spine/Ortho [id number] / / Procedures Procedure Name Priority Date/Time Associated Diagnosis Comments DEHYDROGENATION CONVERTER OPERATOR THIN PREP PAP SCREEN IMAGED Routine 03/12/2022 10:00 AM CDT LDL CHOLESTEROL,DIRECT Routine 09/19/2012 6:31 PM SENIOR IT AUDITOR from Last 3 Months or Most Recently Relevant to Health Maintenance Results * DEHYDROGENATION CONVERTER OPERATOR THIN PREP PAP SCREEN IMAGED (03/12/2022 10:00 AM CDT) Case Report Gynecologic Cytology Report Case: [id number] Authorizing Provider: Umer Aguila MD Collected: 03/12/2022 1000 Ordering Location: [facility] Received: 03/13/2022 1048 First Screen: Shaunna Hernandes Pathologist: Scottie Currie MD Specimen: DEHYDROGENATION CONVERTER OPERATOR ThinPrep Vial Screening, Cervical/Vaginal 03/30/2022 2:06 PM CDT e(ye)[facility] INTERPRETATION/ RESULT NEGATIVE FOR INTRAEPITHELIAL LESION OR MALIGNANCY (NIL) (none) 03/30/2022 2:06 PM CDT e(ye)[facility] at 1406 CDT OTHER NON-NEOPLASTIC FINDING(S) Reactive cellular changes associated with inflammation/repa ir 03/30/2022 2:06 PM CDT e(ye)[facility] SPECIMEN ADEQUACY Satisfactory for evaluation Endocervical component present 03/30/2022 2:06 PM CDT [facility] HPV REQUEST HPV not requested 2021 2:06 PM CDT e(ye)[facility] Date of LMP 03/30/2022 2:06 PM CDT e(ye)[facility] Comment:Mirena Last Pap Result NIL 2:06 PM CDT [facility] Menstrual Status Hormonally Suppressed 03/30/2022 2:06 PM CDT [facility] Additional Information 03/30/2022 2:06 PM CDT [facility] Comment: Interpreted at [facility] - [address], [place] [address] Automated Review Successful 03/30/2022 2:06 PM CDT [facility] Comment:Specimen processed s uccessfully by automated instructor nurse device, ThinPrep Imaging System, [employer] Note The pap test is a [...] and malignant lesions. 03/30/2022 2:06 PM CDT [facility] Other (Cervical/Vagina l) 03/12/2022 10:00 AM CDT 03/13/2022 10:48 AM CDT Umer Aguila MD PATHOLOGY/CYTOLOGY Final Result Performing Organization Address City/State/[facility] Co de Phone Number [facility] [address] [place] [address], * LDL CHOLESTEROL,DIRECT (09/19/2012 6:31 PM SENIOR IT AUDITOR) LDL CHOLESTEROL,DI RECT 86 mg/dL 09/20/2012 9:18 AM SENIOR IT AUDITOR [facility] PATIENT STATUS NON-FASTIN G 09/20/2012 9:18 AM SENIOR IT AUDITOR [facility] Blood specimen (specimen) BLOOD SPECIMEN / Unknown 09/19/2012 6:31 PM SENIOR IT AUDITOR 09/19/2012 6:31 PM SENIOR IT AUDITOR Narrative [facility] - 09/20/2012 9:18 AM SENIOR IT AUDITOR RISK CATEGORY LDL GOAL (mg/dL) Vascular disease and/or diabetes (<100) Multiple (2+) risk factors (<130) 0-1 risk factor (<160) Umer Aguila MD CHEMISTRY Final Re sult [facility] [address] [place] [address] from Last 3 Months or Most Recently Relevant to Health Maintenance [place] [address] [place] [address] MEDICARE PART A HB [place] [place] [address] [facility] [employer] VEHICLE INS on file Advance Directives [...] 8:13 PM 03/31/2018 3:31 PM Care Teams Landscape Crew Leader Relationship Specialty Start Date End Date Umer Aguila MD [address] [place] [id number] PCP - General Family Practice 08/12/19
--- OUTSIDE RECORDS SUMMARY | 2025-02-24 00:15 | XMS_ITS ---
[...] Compl eted tizanidine 4 MG Oral Tablet [id number] :00:00Z - Completed - - Compl eted pregabalin 300 MG Oral Capsule 2023-12-31 T00:00:00Z - Completed 3 ML insulin glargine 100 UN T/ML Pen Injector [Lantus] - Completed acetaminophen 325 MG / hydro codone bitartrate 5 MG Oral Tablet - Completed lorazepam 2 MG Oral Tablet [id number]: 00:00Z - Completed - - Compl eted 1 ML galcanezumab-gnlm 120 M G/ML Auto-Injector [Emgality] - Completed benzonatate 200 MG Oral Capsule 2023-12-16 1T00:00:00Z - Completed - - Compl eted tizanidine 4 MG Oral Tablet [id number] :00:00Z - Completed tizanidine 4 MG Oral Tablet [id number] :00:00Z - Completed oxycodone hydrochloride 5 MG Oral Tablet - Completed 24 HR metoprolol succinate 2 00 MG Extended Release Oral Tablet - Complete d rizatriptan 10 MG Disintegra ting Oral Tablet - Completed lorazepam 1 MG Oral Tablet [id number]: 00:00Z - Completed celecoxib 200 MG Oral Capsule 2023-11-02 00:00:00Z - Completed 3 ML semaglutide 1.34 MG/ML Pen Injector [Ozempic] - Completed 1 ML galcanezumab-gnlm 120 M G/ML Auto-Injector [Emgality] - Completed 1 ML galcanezumab-gnlm 120 M G/ML Auto-Injector [Emgality] - Completed lorazepam 2 MG Oral Tablet [id number]: 00:00Z - Completed amoxicillin 875 MG / [...] - Completed lisinopril 40 MG Oral Tablet [id number] 0:00:00Z - Completed - - Compl eted cefdinir 300 MG Oral Capsule [id number] 0:00:00Z - Completed lorazepam 2 MG Oral Tablet [id number]: 00:00Z - Completed 3 ML semaglutide 1.34 MG/ML Pen Injector [Ozempic] - Completed cefdinir 300 MG Oral Capsule [id number] 0:00:00Z - Completed naloxone hydrochloride 40 MG /ML Nasal [place] - Completed 1 ML galcanezumab-gnlm 120 M G/ML Auto-Injector [Emgality] - Completed oxycodone hydrochloride 5 MG Oral Tablet - Completed buspirone hydrochloride 30 M G Oral Tablet - Completed 1 ML galcanezumab-gnlm 120 M G/ML Auto-Injector [Emgality] - Completed - - Compl eted lorazepam 2 MG Oral Tablet [id number]: 00:00Z - Completed - - Compl eted [...] - Completed tizanidine 4 MG Oral Tablet [id number] :00:00Z - Completed hydromorphone hydrochloride 2 MG Oral Tablet - Completed pregabalin 300 MG Oral Capsule 2023-09-09 T00:00:00Z - Completed lorazepam 2 MG Oral Tablet [id number]: 00:00Z - Completed oxycodone hydrochloride 5 MG Oral Tablet - Completed 3 ML semaglutide 1.34 MG/ML Pen Injector [Ozempic] - Completed verapamil hydrochloride 120 MG Extended Release Oral Tablet - Complete d tizanidine 4 MG Oral Tablet [id number] :00:00Z - Completed sulfamethoxazole 800 MG / trimethoprim 160 MG Oral Tablet - Compl eted oxycodone hydrochloride 5 MG Oral Tablet - Completed lorazepam 2 MG Oral Tablet [id number]: 00:00Z - Completed sulfamethoxazole 800 MG / trimethoprim 160 MG Oral Tablet - Compl eted tizanidine 4 MG Oral Tablet [id number] :00:00Z - Completed buspirone hydrochloride 30 M G Oral Tablet - Completed lorazepam 2 MG Oral Tablet [id number]: 00:00Z - Completed - - Compl eted lorazepam 1 MG Oral Tablet [id number]: 00:00Z - Completed pregabalin 300 MG Oral Capsule 2024-02-27 T00:00:00Z - Completed prochlorperazine 10 MG Oral Tablet 00:00:00Z - Completed escitalopram 20 MG Oral Tablet 2023-09-21 T00:00:00Z - Completed lorazepam 2 MG Oral Tablet [id number]: 00:00Z - Completed rizatriptan 10 MG Disintegra [...] - Completed lorazepam 1 MG Oral Tablet [id number]: 00:00Z - Completed - - Compl eted 3 ML semaglutide 1.34 MG/ML Pen Injector [Ozempic] - Completed lorazepam 2 MG Oral Tablet [id number]: 00:00Z - Completed 1 ML galcanezumab-gnlm 120 M G/ML Auto-Injector [Emgality] - Completed pregabalin 300 MG Oral Capsule 2023-07-21 T00:00:00Z - Completed 1 ML galcanezumab-gnlm 120 M G/ML Auto-Injector [Emgality] - Completed tizanidine 4 MG Oral Tablet [id number] :00:00Z - Completed celecoxib 200 MG Oral Capsule 2023-09-24 00:00:00Z - Completed 3 ML semaglutide 1.34 MG/ML Pen Injector [Ozempic] - Completed tizanidine 4 MG Oral Tablet [id number] :00:00Z - Completed tizanidine 4 MG Oral Tablet [id number] :00:00Z - Completed pregabalin 300 MG Oral Capsule 2023-10-05 T00:00:00Z - Completed rizatriptan 10 MG Disintegra ting Oral Tablet - Completed duloxetine 60 MG Delayed Rel ease Oral Capsule - Completed pregabalin 300 MG Oral Capsule 2024-01-27 T00:00:00Z - Completed lorazepam 1 MG Oral Tablet [id number]: 00:00Z - Completed - - Compl eted oxycodone hydrochloride 5 MG Oral Tablet - Completed tizanidine 4 MG Oral Tablet [id number] :00:00Z - Completed Patient Care team information Name Category Status Period Participants - - Proposed period not known -
[2025-02-24] MEDS: ONDANSETRON 2 MG/ML inj 4 MG IVP (00:18)
[2025-02-24 01:12] VITALS: BP 158/88; PULSE 70; RESP 14; O2SAT 93
--- OUTSIDE RECORDS SUMMARY | 2025-02-24 01:14 | XMS_ITS | CCD ---
Author Organization Unknown Care Team Providers Care Dairy Nutrition Specialist Name Role Phone Marketing Associate, [place] Primary Care Provider Unava ilable Unavailable Chronic Care Management Unavaila ble Summary Purpose DataExchange Insurance Providers Payer name Policy type / Coverage type Covered constitution party ID Effective Begin Date Effective End Date [employer] Commercial Insurance [id number] Unkn own Family History Family History data not found Medication Administered No Medication Administered data Reason For Visit No Reason For Visit data
--- OUTSIDE RECORDS SUMMARY | 2025-02-24 01:14 | XMS_ITS | CCD ---
Author Organization Unknown Care Team Providers Care Eap Clinician Name Role Phone Foundry Patternmaker, [place] Primary Care Provider Unava ilable Unavailable Chronic Care Management Unavaila ble Summary Purpose DataExchange Insurance Providers Payer name Policy type / Coverage type Covered democrat ID Effective Begin Date Effective End Date [employer] Commercial Insurance [id number] Unkn own Family History Family History data not found Medication Administered No Medication Administered data Reason For Visit No Reason For Visit data
== END 2025-02-24 01:15 | disposition home or self-care (01) ==
PROVIDERS: Emergency Provider Internal Medicine; PCP Family Medicine
DX: R51.9 Headache, unspecified (principal)
CPT/HCPCS: 96374; 96375; 99283; 99284; J1200; J1885; J2405; J7030

== ENCOUNTER 2025-06-11 14:36 | Outpatient (CLI) | payer MEDICARE, MEDICAID, SELFPAY | END 2025-06-11 14:37 | disposition home or self-care (01) | LOC: NFLDREF 06-13 19:03 | PROVIDERS: PCP Family Medicine; Referring Provider Family Medicine; Visit Provider Family Medicine | DX: E11.9 Type 2 diabetes mellitus without complications (principal) | CPT/HCPCS: 82043; 82570 ==